=== PATIENT | female | born 1940 | race Caucasian/White ===

== ENCOUNTER 2020-01-26 18:21 | Emergency (ER) | payer MEDICARE ==
[2020-01-26] MEDS ORDERED: SODIUM CHLORIDE 0.9% 1,000 ML IV STA (18:25)
[2020-01-26] MEDS ORDERED: SODIUM CHLORIDE 0.9% 500 ML 500 ML IV STA (18:25)
[2020-01-26 18:31] LABS: Glucose,Whole Blood 111 mg/dL (75-99)
--- NOTE | 2020-01-26 18:38 | CT ---
EXAMINATION TYPE: CT brain wo con for TPA DATE OF EXAM: 01/26/2020 COMPARISON: None INDICATION: cva DLP: 1099.6 mGycm, Automated exposure control for dose reduction was used. CONTRAST: None CT of the brain is performed utilizing 3 mm thick sections through the posterior fossa and 3 mm thick sections through the remaining calvarium. Study is performed within 24 hours of arrival to the hosp ital. No abnormal hyperdensity is present to suggest an acute intracranial hemorrhage. No mass lesion is evident. No acute infarcts are evident. Ventricles and sulci are mildly prominent for the patient age. Paranasal sinuses and mastoid air cells within the [id number] are clear. IMPRESSIONS: 1. No acute intracranial process.
[2020-01-26 18:43] VITALS: RESP 16
--- NOTE | 2020-01-26 18:43 | ED ---
Neuro HPI - General Stated Complaint: STROKE Time Seen by Provider: 01/26/20 18:25 Source: RN notes reviewed, old records reviewed - History of Present Illness Is the patient presenting with stroke symptoms?: Yes -: hour(s) (1) Initial Comments: This is an 79-year-old female DF for evaluation she presents today for evaluation of strokelike symptoms presenting with EMS and her daughter. Daughter was with patient prior to arrival when symptoms began. Patient has history of atrial fibrillation on Coumadin. Patient was sobering buying a house did sit down to have a drink surgery jaw and became unresponsive a phasic and daughter did call EMS at that time. EMS arrived patient EMS also had some right-sided surgery weakness and patient not responding patient brought to EMS and then to emergency department in same condition. On arrival to ER patient is unable to contribute to history Location: speech, dysarthria, right arm, right leg History of same: No Place: home Severity: severe Improves With: none Worsens With: none On Anticoagulants: Yes (Coumadin) Context: sudden onset Associated Symptoms: denies other symptoms - Related Data Allergies/Adverse Reactions: Allergies Allergy/AdvReac Type Severity Reaction Status Date / Time Penicillins Allergy Unknown Verified 01/26/20 18:39 Review of Systems ROS Statement: Those systems with pertinent positive or pertinent negative responses have been documented in the HPI. ROS Other: All systems not noted in ROS Statement are negative. General Exam General appearance: alert, in no apparent distress, lethargic, in distress, other (aphasia, receptive and expressive) Head exam: Present: atraumatic, normocephalic, normal inspection Eye exam: Present: normal appearance, PERRL, EOMI. Absent: scleral icterus, conjunctival injection, periorbital swelling ENT exam: Present: normal exam, mucous membranes moist Neck exam: Present: normal inspection. Absent: tenderness, meningismus, lymphadenopathy Respiratory exam: Present: normal lung sounds bilaterally. Absent: respiratory distress, wheezes, rales, rhonchi, stridor Cardiovascular Exam: Present: regular rate, normal rhythm, normal heart sounds. Absent: systolic murmur, diastolic murmur, rubs, gallop, clicks GI/Abdominal exam: Present: soft, normal bowel sounds. Absent: distended, tenderness, guarding, rebound, rigid Extremities exam: Present: normal inspection, full ROM, normal capillary refill. Absent: tenderness, pedal edema, joint swelling, calf tenderness Back exam: Present: normal inspection Neurological exam: Present: alert, oriented X3, CN II-XII intact Psychiatric exam: Present: normal affect, normal mood Skin exam: Present: warm, dry, intact, normal color. Absent: rash Stroke MDM - Lab Data Result diagrams: 01/26/20 18:26 Lab Results 01/26/20 01/26/20 01/26/20 Range/Units 18:23 18:26 18:26 PT (9.0-12.0) sec INR (<1.2) APTT (22.0-30.0) sec Sodium 139 (137-145) mmol/L Potassium 4.8 (3.5-5.1) mmol/L Chloride 105 (98-107) mmol/L Carbon Dioxide 21 L (22-30) mmol/L Anion Gap 13 mmol/L BUN 28 H (7-17) mg/dL Creatinine 1.13 H (0.52-1.04) mg/dL Est GFR (CKD-EPI)AfAm 53 (>60 ml/min/1.73 sqM) Est GFR (CKD-EPI)NonAf 46 (>60 ml/min/1.73 sqM) Glucose 120 H (74-99) mg/dL POC Glucose (mg/dL) 111 H (75-99) mg/dL POC Glu [employer] Operator ID Kaley Holloway Calcium 8.9 (8.4-10.2) mg/dL Total Bilirubin 1.6 H (0.2-1.3) mg/dL AST 44 H (14-36) U/L ALT 21 (4-34) U/L Alkaline Phosphatase 67 (38-126) U/L Total Creatine Kinase 75 (30-135) U/L CK-MB (CK-2) 0.6 (0.0-2.4) ng/mL CK-MB (CK-2) Rel Index 0.8 Troponin I <0.012 (0.000-0.034) ng/mL Total Protein 7.7 (6.3-8.2) g/dL Albumin 4.4 (3.5-5.0) g/dL 01/26/20 Range/Units 18:26 PT 16.2 H (9.0-12.0) sec INR 1.6 H (<1.2) APTT 24.8 (22.0-30.0) sec Sodium (137-145) mmol/L Potassium (3.5-5.1) mmol/L Chloride (98-107) mmol/L Carbon Dioxide (22-30) mmol/L Anion Gap mmol/L BUN (7-17) mg/dL Creatinine (0.52-1.04) mg/dL Est GFR (CKD-EPI)AfAm (>60 ml/min/1.73 sqM) Est GFR (CKD-EPI)NonAf (>60 ml/min/1.73 sqM) Glucose (74-99) mg/dL POC Glucose (mg/dL) (75-99) mg/dL POC Glu [employer] Operator ID Calcium (8.4-10.2) mg/dL Total Bilirubin (0.2-1.3) mg/dL AST (14-36) U/L ALT (4-34) U/L Alkaline Phosphatase (38-126) U/L Total Creatine Kinase (30-135) U/L CK-MB (CK-2) (0.0-2.4) ng/mL CK-MB (CK-2) Rel Index Troponin I (0.000-0.034) ng/mL Total Protein (6.3-8.2) g/dL Albumin (3.5-5.0) g/dL - NIH Stroke Scale 1a. Level of Consciousness: (0) alert 1b. LOC Questions: (2) answers no questions correctly 1c. LOC Commands: (2) performs no tasks correctly 2. Best Gaze: (0) normal 3. Visual: (0) no visual loss 4. Facial Palsy: (2) partial paralysis 5a. Motor Arm Left: (0) no drift 5b. Motor Arm Right: (2) some gravity effort 6a. Motor Leg Left: (0) no drift 6b. Motor Leg Right: (2) some gravity effort 7. Limb Ataxia: (2) present 2 limbs 8. Sensory: (0) normal 9. Best Language: (un) mute/global aphasia 10. Dysarthria: (1) mild/moderate dysarthria 11. Extinction/Inattention: (0) no abnormality - Thrombolytic Inclusion/Exclusion Thrombolytic Inclusion Criteria: Symptom Onset < 4.5 h, NIH Stroke Scale Deficit, Negative CT Scan for ICH, Age 18 or Older, Glucose of 50-400mg/dl - Medical Decision Making 79 female DF for evaluation patient presents today for evaluation of neurological deficit unresponsiveness patient found to have left MCA CVA on computed tomography scan and will transferred [facility] for embolectomy, awaiting INR regarding possible administration of TPA - Radiology Data Radiology results: report reviewed, image reviewed - EKG Data -: EKG Interpreted by Me (EKG is a flutter rate of 64, QRS 152 QTC 491) Course Vital Signs 01/26/20 01/26/20 18:39 18:45 Temperature 98 F 98.1 F Pulse Rate 70 60 Respiratory 16 16 Rate Blood Pressure 146/84 163/80 O2 Sat by Pulse 97 100 Oximetry - Reevaluation(s) Reevaluation #1: 01/26/20 18:53 Medical records reviewed Reevaluation #2: 01/26/20 18:54 Spoke with patient's daughter, updated on findings and results, questions answered Reevaluation #3: 01/26/20 18:54 Reevaluation patient with no symptomatically improvement currently Reevaluation #4: 01/26/20 19:04 Patient to be given TPA with INR of 1.6 - Consultations Consultation #1: spoke w Dr Mike aware of code stroke , he did evaluate the CTA of the head neck does transfer for embolectomy Consultation #2: Spoke with [facility] were agreeable for transfer Critical Care Time Critical Care Time: Yes Total Critical Care Time: 31 Disposition Clinical Impression: Cerebrovascular accident (CVA), Acute ischemic left MCA stroke Disposition: OTHER INSTITUTION NOT DEFINED Condition: Critical Is patient prescribed a controlled substance at d/c from ED?: No Referrals: Hair Olivas MD [Primary Care Provider] - 1-2 days - Out of Hospital Transfer - Req. Specs Out of Hospital Transfer - Requested Specifics: Other Emergency Center ([facility] [place])
[2020-01-26 18:48] LABS: Creatine Kinase 75 U/L (30-135)
[2020-01-26 18:49] LABS: INR 1.6 (<1.2); Partial Thromboplastin Time 24.8 sec (22.0-30.0); Prothrombin Time 16.2 sec (9.0-12.0)
[2020-01-26 18:51] LABS: Albumin 4.4 g/dL (3.5-5.0); Calcium 8.9 mg/dL (8.4-10.2); Potassium 4.8 mmol/L (3.5-5.1); Total Bilirubin 1.6 mg/dL (0.2-1.3); Total Protein 7.7 g/dL (6.3-8.2)
--- NOTE | 2020-01-26 18:52 | XR ---
EXAMINATION TYPE: XR chest 1V portable DATE OF EXAM: 01/26/2020 COMPARISON: None INDICATION: Altered mental status TECHNIQUE: Single frontal view of the chest is obtained. FINDINGS: The heart size is enlarged. The pulmonary vasculature is normal. The lungs are clear. IMPRESSION: 1. Cardiomegaly
[2020-01-26 18:53] VITALS: TEMP 98.1
[2020-01-26 19:00] LABS: Creatine Kinase MB 0.6 ng/mL (0.0-2.4); Troponin I <0.012 ng/mL (0.000-0.034)
[2020-01-26] MEDS ORDERED: Alteplase PER PHARMACY Stroke 1 EACH MISC MISCELLANE PRN (19:00)
[2020-01-26] MEDS ORDERED: ALTEPLASE BOLUS 7 MG in EMPTY SYRINGE 1 SYR IV STA (19:00)
[2020-01-26] MEDS ORDERED: ALTEPLASE 61 MG in EMPTY BAG 1 BAG IV STA (19:00)
--- NOTE | 2020-01-26 19:01 | CT ---
EXAMINATION TYPE: CT angio head neck DATE OF EXAM: 01/26/2020 HISTORY: cva COMPARISON: None CT DLP: 399.6 mGycm. Automated Exposure Control for Dose Reduction was Utilized. TECHNIQUE: CTA scan of the neck is performed with IV Contrast, patient injected with 65cc mL of Isov ue 370, axial images are obtained, coronal and sagittal reformatted images are reviewed. Three-D frank nstructed images are created on an independent workstation and reviewed. Source images are reviewed. FINDINGS: Carotid/Vascular Structures: There is a three-vessel arch. The right vertebral artery is not identifi ed. Left vertebral artery is dominant and patent to the skull base. Some retrograde flow of the contr ast within the right vertebral artery may be at the level of the skull base. Right vertebral artery i s not otherwise identified There is atheromatous plaquing at the bilateral carotid bifurcations. Significant flow-limiting steno sis is not identified. Cervical of [place]: Contrast is within both left and right vertebral arteries within the posterior fo ssa. This may be retrograde flow on the right. Contrast is not extend beyond the skull base within th e right vertebral artery. Basilar artery is normal. Posterior cerebral vasculature is unremarkable. Internal carotid arteries bifurcate normally into A1 and M1 segments. A2 segments are normal. The ant erior communicating artery is patent. Posterior communicating arteries are not identified. IMPRESSION: 1. Atheromatous plaquing at the bilateral carotid bifurcations without significant flow-limiting sten osis. This may be slightly greater on the right than the left. 2. Nonvisualization of the left vertebral artery to the skull base. Retrograde flow within the intrac ranial portion of the right vertebral artery may be present to the skull base. This may be occluded a t its origin. 3. [place] of [place] otherwise appears within normal limits.
[2020-01-26 19:05] LABS: Basophils % (A) 0 %; Eosinophils # (A) 0.1 k/uL (0-0.7); Eosinophils % (A) 1 %; HCT 40.9 % (34.0-46.0); HGB 13.9 gm/dL (11.4-16.0); Lymphocytes # (A) 0.7 k/uL (1.0-4.8); Lymphocytes % (A) 9 %; MCH 36.4 pg (25.0-35.0); MCHC 33.8 g/dL (31.0-37.0); MCV 107.6 fL (80.0-100.0); Macrocytosis Moderate; Monocytes # (A) 0.2 k/uL (0-1.0); Monocytes % (A) 2 %; Neutrophils # (A) 6.1 k/uL (1.3-7.7); Neutrophils % (A) 86 %; Platelet Count 227 k/uL (150-450); RBC 3.81 m/uL (3.80-5.40); RDW 13.1 % (11.5-15.5); WBC 7.1 k/uL (3.8-10.6)
[2020-01-26 19:26] VITALS: BP 166/89; PULSE 66
== END 2020-01-26 19:19 | disposition other institution (70) ==
LOC: EC 18:21
DX: I63.512 Cerebral infarction due to unspecified occlusion or stenosis of left middle cerebral artery (principal); R29.713 NIHSS score 13; I48.91 Unspecified atrial fibrillation; Z79.01 Long term (current) use of anticoagulants; Z88.0 Allergy status to penicillin
CPT/HCPCS: 36415; 93005; 80053; 82550; 82553; 84484; 85025; 85610; 85730; 71045; 70496; 70450; 70498; 99291; 96365; 96368; J2997; Q9967

== ENCOUNTER 2020-04-08 18:07 | Emergency (ER) | payer MEDICARE ==
[2020-04-08 18:23] VITALS: RESP 18; TEMP 98
[2020-04-08] MEDS ORDERED: TRANEXAMIC ACID 1,000 MG/10 ML VIAL MISCELLANE STA (18:44)
[2020-04-08] MEDS ORDERED: LIDOCAINE 1%-EPI 1:100,000 20 ML VIAL SQ STA (18:46)
[2020-04-08] MEDS ORDERED: ONDANSETRON ODT 4 MG TAB PO STA (19:33)
[2020-04-08] MEDS ORDERED: oxyCODONE-APAP 5-325MG 1 EACH TAB PO STA (19:33)
--- NOTE | 2020-04-08 19:56 | ED ---
General Adult HPI - General Source: patient, RN notes reviewed Mode of arrival: ambulatory Limitations: no limitations <Sanya Ortega - Last Filed: 04/08/20 19:46> <Live Hills - Last Filed: 04/08/20 20:45> - General Chief complaint: Dental/Oral Stated complaint: post dental extraction bleeding Time Seen by Provider: 04/08/20 18:37 - History of Present Illness Initial comments: 79-year-old female with a past medical history atrial fibrillation, hyperlipidemia, hypertension, CVA currently on Lovenox presents to the emergency room for dental bleeding. Patient had an extraction of the left lower molar one week ago. Patient was on request and was bridged to Lovenox given stroke history. Today patient was seen by the dentist and given clindamycin. After she got home it started bleeding again after she drank out of a straw. Patient initially tried a teabag which did stop the bleeding however when she took the teabag out it reoccurred.Patient has no other complaints at this time including shortness of breath, chest pain, abdominal pain, nausea or vomiting, headache, or visual changes. (Sanya Ortega) - Related Data Allergies Allergy/AdvReac Type Severity Reaction Status Date / Time Penicillins Allergy Unknown Verified 04/08/20 18:23 Review of Systems ROS Other: All systems not noted in ROS Statement are negative. <Sanya Ortega - Last Filed: 04/08/20 19:46> ROS Other: All systems not noted in ROS Statement are negative. <Live Hills - Last Filed: 04/08/20 20:45> ROS Statement: Those systems with pertinent positive or pertinent negative responses have been documented in the HPI. Past Medical History Past Medical History: Atrial Fibrillation, CVA/TIA, Hyperlipidemia, Hypertension Additional Past Medical History / Comment(s): cardiomyopathy History of Any Multi-Drug Resistant Organisms: None Reported Past Surgical History: Cholecystectomy, Heart Catheterization, Hysterectomy, Tonsillectomy Past Alcohol Use History: Occasional Past Drug Use History: None Reported <Sanya Ortega - Last Filed: 04/08/20 19:46> General Exam Limitations: no limitations General appearance: alert, in no apparent distress Head exam: Present: atraumatic, normocephalic, normal inspection Eye exam: Present: normal appearance, PERRL, EOMI. Absent: scleral icterus, conjunctival injection, periorbital swelling ENT exam: Present: normal exam, mucous membranes moist, TM's normal bilaterally, normal external ear exam. Absent: normal oropharynx (tooth extraction noted of the left lower molar with mild bleeding at this time.) Neck exam: Present: normal inspection, full ROM. Absent: tenderness, meningismus, lymphadenopathy Respiratory exam: Present: normal lung sounds bilaterally. Absent: respiratory distress, wheezes, rales, rhonchi, stridor Cardiovascular Exam: Present: regular rate, normal rhythm, normal heart sounds. Absent: systolic murmur, diastolic murmur, rubs, gallop, clicks GI/Abdominal exam: Present: soft, normal bowel sounds. Absent: distended, tenderness, guarding, rebound, rigid <Sanya Ortega - Last Filed: 04/08/20 19:46> Course <Live [place] - Last Filed: 04/08/20 20:45> Vital Signs 04/08/20 04/08/20 18:18 20:08 Temperature 98.0 F 98.0 F Pulse Rate 77 68 Respiratory 18 18 Rate Blood Pressure 152/86 152/77 O2 Sat by Pulse 97 97 Oximetry - Reevaluation(s) Reevaluation #1: 04/08/20 20:44 PA supervision: I personally a [id number] evaluation the patient. She did have a tooth extraction left lower gum approximately 1 week ago. She had bleeding today. She is on anticoagulants due to the risk of stroke. Patient to response to topical TX a. Patient will be discharged further bleeding on inspection. (Live [place]) Medical Decision Making <Sanya Ortega - Last Filed: 04/08/20 19:46> - Medical Decision Making TXA was applied to the area. This did achieve hemostasis. Patient was already seen by dentist today and started on clindamycin for possible infection however no evidence of abscess. At this time patient will be discharged home. She'll return here for any worsening symptoms. (Sanya Ortega) Disposition Is patient prescribed a controlled substance at d/c from ED?: No Time of Disposition: 19:55 <Sanya Ortega - Last Filed: 04/08/20 19:46> <Live [place] - Last Filed: 04/08/20 20:45> Clinical Impression: Post-op bleeding Disposition: HOME SELF-CARE Condition: Good Instructions (If sedation given, give patient instructions): Toothache (ED), Dry Socket (ED) Additional Instructions: please follow up with primary care in 1-2 days. if bleeding starts again tried direct pressure to the area for 20 minutes or a teabag. However if you cannot get bleeding to stop return to the emergency room. Referrals: Hair Olivas MD [Primary Care Provider] - 1-2 days
[2020-04-08 20:12] VITALS: BP 152/77; PULSE 68
== END 2020-04-08 20:11 | disposition home or self-care (01) ==
LOC: EC 18:07
DX: L76.22 Postprocedural hemorrhage of skin and subcutaneous tissue following other procedure (principal); Z88.0 Allergy status to penicillin; Z86.73 Personal history of transient ischemic attack (TIA), and cerebral infarction without residual deficits; Z95.5 Presence of coronary angioplasty implant and graft; Z98.818 Other dental procedure status
CPT/HCPCS: 99283

== ENCOUNTER 2022-12-24 09:15 | Emergency (ER) | payer MEDICARE ==
[2022-12-24] MEDS ORDERED: SODIUM CHLORIDE 0.9% 500 ML 500 ML IV STA (09:17)
--- NOTE | 2022-12-24 09:23 | ED ---
General Adult HPI - General Stated complaint: Possible Stroke Time Seen by Provider: 12/24/22 09:15 - History of Present Illness Initial comments: This is an 82-year-old female who has a past medical history significant for atrial fibrillation and stroke. Patient had a CAT scan about 3 weeks ago and it showed a subacute stroke in her eliquis. This past night. Patient woke up this morning was feeling fine was able to get up and walk around and that was a 20. Shortly thereafter someone spoke with her on the phone and she sounded fine and then when the daughter showed up to take her for a repeat CAT scan and she was having complete left-sided paralysis. Patient is alert and oriented and is aware that she is having paralysis. Patient denies any pain. Patient does realize the left side is weak. Patient states that she is at the hospital and needs a CAT scan. Daughter gives quite a bit of the history and she is also a nurse. - Related Data Allergies Allergy/AdvReac Type Severity Reaction Status Date / Time Penicillins Allergy Unknown Verified 04/08/20 18:23 Review of Systems ROS Statement: Those systems with pertinent positive or pertinent negative responses have been documented in the HPI. ROS Other: All systems not noted in ROS Statement are negative. Past Medical History Past Medical History: Atrial Fibrillation, CVA/TIA, Hyperlipidemia, Hypertension Additional Past Medical History / Comment(s): cardiomyopathy History of Any Multi-Drug Resistant Organisms: None Reported Past Surgical History: Cholecystectomy, Heart Catheterization, Hysterectomy, Tonsillectomy Past Alcohol Use History: Occasional Past Drug Use History: None Reported General Exam - General Exam Comments Initial Comments: GENERAL: Patient is well-developed and well-nourished. Patient is nontoxic and well- hydrated and is in mild distress. ENT: Neck is soft and supple. No significant lymphadenopathy is noted. Oropharynx is clear. Moist mucous membranes. Neck has full range of motion without eliciting any pain. EYES: The sclera were anicteric and conjunctiva were pink and moist. Extraocular movements were intact and pupils were equal round and reactive to light. Eyelids were unremarkable. PULMONARY: Unlabored respirations. Good breath sounds bilaterally. No audible rales rhonc hi or wheezing was noted. CARDIOVASCULAR: There is a regular rate and rhythm without any murmurs gallops or rubs. ABDOMEN: Soft and nontender with normal bowel sounds. No palpable organomegaly was noted. There is no palpable pulsatile mass. SKIN: Skin is clear with no lesions or rashes and otherwise unremarkable. NEUROLOGIC: Patient is alert and oriented x3. Patient has left-sided facial droop patient has complete paralysis of left arm and left leg. Patient has slurred speech as well. Patient's extraocular motion is normal to the right but she is unable to past midline when trying to look to the left. MUSCULOSKELETAL: Normal extremities with adequate strength and full range of motion. No lower extremity swelling or edema. No calf tenderness. LYMPHATICS: No significant lymphadenopathy is noted PSYCHIATRIC: Normal psychiatric evaluation. Course Vital Signs 12/24/22 12/24/22 09:16 09:17 Temperature 97.3 F L 97.4 F L Pulse Rate 70 68 Respiratory 19 19 Rate Blood Pressure 193/114 182/106 O2 Sat by Pulse 99 99 Oximetry Medical Decision Making - Medical Decision Making A code stroke was called immediately after I saw the patient. EKG was interpreted by myself shows atrial fibrillation with a rate of 56 bpm QRS is 156 QT interval is 4 6090 QTC is 460. Patient's EKG shows no ST segment elevation or depression. Was pt. sent in by a medical professional or institution (, PA, FITTING ROOM ASSOCIATE, urgent care, hospital, or long term...) When possible be specific @ -No Did you speak to anyone other than the patient for history (EMS, parent, family, police, friend...)? What history was obtained from this source @ -EMS and daughter do quite a bit of history Did you review nursing and triage notes (agree or disagree)? Why? @ -I reviewed and agree with nursing and triage notes Were old charts reviewed (outside hosp., previous admission, EMS record, old EKG, old radiological studies, urgent care reports/EKG's, long term records)? Report findings @ -I reviewed prior labs charts and radiological studies on this patient Differential Diagnosis (chest pain, altered mental status, abdominal pain women, abdominal pain men, vaginal bleeding, weakness, fever, dyspnea, syncope, h eadache, dizziness, GI bleed, back pain, seizure, CVA, palpatations, mental health, musculoskeletal)? @ -Differential CVA Ischemic stroke, hemorrhagic stroke, brain tumor, atypical migraine, Wernicke's encephalopathy, seizure, multiple sclerosis, meningitis, encephalitis, hypogl ycemia, Guillain-Mccoy, electrolytes disturbance, myasthenia gravis.... This is not meant to be an all-inclusive list EKG interpreted by me (3pts min.). @ -As above X-rays interpreted by me (1pt min.). @ -None done CT interpreted by me (1pt min.). @ -CT of the brain was interpreted by myself shows a hyperdense area on the right side consistent with a middle cerebral artery occlusion CTA was interpreted by radiology of the head and neck and it showed a occluded right middle cerebral artery. U/S interpreted by me (1pt. min.). @ -None done What testing was considered but not performed or refused? (CT, X-rays, U/S, labs)? Why? @ -None What meds were considered but not given or refused? Why? @ -None Did you discuss the management of the patient with other professionals (professionals i.e. , PA, FITTING ROOM ASSOCIATE, lab, RT, psych nurse, addiction social worker, closing manager, teacher, emergency response officer, case folder)? Give summary @ -Spoke with Dr. Mike on 2 different occasions he did want the patient transferred to [place] so he could take her to the [facility]. Patient's also given aspirin per rectum at the hospital. Was smoking cessation discussed for >3mins.? @ -No Was critical care preformed (if so, how long)? @ -35 minutes Were there social determinants of health that impacted care today? How? (Homelessness, low income, unemployed, alcoholism, drug addiction, transportation, low edu. Level, literacy, decrease access to med. care, usp, rehab)? @ -No Was there de-escalation of care discussed even if they declined (Discuss DNR or withdrawal of care, Hospice)? DNR status @ -No What co-morbidities impacted this encounter? (DM, HTN, Smoking, COPD, CAD, Cancer, CVA, ARF, Chemo, Hep., AIDS, mental health diagnosis, sleep apnea, morbid obesity)? @ -None Was patient admitted / discharged? Hospital course, mention meds given and route, prescriptions, significant lab abnormalities, going to OR and other pertinent info. @ -Patient was not a TPA candidate secondary to the fact that she recently had a brain bleed. Patient did have an occluded right posterior artery and patient will be sent the fluid for catheterization and will see Dr. Mike there Undiagnosed new problem with uncertain prognosis? @ -No Drug Therapy requiring intensive monitoring for toxicity (Heparin, Nitro, Insulin, Cardizem)? @ -No Were any procedures done? @ -No Diagnosis/symptom? @ -CVA Acute, or Chronic, or Acute on Chronic? @ -Acute Uncomplicated (without systemic symptoms) or Complicated (systemic symptoms)? @ -Complicated Side effects of treatment? @ -No Exacerbation, Progression, or Severe Exacerbation? @ -No Poses a threat to life or bodily function? How? (Chest pain, [place], [place], pneumonia, PE, COPD, DKA, ARF, appy, cholecystitis, CVA, Diverticulitis, Homicidal, Suicidal, threat to staff... and all critical care pts) @ -Yes this could lead to significant morbidity or mortality - Lab Data Result diagrams: 12/24/22 09:25 12/24/22 09:25 Lab Results 12/24/22 12/24/22 12/24/22 Range/Units 09:25 09:25 09:25 WBC 6.1 (3.8-10.6) k/uL RBC 3.45 L (3.80-5.40) m/uL Hgb 11.2 L (11.4-16.0) gm/dL Hct 35.3 (34.0-46.0) % MCV 102.2 H (80.0-100.0) fL MCH 32.4 (25.0-35.0) pg MCHC 31.7 (31.0-37.0) g/dL RDW 16.6 H (11.5-15.5) % Plt Count 292 (150-450) k/uL MPV 7.6 Neutrophils % 73 % Lymphocytes % 13 % Monocytes % 9 % Eosinophils % 1 % Basophils % 0 % Neutrophils # 4.5 (1.3-7.7) k/uL Lymphocytes # 0.8 L (1.0-4.8) k/uL Monocytes # 0.5 (0-1.0) k/uL Eosinophils # 0.1 (0-0.7) k/uL Basophils # 0.0 (0-0.2) k/uL Anisocytosis Slight Macrocytosis Moderate PT 11.0 (9.0-12.0) sec INR 1.0 (<1.2) APTT 24.8 (22.0-30.0) sec Sodium 134 L (137-145) mmol/L Potassium 4.0 (3.5-5.1) mmol/L Chloride 100 (98-107) mmol/L Carbon Dioxide 21 L (22-30) mmol/L Anion Gap 13 mmol/L BUN 18 H (7-17) mg/dL Creatinine 1.31 H (0.52-1.04) mg/dL Est GFR (CKD-EPI)AfAm 43 (>60 ml/min/1.73 sqM) Est GFR (CKD-EPI)NonAf 37 (>60 ml/min/1.73 sqM) Glucose 106 H (74-99) mg/dL Calcium 8.9 (8.4-10.2) mg/dL Total Bilirubin 1.6 H (0.2-1.3) mg/dL AST 29 (14-36) U/L ALT 17 (4-34) U/L Alkaline Phosphatase 109 (38-126) U/L Creatine Kinase 40 (30-135) U/L Troponin I (0.000-0.034) ng/mL Total Protein 7.7 (6.3-8.2) g/dL Albumin 3.7 (3.5-5.0) g/dL 12/24/22 Range/Units 09:25 WBC (3.8-10.6) k/uL RBC (3.80-5.40) m/uL Hgb (11.4-16.0) gm/dL Hct (34.0-46.0) % MCV (80.0-100.0) fL MCH (25.0-35.0) pg MCHC (31.0-37.0) g/dL RDW (11.5-15.5) % Plt Count (150-450) k/uL MPV Neutrophils % % Lymphocytes % % Monocytes % % Eosinophils % % Basophils % % Neutrophils # (1.3-7.7) k/uL Lymphocytes # (1.0-4.8) k/uL Monocytes # (0-1.0) k/uL Eosinophils # (0-0.7) k/uL Basophils # (0-0.2) k/uL Anisocytosis Macrocytosis PT (9.0-12.0) sec INR (<1.2) APTT (22.0-30.0) sec Sodium (137-145) mmol/L Potassium (3.5-5.1) mmol/L Chloride (98-107) mmol/L Carbon Dioxide (22-30) mmol/L Anion Gap mmol/L BUN (7-17) mg/dL Creatinine (0.52-1.04) mg/dL Est GFR (CKD-EPI)AfAm (>60 ml/min/1.73 sqM) Est GFR (CKD-EPI)NonAf (>60 ml/min/1.73 sqM) Glucose (74-99) mg/dL Calcium (8.4-10.2) mg/dL Total Bilirubin (0.2-1.3) mg/dL AST (14-36) U/L ALT (4-34) U/L Alkaline Phosphatase (38-126) U/L Creatine Kinase (30-135) U/L Troponin I <0.012 (0.000-0.034) ng/mL Total Protein (6.3-8.2) g/dL Albumin (3.5-5.0) g/dL Critical Care Time Critical Care Time: Yes Total Critical Care Time: 35 Disposition Clinical Impression: Cerebrovascular accident (CVA) Disposition: TRANSFER TO PSYCH HOSP/UNIT Referrals: Hair Olivas MD [Primary Care Provider] - 1-2 days Time of Disposition: 10:08 - Out of Hospital Transfer - Req. Specs Out of Hospital Transfer - Requested Specifics: Other Emergency Center ([facility])
[2022-12-24 09:36] LABS: Anisocytosis Slight; Basophils % (A) 0 %; Eosinophils # (A) 0.1 k/uL (0-0.7); Eosinophils % (A) 1 %; HCT 35.3 % (34.0-46.0); HGB 11.2 gm/dL (11.4-16.0); Lymphocytes # (A) 0.8 k/uL (1.0-4.8); Lymphocytes % (A) 13 %; MCH 32.4 pg (25.0-35.0); MCHC 31.7 g/dL (31.0-37.0); MCV 102.2 fL (80.0-100.0); Macrocytosis Moderate; Mean Platelet Volume 7.6; Monocytes # (A) 0.5 k/uL (0-1.0); Monocytes % (A) 9 %; Neutrophils # (A) 4.5 k/uL (1.3-7.7); Neutrophils % (A) 73 %; Platelet Count 292 k/uL (150-450); RBC 3.45 m/uL (3.80-5.40); RDW 16.6 % (11.5-15.5); WBC 6.1 k/uL (3.8-10.6)
[2022-12-24 09:41] LABS: Partial Thromboplastin Time 24.8 sec (22.0-30.0)
--- NOTE | 2022-12-24 09:41 | CT ---
EXAMINATION TYPE: CT brain wo con DATE OF EXAM: 12/24/2022 COMPARISON: 01/26/2020 HISTORY: Neuro deficits CT DLP: 1205.6 mGycm Automated exposure control for dose reduction was used. FINDINGS: There is a hyperdense right MCA sign with adjacent calcifications seen involving the M2 segment of th e right MCA suggestive of acute thrombosis. There is a moderate generalized degenerative change. There is chronic appearing subdural hematoma mamie suring a maximal thickness of 1.4 cm. No definite acute hemorrhage seen. Ventricular system appears t o be midline. Calvarium intact. Craniocervical junction maintained. Orbits symmetric. There is a 2.5 x 2 cm anterio r temporal fossa CSF collection likely related to small arachnoid cyst. Moderate degenerative change with low attenuation in the white matter is nonspecific but most suggestive of remote ischemic white matter change. Intracranial atherosclerotic change is noted. IMPRESSION: 1. Findings are suggestive of acute thrombosis right MCA with a hyperdense right MCA sign. No acute i ntracranial hemorrhage. 2. There is a sizable chronic subdural hematoma along the left cerebral convexity measuring a maximal dimension of 1.4 cm. Minimal midline shift not excluded.
[2022-12-24 09:46] LABS: Albumin 3.7 g/dL (3.5-5.0); Calcium 8.9 mg/dL (8.4-10.2); Total Bilirubin 1.6 mg/dL (0.2-1.3); Total Protein 7.7 g/dL (6.3-8.2)
[2022-12-24] MEDS ORDERED: ASPIRIN 300 MG SUPP RECTAL STA (09:49)
--- NOTE | 2022-12-24 09:56 | XR ---
EXAMINATION TYPE: XR chest 2V DATE OF EXAM: 12/24/2022 9:49 AM COMPARISON: Chest radiographs from 01/26/2020 TECHNIQUE: XR chest 2V Frontal and lateral views of the chest. CLINICAL INDICATION:Female, 82 years old with history of altered mental status; FINDINGS: Lungs/Pleura: No evidence of focal consolidation or pneumothorax. Blunting of the costophrenic angles is present. Pulmonary vascularity: Pulmonary vascular congestion. Heart/mediastinum: Cardiomediastinal silhouette is enlarged and stable. Musculoskeletal: No acute osseous pathology. IMPRESSION: Cardiomegaly, pulmonary vascular congestion and bilateral pleural effusions. Correlate with BNP for c ongestive heart failure.
[2022-12-24] MEDS ORDERED: ONDANSETRON 4 MG/2 ML VIAL IVP STA (10:06)
--- NOTE | 2022-12-24 10:12 | CT ---
EXAMINATION TYPE: CT angio head neck CT DLP: 473.7 mGycm, Automated exposure control for dose reduction was used. DATE OF EXAM: 12/24/2022 9:49 AM COMPARISON: 01/26/2020. CLINICAL INDICATION:Female, 82 years old with history of Neuro deficit, acute, stroke suspected, Neur o deficits, hx stroke TECHNIQUE: Axially acquired helical CT angiogram of the head and neck was obtained with contrast. Axi al images are supplemented with 3D reconstructions [facility] NASCET criteria used. Contrast used:65 mL of Isovue 370 with IV Contrast, Oral contrast used: None. FINDINGS: CTA HEAD: No evidence of acute intracranial hemorrhage, mass effect, or midline shift. The ventricles, sulci, a nd cisterns are unremarkable. There is abrupt cut off of the M1 segment of the right MCA series 406 image 40. There is a orig in of the left posterior cerebral artery. The visualized portions of the internal carotid arteries, left middle cerebral artery, anterior cereb ral arteries, and posterior cerebral arteries are patent. The basilar and vertebral arteries are patent. CTA NECK: Right Carotid System: The common carotid and external carotid arteries are patent. There is approximately 25 stenosis at th e carotid bifurcation secondary to calcified/noncalcified plaquing. The rest of the internal carotid artery is patent. Left Carotid System: The common carotid and external carotid arteries are patent. There is approximately 25 stenosis at th e carotid bifurcation secondary to calcified/noncalcified plaquing. The rest of the internal carotid artery is patent. The left renal artery and its origin are patent. There is mild narrowing at the ostium. The right rachael al artery is not visualized and is occluded extending from near its origin to the C2 vertebral body w here there is reconstitution likely secondary to backflow from the vertebral basilar artery. There is a three-vessel aortic arch. The origins of the great vessels are patent. No evidence of hemo dynamically significant stenosis. Upper thorax: Trace right pleural effusion. IMPRESSION: 1. Abrupt cut off of the right MCA M1 segment which is new from 2019. 2. 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 This finding is similar to 2019. 3. No evidence of dissection of the cervical internal carotid arteries or left vertebral artery or a ny evidence of significant stenosis at the carotid bifurcations. 4. Mild stenosis at the left vertebral artery origin which is difficult to visualize given blooming artifact from calcification. Findings communicated to Dr. Conrad Rollins MD on 12/24/2022 10:[address] Live Winter.
[2022-12-24 10:37] VITALS: BP 153/88; PULSE 66; RESP 13; TEMP 97.3
== END 2022-12-24 10:25 ==
LOC: EC 09:15
DX: I63.9 Cerebral infarction, unspecified (principal); I48.91 Unspecified atrial fibrillation; I10 Essential (primary) hypertension; Z86.73 Personal history of transient ischemic attack (TIA), and cerebral infarction without residual deficits; Z88.0 Allergy status to penicillin
CPT/HCPCS: 99291 ×2; 96374 ×2; 36415; 93005; 80053; 82550; 84484; 85025; 85610; 85730; 71046; 70496; 70450; 70498; J2405; Q9967

== ENCOUNTER → 2023-02-02 | Outpatient (CLI) | payer MEDICARE ==
--- NOTE | 2023-02-02 11:08 | CT ---
EXAMINATION TYPE: CT brain wo con DATE OF EXAM: 02/02/2023 COMPARISON: 12/24/2022 HISTORY: 82-year-old female S06.5XAA, Subdural hematoma. TECHNIQUE: Examination was done in axial plane without intravenous contrast. Coronal and sagittal r econstructions performed. CT DLP: 961.0 mGycm Automated exposure control for dose reduction was used. FINDINGS: Redemonstrated hypodense left-sided subdural hematoma extending along the left lateral convexity. Rel atively similar in size at 1.3 cm. However, there is new layering hyper dense blood products. Similar mild mass effect onto the underlying cerebral cortex. Minimal 2 mm of rightward midline shift is unc hanged. No hydrocephalus. Mild bifrontal atrophy. Metastatic calcifications carotid siphons. No effacement of the basal subarachnoid cisterns. There is encephalomalacia anterior aspect of the left temporal lobe, likely sequela of prior traumatic or vas cular insult. Paranasal sinuses and mastoid air cells are well-pneumatized. Leftward nasal septal deviation. Slight prominence to the superior abdomen veins may reflect a component of these intracranial pressures. IMPRESSION: 1. Redemonstrated chronic subdural hematoma along the left lateral convexity. Relatively similar size measuring 1.3 cm thick. However, there has been a small amount of interval acute bleeding with some layering acute blood products posteriorly within the subdural collection. 2. The minimal 2 mm of rightward midline shift is unchanged. 3. Old encephalomalacia anterior left temporal lobe. Findings sent to Dr. Rodarte by Timmy at 1105 AM.
== END | disposition home or self-care (01) ==
LOC: RADCTMAIN 09:28
PROVIDERS: ATTEND Psychiatry & Neurology Vascular Neurology
DX: S06.5XAA Traumatic subdural hemorrhage with loss of consciousness status unknown, initial encounter (principal); G93.89 Other specified disorders of brain; X58.XXXA Exposure to other specified factors, initial encounter
CPT/HCPCS: 70450

== ENCOUNTER → 2023-02-24 | Outpatient (CLI) | payer MEDICARE ==
[2023-02-24 15:44] LABS: HCT 32.5 % (37.2-46.3); HGB 10.5 d/dL (12.0-15.0); MCH 33.8 pg (27.0-32.0); MCHC 32.3 d/dL (32.0-37.0); MCV 104.5 FL (80.0-97.0); Mean Platelet Volume 10.3 FL (9.5-12.2); NRBC Per 100 WBC 0 X 10*3/uL (0.00-0.01); Platelet Count 213 X 10*3/uL (140-440); RBC 3.11 X 10*6/uL (4.10-5.20); RDW 14.7 % (11.5-14.5); WBC 5.83 X 10*3/uL (4.50-10.00)
[2023-02-24 19:26] LABS: BUN/Creat Ratio 21.47 Ratio (12.00-20.00); Blood Urea Nitrogen 32.2 mg/dL (9.0-27.0); Calcium 9.4 mg/dL (8.7-10.3); Carbon Dioxide 25.1 mmol/L (21.6-31.8); Chloride 101 mmol/L (96-109); Glucose 83 mg/dL (70-110); Sodium 141 mmol/L (135-145)
== END | disposition home or self-care (01) ==
LOC: LABWHC1 10:36
PROVIDERS: ATTEND Psychiatry & Neurology Vascular Neurology
DX: I63.9 Cerebral infarction, unspecified (principal)
CPT/HCPCS: 36415; 80048; 85027

== ENCOUNTER → 2023-02-25 | Outpatient (CLI) | payer MEDICARE ==
--- NOTE | 2023-02-25 11:25 | CT ---
EXAMINATION TYPE: CT brain wo con CT DLP: 1092.6 mGycm, Automated exposure control for dose reduction was used. DATE OF EXAM: 02/25/2023 11:08 AM COMPARISON: CT brain 02/02/2023, 12/24/2022, CTA head and neck 12/24/2022 CLINICAL INDICATION:Female, 82 years old with history of I63.9, Follow up of subdural hematoma TECHNIQUE: Brain: Multiple axial CT images of the brain were obtained without IV contrast. Coronal and sagittal reformats reviewed. FINDINGS: Brain: Extra-axial spaces: Demonstration of hypodense left-sided subdural hematoma extending along the left lateral convexity. Relatively similar size at 1.3 cm. There is again layering hyperdense blood produc ts identified. Similar mild mass effect upon the underlying cerebral cortex. Ventricular system: Within normal limits Cerebral parenchyma: Cerebral atrophy involving the bilateral frontal lobes. Redemonstration of encep halomalacia involving the anterior aspect of the left temporal lobe, likely sequelae of prior traumat ic or vascular insults. No acute intraparenchymal hemorrhage. The morocho-white junction is well differe ntiated. Scattered hypoattenuating areas are seen within the white matter. Cerebellum: Unremarkable. Mass effect: Minimal 2 mm of rightward midline shift redemonstrated. Intracranial vasculature: Atherosclerotic calcifications of the intracranial vessels. Soft tissues: Normal. Calvarium/osseous structures: No depressed skull fracture. Paranasal sinuses and mastoid air cells: Clear Visualized orbits: Bilateral aphakia IMPRESSION: 1. Redemonstrated chronic subdural hematoma along the left lateral convexity. Relatively similar size measuring 1.3 cm in thickness. However, there has been a small amount of interval acute bleeding aga in demonstrated with some layering acute blood products posteriorly within the subdural collection. 2. Minimal 2 mm of rightward midline shift is unchanged. 3. Old encephalomalacia anterior left temporal lobe.
== END | disposition home or self-care (01) ==
LOC: RADCTMAIN 10:46
PROVIDERS: ATTEND Psychiatry & Neurology Vascular Neurology
DX: S06.5XAA Traumatic subdural hemorrhage with loss of consciousness status unknown, initial encounter (principal); G93.89 Other specified disorders of brain; G31.9 Degenerative disease of nervous system, unspecified; X58.XXXA Exposure to other specified factors, initial encounter
CPT/HCPCS: 70450

== ENCOUNTER 2023-03-23 10:28 | Inpatient (IN) | payer MEDICARE ==
[2023-03-23 10:48] LABS: Glucose,Whole Blood 113 mg/dL (70-110)
[2023-03-23 10:57] LABS: Basophils % (A) 0 %; Eosinophils # (A) 0.2 k/uL (0-0.7); Eosinophils % (A) 3 %; HCT 34.3 % (34.0-46.0); HGB 11.6 gm/dL (11.4-16.0); Lymphocytes # (A) 0.7 k/uL (1.0-4.8); Lymphocytes % (A) 8 %; MCHC 33.8 g/dL (31.0-37.0); MCV 103.6 fL (80.0-100.0); Macrocytosis Slight; Mean Platelet Volume 7.9; Monocytes # (A) 0.6 k/uL (0-1.0); Monocytes % (A) 7 %; Neutrophils # (A) 6.9 k/uL (1.3-7.7); Neutrophils % (A) 81 %; Platelet Count 256 k/uL (150-450); RBC 3.31 m/uL (3.80-5.40); RDW 14.9 % (11.5-15.5); WBC 8.6 k/uL (3.8-10.6)
--- NOTE | 2023-03-23 11:01 | ED ---
General Adult HPI - General Chief complaint: Neuro Symptoms/Deficit Stated complaint: neuro sympt Time Seen by Provider: 03/23/23 10:41 Source: patient, RN notes reviewed, old records reviewed Mode of arrival: ambulatory Limitations: no limitations - History of Present Illness Initial comments: 82-year-old female history of previous CVA and recent neurological procedure presents for evaluation of coordination issues, difficulty tying her shoes, difficulty dressing herself and messy handwriting. She states that the symptoms have been present for the past 2 days. She had contacted her neurologist Dr. Mike who was office recommended that the patient presented to the emergency department for evaluation. Patient is on Eliquis. - Related Data Home Medications Medication Instructions Recorded Confirmed Apixaban [Eliquis] 2.5 mg PO BID 03/23/23 03/23/23 Atorvastatin [Lipitor] 20 mg PO HS 03/23/23 03/23/23 Fluticasone/Umeclidin/Vilanter 1 puff INHALATION RT-DAILY 03/23/23 03/23/23 [Trelegy Ellipta 100-62.5-25] Furosemide [Lasix] 20 mg PO DAILY 03/23/23 03/23/23 Levothyroxine Sodium [Synthroid] 88 mcg PO DAILY 03/23/23 03/23/23 Magnesium Chloride [Mag64] 64 mg PO DAILY 03/23/23 03/23/23 Omeprazole [PriLOSEC] 40 mg PO DAILY 03/23/23 03/23/23 Potassium Chloride ER [K-Dur 20] 20 meq PO HS 03/23/23 03/23/23 Propranolol HCl [Inderal] 80 mg PO DAILY 03/23/23 03/23/23 allopurinoL [Zyloprim] 300 mg PO DAILY 03/23/23 03/23/23 oxyBUTYnin chloride [Ditropan] 5 mg PO DAILY 03/23/23 03/23/23 ramipriL [Altace] 10 mg PO DAILY 03/23/23 03/23/23 Allergies Allergy/AdvReac Type Severity Reaction Status Date / Time Penicillins Allergy Unknown Verified 03/23/23 11:42 Sulfa (Sulfonamide Allergy Rash/Hives Verified 03/23/23 11:42 Antibiotics) Review of Systems ROS Statement: Those systems with pertinent positive or pertinent negative responses have been documented in the HPI. ROS Other: All systems not noted in ROS Statement are negative. Past Medical History Past Medical History: Atrial Fibrillation, CVA/TIA, Hyperlipidemia, Hypertension Additional Past Medical History / Comment(s): cardiomyopathy History of Any Multi-Drug Resistant Organisms: None Reported Past Surgical History: Cholecystectomy, Heart Catheterization, Hysterectomy, Tonsillectomy Past Psychological History: No Psychological Hx Reported Smoking Status: Never smoker Past Alcohol Use History: Occasional Past Drug Use History: None Reported General Exam Limitations: no limitations General appearance: alert, in no apparent distress Head exam: Present: atraumatic, normocephalic Eye exam: Present: normal appearance, PERRL ENT exam: Present: normal exam Neck exam: Present: normal inspection. Absent: tenderness Respiratory exam: Present: normal lung sounds bilaterally. Absent: respiratory distress, wheezes Cardiovascular Exam: Present: regular rate, normal rhythm GI/Abdominal exam: Present: soft. Absent: distended, tenderness, guarding Neurological exam: Present: alert, other (Normal strength throughout, no limb ataxia). Absent: motor sensory deficit Skin exam: Present: warm, dry, intact Course Vital Signs 03/23/23 03/23/23 10:32 11:14 Temperature 98.6 F Pulse Rate 63 66 Respiratory 20 18 Rate Blood Pressure 113/69 155/66 O2 Sat by Pulse 94 L 94 L Oximetry - Reevaluation(s) Reevaluation #1: 03/23/23 [address] Rodarte, who is very familiar with this patient. He performed an M a procedure approximately one week ago. He requested CT which was on a complete which showed a stable subdural without active bleed. He requested the patient be admitted for MRI. Patient care was discussed with Dr. liang who will admit. MRI has been ordered. Medical Decision Making - Medical Decision Making Was pt. sent in by a medical professional or institution (, PA, HSE ADVISOR, urgent care, hospital, or prison...) When possible be specific @ -No Did you speak to anyone other than the patient for history (EMS, parent, family, police, friend...)? What history was obtained from this source @ -No Did you review nursing and triage notes (agree or disagree)? Why? @ -I reviewed and agree with nursing and triage notes Were old charts reviewed (outside hosp., previous admission, EMS record, old EKG, old radiological studies, urgent care reports/EKG's, prison records)? Report findings @ -No old charts were reviewed Differential Diagnosis (chest pain, altered mental status, abdominal pain women, abdominal pain men, vaginal bleeding, weakness, fever, dyspnea, syncope, headache, dizziness, GI bleed, back pain, seizure, CVA, palpatations, mental health, musculoskeletal)? @ -Differential CVA Ischemic stroke, hemorrhagic stroke, brain tumor, atypical migraine, Wernicke's encephalopathy, seizure, multiple sclerosis, meningitis, encephalitis, hypoglycemia, Guillain-Mccoy, electrolytes disturbance, myasthenia gravis.... This is not meant to be an all-inclusive list EKG interpreted by me (3pts min.). @ -EKG: Atrial fibrillation with a rate of 72, left bundle branch block, QRS duration 151, QTC 451 X-rays interpreted by me (1pt min.). @ -None done CT interpreted by me (1pt min.). @ -[Chronic subdural without active hemorrhage, CT brain U/S interpreted by me (1pt. min.). @ -None done What testing was considered but not performed or refused? (CT, X-rays, U/S, labs)? Why? @ -None What meds were considered but not given or refused? Why? @ -None Did you discuss the management of the patient with other professionals (professionals i.e. , PA, HSE ADVISOR, lab, RT, psych nurse, geriatric social worker, lead data architect, teacher, motorcycle police officer, vocational case manager)? Give summary @ -[Dr. Liang who will admit, Dr. Mike covering for stroke neurology Was smoking cessation discussed for >3mins.? @ -No Was critical care preformed (if so, how long)? @ -No Were there social determinants of health that impacted care today? How? (Homelessness, low income, unemployed, alcoholism, drug addiction, transportation, low edu. Level, literacy, decrease access to med. care, halfway, re hab)? @ -No Was there de-escalation of care discussed even if they declined (Discuss DNR or withdrawal of care, Hospice)? DNR status @ -No What co-morbidities impacted this encounter? (DM, HTN, Smoking, COPD, CAD, Cancer, CVA, ARF, Chemo, Hep., AIDS, mental health diagnosis, sleep apnea, morbid obesity)? @ -[History of CVA, atrial fibrillation Was patient admitted / discharged? Hospital course, mention meds given and route, prescriptions, significant lab abnormalities, going to OR and other pertinent info. @ -[Laboratory testing and head CT was performed in this patient. Ultimately the patient was felt to require MRI based on the recommendations of Dr. Mike. She will be admitted to internal medicine with neurology on consult awaiting MRI results. Undiagnosed new problem with uncertain prognosis? @ -No Drug Therapy requiring intensive monitoring for toxicity (Heparin, Nitro, Insulin, Cardizem)? @ -No Were any procedures done? @ -No Diagnosis/symptom? @CVA Acute, or Chronic, or Acute on Chronic? @Acute on chronic Uncomplicated (without systemic symptoms) or Complicated (systemic symptoms)? @ -default Side effects of treatment? @ -No Exacerbation, Progression, or Severe Exacerbation? @ -No Poses a threat to life or bodily function? How? (Chest pain, [place], [place], pneumonia, PE, COPD, DKA, ARF, appy, cholecystitis, CVA, Diverticulitis, Homicidal, Suicidal, threat to staff... and all critical care pts) @ -Yes, CVA - Lab Data Result diagrams: 03/23/23 10:49 03/23/23 11:52 Lab Results 03/23/23 03/23/23 03/23/23 Range/Units 10:47 10:49 10:49 WBC 8.6 (3.8-10.6) k/uL RBC 3.31 L (3.80-5.40) m/uL Hgb 11.6 (11.4-16.0) gm/dL Hct 34.3 (34.0-46.0) % MCV 103.6 H (80.0-100.0) fL MCH 35.0 (25.0-35.0) pg MCHC 33.8 (31.0-37.0) g/dL RDW 14.9 (11.5-15.5) % Plt Count 256 (150-450) k/uL MPV 7.9 Neutrophils % 81 % Lymphocytes % 8 % Monocytes % 7 % Eosinophils % 3 % Basophils % 0 % Neutrophils # 6.9 (1.3-7.7) k/uL Lymphocytes # 0.7 L (1.0-4.8) k/uL Monocytes # 0.6 (0-1.0) k/uL Eosinophils # 0.2 (0-0.7) k/uL Basophils # 0.0 (0-0.2) k/uL Macrocytosis Slight PT 10.8 (9.0-12.0) sec INR 1.0 (<1.2) APTT 25.1 (22.0-30.0) sec Sodium (137-145) mmol/L Potassium (3.5-5.1) mmol/L Chloride (98-107) mmol/L Carbon Dioxide (22-30) mmol/L Anion Gap mmol/L BUN (7-17) mg/dL Creatinine (0.52-1.04) mg/dL Est GFR (CKD-EPI)AfAm (>60 ml/min/1.73 sqM) Est GFR (CKD-EPI)NonAf (>60 ml/min/1.73 sqM) Glucose (74-99) mg/dL POC Glucose (mg/dL) 113 H (70-110) mg/dL POC Glu Water Jet Operator ID Christian, Earnestine Calcium (8.4-10.2) mg/dL Total Bilirubin (0.2-1.3) mg/dL AST (14-36) U/L ALT (4-34) U/L Alkaline Phosphatase (38-126) U/L Creatine Kinase (30-135) U/L Total Protein (6.3-8.2) g/dL Albumin (3.5-5.0) g/dL 03/23/23 Range/Units 11:52 WBC (3.8-10.6) k/uL RBC (3.80-5.40) m/uL Hgb (11.4-16.0) gm/dL Hct (34.0-46.0) % MCV (80.0-100.0) fL MCH (25.0-35.0) pg MCHC (31.0-37.0) g/dL RDW (11.5-15.5) % Plt Count (150-450) k/uL MPV Neutrophils % % Lymphocytes % % Monocytes % % Eosinophils % % Basophils % % Neutrophils # (1.3-7.7) k/uL Lymphocytes # (1.0-4.8) k/uL Monocytes # (0-1.0) k/uL Eosinophils # (0-0.7) k/uL Basophils # (0-0.2) k/uL Macrocytosis PT (9.0-12.0) sec INR (<1.2) APTT (22.0-30.0) sec Sodium 133 L (137-145) mmol/L Potassium 4.2 (3.5-5.1) mmol/L Chloride 98 (98-107) mmol/L Carbon Dioxide 28 (22-30) mmol/L Anion Gap 7 mmol/L BUN 33 H (7-17) mg/dL Creatinine 1.39 H (0.52-1.04) mg/dL Est GFR (CKD-EPI)AfAm 40 (>60 ml/min/1.73 sqM) Est GFR (CKD-EPI)NonAf 35 (>60 ml/min/1.73 sqM) Glucose 95 (74-99) mg/dL POC Glucose (mg/dL) (70-110) mg/dL POC Glu Water Jet Operator ID Calcium 8.9 (8.4-10.2) mg/dL Total Bilirubin 1.7 H (0.2-1.3) mg/dL AST 22 (14-36) U/L ALT 13 (4-34) U/L Alkaline Phosphatase 77 (38-126) U/L Creatine Kinase 28 L (30-135) U/L Total Protein 7.1 (6.3-8.2) g/dL Albumin 3.7 (3.5-5.0) g/dL Disposition Clinical Impression: Cerebrovascular accident (CVA) Disposition: ADMITTED IP TO THIS HOSP Condition: Stable Is patient prescribed a controlled substance at d/c from ED?: No Referrals: Hair Olivas MD [Primary Care Provider] - 1-2 days Time of Disposition: 12:39
[2023-03-23 11:11] LABS: Partial Thromboplastin Time 25.1 sec (22.0-30.0); Prothrombin Time 10.8 sec (9.0-12.0)
--- NOTE | 2023-03-23 11:14 | CT ---
EXAMINATION TYPE: CT brain wo con CT DLP: 1098.4 mGycm, Automated exposure control for dose reduction was used. DATE OF EXAM: 03/23/2023 11:04 AM COMPARISON: Multiple CT brain is most recent 02/25/2023 CLINICAL INDICATION:Female, 82 years old with history of Neuro deficit, acute, stroke suspected, ams TECHNIQUE: Brain: Multiple axial CT images of the brain were obtained without IV contrast. Coronal and sagittal reformats reviewed. FINDINGS: Brain: Extra-axial spaces: Redemonstration of hypodense left-sided subdural hematoma extending along the lef t lateral convexity. Relatively similar size at 1.4 cm. Solution of previously demonstrated layering hyperattenuating blood products. Similar mild mass effect upon the underlying cerebral cortex. Ventricular system: Within normal limits Cerebral parenchyma: Cerebral atrophy involving the bilateral frontal lobes. Redemonstration of encep halomalacia involving the anterior aspect of the left temporal lobe, likely sequelae of prior traumat ic or vascular insults. No acute intraparenchymal hemorrhage. The morocho-white junction is well differe ntiated. Scattered hypoattenuating areas are seen within the white matter. Cerebellum: Unremarkable. Mass effect: Minimal 2 mm of rightward midline shift redemonstrated. Intracranial vasculature: Atherosclerotic calcifications of the intracranial vessels. Soft tissues: Normal. Calvarium/osseous structures: No depressed skull fracture. Paranasal sinuses and mastoid air cells: Clear Visualized orbits: Bilateral aphakia IMPRESSION: 1. Redemonstrated chronic subdural hematoma along the left lateral convexity. Relatively similar size measuring 1.3 cm in thickness. No new hyperdensity to suggest acute bleed. No CT evidence for an acu te process. 2. Minimal 2 mm of rightward midline shift is unchanged. 3. Old encephalomalacia anterior left temporal lobe.
[2023-03-23 12:20] LABS: ALT 13 U/L (4-34); AST 22 U/L (14-36); African American GFR (CKD) 40 (>60 ml/min/1.73 sqM); Albumin 3.7 g/dL (3.5-5.0); Alkaline Phosphatase 77 U/L (38-126); Anion Gap 7 mmol/L; Blood Urea Nitrogen 33 mg/dL (7-17); Calcium 8.9 mg/dL (8.4-10.2); Carbon Dioxide 28 mmol/L (22-30); Chloride 98 mmol/L (98-107); Creatine Kinase 28 U/L (30-135); Glucose 95 mg/dL (74-99); Non-African American GFR(CKD) 35 (>60 ml/min/1.73 sqM); Potassium 4.2 mmol/L (3.5-5.1); Sodium 133 mmol/L (137-145); Total Bilirubin 1.7 mg/dL (0.2-1.3); Total Protein 7.1 g/dL (6.3-8.2)
[2023-03-23] MEDS ORDERED: NALOXONE 0.4 MG/ML 1 ML VIAL IV PRN (12:35)
[2023-03-23] MEDS: SODIUM CHLORIDE 0.9% 1,000 ML IV SCH (12:38)
--- NOTE | 2023-03-23 15:07 | P.HPIM ---
History of Present Illness This is a pleasant 82 E. old female with past medical history of atrial fibrillation hypertension, hyperlipidemia. PCP Dr. Vaca Patient presents because of increased confusion 2 days sent by his PCP As per Dr. Moreno who discussed the case with neurologist on-call Dr. Mike for stroke neurology service who recommended to admit the patient to this facility, 90 to be transferred, and he recommended to resume hereliquis as she has history of A. fib and stroke. Patient lying in bed fully awake and oriented to time place person, she knows she is at [facility] it is 03/23/2023 and the name of the president and she has insight. Patient states that she had stroke last December when she had a bleed. Last week she followed up with the neurologist Dr. murray where he did interventional procedure from her right arm up to the brain to help prevent bleeding as patient explains. This was last Wednesday. Patient stopped taking her Eliquis for A. fib on a Wednesday and Wednesday morning and instrument on Wednesday night. After the procedure she felt well. However after 3 days last Wednesday she started having weakness this time in her right hand, patient status describes difficulty in using her right hand like hooking her bra, doing a shoelace (patient had left hemiparesis since Dec, 2022) but this time she feels her right hand is weak. Also patient was complaining of from mild left-sided temporal headache about 1- 2/10 in severity mild, with no associated tenderness felt like numbness and painful with no precipitating or relieving factors. No vision abnormal EKG. Patient denies weakness in her right leg. Patient states also she has some loose stool the last 2 days. She took Imodium fourth yesterday it was used up till now but she denies abdominal pain or vomiting and she tolerates diet. She denies chest pain or dyspnea or coughing. No urinary complaints. She denies smoking or alcohol. Patient Vitas looks stable Labs including CBC, INR, BMP and liver enzymes were unremarkable except for mildly elevated creatinine at 1.3 which is at baseline CT of the brain: Redemonstrated chronic subdural hematoma along the left lateral complexity. Relatively similar size measuring 1.3 cm in thickness. No new hyperdensity suggestive acute bleed. No CT evidence for acute process. 2. Minimal 2 mm of rightward midline shift is unchanged. 3. Old encephalomalacia anterior left temporal lobe EKG: Atrial fibrillation with a rate of 72. Neurology was consulted and MRI of the brain was ordered Review of Systems Review of systems CONSTITUTIONAL: No fever, no malaise, no fatigue. HEENT: No recent visual problems or hearing problems. Denied any sore throat. CARDIOVASCULAR: No orthopnea, PND, no palpitations, no syncope. PULMONARY: No shortness of breath, no cough, no hemoptysis. GASTROINTESTINAL: No diarrhea, no nausea, no vomiting, no abdominal pain. Normoactive bowel sounds. NEUROLOGICAL: No dizziness, no numbness. HEMATOLOGICAL: Denies any bleeding or petechiae. GENITOURINARY: Denies any burning micturition, frequency, or urgency. MUSCULOSKELETAL/RHEUMATOLOGICAL: Denies any joint pain, swelling, or any muscle pain. ENDOCRINE: Denies any polyuria or polydipsia. Past Medical History Past Medical History: Atrial Fibrillation, CVA/TIA, Hyperlipidemia, Hypertension Additional Past Medical History / Comment(s): cardiomyopathy History of Any Multi-Drug Resistant Organisms: None Reported Past Surgical History: Cholecystectomy, Heart Catheterization, Hysterectomy, Tonsillectomy Past Psychological History: No Psychological Hx Reported Smoking Status: Never smoker Past Alcohol Use History: Occasional Past Drug Use History: None Reported Medications and Allergies Home Medications Medication Instructions Recorded Confirmed Type Apixaban [Eliquis] 2.5 mg PO BID 03/23/23 03/23/23 History Atorvastatin [Lipitor] 20 mg PO HS 03/23/23 03/23/23 History Fluticasone/Umeclidin/Vilanter 1 puff INHALATION RT-DAILY 03/23/23 03/23/23 History [Trelegy Ellipta 100-62.5-25] Furosemide [Lasix] 20 mg PO DAILY 03/23/23 03/23/23 History Levothyroxine Sodium [Synthroid] 88 mcg PO DAILY 03/23/23 03/23/23 History Magnesium Chloride [Mag64] 64 mg PO DAILY 03/23/23 03/23/23 History Omeprazole [PriLOSEC] 40 mg PO DAILY 03/23/23 03/23/23 History Potassium Chloride ER [K-Dur 20] 20 meq PO HS 03/23/23 03/23/23 History Propranolol HCl [Inderal] 80 mg PO DAILY 03/23/23 03/23/23 History allopurinoL [Zyloprim] 300 mg PO DAILY 03/23/23 03/23/23 History oxyBUTYnin chloride [Ditropan] 5 mg PO DAILY 03/23/23 03/23/23 History ramipriL [Altace] 10 mg PO DAILY 03/23/23 03/23/23 History Allergies Allergy/AdvReac Type Severity Reaction Status Date / Time Penicillins Allergy Unknown Verified 03/23/23 11:42 Sulfa (Sulfonamide Allergy Rash/Hives Verified 03/23/23 11:42 Antibiotics) Physical Exam Vitals: Vital Signs Temp Pulse Resp BP Pulse Ox 03/23/23 12:41 62 18 134/58 03/23/23 11:14 66 18 155/66 94 L 03/23/23 10:32 98.6 F 63 20 113/69 94 L Intake and Output 03/22/23 03/23/23 03/23/23 22:59 06:59 14:59 Other: Weight 70.307 kg GENERAL: The patient is alert and oriented x3, not in any acute distress. Well developed, well nourished. HEENT: Pupils are round and equally reacting to light. EOMI. No scleral icterus. No conjunctival pallor. Normocephalic, atraumatic. No pharyngeal erythema. No thyromegaly. CARDIOVASCULAR: S1 and S2 present. No murmurs, rubs, or gallops. PULMONARY: Chest is clear to auscultation, no wheezing , no crackles. ABDOMEN: Soft, nontender, nondistended, normoactive bowel sounds. No palpable organomegaly. MUSCULOSKELETAL: No joint swelling or deformity. EXTREMITIES: No cyanosis, clubbing, or pedal edema. -NEUROLOGICAL: Gross neurological cranial nerves are grossly intact. Chronic left side hemiparesis. New weakness of the right hand. Meningeal signs are absent no hip tenderness SKIN: No rashes. no petechiae. Results CBC & Chem 7: 03/23/23 10:49 03/23/23 11:52 Labs: Abnormal Lab Results - Last 24 Hours (Table) 03/23/23 03/23/23 03/23/23 Range/Units 10:47 10:49 11:52 RBC 3.31 L (3.80-5.40) m/uL MCV 103.6 H (80.0-100.0) fL Lymphocytes # 0.7 L (1.0-4.8) k/uL Sodium 133 L (137-145) mmol/L BUN 33 H (7-17) mg/dL Creatinine 1.39 H (0.52-1.04) mg/dL POC Glucose (mg/dL) 113 H (70-110) mg/dL Total Bilirubin 1.7 H (0.2-1.3) mg/dL Creatine Kinase 28 L (30-135) U/L Assessment and Plan Assessment: New mild Right side/hand weakness with mild left-sided headache. Rule out stroke Chronic subdural hematoma with minimal 2 mm midline shift, no change. No acute process on CAT scan of the brain Chronic atrial fibrillation Hypertension Hyperlipidemia Chronic kidney disease stage III Hypothyroidism History of stroke Plan: Continue with neuro check Follow-up MRI of the brain Check urine analysis in the bladder scan Follow-up with the neurologist Follow-up with the home office representative Labs and medication were reviewed.. Continue same treatment. Continue with symptomatic treatment. Resume home medication. Monitor labs and vitals. DVT and GI prophylaxis. Further recommendations as per clinical course of the patient DVT prophylaxis: on eliquis GI Prophylaxis: Pepcid PT/OT: Pending Prognosis is guarded
[2023-03-23 16:12] LABS: Appearance,Urine Clear (Clear); Bilirubin,Urine Negative (Negative); Blood,Urine Negative (Negative); Color,Urine Light Yellow; Glucose,Urine (UA) Negative (Negative); Ketones,Urine Negative (Negative); Leukocyte Esterase,Urine Moderate (Negative); Nitrite,Urine Negative (Negative); Protein,Urine Negative (Negative); Specific Gravity,Urine 1.009 (1.001-1.035); Urobilinogen,Urine <2.0 mg/dL (<2.0)
[2023-03-23 16:25] LABS: Bacteria,Urine Many /hpf; Squamous Epithelial Cell,Urine 1 /hpf (0-4); WBC,Urine 3 /hpf (0-5)
[2023-03-23] MEDS ORDERED: ACETAMINOPHEN TAB 325 MG TAB PO PRN (16:35)
--- NOTE | 2023-03-23 17:57 | P.CNNES ---
History of Present Illness Consult date: 03/23/23 Requesting physician: Live Sanchez Reason for Consult: rule out cva History of Present Illness: This is an 82-year-old woman with history of multiple strokes s/p thrombectomy, chronic left subdural, atrial fibrillation on eliquis, hypertension who presented to our facility because of fine hand movement. Patient is accompanied with her daughter was at bedside. Patient stated that she woke up on this Wednesday noticing that the she is having difficulty writing her check, combing her hair with either hand and unsteady gait. She also felt that she slipped from her bed but did not of her head. Did not lose any consciousness. She also felt off this past Wednesday. Patient has a mild headache over the left frontal region it states is about a 5. Denies any nausea any vomiting. Denies any visual disturbance. Patient is known to Dr. Mustapha Rodarte recommended the patient to come to the hospital for further evaluation and he recommended MRI of the brain. Patient states that she has a chronic history of subdural and that is being monitored for that. She also has history of atrial fibrillation and is seems when she is off Eliquis patient has a strokes. She is on Eliquis 0.5 mg twice a day. She had a subdural since November 2022 again being monitored. Per daughter it was felt the benefit of anticoagulation outweigh risk since felt she had multiple ischemic stroke in past. According to the daughter and december patient had the brain clots and she required thrombectomy as well as 2019 she required TPA and thrombectomy both by peformed by Dr. Rodarte. She was evaluated by him a week ago and had Onxy embolization and per daughter for AVM. Some of the work-up during this hospital visit consisted of: CT of the head is reported as we demonstrated chronic subdural hematoma along the left lateral convexity. Relatively similar size measuring 1.3 cm in thickness. No new hypodensities to suggest acute bleed. No CT evidence for acute processes. Minimal 2 mm right midline shift is unchanged. Old encephalomalacia anterior left temporal lobe. Review of Systems Review of system: The 12 point system was reviewed and apparent positive and negative per HPI. Past Medical History Past Medical History: Atrial Fibrillation, CVA/TIA, Hyperlipidemia, Hypertension Additional Past Medical History / Comment(s): cardiomyopathy History of Any Multi-Drug Resistant Organisms: None Reported Past Surgical History: Cholecystectomy, Heart Catheterization, Hysterectomy, Tonsillectomy Past Psychological History: No Psychological Hx Reported Smoking Status: Never smoker Past Alcohol Use History: Occasional Past Drug Use History: None Reported Medications and Allergies Home Medications Medication Instructions Recorded Confirmed Type Apixaban [Eliquis] 2.5 mg PO BID 03/23/23 03/23/23 History Atorvastatin [Lipitor] 20 mg PO HS 03/23/23 03/23/23 History Fluticasone/Umeclidin/Vilanter 1 puff INHALATION RT-DAILY 03/23/23 03/23/23 History [Trelegy Ellipta 100-62.5-25] Furosemide [Lasix] 20 mg PO DAILY 03/23/23 03/23/23 History Levothyroxine Sodium [Synthroid] 88 mcg PO DAILY 03/23/23 03/23/23 History Magnesium Chloride [Mag64] 64 mg PO DAILY 03/23/23 03/23/23 History Omeprazole [PriLOSEC] 40 mg PO DAILY 03/23/23 03/23/23 History Potassium Chloride ER [K-Dur 20] 20 meq PO HS 03/23/23 03/23/23 History Propranolol HCl [Inderal] 80 mg PO DAILY 03/23/23 03/23/23 History allopurinoL [Zyloprim] 300 mg PO DAILY 03/23/23 03/23/23 History oxyBUTYnin chloride [Ditropan] 5 mg PO DAILY 03/23/23 03/23/23 History ramipriL [Altace] 10 mg PO DAILY 03/23/23 03/23/23 History Allergies Allergy/AdvReac Type Severity Reaction Status Date / Time Penicillins Allergy Unknown Verified 03/23/23 11:42 Sulfa (Sulfonamide Allergy Rash/Hives Verified 03/23/23 11:42 Antibiotics) Physical Examination - Vital Signs Vital Signs: Vital Signs Temp Pulse Pulse Resp BP BP Pulse Ox 03/23/23 16:00 98 F 71 16 150/69 98 03/23/23 14:34 58 L 18 129/66 96 03/23/23 14:00 61 19 119/62 95 03/23/23 13:00 60 24 136/46 96 03/23/23 12:41 62 18 134/58 03/23/23 11:14 66 18 155/66 94 L 03/23/23 10:32 98.6 F 63 20 113/69 94 L Intake and Output 03/23/23 03/23/23 03/23/23 06:59 14:59 22:59 Other: # Voids 1 Weight 70.307 kg GENERAL: The patient is lying in bed and is not in acute distress. NEUROLOGICAL: Higher mental function: The patient is awake, alert, oriented to self, place and time. Patient is following commands. No aphasia and no neglect. Cranial nerves: The pupils are round, equal and reactive to light and accommodation. Visual donohue are full to confrontation throughout. Extraocular movement is intact no nystagmus is noted. Facial sensation is normal to touch throughout. The facial strength is normal throughout. Hearing is mildly to moderately decreased bilaterally to hand rub. Tongue is midline and moved [id number] without any difficulty. No dysarthria is noted. Shoulder shrug is normal bilaterally. Motor: The strength is right forearm extension is 5- while the left lower extremity is 4+. Otherwise 5 over 5 throughout. Normal tone and bulk. Cerebellum: Normal finger to nose heel to guadarrama bilaterally. Sensation: Sensation is normal to touch throughout. Reflexes (right/left): 2+ in uppers while lowers was deferred since she was resistant. Plantars are mute bilaterally. Results - Laboratory Findings CBC and BMP: 03/23/23 10:49 03/23/23 11:52 Abnormal Lab Findings: Abnormal Labs 03/23/23 03/23/23 03/23/23 10:47 10:49 10:49 RBC 3.31 L MCV 103.6 H Lymphocytes # 0.7 L Sodium BUN Creatinine POC Glucose (mg/dL) 113 H Total Bilirubin Creatine Kinase Ur Leukocyte Esterase Moderate H Urine Bacteria Many H 03/23/23 11:52 RBC MCV Lymphocytes # Sodium 133 L BUN 33 H Creatinine 1.39 H POC Glucose (mg/dL) Total Bilirubin 1.7 H Creatine Kinase 28 L Ur Leukocyte Esterase Urine Bacteria Assessment and Plan Assessment: This is an 82-year-old woman with history of recurrent stroke and had the tPA and 2 thrombectomies in the past, AVM posts on Onxy about a week ago, chronic left subdural, atrial fibrillation on eliquis presented because of fine hand movement difficulty (writing check, combing hair) and unsteady gait since this past Wednesday. Patient is known to Dr. Rodarte (interventional neurologist) Right upper extremity weakness and left lower extremity weakness: Rule out acute or subacute stroke. Chronic left subdural and being monitored History of multiple ischemic stroke status post IV TPA and 2 thrombectomies (2019 and 12/24/2022) History of AVM status post [place] about a week ago. Atrial fibrillation on eliquis Plan: MRI the brain without is ordered as routine and I changed to STAT. Patient is on home eliquis 2.5mg bid and I spoke with Dr. Rodarte and he wants to resume the medications. If has large stroke then hold eliquis because of risk for bleed. Patient is on Lipitor 20 mg daily at bedtime Continue Neuro checks On cardiac monitoring PT OT and BOAT FUELER are consulted I contact Dr. Rodarte and he stated no need for vessel imaging. We'll defer the rest of medical management to primary team Upon discharge recommend the patient to follow-up with her neurologist (Dr. Rodarte). For DVT prophylaxis: Eliquis. The plan is discussed with patient and her daughter who is at bedside. Thank you for the consultation. Time with Patient: Greater than 30
[2023-03-23] MEDS ORDERED: ASPIRIN 81 MG PO SCH (18:00)
[2023-03-23] MEDS ORDERED: ATORVASTATIN 20 MG TAB PO SCH (21:00)
[2023-03-23] MEDS ORDERED: HEPARIN SODIUM,PORCINE/PF 5,000 UNIT/0.5 ML SYRINGE SQ SCH (21:00)
--- NOTE | 2023-03-23 21:04 | MR ---
EXAMINATION TYPE: MR brain wo con DATE OF EXAM: 03/23/2023 7:24 PM COMPARISON: CT brain 03/23/2023. CLINICAL INDICATION:Female, 82 years old with history of right arm weakness, leg weakness, unsteady g ait; Right arm weakness, leg weakness. Brain aneurysm recently repaired. TECHNIQUE: Multi planar, multi sequence imaging was performed through the brain including: T1, T2, In version recovery, Diffusion weighted imaging, and gradient echo imaging. No gadolinium was given. FINDINGS: Redemonstration chronic extra-axial fluid collection along the left cerebrum. There is mild mass effect upon the adjacent cerebrum. Scattered foci of high T2 signal intensity are seen within t he periventricular white matter. Midline structures show no abnormality. Diffusion-weighted imaging s hows no evidence of restricted diffusion. The susceptibility weighted images do not reveal any eviden ce for micro-hemorrhage. Hemosiderin deposition along the left extra-axial fluid collection. The bone marrow signal is within normal limits. Craniotomy changes along the left skull. Paranasal sinuses and mastoid air cells: No significant paranasal sinus disease. Visualized orbits: Bilateral aphakia IMPRESSION: 1. Left extra-axial fluid collection similar to prior CTs. No evidence intracranial mass or acute/sub acute infarct. 2. Nonspecific white matter changes, likely secondary to small vessel ischemic disease.
[2023-03-23] MEDS: APIXABAN 2.5 MG TABLET PO SCH (21:30)
[2023-03-23] MEDS: FAMOTIDINE 20 MG/2 ML VIAL IV SCH (21:30)
[2023-03-24] MEDS: SODIUM CHLORIDE 0.9% 1,000 ML IV SCH (00:55)
[2023-03-24] MEDS ORDERED: LEVOTHYROXINE 88 MCG TAB PO SCH (06:30)
[2023-03-24 07:48] LABS: Basophils % (A) 0 %; Eosinophils # (A) 0.2 k/uL (0-0.7); Eosinophils % (A) 3 %; HCT 31.7 % (34.0-46.0); HGB 10.4 gm/dL (11.4-16.0); Lymphocytes # (A) 0.6 k/uL (1.0-4.8); Lymphocytes % (A) 10 %; MCH 34.1 pg (25.0-35.0); MCHC 32.8 g/dL (31.0-37.0); MCV 103.9 fL (80.0-100.0); Macrocytosis Moderate; Mean Platelet Volume 7.7; Monocytes # (A) 0.5 k/uL (0-1.0); Monocytes % (A) 8 %; Neutrophils # (A) 4.6 k/uL (1.3-7.7); Neutrophils % (A) 77 %; Platelet Count 224 k/uL (150-450); RBC 3.05 m/uL (3.80-5.40); RDW 14.9 % (11.5-15.5)
[2023-03-24 08:11] LABS: African American GFR (CKD) 52 (>60 ml/min/1.73 sqM); Anion Gap 6 mmol/L; Blood Urea Nitrogen 26 mg/dL (7-17); Calcium 8.5 mg/dL (8.4-10.2); Carbon Dioxide 27 mmol/L (22-30); Chloride 100 mmol/L (98-107); Glucose 87 mg/dL (74-99); Non-African American GFR(CKD) 45 (>60 ml/min/1.73 sqM); Potassium 3.7 mmol/L (3.5-5.1); Sodium 133 mmol/L (137-145)
--- NOTE | 2023-03-24 08:48 | P.CRDCN ---
History of Present Illness Consult date: 03/24/23 Consult reason: atrial fibrillation (Chronic subdural hematoma) History of present illness: History of present illness: This is otherwise going 82-year-old patient with past medical history of multiple strokes status post thrombectomy and TPA in 2019 with recent AVM a week ago status post [place], history of subdural hematoma, chronic atrial fibrillation on eliquis, hypertension, chronic kidney disease stage III. Patient apparently has strokes when she is off eliquis. She was having mild neurologic changes along with headache and her neurologist advised her to come in the hospital for further evaluation and undergo MRI. We have been asked to evaluate the patient for A. fib and chronic subdural hematoma. Patient states that she follows with a [employer] [facility] officer in [place]. She has had atrial fibrillation for many years and has been compliant with eliquis. EKG atrial fibrillation with ventricular rate of 72 CAT scan of the brain: Redemonstrated chronic subdural hematoma along the left lateral convexity no acute bleed. Minimal 2 mm rightward midline shift unchanged. Old encephalomalacia anterior left temporal lobe. MRI of the brain revealed left extra-axial fluid collection similar to prior CTs. No evidence intracranial mass or acute/subacute infarct. Nonspecific white matter changes likely secondary to small vessel ischemic disease. CBC is unremarkable. INR 1. Sodium 133, potassium 4.2, BUN 33 creatinine 1.39 Home cardiac medications: Eliquis 2.5 mg twice daily, Lipitor 20 mild grams daily, Lasix 20 mg daily, levothyroxine 88 g daily, magnesium chloride 64 mg daily, potassium chloride 20 mEq at bedtime, propranolol 80 mg daily, ramipril 10 mg daily Review Of Systems: At the time of my evaluation: Constitutional: No fever, no chills. No weakness, fatigue or lethargy. EENT: No headache. No dizziness. Lungs: No shortness of breath, cough, no sputum production. No wheezing. Cardiovascular: No chest pain, no lower extremity edema. No palpitations. No paroxysmal nocturnal dyspnea. No orthopnea. No lightheadedness or dizziness. No syncopal episodes. Abdominal: No abdominal pain. No nausea, vomiting. No diarrhea. Musculoskeletal: No myalgias. No muscle weakness, no frequent falls. Integumentary: No wounds. No rash. No unusual bruising. Neurologic: No aphasia. No facial droop. No change in mentation. Physical examination: Gen: This is an 82-year-old female. She is resting in bed appears to be comfortable and in no acute distress VS: reviewed HEENT: Head is atraumatic, normocephalic. Pupils equal, round. Sclerae is anicteric. NECK: Supple. No JVD. . LUNGS: Clear to auscultation. No wheezes or rhonchi. No intercostal retractions. HEART: Irregular rate and rhythm. No murmur. ABDOMEN: Soft No tenderness. EXTREMITIES: No pedal edema. NEUROLOGICAL: Patient is awake, alert and oriented x3. Assessment: Unsteady gait, difficulty with fine hand movement, headache Right upper and left lower extremity weakness Chronic atrial fibrillation Chronic left subdural hematoma Multiple ischemic strokes status post TPA and 2 thrombectomies one in 2019 and one History of AVM status post [place] one week ago Plan: Continue current cardiac medications Patient has been seen by neurology with recommendations to continue eliquis. No medication changes will be made by cardiology Further recommendations to follow based upon clinical course Thank you kindly for this consultation. Nurse practitioner note has been reviewed, I agree with documented findings and plan of care. Patient was seen and examined. Past Medical History Past Medical History: Atrial Fibrillation, CVA/TIA, Hyperlipidemia, Hypertension Additional Past Medical History / Comment(s): cardiomyopathy History of Any Multi-Drug Resistant Organisms: None Reported Past Surgical History: Cholecystectomy, Heart Catheterization, Hysterectomy, Tonsillectomy Past Anesthesia/Blood Transfusion Reactions: No Reported Reaction Past Psychological History: No Psychological Hx Reported Smoking Status: Former smoker Past Alcohol Use History: Occasional Past Drug Use History: None Reported Medications and Allergies Home Medications Medication Instructions Recorded Confirmed Type Apixaban [Eliquis] 2.5 mg PO BID 03/23/23 03/23/23 History Atorvastatin [Lipitor] 20 mg PO HS 03/23/23 03/23/23 History Fluticasone/Umeclidin/Vilanter 1 puff INHALATION RT-DAILY 03/23/23 03/23/23 History [Trelegy Ellipta 100-62.5-25] Furosemide [Lasix] 20 mg PO DAILY 03/23/23 03/23/23 History Levothyroxine Sodium [Synthroid] 88 mcg PO DAILY 03/23/23 03/23/23 History Magnesium Chloride [Mag64] 64 mg PO DAILY 03/23/23 03/23/23 History Omeprazole [PriLOSEC] 40 mg PO DAILY 03/23/23 03/23/23 History Potassium Chloride ER [K-Dur 20] 20 meq PO HS 03/23/23 03/23/23 History Propranolol HCl [Inderal] 80 mg PO DAILY 03/23/23 03/23/23 History allopurinoL [Zyloprim] 300 mg PO DAILY 03/23/23 03/23/23 History oxyBUTYnin chloride [Ditropan] 5 mg PO DAILY 03/23/23 03/23/23 History ramipriL [Altace] 10 mg PO DAILY 03/23/23 03/23/23 History Allergies Allergy/AdvReac Type Severity Reaction Status Date / Time Penicillins Allergy Unknown Verified 03/23/23 11:42 Sulfa (Sulfonamide Allergy Rash/Hives Verified 03/23/23 11:42 Antibiotics) Physical Exam Vitals: Vital Signs Temp Pulse Pulse Resp BP BP Pulse Ox 03/24/23 04:00 98.1 F 68 16 126/71 95 03/24/23 02:00 64 14 03/24/23 00:00 98.0 F 64 14 113/66 95 03/23/23 21:38 97.8 F 66 16 131/74 94 L 03/23/23 20:00 97.8 F 66 18 131/74 94 L 03/23/23 16:00 98 F 71 16 150/69 98 03/23/23 14:34 58 L 18 129/66 96 03/23/23 14:00 61 19 119/62 95 03/23/23 13:00 60 24 136/46 96 03/23/23 12:41 62 18 134/58 03/23/23 11:14 66 18 155/66 94 L 03/23/23 10:32 98.6 F 63 20 113/69 94 L Intake and Output 03/23/23 03/24/23 03/24/23 22:59 06:59 14:59 Other: Voiding Method Toilet Toilet Weight 70.307 kg 59 kg Results 03/24/23 06:41 03/24/23 06:41 Cardiac Enzymes 03/23/23 Range/Units 11:52 AST 22 (14-36) U/L Coagulation 03/23/23 Range/Units 10:49 PT 10.8 (9.0-12.0) sec APTT 25.1 (22.0-30.0) sec CBC 03/23/23 Range/Units 10:49 WBC 8.6 (3.8-10.6) k/uL RBC 3.31 L (3.80-5.40) m/uL Hgb 11.6 (11.4-16.0) gm/dL Hct 34.3 (34.0-46.0) % Plt Count 256 (150-450) k/uL Comprehensive Metabolic Panel 03/23/23 Range/Units 11:52 Sodium 133 L (137-145) mmol/L Potassium 4.2 (3.5-5.1) mmol/L Chloride 98 (98-107) mmol/L Carbon Dioxide 28 (22-30) mmol/L BUN 33 H (7-17) mg/dL Creatinine 1.39 H (0.52-1.04) mg/dL Glucose 95 (74-99) mg/dL Calcium 8.9 (8.4-10.2) mg/dL AST 22 (14-36) U/L ALT 13 (4-34) U/L Alkaline Phosphatase 77 (38-126) U/L Total Protein 7.1 (6.3-8.2) g/dL Albumin 3.7 (3.5-5.0) g/dL Current Medications Generic Name Dose Route Start Last Admin Trade Name Freq PRN Reason Stop Dose Admin Acetaminophen 650 mg 03/23/23 16:35 03/23/23 17:00 Acetaminophen Tab 325 Mg Tab PO 650 mg Q6HR PRN Administration Fever and/ or Pain Allopurinol 300 mg 03/24/23 09:00 Allopurinol 300 Mg Tab PO DAILY MARGE Apixaban 2.5 mg 03/23/23 21:00 03/23/23 21:30 Apixaban 2.5 Mg Tablet PO 2.5 mg BID MARGE Administration Protocol Atorvastatin Calcium 20 mg 03/23/23 21:00 03/23/23 21:30 Atorvastatin 20 Mg Tab PO 20 mg HS MARGE Administration Famotidine 10 mg 03/23/23 21:00 03/23/23 21:30 Famotidine 20 Mg/2 Ml Vial IV 10 mg Q12HR MARGE Administration Furosemide 20 mg 03/24/23 09:00 Furosemide 20 Mg Tab PO DAILY MARGE Sodium Chloride 1,000 mls @ 75 mls/hr 03/23/23 12:45 03/24/23 00:55 Saline 0.9% IV 75 mls/hr .[id number] MARGE Administration Levothyroxine Sodium 88 mcg 03/24/23 06:30 03/24/23 06:46 Levothyroxine 88 Mcg Tab PO 88 mcg 0630 MARGE Administration Naloxone HCl 0.2 mg 03/23/23 12:35 Naloxone 0.4 Mg/Ml 1 Ml Vial IV Q2M PRN Opioid Reversal Oxybutynin Chloride 5 mg 03/24/23 09:00 Oxybutynin Chloride 5 Mg Tab PO DAILY MARGE Propranolol HCl 80 mg 03/24/23 09:00 Propranolol La 80 Mg Cap.Sa.24h PO DAILY MARGE Intake and Output 03/23/23 03/24/23 03/24/23 22:59 06:59 14:59 Other: Voiding Method Toilet Toilet Weight 70.307 kg 59 kg 03/23/23 10:49 03/23/23 11:52
[2023-03-24] MEDS: APIXABAN 2.5 MG TABLET PO SCH (08:53)
[2023-03-24] MEDS: FAMOTIDINE 20 MG/2 ML VIAL IV SCH (08:53)
[2023-03-24] MEDS ORDERED: FUROSEMIDE 20 MG TAB PO SCH (09:00)
[2023-03-24] MEDS ORDERED: PROPRANOLOL LA 80 MG CAP.SA.24H PO SCH (09:00)
[2023-03-24] MEDS ORDERED: allopurinoL 300 MG TAB PO SCH (09:00)
[2023-03-24] MEDS ORDERED: oxyBUTYnin chloride 5 MG TAB PO SCH (09:00)
[2023-03-24] MEDS ORDERED: ASPIRIN 325 MG TAB PO SCH (09:00)
[2023-03-24 10:47] VITALS: RESP 20
[2023-03-24 11:41] VITALS: BP 156/62; PULSE 60; TEMP 98.1
--- NOTE | 2023-03-24 12:35 | CA ---
Transthoracic Echo Report Name: Annette Ha Age: 82 Gender: F : 1940 Exam Date: 03/24/2023 09:21 Exam Location: [facility] Ht (in): 68 Wt (lb): 130 Ordering Physician: Roopa Boswell Attending/Referring Phys: [id number], Andreia Private Watchman Leticia Osman RDCS Procedure CPT: Indications: LVF Cardiac Hx: Technical Quality: Good Contrast 1: Total Dose (mL): Contrast 2: Total Dose (mL): MEASUREMENTS (Male / Female) Normal Values 2D ECHO LV Diastolic Diameter PLAX 4.3 cm 4.2 - 5.9 / 3.9 - 5.3 cm LV Systolic Diameter PLAX 2.9 cm IVS Diastolic Thickness 1.3 cm 0.6 - 1.0 / 0.6 - 0.9 cm LVPW Diastolic Thickness 1.2 cm 0.6 - 1.0 / 0.6 - 0.9 cm LV Relative Wall Thickness 0.6 RV Internal Dim ED PLAX 3.7 cm LVOT Diameter 2.2 cm LA Systolic Diameter LX 4.2 cm 3.0 - 4.0 / 2.7 - 3.8 cm LV Diastolic Volume MOD 4C 40.4 cm??? LV Systolic Volume MOD 4C 24.5 cm??? LV Ejection Fraction MOD 4C 39.3 % LV Cardiac Index MOD 4C 671.8 cm???/min???m??? LV Diastolic Length 4C 7.2 cm LV Systolic Length 4C 6.5 cm LV Diastolic Volume MOD 2C 70.6 cm??? LV Systolic Volume MOD 2C 27.3 cm??? LV Ejection Fraction MOD 2C 61.3 % LV Cardiac Index MOD 2C 1835.7 cm???/min???m??? LV Diastolic Length 2C 7.0 cm LV Systolic Length 2C 6.1 cm LA Volume 97.8 cm??? 18 - 58 / 22 - 52 cm??? M-MODE Aortic Root Diameter MM 3.6 cm MV E Point Septal Separation 0.2 cm AV Cusp Separation MM 1.2 cm DOPPLER AV Peak Velocity 200.2 cm/s AV Peak Gradient 17.0 mmHg AV Mean Velocity 135.7 cm/s AV Mean Gradient 8.7 mmHg AV Velocity Time Integral 43.8 cm AI Peak Velocity 454.1 cm/s AI Peak Gradient 82.5 mmHg AI Pressure Half Time 602.7 ms LVOT Peak Velocity 87.4 cm/s LVOT Peak Gradient 3.1 mmHg AV Area Cont Eq pk 1.6 cm??? MV Area PHT 4.3 cm??? MV Deceleration Time 228.1 ms TR Peak Velocity 299.2 cm/s TR Peak Gradient 35.8 mmHg Right Ventricular Systolic Press 40.2 mmHg FINDINGS Left Ventricle Left ventricular ejection fraction is estimated at 55-60 %. Left ventricular cavity size normal. Mildly increased septal wall thickness. Mildly increased posterior wall thickness.normal left ventricular wall motion. Right Ventricle Mild right ventricular dilatation. Mild pulmonary hypertension. Right Atrium Right atrium not well visualized. Left Atrium Mildly increased left atrial diameter. Severely increased left atrial volume. Mildly increased left atrial area. Mitral Valve Mitral valve thickened. Mild mitral annular calcification. Mild to moderate mitral regurgitation. Aortic Valve Trileaflet aortic valve. Aortic valve sclerosis. Mild aortic stenosis with a peak gradient of 17 mmHg and a mean gradient of 9 mmHg. mild aortic regurgitation Tricuspid Valve Structurally normal tricuspid valve. Mild to moderate tricuspid regurgitation. Pulmonic Valve Structurally normal pulmonic valve. Mild pulmonic regurgitation. Pericardium Normal pericardium. No pericardial effusion. Aorta Normal size aortic root and proximal ascending aorta. CONCLUSIONS 1. Normal left ventricle size and systolic function 2. Mild to moderate mitral and tricuspid regurgitation is mild pulmonary hypertension 3. mild aortic stenosis and mild aortic regurgitation Previewed by: Dr. Torie Heller MD (Electronically Signed) Final Date: 24 March 2023 12:34
--- NOTE | 2023-03-24 17:28 | P.PN ---
Subjective Progress Note Date: 03/24/23 The patient seen at bedside and she feels she is doing better compared to initial presentation. Denies of any new neurological issues. Objective - Vital Signs Vital signs: Vital Signs Temp 98.1 F 03/24/23 11:40 Pulse 60 03/24/23 11:40 Resp 20 03/24/23 11:40 BP 156/62 03/24/23 11:40 Pulse Ox 97 03/24/23 11:40 FiO2 Intake & Output 03/23/23 03/24/23 03/24/23 18:59 06:59 18:59 Intake Total 180 Balance 180 Weight 70.307 kg 59 kg Intake: Oral 180 Other: Voiding Method Toilet # Voids 1 - Exam GENERAL: The patient is lying in bed and is not in acute distress. NEUROLOGICAL: Higher mental function: The patient is awake, alert, oriented to self, place and time. Patient is following commands. No aphasia and no neglect. Cranial nerves: The pupils are round, equal and reactive to light and accommodation. Visual donohue are full to confrontation throughout. Extraocular movement is intact no nystagmus is noted. Facial sensation is normal to touch throughout. The facial strength is normal throughout. Hearing is mildly to moderately decreased bilaterally to hand rub. Tongue is midline and moved [id number] without any difficulty. No dysarthria is noted. Shoulder shrug is normal bilaterally. Motor: The strength is r 5 over 5 throughout. Normal tone and bulk. Cerebellum: Normal finger to nose heel to guadarrama bilaterally. Sensation: Sensation is normal to touch throughout. Reflexes (right/left): 2+ in uppers while lowers was deferred since she was resistant. Plantars are mute bilaterally. Some of the work-up during this hospital visit consisted of: CT of the head is reported as we demonstrated chronic subdural hematoma along the left lateral convexity. Relatively similar size measuring 1.3 cm in thickness. No new hypodensities to suggest acute bleed. No CT evidence for acute processes. Minimal 2 mm right midline shift is unchanged. Old encephalomalacia anterior left temporal lobe. MRI Brain: Was reported as left extra-axial fluid collection similar to prior CTs. No evidence of intracranial mass or acute/subacute infarct. Nonspecific white matter changes, likely secondary due to chronic small vessel ischemic disease. - Labs CBC & Chem 7: 03/24/23 06:41 03/24/23 06:41 Labs: Abnormal Lab Results - Last 24 Hours (Table) 03/23/23 03/23/23 03/24/23 Range/Units 10:49 11:52 06:41 RBC 3.05 L (3.80-5.40) m/uL Hgb 10.4 L (11.4-16.0) gm/dL Hct 31.7 L (34.0-46.0) % MCV 103.9 H (80.0-100.0) fL Lymphocytes # 0.6 L (1.0-4.8) k/uL Sodium 133 L (137-145) mmol/L BUN 33 H (7-17) mg/dL Creatinine 1.39 H (0.52-1.04) mg/dL Total Bilirubin 1.7 H (0.2-1.3) mg/dL Creatine Kinase 28 L (30-135) U/L Ur Leukocyte Esterase Moderate H (Negative) Urine Bacteria Many H (None) /hpf 03/24/23 Range/Units 06:41 RBC (3.80-5.40) m/uL Hgb (11.4-16.0) gm/dL Hct (34.0-46.0) % MCV (80.0-100.0) fL Lymphocytes # (1.0-4.8) k/uL Sodium 133 L (137-145) mmol/L BUN 26 H (7-17) mg/dL Creatinine 1.13 H (0.52-1.04) mg/dL Total Bilirubin (0.2-1.3) mg/dL Creatine Kinase (30-135) U/L Ur Leukocyte Esterase (Negative) Urine Bacteria (None) /hpf Assessment and Plan Assessment: This is an 82-year-old woman with history of recurrent stroke and had the tPA and 2 thrombectomies in the past, AVM posts on Onxy about a week ago, chronic left subdural, atrial fibrillation on quis presented because of fine hand movement difficulty (writing check, combing hair) and unsteady gait since this past Wednesday. Patient is known to Dr. Rodarte (interventional neurologist) Transient episode of unsteady gait and with hand dexterity weakness that resolved: Possible TIA. MRI Brain is negative for acute or subacute ischemia Chronic left subdural and being monitored History of multiple ischemic stroke status post IV TPA and 2 thrombectomies (2019 and 12/24/2022) History of AVM status post Tim about a week ago. Atrial fibrillation on eliquis Plan: Patient is on home eliquis 2.5mg bid and I spoke with Dr. Rodarte and he wants to resume the medications. Patient is on Lipitor 20 mg daily at bedtime Continue Neuro checks On cardiac monitoring PT OT and MONTESSORI TEACHER are consulted Per Dr. Rodarte no need for vessel imaging. We'll defer the rest of medical management to primary team Recommend the patient to follow-up with a neurosurgeon regarding her subdural as outpatient. Upon discharge recommend the patient to follow-up with her neurologist (Dr. Rodarte) within 1-2 weeks. For DVT prophylaxis: Eliquis. The plan is discussed with patient and her nurse. Otherwise there is no additional neurological workup. Please notify neurology team if any further concerns. Time with Patient: Less than 30
== END 2023-03-24 12:58 | disposition home or self-care (01) | DRG 69 ==
LOC: EC 10:28 → 3SCARD 12:36 → OBSVTOIN 03-24 07:14
PROVIDERS: ADMIT Internal Medicine; ATTEND Internal Medicine
DX: G45.9 Transient cerebral ischemic attack, unspecified (principal); I48.20 Chronic atrial fibrillation, unspecified; I69.351 Hemiplegia and hemiparesis following cerebral infarction affecting right dominant side; I42.9 Cardiomyopathy, unspecified; R53.1 Weakness; I12.9 Hypertensive chronic kidney disease with stage 1 through stage 4 chronic kidney disease, or unspecified chronic kidney disease; N18.30 Chronic kidney disease, stage 3 unspecified; R51.9 Headache, unspecified; E78.5 Hyperlipidemia, unspecified; Z79.890 Hormone replacement therapy; R26.81 Unsteadiness on feet; I08.3 Combined rheumatic disorders of mitral, aortic and tricuspid valves; E03.9 Hypothyroidism, unspecified; E11.22 Type 2 diabetes mellitus with diabetic chronic kidney disease; Z79.01 Long term (current) use of anticoagulants; Z86.79 Personal history of other diseases of the circulatory system; I44.7 Left bundle-branch block, unspecified; Z79.899 Other long term (current) drug therapy; Z90.710 Acquired absence of both cervix and uterus; Z90.49 Acquired absence of other specified parts of digestive tract; Z88.0 Allergy status to penicillin; Z88.2 Allergy status to sulfonamides
CPT/HCPCS: 36415; 70450; 70551; 80048; 80053; 81001; 82550; 85025; 85610; 85730; 93005; 93306; 96360; 96361; 99285

== ENCOUNTER 2023-04-07 14:23 | Emergency (ER) | payer MEDICARE ==
[2023-04-07 14:28] VITALS: RESP 18; TEMP 98
--- NOTE | 2023-04-07 15:00 | ED ---
Syncope HPI - General Chief Complaint: Syncope Stated Complaint: syncope Time Seen by Provider: 04/07/23 14:49 Source: EMS, RN notes reviewed, old records reviewed Mode of arrival: EMS Limitations: no limitations - History of Present Illness Initial Comments: This is a 82-year-old female to the emergency department for evaluation. Patient presents today for evaluation regards syncopal event at lunch today. She does have complex medical history presents with daughter who has witnessed for syncopal event. Patient presents with daughter who did witness the event again. Patient's daughter states she became lightheaded dizzy palate diaphoretic and unresponsive. Distal time symptoms were fleeting the patient didn't feel significantly improved when she came back to. Daughter got her to respond and brings her to the emergency department by EMS MD Complaint: loss of consciousness, almost passed out -: hour(s) Prodromal Symptoms: lightheaded -: second(s) Witnessed: yes - by bystander Injuries Sustained Associated with Event: None Current Symptoms: lightheaded History: previous syncopal episode Context: at rest Treatments Prior to Arrival: none - Related Data Home Medications Medication Instructions Recorded Confirmed Apixaban [Eliquis] 2.5 mg PO BID 03/23/23 03/23/23 Atorvastatin [Lipitor] 20 mg PO HS 03/23/23 03/23/23 Fluticasone/Umeclidin/Vilanter 1 puff INHALATION RT-DAILY 03/23/23 03/23/23 [Trelecelso Ellipta 100-62.5-25] Furosemide [Lasix] 20 mg PO DAILY 03/23/23 03/23/23 Levothyroxine Sodium [Synthroid] 88 mcg PO DAILY 03/23/23 03/23/23 Magnesium Chloride [Mag64] 64 mg PO DAILY 03/23/23 03/23/23 Omeprazole [PriLOSEC] 40 mg PO DAILY 03/23/23 03/23/23 Potassium Chloride ER [K-Dur 20] 20 meq PO HS 03/23/23 03/23/23 Propranolol HCl [Inderal] 80 mg PO DAILY 03/23/23 03/23/23 allopurinoL [Zyloprim] 300 mg PO DAILY 03/23/23 03/23/23 oxyBUTYnin chloride [Ditropan] 5 mg PO DAILY 03/23/23 03/23/23 ramipriL [Altace] 10 mg PO DAILY 03/23/23 03/23/23 Allergies Allergy/AdvReac Type Severity Reaction Status Date / Time Penicillins Allergy Unknown Verified 04/07/23 14:28 Sulfa (Sulfonamide Allergy Rash/Hives Verified 04/07/23 14:28 Antibiotics) Review of Systems ROS Statement: Those systems with pertinent positive or pertinent negative responses have been documented in the HPI. ROS Other: All systems not noted in ROS Statement are negative. Past Medical History Past Medical History: Atrial Fibrillation, CVA/TIA, Hyperlipidemia, Hypertension Additional Past Medical History / Comment(s): cardiomyopathy History of Any Multi-Drug Resistant Organisms: None Reported Past Surgical History: Cholecystectomy, Heart Catheterization, Hysterectomy, Tonsillectomy Past Anesthesia/Blood Transfusion Reactions: No Reported Reaction Past Psychological History: No Psychological Hx Reported Smoking Status: Former smoker Past Alcohol Use History: Occasional Past Drug Use History: None Reported General Exam Limitations: no limitations General appearance: alert, in no apparent distress Head exam: Present: atraumatic, normocephalic, normal inspection Eye exam: Present: normal appearance, PERRL, EOMI. Absent: scleral icterus, conjunctival injection, periorbital swelling ENT exam: Present: normal exam, mucous membranes moist Neck exam: Present: normal inspection. Absent: tenderness, meningismus, lymphadenopathy Respiratory exam: Present: normal lung sounds bilaterally. Absent: respiratory distress, wheezes, rales, rhonchi, stridor Cardiovascular Exam: Present: regular rate, normal rhythm, normal heart sounds. Absent: systolic murmur, diastolic murmur, rubs, gallop, clicks GI/Abdominal exam: Present: soft, normal bowel sounds. Absent: distended, tenderness, guarding, rebound, rigid Extremities exam: Present: normal inspection, full ROM, normal capillary refill. Absent: tenderness, pedal edema, joint swelling, calf tenderness Back exam: Present: normal inspection Neurological exam: Present: alert, oriented X3, CN II-XII intact Psychiatric exam: Present: normal affect, normal mood Skin exam: Present: warm, dry, intact, normal color. Absent: rash Course Vital Signs 04/07/23 04/07/23 04/07/23 14:24 16:03 16:09 Temperature 98 F Pulse Rate 74 58 L Respiratory 18 18 Rate Blood Pressure 116/61 124/68 124/66 O2 Sat by Pulse 98 97 Oximetry 04/07/23 17:32 Temperature Pulse Rate 60 Respiratory 18 Rate Blood Pressure 122/72 O2 Sat by Pulse 96 Oximetry - Reevaluation(s) Reevaluation #1: 04/07/23 15:47 Medical records reviewed Reevaluation #2: Patient has no recurrent syncopal event here in the ER feels well throughout entire ER stay Reevaluation #3: Patient informed of results here in the ER questions are answered shows good for discharge home Reevaluation #4: 04/07/23 15:47 Was pt. sent in by a medical professional or institution ([facility], [employer]PER[employer], urgent care, hospital, or [facility]...) When possible be specific @ -no Did you speak to anyone other than the patient for history (EMS, parent, family, police, friend...)? What history was obtained from this source @ -no Did you review nursing and triage notes (agree or disagree)? Why? @ -agree Are old charts reviewed (outside hosp., previous admission, EMS record, old EKG, old radiological studies, urgent care reports/EKG's, [facility] records)? Report findings @ -yes Differential Diagnosis (chest pain, altered mental status, abdominal pain women, abdominal pain men, vaginal bleeding, weakness, fever, dyspnea, syncope, headache, dizziness, GI bleed, back pain, seizure, CVA, palpatations, mental health, musculoskeletal)? @ -prior EKG interpreted by me (3pts min.). @ -yes X-rays interpreted by me (1pt min.). @ -no CT interpreted by me (1pt min.). @ -no U/S interpreted by me (1pt. min.). @ -no What testing was considered but not performed or refused? (CT, X-rays, U/S, labs)? Why? @ -none What meds were considered but not given or refused? Why? @ -none Did you discuss the management of the patient with other professionals (professionals i.e. [facility] Owen, [employer]OT SUPERVISOR, lab, RT, psych nurse, protective services social worker, table lever operator, teacher, driver's license reviewing officer, skilled nursing case manager)? Give summary @ -no Was smoking cessation discussed for >3mins.? @ -no Was critical care preformed (if so, how long)? @ -no Were there social determinants of health that impacted care today? How? (Homelessness, low income, unemployed, alcoholism, drug addiction, transportation, low edu. Level, literacy, decrease access to med. care, custodial, rehab)? @ -none Was there de-escalation of care discussed even if they declined (Discuss DNR or withdrawal of care, Hospice)? DNR status @ -no What co-morbidities impacted this encounter? (DM, HTN, Smoking, COPD, CAD, Cancer, CVA, ARF, Chemo, Hep., AIDS, mental health diagnosis, sleep apnea, morb id obesity)? @ -none Was patient admitted / discharged? Hospital course, mention meds given and rou te, prescriptions, significant lab abnormalities, going to OR and other pertinent info. @ - 82 female with syncopal event prior to arrival also concern for blood pressure. Patient has no acute symptoms. No headache chest pain shortness breath or abdominal pain and no other complaints. Family does feel couple taking patient home patient's daughter is a nurse at bedside who states patient feels well and is acting appropriately Discharge Undiagnosed new problem with uncertain prognosis? @ -no Drug Therapy requiring intensive monitoring for toxicity (Heparin, Nitro, Insulin, Cardizem)? @ -no Were any procedures done? @ -no Diagnosis/symptom? @ -Syncope Acute, or Chronic, or Acute on Chronic? @ -Acute Uncomplicated (without systemic symptoms) or Complicated (systemic symptoms)? @ -Complicated Side effects of treatment? @ -no Exacerbation, Progression, or Severe Exacerbation? @ -exacerbation Poses a threat to life or bodily function? How? (Chest pain, USA, DC, pneumonia, PE, COPD, DKA, ARF, appy, cholecystitis, CVA, Diverticulitis, Homicidal, Suicidal, threat to staff... and all critical care pts) @ -yes cause of syncope can result mortality Reevaluation #5: 04/07/23 15:47 Differential Syncope: Valvular disease, hypertrophic cardiomyopathy, pulmonary embolism, tamponade, tachycardia, bradycardia, DC, hypovolemia, hemorrhage, dissection, anemia, intracranial hemorrhage, seizure, hypoglycemia, carbon monoxide poisoning, this is not meant to be an all-inclusive list. EKG Findings - EKG Comments: EKG Findings:: EKG is A. fib with bradycardia 59 QRS 153 QTC 485 - EKG Results: EKG: interpreted by LUIS CARLOS Medical Decision Making - Medical Decision Making 82 female with syncopal event prior to arrival also concern for blood pressure. Patient has no acute symptoms. No headache chest pain shortness breath or abdominal pain and no other complaints. Family does feel couple taking patient home patient's daughter is a nurse at bedside who states patient feels well and is acting appropriately - Lab Data Result diagrams: 04/07/23 15:49 04/07/23 15:49 Lab Results 04/07/23 04/07/23 04/07/23 Range/Units 15:49 15:49 15:49 WBC 5.6 (3.8-10.6) k/uL RBC 3.11 L (3.80-5.40) m/uL Hgb 10.6 L (11.4-16.0) gm/dL Hct 31.9 L (34.0-46.0) % MCV 102.5 H (80.0-100.0) fL MCH 34.0 (25.0-35.0) pg MCHC 33.2 (31.0-37.0) g/dL RDW 14.9 (11.5-15.5) % Plt Count 312 (150-450) k/uL MPV 7.8 Neutrophils % 77 % Lymphocytes % 13 % Monocytes % 6 % Eosinophils % 2 % Basophils % 1 % Neutrophils # 4.3 (1.3-7.7) k/uL Lymphocytes # 0.7 L (1.0-4.8) k/uL Monocytes # 0.4 (0-1.0) k/uL Eosinophils # 0.1 (0-0.7) k/uL Basophils # 0.0 (0-0.2) k/uL Macrocytosis Slight PT 10.9 (9.0-12.0) sec INR 1.0 (<1.2) APTT 24.5 (22.0-30.0) sec Sodium 135 L (137-145) mmol/L Potassium 3.8 (3.5-5.1) mmol/L Chloride 98 (98-107) mmol/L Carbon Dioxide 26 (22-30) mmol/L Anion Gap 11 mmol/L BUN 39 H (7-17) mg/dL Creatinine 1.49 H (0.52-1.04) mg/dL Est GFR (CKD-EPI)AfAm 37 (>60 ml/min/1.73 sqM) Est GFR (CKD-EPI)NonAf 32 (>60 ml/min/1.73 sqM) Glucose 111 H (74-99) mg/dL Plasma Lactic Acid Lupillo (0.7-2.0) mmol/L Calcium 8.8 (8.4-10.2) mg/dL Phosphorus 4.0 (2.5-4.5) mg/dL Magnesium 1.7 (1.6-2.3) mg/dL Total Bilirubin 0.9 (0.2-1.3) mg/dL AST 22 (14-36) U/L ALT 11 (4-34) U/L Alkaline Phosphatase 86 (38-126) U/L Troponin I (0.000-0.034) ng/mL NT-Pro-B Natriuret Pep 3200 pg/mL Total Protein 7.0 (6.3-8.2) g/dL Albumin 3.8 (3.5-5.0) g/dL TSH 2.050 (0.465-4.680) mIU/L 04/07/23 04/07/23 Range/Units 15:49 15:49 WBC (3.8-10.6) k/uL RBC (3.80-5.40) m/uL Hgb (11.4-16.0) gm/dL Hct (34.0-46.0) % MCV (80.0-100.0) fL MCH (25.0-35.0) pg MCHC (31.0-37.0) g/dL RDW (11.5-15.5) % Plt Count (150-450) k/uL MPV Neutrophils % % Lymphocytes % % Monocytes % % Eosinophils % % Basophils % % Neutrophils # (1.3-7.7) k/uL Lymphocytes # (1.0-4.8) k/uL Monocytes # (0-1.0) k/uL Eosinophils # (0-0.7) k/uL Basophils # (0-0.2) k/uL Macrocytosis PT (9.0-12.0) sec INR (<1.2) APTT (22.0-30.0) sec Sodium (137-145) mmol/L Potassium (3.5-5.1) mmol/L Chloride (98-107) mmol/L Carbon Dioxide (22-30) mmol/L Anion Gap mmol/L BUN (7-17) mg/dL Creatinine (0.52-1.04) mg/dL Est GFR (CKD-EPI)AfAm (>60 ml/min/1.73 sqM) Est GFR (CKD-EPI)NonAf (>60 ml/min/1.73 sqM) Glucose (74-99) mg/dL Plasma Lactic Acid Lupillo 1.2 (0.7-2.0) mmol/L Calcium (8.4-10.2) mg/dL Phosphorus (2.5-4.5) mg/dL Magnesium (1.6-2.3) mg/dL Total Bilirubin (0.2-1.3) mg/dL AST (14-36) U/L ALT (4-34) U/L Alkaline Phosphatase (38-126) U/L Troponin I <0.012 (0.000-0.034) ng/mL NT-Pro-B Natriuret Pep pg/mL Total Protein (6.3-8.2) g/dL Albumin (3.5-5.0) g/dL TSH (0.465-4.680) mIU/L - EKG Data -: EKG Interpreted by Me Disposition Clinical Impression: Vasovagal syncope Disposition: HOME SELF-CARE Condition: Good Instructions (If sedation given, give patient instructions): Syncope (ED) Is patient prescribed a controlled substance at d/c from ED?: No Referrals: Hair Olivas MD [Primary Care Provider] - 1-2 days Time of Disposition: 17:10
[2023-04-07] MEDS ORDERED: SODIUM CHLORIDE 0.9% 1,000 ML IV STA (15:45)
[2023-04-07 16:08] LABS: Basophils % (A) 1 %; Eosinophils # (A) 0.1 k/uL (0-0.7); Eosinophils % (A) 2 %; HCT 31.9 % (34.0-46.0); HGB 10.6 gm/dL (11.4-16.0); Lymphocytes # (A) 0.7 k/uL (1.0-4.8); Lymphocytes % (A) 13 %; MCHC 33.2 g/dL (31.0-37.0); MCV 102.5 fL (80.0-100.0); Macrocytosis Slight; Mean Platelet Volume 7.8; Monocytes # (A) 0.4 k/uL (0-1.0); Monocytes % (A) 6 %; Neutrophils # (A) 4.3 k/uL (1.3-7.7); Neutrophils % (A) 77 %; Platelet Count 312 k/uL (150-450); RBC 3.11 m/uL (3.80-5.40); RDW 14.9 % (11.5-15.5); WBC 5.6 k/uL (3.8-10.6)
[2023-04-07 16:39] LABS: ALT 11 U/L (4-34); AST 22 U/L (14-36); African American GFR (CKD) 37 (>60 ml/min/1.73 sqM); Albumin 3.8 g/dL (3.5-5.0); Alkaline Phosphatase 86 U/L (38-126); Anion Gap 11 mmol/L; Blood Urea Nitrogen 39 mg/dL (7-17); Calcium 8.8 mg/dL (8.4-10.2); Carbon Dioxide 26 mmol/L (22-30); Chloride 98 mmol/L (98-107); Glucose 111 mg/dL (74-99); Magnesium 1.7 mg/dL (1.6-2.3); Non-African American GFR(CKD) 32 (>60 ml/min/1.73 sqM); Potassium 3.8 mmol/L (3.5-5.1); Sodium 135 mmol/L (137-145); Total Bilirubin 0.9 mg/dL (0.2-1.3)
[2023-04-07 16:48] LABS: NT-Pro-B-Type Natriuretic Pept 3200 pg/mL
[2023-04-07 16:52] LABS: Partial Thromboplastin Time 24.5 sec (22.0-30.0); Prothrombin Time 10.9 sec (9.0-12.0)
[2023-04-07 17:33] VITALS: BP 122/72; PULSE 60
== END 2023-04-07 17:34 | disposition home or self-care (01) ==
LOC: EC 14:23
DX: R55 Syncope and collapse (principal); I10 Essential (primary) hypertension; I48.91 Unspecified atrial fibrillation; E78.5 Hyperlipidemia, unspecified; Z79.01 Long term (current) use of anticoagulants; Z79.899 Other long term (current) drug therapy; Z88.0 Allergy status to penicillin; Z88.2 Allergy status to sulfonamides; Z86.73 Personal history of transient ischemic attack (TIA), and cerebral infarction without residual deficits; Z90.49 Acquired absence of other specified parts of digestive tract; Z87.891 Personal history of nicotine dependence
CPT/HCPCS: 36415; 80053; 83605; 83735; 83880; 84100; 84443; 84484; 85025; 85610; 85730; 93005; 96360; 99285

== ENCOUNTER → 2024-04-03 | Outpatient (CLI) | payer MEDICARE ==
--- NOTE | 2024-05-17 15:37 | US ---
Site ID [facility] Patient Annette Ha ID [id number] Age/Gender: 83Y, N/A Order # N/A Procedure Retroperitoneal Us Date 04/03/2024 1:40:00 PM EXAMINATION TYPE: US renals and bladder DATE OF EXAM: 04/16/2024 COMPARISON: None, please note PACS Production downtime occurred during the radiologist interpretation of these images with limited priors/reports. CLINICAL INDICATION: 83 year old with history of chronic kidney disease. EXAM MEASUREMENTS: Right Kidney: 7.6 x 4.8 x 4.3 cm Left Kidney: Not visualized due to overlying bowel gas. Right Kidney: wnl Left Kidney: Obscured by overlying bowel gas Bladder: wnl Bilateral Jets seen: No Left kidney is not visualized due to overlying bowel gas. No right hydronephrosis. No right nephrolit hiasis. No right renal masses identified. Mild cortical thinning with preservation of corticomedullar y differentiation. The urinary bladder is anechoic. Bilateral ureteral jets are not seen. IMPRESSION: 1. No hydronephrosis. 2. Nonvisualization left kidney due to overlying bowel gas. 3. Findings suggestive of chronic medical renal disease involving the right kidney.
== END | disposition home or self-care (01) ==
LOC: RADUSWWP 12:00
PROVIDERS: ATTEND Internal Medicine Geriatric Medicine
DX: N18.32 Chronic kidney disease, stage 3b
CPT/HCPCS: 76770

== ENCOUNTER → 2024-07-24 | Outpatient (CLI) | payer MEDICARE ==
[2024-07-24 10:06] LABS: Appearance,Urine Cloudy (Clear); Bacteria,Urine Occasional /hpf; Bilirubin,Urine Negative (Negative); Blood,Urine Negative (Negative); Color,Urine Colorless; Glucose,Urine (UA) 2+ (Negative); Ketones,Urine Negative (Negative); Leukocyte Esterase,Urine Large (Negative); Mucus,Urine Rare /hpf; Nitrite,Urine Negative (Negative); PH, Urine 6.5 (5.0-8.0); Protein,Urine Trace (Negative); Specific Gravity,Urine 1.008 (1.001-1.035); Squamous Epithelial Cell,Urine 2 /hpf (0-4); Urobilinogen,Urine <2.0 mg/dL (<2.0); WBC,Urine 172 /hpf (0-5)
[2024-07-24 15:54] LABS: HCT 38.1 % (37.2-46.3); HGB 12.4 g/dL (12.0-15.0); MCH 34.6 pg (27.0-32.0); MCHC 32.5 g/dL (32.0-37.0); MCV 106.4 FL (80.0-97.0); NRBC Per 100 WBC 0 X 10*3/uL (0.00-0.01); Platelet Count 237 X 10*3/uL (140-440); RBC 3.58 X 10*6/uL (4.10-5.20); RDW 13.7 % (11.5-14.5); WBC 6.14 X 10*3/uL (4.50-10.00)
[2024-07-24 16:15] LABS: Blood Urea Nitrogen 39.6 mg/dL (9.0-27.0); Carbon Dioxide 28.3 mmol/L (21.6-31.8); Chloride 97 mmol/L (96-109); Glucose 109 mg/dL (70-110); Magnesium 1.9 mg/dL (1.5-2.4); Phosphorus 3.1 mg/dL (2.4-5.1); Potassium 4.1 mmol/L (3.5-5.5); Sodium 139 mmol/L (135-145)
[2024-07-24 16:16] LABS: ALT 12 U/L (8-44); AST 22 U/L (13-35); Albumin 4.4 g/dL (3.8-4.9); Albumin/Globulin Ratio 1.76 Ratio (1.60-3.17); Alkaline Phosphatase 101 U/L (41-126); Calcium 9.5 mg/dL (8.7-10.3); Globulin 2.5 g/dL (1.6-3.3); Total Bilirubin 0.8 mg/dL (0.3-1.2); Total Protein 6.9 g/dL (6.2-8.2)
[2024-07-24 16:26] LABS: Basophils # (A) 0.07 X 10*3/uL (0.00-0.10); Basophils % (A) 1.1 %; Eosinophils # (A) 0.21 X 10*3/uL (0.04-0.35); Eosinophils % (A) 3.4 %; Lymphocytes # (A) 0.97 X 10*3/uL (0.90-5.00); Lymphocytes % (A) 15.8 %; Monocytes # (A) 0.79 X 10*3/uL (0.20-1.00); Monocytes % (A) 12.9 %; Neutrophils # (A) 4.08 X 10*3/uL (1.80-7.70); Neutrophils % (A) 66.5 %; RBC Morphology Normal (Normal)
[2024-07-24 19:30] LABS: Urine Creatinine 32.4 mg/dL (28.0-217.0)
== END | disposition home or self-care (01) ==
LOC: LABWHC1 09:03
PROVIDERS: ATTEND Internal Medicine
DX: N18.32 Chronic kidney disease, stage 3b (principal)
CPT/HCPCS: 36415; 80053; 81001; 82043; 82570; 83735; 84100; 85025

== ENCOUNTER → 2024-10-24 | Outpatient (CLI) | payer MEDICARE ==
[2024-10-24 15:35] LABS: Appearance,Urine Turbid (Clear); Bilirubin,Urine Negative (Negative); Blood,Urine Trace (Negative); Color,Urine Yellow (Yellow); Ketones,Urine Negative (Negative); Nitrite,Urine Negative (Negative)
[2024-10-24 16:34] LABS: Bacteria,Urine 4+ (None Seen)
[2024-10-24 16:49] LABS: HCT 39.5 % (37.2-46.3); HGB 13.2 g/dL (12.0-15.0); MCH 35.6 pg (27.0-32.0); MCHC 33.4 g/dL (32.0-37.0); MCV 106.5 FL (80.0-97.0); Mean Platelet Volume 10.8 FL (9.5-12.2); NRBC Per 100 WBC 0 X 10*3/uL (0.00-0.01); Platelet Count 248 X 10*3/uL (140-440); RBC 3.71 X 10*6/uL (4.10-5.20); RDW 14.3 % (11.5-14.5); WBC 5.26 X 10*3/uL (4.50-10.00)
[2024-10-24 17:01] LABS: % Iron Saturation 22.92 (12.00-45.00); Iron 110 UG/DL (50-170); Magnesium 2.1 mg/dL (1.5-2.4); Phosphorus 3.5 mg/dL (2.4-5.1); Total Iron Binding Capacity 480 UG/DL (228-460); Uric Acid 4.3 mg/dL (2.9-7.7)
[2024-10-24 17:02] LABS: ALT 14 U/L (8-44); AST 25 U/L (13-35); Albumin 4.3 g/dL (3.8-4.9); Albumin/Globulin Ratio 1.48 Ratio (1.60-3.17); Alkaline Phosphatase 108 U/L (41-126); BUN/Creat Ratio 27.82 Ratio (12.00-20.00); Blood Urea Nitrogen 61.2 mg/dL (9.0-27.0); Calcium 9.7 mg/dL (8.7-10.3); Carbon Dioxide 28.5 mmol/L (21.6-31.8); Chloride 95 mmol/L (96-109); Ferritin 45.6 ng/mL (10.0-291.0); Globulin 2.9 g/dL (1.6-3.3); Glucose 112 mg/dL (70-110); Potassium 3.6 mmol/L (3.5-5.5); Sodium 138 mmol/L (135-145); Total Protein 7.2 g/dL (6.2-8.2)
[2024-10-24 17:07] LABS: Urine Creatinine 43.7 mg/dL (28.0-217.0)
== END | disposition home or self-care (01) ==
LOC: LABWHC1 09:35
PROVIDERS: ATTEND Internal Medicine
DX: N39.0 Urinary tract infection, site not specified (principal); D63.1 Anemia in chronic kidney disease; R80.9 Proteinuria, unspecified; E55.9 Vitamin D deficiency, unspecified; N25.81 Secondary hyperparathyroidism of renal origin; N18.4 Chronic kidney disease, stage 4 (severe); M10.9 Gout, unspecified
CPT/HCPCS: 36415; 80053; 81001; 82043; 82306; 82570; 82728; 83540; 83550; 83735; 83883; 83970; 84100; 84166; 84550; 85027; 86334

== ENCOUNTER 2025-01-19 13:38 | Inpatient (IN) | payer MEDICARE ==
--- NOTE | 2025-01-19 13:50 | ED ---
General Adult HPI - General Stated complaint: Fall Time Seen by Provider: 01/19/25 13:44 Source: patient, EMS, RN notes reviewed Mode of arrival: EMS Limitations: no limitations - History of Present Illness Initial comments: Patient is an 84-year-old female on Eliquis presenting to the emergency department with fall. Patient does not recall what happened. Patient is unclear if she could have passed out. Patient is on Eliquis with history of atrial fibrillation. Patient did sustain laceration to the left forehead. Patient also sustained laceration to the right palm. Patient does have moderate discomfort left side of her face. No chest pain or dyspnea. No neck or back pain. - Related Data Home Medications Medication Instructions Recorded Confirmed Apixaban [Eliquis] 2.5 mg PO BID 03/23/23 03/23/23 Atorvastatin [Lipitor] 20 mg PO HS 03/23/23 03/23/23 Fluticasone/Umeclidin/Vilanter 1 puff INHALATION RT-DAILY 03/23/23 03/23/23 [Trelegy Ellipta 100-62.5-25] Furosemide [Lasix] 20 mg PO DAILY 03/23/23 03/23/23 Levothyroxine Sodium [Synthroid] 88 mcg PO DAILY 03/23/23 03/23/23 Magnesium Chloride [Mag64] 64 mg PO DAILY 03/23/23 03/23/23 Omeprazole [PriLOSEC] 40 mg PO DAILY 03/23/23 03/23/23 Potassium Chloride ER [K-Dur 20] 20 meq PO HS 03/23/23 03/23/23 Propranolol HCl [Inderal] 80 mg PO DAILY 03/23/23 03/23/23 allopurinoL [Zyloprim] 300 mg PO DAILY 03/23/23 03/23/23 oxyBUTYnin chloride [Ditropan] 5 mg PO DAILY 03/23/23 03/23/23 ramipriL [Altace] 10 mg PO DAILY 03/23/23 03/23/23 Allergies Allergy/AdvReac Type Severity Reaction Status Date / Time Penicillins Allergy Unknown Verified 01/19/25 13:57 Sulfa (Sulfonamide Allergy Rash/Hives Verified 01/19/25 13:57 Antibiotics) Review of Systems ROS Statement: Those systems with pertinent positive or pertinent negative responses have been documented in the HPI. ROS Other: All systems not noted in ROS Statement are negative. Constitutional: Denies: fever Eyes: Denies: eye pain ENT: Denies: ear pain Respiratory: Denies: cough, dyspnea Cardiovascular: Denies: chest pain Endocrine: Denies: fatigue Gastrointestinal: Denies: abdominal pain Musculoskeletal: Denies: back pain Skin: Reports: as per HPI Neurological: Reports: as per HPI. Denies: weakness Past Medical History Past Medical History: Atrial Fibrillation, CVA/TIA, Hyperlipidemia, Hypertension Additional Past Medical History / Comment(s): cardiomyopathy History of Any Multi-Drug Resistant Organisms: None Reported Past Surgical History: Cholecystectomy, Heart Catheterization, Hysterectomy, Tonsillectomy Past Anesthesia/Blood Transfusion Reactions: No Reported Reaction Past Psychological History: No Psychological Hx Reported Smoking Status: Former smoker Past Alcohol Use History: Occasional Past Drug Use History: None Reported General Exam Limitations: no limitations General appearance: alert, other (Forehead laceration) Head exam: Present: other (Forehead laceration. There is mild tenderness left maxillary region as well as left forehead) Eye exam: Present: normal appearance, PERRL, EOMI Neck exam: Present: tenderness (C-collar is present. Mild diffuse tenderness.) Respiratory exam: Present: normal lung sounds bilaterally Cardiovascular Exam: Present: irregular rhythm Expanded Peripheral pulses: 2+: Radial (R), Radial (L), Posterior Tibialis (R), Posterior Tibialis (L) GI/Abdominal exam: Present: soft. Absent: tenderness Extremities exam: Present: tenderness (Left lateral hip), other (Distal extremities are neurovascular intact) Back exam: Present: normal inspection. Absent: tenderness Neurological exam: Present: alert, oriented X3, CN II-XII intact. Absent: motor sensory deficit Psychiatric exam: Present: normal affect, normal mood Skin exam: Present: other (Laceration left forehead and right palm) Course Vital Signs 01/19/25 01/19/25 13:51 15:05 Temperature 97.9 F Pulse Rate 77 67 Respiratory 16 16 Rate Blood Pressure 126/94 90/45 O2 Sat by Pulse 95 93 L Oximetry EKG Findings - EKG Results: EKG: interpreted by ERMD (Left axis. Left bundle branch block. Q waves.), normal ST/T EKG shows: atrial fibrillation Medical Decision Making - Medical Decision Making Was pt. sent in by a medical professional or institution (Dr., PA, SHIPPING AND RECEIVING ASSOCIATE, urgent care, hospital, or detention...) When possible be specific @ -No Did you speak to anyone other than the patient for history (EMS, parent, family, police, friend...)? What history was obtained from this source @ -No Did you review nursing and triage notes (agree or disagree)? Why? @ -I reviewed and agree with nursing and triage notes Were old charts reviewed (outside hosp., previous admission, EMS record, old EKG, old radiological studies, urgent care reports/EKG's, detention records)? Report findings @ -No old charts were reviewed Differential Diagnosis (chest pain, altered mental status, abdominal pain women, abdominal pain men, vaginal bleeding, weakness, fever, dyspnea, syncope, headache, dizziness, GI bleed, back pain, seizure, CVA, palpatations, mental health, musculoskeletal)? @ -Differential Syncope: Valvular disease, hypertrophic cardiomyopathy, pulmonary embolism, tamponade, tachycardia, bradycardia, ME, hypovolemia, hemorrhage, dissection, anemia, intracranial hemorrhage, seizure, hypoglycemia, carbon monoxide poisoning, this is not meant to be an all-inclusive list. EKG interpreted by me (3pts min.). @ -As above X-rays interpreted by me (1pt min.). @ -Chest x-ray and left hip x-ray without evidence of acute fracture CT interpreted by me (1pt min.). @ -CT scan brain, cervical spine, facial bones shows nasal fracture U/S interpreted by me (1pt. min.). @ -None done What testing was considered but not performed or refused? (CT, X-rays, U/S, labs)? Why? @ -None What meds were considered but not given or refused? Why? @ -None Did you discuss the management of the patient with other professionals (professionals i.e. ALFONZO Owen, SHIPPING AND RECEIVING ASSOCIATE, lab, RT, psych nurse, outreach and education social worker, scudding inspector, teacher, commercial account officer, correctional casework specialist)? Give summary @ -Case was discussed with Dr. Cole who will admit covering Dr. Duggan Was smoking cessation discussed for >3mins.? @ -No Was critical care preformed (if so, how long)? @ -No Were there social determinants of health that impacted care today? How? (Homelessness, low income, unemployed, alcoholism, drug addiction, transportation, low edu. Level, literacy, decrease access to med. care, halfway, rehab)? @ -No Was there de-escalation of care discussed even if they declined (Discuss DNR or withdrawal of care, Hospice)? DNR status @ -No What co-morbidities impacted this encounter? (DM, HTN, Smoking, COPD, CAD, Cancer, CVA, ARF, Chemo, Hep., AIDS, mental health diagnosis, sleep apnea, morbid obesity)? @ -None Was patient admitted / discharged? Hospital course, mention meds given and route, prescriptions, significant lab abnormalities, going to OR and other pertinent info. @ -Patient presents with syncopal episode. Forehead laceration repaired. Patient does have elevated BUN. Patient will be admitted, patient was reevaluated several times. Patient and family were updated. Admission orders written. Undiagnosed new problem with uncertain prognosis? @ -No Drug Therapy requiring intensive monitoring for toxicity (Heparin, Nitro, Insulin, Cardizem)? @ -No Were any procedures done? @ -Laceration repair by practitioner Emilie, see above Diagnosis/symptom? @ -Syncope Acute, or Chronic, or Acute on Chronic? @ -Acute Uncomplicated (without systemic symptoms) or Complicated (systemic symptoms)? @ -Default Side effects of treatment? @ -No Exacerbation, Progression, or Severe Exacerbation? @ -No Poses a threat to life or bodily function? How? (Chest pain, USA, ME, pneumonia, PE, COPD, DKA, ARF, appy, cholecystitis, CVA, Diverticulitis, Homicidal, Suicidal, threat to staff... and all critical care pts) @ -No - Lab Data Result diagrams: 01/19/25 14:11 01/19/25 14:11 Lab Results 01/19/25 01/19/25 01/19/25 Range/Units 14:11 14:11 14:11 WBC 5.85 (4.50-10.00) 10*3/uL RBC 2.83 L (4.10-5.20) 10*6/uL Hgb 10.5 L (12.0-15.0) g/dL Hct 29.4 L (37.2-46.3) % MCV 103.9 H (80.0-97.0) fL MCH 37.1 H (27.0-32.0) pg MCHC 35.7 (32.0-37.0) g/dL Plt Count 219 (140-440) 10*3/uL MPV 10.3 (9.5-12.2) fL Immature Gran % (Auto) 0.5 % Neutrophils % 71.3 % Lymphocytes % 13.2 % Monocytes % 12.1 % Eosinophils % 2.4 % Basophils % 0.5 % Immature Gran # 0.03 (0.00-0.04) 10*3/uL Neutrophils # 4.17 (1.80-7.70) 10*3/uL Lymphocytes # 0.77 L (0.90-5.00) 10*3/uL Monocytes # 0.71 (0.20-1.00) 10*3/uL Eosinophils # 0.14 (0.04-0.35) 10*3/uL Basophils # 0.03 (0.00-0.10) 10*3/uL PT 11.6 (10.0-12.5) sec INR 1.1 (<1.2) APTT 21.9 L (22.0-30.0) sec Sodium 129 L (137-145) mmol/L Potassium 5.0 (3.5-5.1) mmol/L Chloride 91 L (98-107) mmol/L Carbon Dioxide 30 (22-30) mmol/L Anion Gap 8 mmol/L BUN 82 H (7-17) mg/dL Creatinine 2.21 H (0.52-1.04) mg/dL Est GFR (CKD-EPI)AfAm 23 (>60 ml/min/1.73 sqM) Est GFR (CKD-EPI)NonAf 20 (>60 ml/min/1.73 sqM) Glucose 108 H (74-99) mg/dL Calcium 9.1 (8.4-10.2) mg/dL Magnesium 1.9 (1.6-2.3) mg/dL Total Bilirubin 1.4 H (0.2-1.3) mg/dL AST 38 H (14-36) U/L ALT 17 (4-34) U/L Alkaline Phosphatase 54 (38-126) U/L Troponin I (0.000-0.034) ng/mL Total Protein 6.5 (6.3-8.2) g/dL Albumin 3.7 (3.5-5.0) g/dL 01/19/ Range/Units 14:11 WBC (4.50-10.00) 10*3/uL RBC (4.10-5.20) 10*6/uL Hgb (12.0-15.0) g/dL Hct (37.2-46.3) % MCV (80.0-97.0) fL MCH (27.0-32.0) pg MCHC (32.0-37.0) g/dL Plt Count (140-440) 10*3/uL MPV (9.5-12.2) fL Immature Gran % (Auto) % Neutrophils % % Lymphocytes % % Monocytes % % Eosinophils % % Basophils % % Immature Gran # (0.00-0.04) 10*3/uL Neutrophils # (1.80-7.70) 10*3/uL Lymphocytes # (0.90-5.00) 10*3/uL Monocytes # (0.20-1.00) 10*3/uL Eosinophils # (0.04-0.35) 10*3/uL Basophils # (0.00-0.10) 10*3/uL PT (10.0-12.5) sec INR (<1.2) APTT (22.0-30.0) sec Sodium (137-145) mmol/L Potassium (3.5-5.1) mmol/L Chloride (98-107) mmol/L Carbon Dioxide (22-30) mmol/L Anion Gap mmol/L BUN (7-17) mg/dL Creatinine (0.52-1.04) mg/dL Est GFR (CKD-EPI)AfAm (>60 ml/min/1.73 sqM) Est GFR (CKD-EPI)NonAf (>60 ml/min/1.73 sqM) Glucose (74-99) mg/dL Calcium (8.4-10.2) mg/dL Magnesium (1.6-2.3) mg/dL Total Bilirubin (0.2-1.3) mg/dL AST (14-36) U/L ALT (4-34) U/L Alkaline Phosphatase (38-126) U/L Troponin I <0.012 (0.000-0.034) ng/mL Total Protein (6.3-8.2) g/dL Albumin (3.5-5.0) g/dL Disposition Clinical Impression: Syncope Disposition: ADMITTED IP TO THIS HOSP Is patient prescribed a controlled substance at d/c from ED?: No Referrals: Hiar Olivas MD [Primary Care Provider] - 1-2 days Time of Disposition: 17:32
[2025-01-19 14:22] LABS: Basophils # (A) 0.03 10*3/uL (0.00-0.10); Basophils % (A) 0.5 %; Eosinophils # (A) 0.14 10*3/uL (0.04-0.35); Eosinophils % (A) 2.4 %; HCT 29.4 % (37.2-46.3); HGB 10.5 g/dL (12.0-15.0); Lymphocytes # (A) 0.77 10*3/uL (0.90-5.00); Lymphocytes % (A) 13.2 %; MCH 37.1 pg (27.0-32.0); MCHC 35.7 g/dL (32.0-37.0); MCV 103.9 fL (80.0-97.0); Mean Platelet Volume 10.3 fL (9.5-12.2); Monocytes # (A) 0.71 10*3/uL (0.20-1.00); Monocytes % (A) 12.1 %; Neutrophils # (A) 4.17 10*3/uL (1.80-7.70); Neutrophils % (A) 71.3 %; Platelet Count 219 10*3/uL (140-440); RBC 2.83 10*6/uL (4.10-5.20); RDW 13.9 % (11.5-14.5); WBC 5.85 10*3/uL (4.50-10.00)
--- NOTE | 2025-01-19 14:35 | CT ---
EXAMINATION TYPE: CT brain cspine wo con, CT facial bones wo con CT DLP: Combined DLP of 1083.9 mGycm, Automated exposure control for dose reduction was used. DATE OF EXAM: 01/19/2025 2:00 PM COMPARISON: MRI brain 03/23/2023, CT brain 03/23/2023 CLINICAL INDICATION:Female, 84 years old with history of fall; Code Coag, fall on thinners. TECHNIQUE: Brain: Multiple axial CT images of the brain were obtained without IV contrast. Cspine: Axial CT images from the skull base to the inferior aspect of T2 we obtained without intraven ous contrast. Coronal and sagittal reformatted images were also reviewed. Facial bones; axial CT images of the facial bones were obtained without contrast and soft tissue and bone windows. Coronal and sagittal reformatted images were also reviewed. FINDINGS: Brain: Extra-axial spaces: No abnormal extra-axial fluid collections. Resolution of previously demonstrated left chronic subdural hematoma. Ventricular system: Dilatation in proportion to cerebral atrophy. Cerebral parenchyma: Cerebral atrophy. No acute intraparenchymal hemorrhage or mass effect. The morocho -white junction is well differentiated. Scattered hypoattenuating areas are seen within the periventr icular white matter. Encephalomalacia within the left middle cranial fossa temporal lobe from prior injury. Cerebellum: Unremarkable. Mass effect: No evidence of midline shift. Intracranial vasculature: unremarkable Soft tissues: Acute soft tissue contusion of the left chin. Acute left periorbital soft tissue hemato ma with a maximum thickness of 6 mm. Acute left nasal soft tissue swelling. Calvarium: No depressed skull fracture. Acute comminuted left nasal bone fracture is approximately 2 mm of depression. Paranasal sinuses and mastoid air cells: The mastoid air cells are clear. Debris within the nasophary nx. Near complete opacification of the left sphenoid sinus. Mild mucosal thickening of the left ethmo id sinus. Air-fluid level within the left maxillary sinus. The remaining paranasal sinuses are clear. Visualized orbits: Bilateral aphakia Cervical spine: Fracture: None. Osseous structures: Multilevel disc space narrowing with endplate sclerosis and anterior osteophytosi s. Multilevel facet arthropathy. Vertebral alignment: Within normal limits. Spinal canal/Neural Foramina: No evidence of significant spinal canal narrowing. Facet joint uncovert ebral joint arthropathy scattered throughout the cervical spine with varying degrees of neural forami nal stenosis. Neck soft tissues: Prevertebral soft tissues are within normal limits. Other: The airway is patent. The lung apices are clear. Bilateral carotid bulb calcifications. Atroph y of the thyroid gland. Facial Bones: Acute comminuted left nasal bone fracture is approximately 2 mm of depression. Acute soft tissue cont usion of the left chin. Acute left periorbital soft tissue hematoma with a maximum thickness of 6 mm. Acute left nasal soft tissue swelling. The mastoid air cells are clear. Debris within the nasopharyn x. Near complete opacification of the left sphenoid sinus. Mild mucosal thickening of the left ethmoi d sinus. Air-fluid level within the left maxillary sinus. The remaining paranasal sinuses are clear. Bilateral aphakia. The intraconal fat is preserved bilaterally. The temporal-mandibular joints appear symmetric. IMPRESSION: 1. No acute intracranial process. Resolution of previously demonstrated chronic left subdural hemato ma. 2. Nonspecific white matter changes, likely secondary to chronic small vessel ischemic disease. Shanna lar encephalomalacia within the left middle cranial fossa from prior injury. 3. Acute minimally depressed comminuted left nasal bone fracture with associated soft tissue swellin g. 4. Acute left periorbital soft tissue hematoma with acute soft tissue contusion to left chin. 5. Paranasal sinus disease with air-fluid level within the left maxillary sinus which may relate to acute sinusitis versus related to trauma. 6. No evidence of cervical spine fracture. 7. Mild multilevel degenerative disc disease. [facility], , 01/19/2025 2:33 PM
[2025-01-19 14:37] LABS: ALT 17 U/L (4-34); African American GFR (CKD) 23 (>60 ml/min/1.73 sqM); Anion Gap 8 mmol/L; Blood Urea Nitrogen 82 mg/dL (7-17); Calcium 9.1 mg/dL (8.4-10.2); Carbon Dioxide 30 mmol/L (22-30); Chloride 91 mmol/L (98-107); Glucose 108 mg/dL (74-99); Non-African American GFR(CKD) 20 (>60 ml/min/1.73 sqM); Sodium 129 mmol/L (137-145)
[2025-01-19 15:02] LABS: INR 1.1 (<1.2); Partial Thromboplastin Time 21.9 sec (22.0-30.0); Prothrombin Time 11.6 sec (10.0-12.5)
[2025-01-19] MEDS: LORazepam 1 MG/0.5 ML VIAL IV STA (15:02)
[2025-01-19] MEDS: ONDANSETRON 4 MG/2 ML VIAL IVP STA (15:03)
[2025-01-19 15:20] LABS: Alkaline Phosphatase 54 U/L (38-126); Magnesium 1.9 mg/dL (1.6-2.3)
[2025-01-19 15:21] LABS: AST 38 U/L (14-36); Albumin 3.7 g/dL (3.5-5.0); Total Bilirubin 1.4 mg/dL (0.2-1.3); Total Protein 6.5 g/dL (6.3-8.2)
--- NOTE | 2025-01-19 16:10 | XR ---
EXAMINATION TYPE: XR chest 1V portable DATE OF EXAM: 01/19/2025 3:55 PM COMPARISON: 12/24/2022 CLINICAL INDICATION: Female, 84 years old with history of syncope, , FINDINGS: The heart is mild to moderately enlarged. Interstitial densities. Mild patchy retrocardiac left basil ar opacity. IMPRESSION: 1. Mild to moderate cardiomegaly and interstitial density. Correlate to exclude mild CHF. 2. Some patchy probable atelectasis in the retrocardiac region. [facility], , 01/19/2025 4:08 PM
--- NOTE | 2025-01-19 16:13 | XR ---
EXAMINATION TYPE: XR Hip 2 views LT and AP Pelvis DATE OF EXAM: 01/19/2025 4:05 PM COMPARISON: None CLINICAL INDICATION: Female, 84 years old with history of fall; PHH, pain FINDINGS: Limited by osteopenia. Further limitation due to external rotation of the hips on the AP pelvis view. There is antegrade intramedullary nail with screw fixation partially visualized right hip. Alignment for the degree of osteopenia, no displaced left rib fracture is seen. There seems to be some lateral soft tissue swelling on the left. IMPRESSION: 1. Limited by osteopenia. No displaced fracture is seen. 2. Possible contusion/soft tissue hematoma lateral left hip. Clinically correlate. 3. The distal end of the right sided intramedullary nail is outside the field of view. [facility], , 01/19/2025 4:10 PM
[2025-01-19] MEDS: SODIUM CHLORIDE 0.9% 500 ML 500 ML IV STA (16:15)
[2025-01-19] MEDS: DIPH,PERTUS(ACELL)TETVAC-LF 0.5 ML VIAL IM ONE (16:15)
[2025-01-19] MEDS: LIDOCAINE 1% INJ 10MG/ML (20 ML MDV) SQ ONE ×2 (16:27)
[2025-01-19] MEDS: LIDOCAINE 1%-EPI 1:100,000 20 ML VIAL SQ STA (16:42)
[2025-01-19] MEDS ORDERED: NALOXONE 0.4 MG/ML 1 ML VIAL IV PRN (17:32)
[2025-01-19] MEDS: SODIUM CHLORIDE 0.9% 1,000 ML IV STA (17:42)
[2025-01-19] MEDS: ACETAMINOPHEN IV (For NPO) 1,000 MG in EMPTY BAG 1 BAG IVPB STA (17:47)
[2025-01-19] MEDS: SODIUM CHLORIDE 0.9% 1,000 ML IV SCH (17:47)
--- NOTE | 2025-01-19 19:36 | P.HPIM ---
History of Present Illness This is a pleasant 84 years old female who was seen and examined in the emergency room at [address], she was lying in bed with Jean bandage around her head with superficial wound requiring stitches. With some evidence around her left eye hematoma Patient states with information obtained with the help of the daughter at bedside that patient was getting her shopping back to home as she is independent her neighbor noticed her noted next to her car and he found her on the floor and EMS were called. Patient herself remember standing by her car and the next thing she remembers to be in the hospital. While she was in hospital she developed seizure as per daughter at bedside which was tonic-clonic arms were up in the air and her also rolled back lasted for about short time, few minutes. No biting tongue, no urinary or bowel incont inence. Patient denies any weakness or numbness or blurred vision or slurred speech However she complains from some fuzziness around her left eye and there is some hematoma around left eye but there is no impaired vision. Also patient was taking Eliquis at home. Patient hemodynamically stable, she is afebrile . Blood pressure 92/55. Hemoglobin 10.5. WBC 5.8. INR within the reference range. Sodium 129 Creatinine elevated 2.2 Liver enzymes not significantly elevated. Troponin x [address]: No acute intracranial process Chest x-ray: Mild to moderate cardiomegaly and additional density correlate for CHF EKG: Atrial fibrillation with a rate of 68 Review of Systems Review of systems CONSTITUTIONAL: No fever, as above HEENT: No recent hearing problems. Denied any sore throat. CARDIOVASCULAR: No orthopnea, PND, PULMONARY: no cough, no hemoptysis. GASTROINTESTINAL: No diarrhea, no nausea, NEUROLOGICAL: As above HEMATOLOGICAL: As above GENITOURINARY: Denies any burning micturition, frequency, or urgency. MUSCULOSKELETAL/RHEUMATOLOGICAL: As above ENDOCRINE: Denies any polyuria or polydipsia. Past Medical History Past Medical History: Atrial Fibrillation, CVA/TIA, Hyperlipidemia, Hypertension Additional Past Medical History / Comment(s): cardiomyopathy History of Any Multi-Drug Resistant Organisms: None Reported Past Surgical History: Cholecystectomy, Heart Catheterization, Hysterectomy, Tonsillectomy Past Anesthesia/Blood Transfusion Reactions: No Reported Reaction Past Psychological History: No Psychological Hx Reported Smoking Status: Former smoker Past Alcohol Use History: Occasional Past Drug Use History: None Reported Medications and Allergies Home Medications Medication Instructions Recorded Confirmed Type Apixaban [Eliquis] 5 mg PO BID 03/23/23 01/19/25 History Atorvastatin [Lipitor] 20 mg PO DAILY 03/23/23 01/19/25 History Fluticasone/Umeclidin/Vilanter 1 puff INHALATION RT-DAILY 03/23/23 01/19/25 History [Trelegy Ellipta 100-62.5-25] Furosemide [Lasix] 40 mg PO DAILY 03/23/23 01/19/25 History Levothyroxine Sodium [Synthroid] 88 mcg PO DAILY 03/23/23 01/19/25 History Magnesium Chloride [Mag64] 64 mg PO DAILY 03/23/23 01/19/25 History Omeprazole [PriLOSEC] 40 mg PO DAILY 03/23/23 01/19/25 History Potassium Chloride ER [K-Dur 20] 20 meq PO DAILY 03/23/23 01/19/25 History Propranolol HCl [Inderal] 80 mg PO DAILY 03/23/23 01/19/25 History allopurinoL [Zyloprim] 300 mg PO DAILY 03/23/23 01/19/25 History oxyBUTYnin chloride [Ditropan] 5 mg PO DAILY 03/23/23 01/19/25 History ramipriL [Altace] 10 mg PO DAILY 03/23/23 01/19/25 History Empagliflozin [Jardiance] 10 mg PO DAILY 01/19/25 01/19/25 History metOLazone [Zaroxolyn] 2.5 mg PO MOTH 01/19/25 01/19/25 History Allergies Allergy/AdvReac Type Severity Reaction Status Date / Time Penicillins Allergy Unknown Verified 01/19/25 18:38 Sulfa (Sulfonamide Allergy Rash/Hives Verified 01/19/25 18:38 Antibiotics) Physical Exam Vitals: Vital Signs Temp Pulse Resp BP Pulse Ox 01/19/25 18:52 72 16 92/55 95 01/19/25 15:05 67 16 90/45 93 L 01/19/25 13:51 97.9 F 77 16 126/94 95 Intake and Output 01/19/25 01/19/25 01/19/25 06:59 14:59 22:59 Other: Weight 72.575 kg -GENERAL: The patient is alert and oriented x3, not in any acute distress. Well developed, well nourished. Generally weak HEENT: Pupils are round and equally reacting to light. EOMI. No scleral icterus. No conjunctival pallor. Normocephalic, atraumatic. No pharyngeal erythema. No thyromegaly. -Left forehead 1 to 2 inches wound requiring stitches. Periorbital left eye hematoma CARDIOVASCULAR: S1 and S2 present. No murmurs, rubs, or gallops. PULMONARY: Chest is clear to auscultation, no wheezing , no crackles. ABDOMEN: Soft, nontender, nondistended, normoactive bowel sounds. No palpable organomegaly. MUSCULOSKELETAL: No joint swelling or deformity. EXTREMITIES: No cyanosis, clubbing, or pedal edema. NEUROLOGICAL: Gross neurological examination did not reveal any focal deficits. SKIN: No rashes. no petechiae. Results CBC & Chem 7: 01/19/25 14:11 01/19/25 14:11 Labs: Abnormal Lab Results - Last 24 Hours (Table) 01/19/25 01/19/25 01/19/25 Range/Units 14:11 14:11 14:11 RBC 2.83 L (4.10-5.20) 10*6/uL Hgb 10.5 L (12.0-15.0) g/dL Hct 29.4 L (37.2-46.3) % MCV 103.9 H (80.0-97.0) fL MCH 37.1 H (27.0-32.0) pg Lymphocytes # 0.77 L (0.90-5.00) 10*3/uL APTT 21.9 L (22.0-30.0) sec Sodium 129 L (137-145) mmol/L Chloride 91 L (98-107) mmol/L BUN 82 H (7-17) mg/dL Creatinine 2.21 H (0.52-1.04) mg/dL Glucose 108 H (74-99) mg/dL Total Bilirubin 1.4 H (0.2-1.3) mg/dL AST 38 H (14-36) U/L Assessment and Plan Assessment: Syncope with a fall from standing position with left forehead superficial wound status post stitches Seizure-like activity while in the emergency room, described by the daughter was at bedside Hyponatremia Acute kidney injury Acute left periorbital hematoma with some fuzziness Atrial fibrillation with rate controlled on Eliquis at home Plan: Patient started on IV fluid Continue telemetry monitoring check TSH Neurocheck Cardiology and neurology team Monitor creatinine Nephrology team consult Labs and medication were reviewed.. Continue same treatment. Continue with symptomatic treatment. Resume home medication. Monitor labs and vitals. DVT and GI prophylaxis. Further recommendations as per clinical course of the letha renteria DVT prophylaxis: Subcutaneous heparin GI Prophylaxis: Pepcid PT/OT: Pending Prognosis is guarded
[2025-01-20] MEDS: oxyCODONE-APAP 5-325MG 1 EACH TAB PO PRN (00:24)
[2025-01-20] MEDS: LEVOTHYROXINE 88 MCG TAB PO SCH (06:36)
[2025-01-20] MEDS ORDERED: LOPERAMIDE 2 MG CAP PO PRN (07:11)
[2025-01-20 07:15] LABS: Basophils # (A) 0.03 10*3/uL (0.00-0.10); Basophils % (A) 0.3 %; Eosinophils # (A) 0.01 10*3/uL (0.04-0.35); Eosinophils % (A) 0.1 %; HCT 23.6 % (37.2-46.3); Lymphocytes # (A) 0.85 10*3/uL (0.90-5.00); Lymphocytes % (A) 8.2 %; MCHC 34.3 g/dL (32.0-37.0); Mean Platelet Volume 10.3 fL (9.5-12.2); Monocytes # (A) 1.07 10*3/uL (0.20-1.00); Monocytes % (A) 10.3 %; Neutrophils # (A) 8.38 10*3/uL (1.80-7.70); Neutrophils % (A) 80.4 %; Platelet Count 190 10*3/uL (140-440); RBC 2.19 10*6/uL (4.10-5.20); RDW 14.1 % (11.5-14.5); WBC 10.41 10*3/uL (4.50-10.00)
[2025-01-20 07:34] LABS: HGB 8.1 g/dL (12.0-15.0); MCV 107.8 fL (80.0-97.0)
[2025-01-20 07:39] LABS: ALT 17 U/L (4-34); AST 31 U/L (14-36); African American GFR (CKD) 14 (>60 ml/min/1.73 sqM); Albumin 3.1 g/dL (3.5-5.0); Albumin/Globulin Ratio 1.3; Alkaline Phosphatase 62 U/L (38-126); Anion Gap 10 mmol/L; Blood Urea Nitrogen 83 mg/dL (7-17); Calcium 8.5 mg/dL (8.4-10.2); Carbon Dioxide 26 mmol/L (22-30); Chloride 96 mmol/L (98-107); Globulin 2.4 g/dL; Glucose 120 mg/dL (74-99); Non-African American GFR(CKD) 12 (>60 ml/min/1.73 sqM); Potassium 4.3 mmol/L (3.5-5.1); Sodium 132 mmol/L (137-145); Total Bilirubin 1.4 mg/dL (0.2-1.3); Total Protein 5.5 g/dL (6.3-8.2)
[2025-01-20 07:48] LABS: NT-Pro-B-Type Natriuretic Pept 7770 pg/mL
[2025-01-20] MEDS: PANTOPRAZOLE 40 MG TABLET PO SCH (08:30)
[2025-01-20] MEDS: MAGNESIUM OXIDE 400 MG TAB PO SCH (08:30)
[2025-01-20] MEDS: SODIUM CHLORIDE 0.9% 1,000 ML IV ONE (08:30)
[2025-01-20] MEDS: ATORVASTATIN 20 MG TAB PO SCH (08:30)
[2025-01-20] MEDS: allopurinoL 300 MG TAB PO SCH (08:30)
[2025-01-20] MEDS ORDERED: lisinopriL 20 MG TAB PO SCH (09:00)
--- NOTE | 2025-01-20 10:08 | P.PN ---
Subjective This is a pleasant 84 years old female who was seen and examined in the emergency room at [facility], she was lying in bed with Jean bandage around her head with superficial wound requiring stitches. With some evidence around her left eye hematoma Patient states with information obtained with the help of the daughter at bedside that patient was getting her shopping back to home as she is independent her neighbor noticed her noted next to her car and he found her on the floor and EMS were called. Patient herself remember standing by her car and the next thing she remembers to be in the hospital. While she was in hospital she developed seizure as per daughter at bedside which was tonic-clonic arms were up in the air and her also rolled back lasted for about short time, few minutes. No biting tongue, no urinary or bowel incontinence. Patient denies any weakness or numbness or blurred vision or slurred speech However she complains from some fuzziness around her left eye and there is some hematoma around left eye but there is no impaired vision. Also patient was taking Eliquis at home. Patient hemodynamically stable, she is afebrile . Blood pressure 92/55. Hemoglobin 10.5. WBC 5.8. INR within the reference range. Sodium 129 Creatinine elevated 2.2 Liver enzymes not significantly elevated. Troponin x [address]: No acute intracranial process Chest x-ray: Mild to moderate cardiomegaly and additional density correlate for CHF EKG: Atrial fibrillation with a rate of 68 5/31 Patient blood pressure slightly on the low side 96/48 She is awake alert looks comfortable lying in bed still has a bruise around her left eye, her left eye swollen and she cannot open it, her main complaint is pain in her left her area where there is a significantly swollen with some fluctuation most likely secondary to hematoma. which limits movement because of pain. No chest pain or dyspnea. No abdominal pain. No headache or dizziness. No abnormal movements Hemodynamically other than that stable and afebrile. WBC is 10.4, hemoglobin went down to 10.5 down to 8.1 Sodium improved 129 up to 132, creatinine went up 2.2 up to 3.2 proBNP is elevated more than 7000 Eliquis remains on hold as well as metolazone Lasix and Jardiance Bladder scan nephrology already on the case We will order urine analysis and We will keep holding Eliquis because of the hematoma pain worsening anemia and low blood pressure Active Medications Generic Name Dose Route Start Last Admin Trade Name Freq PRN Reason Stop Dose Admin Acetaminophen 650 mg 01/19/25 19:52 Acetaminophen Tab 325 Mg Tab PO Q6HR PRN Mild Pain or Fever > 100.5 Allopurinol 300 mg 01/20/25 09:00 01/20/25 08:30 Allopurinol 300 Mg Tab PO 300 mg DAILY [facility] Administration Atorvastatin Calcium 20 mg 01/20/25 09:00 01/20/25 08:30 Atorvastatin 20 Mg Tab PO 20 mg DAILY [facility] Administration Sodium Chloride 1,000 mls @ 75 mls/hr 01/19/25 17:45 01/20/25 06:37 Saline 0.9% IV 75 mls/hr .[id number] [facility] Administration Levothyroxine Sodium 88 mcg 01/20/25 06:30 01/20/25 06:36 Levothyroxine 88 Mcg Tab PO 88 mcg DAILY@0630 [facility] Administration Loperamide HCl 2 mg 01/20/25 07:11 Loperamide 2 Mg Cap PO Q4H PRN Diarrhea Magnesium Oxide 400 mg 01/20/25 09:00 01/20/25 08:30 Magnesium Oxide 400 Mg Tab PO 400 mg DAILY [facility] Administration Naloxone HCl 0.2 mg 01/19/25 17:32 Naloxone 0.4 Mg/Ml 1 Ml Vial IV Q2M PRN Opioid Reversal Ondansetron HCl 4 mg 01/19/25 17:32 Ondansetron 4 Mg/2 Ml Vial IVP Q8HR PRN Nausea And Vomiting Oxybutynin Chloride 5 mg 01/20/25 09:00 Oxybutynin Chloride 5 Mg Tab PO DAILY [facility] Oxycodone/Acetaminophen 1 each 01/19/25 19:52 01/20/25 00:24 Oxycodone-Apap 5-325mg 1 Each Tab PO 1 each BID PRN Administration Moderate to Severe Pain (4-10) Pantoprazole Sodium 40 mg 01/20/25 09:00 01/20/25 08:30 Pantoprazole 40 Mg Tablet PO 40 mg DAILY [facility] Administration Propranolol HCl 80 mg 01/20/25 09:00 Propranolol 40 Mg Tab PO DAILY [facility] Objective - Vital Signs Vital signs: Vital Signs Temp 97.7 F 01/20/25 07:59 Pulse 85 01/20/25 07:59 Resp 18 01/20/25 07:59 BP 96/48 01/20/25 09:30 Pulse Ox 96 01/20/25 07:59 FiO2 Intake & Output 01/19/25 01/20/25 01/20/25 18:59 06:59 18:59 Weight 72.575 kg - Exam GENERAL: The patient is alert and oriented x3, not in any acute distress. Well developed, well nourished. HEENT: Pupils are round and equally reacting to light. EOMI. No scleral icterus. No conjunctival pallor. Normocephalic, atraumatic. No pharyngeal erythema. No thyromegaly. -Hematoma and swelling around the left eye is slightly better but still covering the already closed. Left for third wound is closed with stitches in place CARDIOVASCULAR: S1 and S2 present. No murmurs, rubs, or gallops. PULMONARY: Chest is clear to auscultation, no wheezing , no crackles. ABDOMEN: Soft, nontender, nondistended, normoactive bowel sounds. No palpable organomegaly. MUSCULOSKELETAL: No joint swelling or deformity. -Left hip started swelling and tenderness, most likely hematoma EXTREMITIES: No cyanosis, clubbing, or pedal edema. NEUROLOGICAL: Gross neurological examination did not reveal any focal deficits. SKIN: No rashes. no petechiae. - Labs CBC & Chem 7: 01/20/25 06:47 01/20/25 06:47 Labs: Abnormal Lab Results - Last 24 Hours (Table) 01/19/25 01/19/25 01/19/25 Range/Units 14:11 14:11 14:11 WBC (4.50-10.00) 10*3/uL RBC 2.83 L (4.10-5.20) 10*6/uL Hgb 10.5 L (12.0-15.0) g/dL Hct 29.4 L (37.2-46.3) % MCV 103.9 H (80.0-97.0) fL MCH 37.1 H (27.0-32.0) pg Immature Gran # (0.00-0.04) 10*3/uL Neutrophils # (1.80-7.70) 10*3/uL Lymphocytes # 0.77 L (0.90-5.00) 10*3/uL Monocytes # (0.20-1.00) 10*3/uL Eosinophils # (0.04-0.35) 10*3/uL APTT 21.9 L (22.0-30.0) sec Sodium 129 L (137-145) mmol/L Chloride 91 L (98-107) mmol/L BUN 82 H (7-17) mg/dL Creatinine 2.21 H (0.52-1.04) mg/dL Glucose 108 H (74-99) mg/dL Total Bilirubin 1.4 H (0.2-1.3) mg/dL AST 38 H (14-36) U/L Total Protein (6.3-8.2) g/dL Albumin (3.5-5.0) g/dL 01/20/25 01/20/25 Range/Units 06:47 06:47 WBC 10.41 H (4.50-10.00) 10*3/uL RBC 2.19 L (4.10-5.20) 10*6/uL Hgb 8.1 L D (12.0-15.0) g/dL Hct 23.6 L (37.2-46.3) % MCV 107.8 H (80.0-97.0) fL MCH 37.0 H (27.0-32.0) pg Immature Gran # 0.07 H (0.00-0.04) 10*3/uL Neutrophils # 8.38 H (1.80-7.70) 10*3/uL Lymphocytes # 0.85 L (0.90-5.00) 10*3/uL Monocytes # 1.07 H (0.20-1.00) 10*3/uL Eosinophils # 0.01 L (0.04-0.35) 10*3/uL APTT (22.0-30.0) sec Sodium 132 L (137-145) mmol/L Chloride 96 L (98-107) mmol/L BUN 83 H (7-17) mg/dL Creatinine 3.24 H (0.52-1.04) mg/dL Glucose 120 H (74-99) mg/dL Total Bilirubin 1.4 H (0.2-1.3) mg/dL AST (14-36) U/L Total Protein 5.5 L (6.3-8.2) g/dL Albumin 3.1 L (3.5-5.0) g/dL Assessment and Plan Assessment: Syncope with a fall from standing position with left forehead superficial wound status post stitches Seizure-like activity while in the emergency room, described by the daughter was at bedside Hyponatremia Acute kidney injury Acute left periorbital hematoma with some fuzziness Atrial fibrillation with rate controlled on Eliquis at home Plan: Patient started on IV fluid Continue telemetry monitoring Monitor blood pressure and vitals Neurocheck Cardiology and neurology team Monitor creatinine Nephrology team consult, nephrology team consult cardiology and ophthalmology Labs and medication were reviewed.. Continue same treatment. Continue with symptomatic treatment. Resume home medication. Monitor labs and vitals. DVT and GI prophylaxis. Further recommendations as per clinical course of the patient DVT prophylaxis: Eliquis on hold GI Prophylaxis: Protonix PT/OT: Pending Prognosis is guarded
[2025-01-20] MEDS: PROPRANOLOL 40 MG TAB PO SCH (10:18)
[2025-01-20] MEDS: oxyBUTYnin chloride 5 MG TAB PO SCH (10:23)
--- NOTE | 2025-01-20 11:05 | US ---
EXAMINATION TYPE: US carotid duplex BILAT DATE OF EXAM: 01/20/2025 COMPARISON: CTA head neck 12/24/2022, 01/26/2020 CLINICAL INDICATION: Female, 84 years old with history of syncope; Syncope, fall Additional History: .... TECHNIQUE: Grayscale, color Doppler and spectral Doppler evaluation of the bilateral carotid systems and vertebral arteries. Indirect Doppler criteria was utilized. FINDINGS: EXAM MEASUREMENTS: RIGHT: Peak Systolic Velocity (PSV) cm/sec ----- Right CCA: 75.4 ----- Right ICA: 131 ----- Right ECA: 112 ICA/CCA ratio: 1.7 RIGHT: End Diastole cm/sec ----- Right CCA: 18.2 ----- Right ICA: 34.5 ----- Right ECA: 0.0 LEFT: Peak Systolic Velocity (PSV) cm/sec ----- Left CCA: 67.6 ----- Left ICA: 110 ----- Left ECA: 132 ICA/CCA ratio: 1.6 LEFT: End Diastole cm/sec ----- Left CCA: 13.0 ----- Left ICA: 14.8 ----- Left ECA: 7.5 VERTEBRALS (direction of flow): Right Vertebral: Unable to visualize, prior CT showed vertebral occluded Left Vertebral: Antegrade Rhythm: Arrhythmia TEXTILE DESIGNER NOTES: No significant velocity elevations Color Doppler imaging shows patency with blood flow throughout the carotid artery. Spectral waveforms are within normal limits. IMPRESSION: 1. Mild atherosclerotic plaque at the bilateral carotid bifurcations. No hemodynamically significant stenosis of the bilateral carotid arterial systems. 2. Nonvisualization of the right vertebral artery related to previously seen occlusion on CT. Criteria for Assigning % of Stenosis / Diameter reduction (Estimation based on the indirect measurements of the internal carotid artery velocities (ICA PSV). 1. Normal (no stenosis)=ICA PSV < 180 cm/s: ratio < 2.0: ICA EDV<40 cm/s. 2. Less than 50% stenosis=ICA PSV < 180 cm/s: ratio < 2.0: ICA EDV<40 cm/s. 3. 50 to 69% stenosis=ICA PSV of 180 to 230 cm/s: ration 2.0 ? 4.0: ICA EDV 40-100 cm/s. PSV 125-180 cm/sec and ICA/CCA PSV Ratio ? 2.0 is also consistent with 50-69% stenosis 4. Greater than 70% stenosis to near occlusion= ICA PSV > 230 cm/s: ratio > 4.0: ICA EDV > 100 cm/s. 5. Near occlusion= ICA PSV velocities may be low or undetectable: variable ratio and ICA EDV. 6. Total occlusion=unable to detect flow. [facility], , 01/20/2025 11:03 AM
--- NOTE | 2025-01-20 11:27 | P.NPCON ---
History of Present Illness - Reason for Consult acute renal failure, chronic renal failure - History of Present Illness Reason for consultation: Acute kidney injury on chronic kidney disease History of present illness: Patient is a 84-year-old female seen in renal consultation for acute kidney injury on chronic kidney disease. Patient has chronic kidney disease stage IV with baseline creatinine 1.8-2.2. Creatinine this admission was 2.2 and is up to 3.24 today. Patient's blood pressure has been on the lower end in the systolic 80s to 90s. She came to the hospital after she sustained a fall. She returned from a grocery store and then fell in her garage. She is not sure if she lost consciousness or not. It is noted in the chart that she developed seizure episode. She is noted to have significant facial bruising. She denies history of diabetes or coronary disease. Denies use of nonsteroidals. She was on Lasix, metolazone as well as Jardiance outpatient which are currently held. Additionally she was also on ramipril. Denies gross hematuria or dysuria. Vital signs are stable. Blood pressure on the lower end. General: No acute distress. HEENT: Facial bruising noted. LUNGS: No audible rhonchi or wheezes. HEART: Rate and Rhythm are regular. ABDOMEN: Nontender. EXTREMITITES: No edema. Chronic changes noted. Past Medical History Past Medical History: Atrial Fibrillation, CVA/TIA, Hyperlipidemia, Hypertension Additional Past Medical History / Comment(s): cardiomyopathy History of Any Multi-Drug Resistant Organisms: None Reported Past Surgical History: Cholecystectomy, Heart Catheterization, Hysterectomy, Tonsillectomy Past Anesthesia/Blood Transfusion Reactions: No Reported Reaction Past Psychological History: No Psychological Hx Reported Smoking Status: Former smoker Past Alcohol Use History: Occasional Past Drug Use History: None Reported Medications and Allergies Home Medications Medication Instructions Recorded Confirmed Type Apixaban [Eliquis] 5 mg PO BID 03/23/23 01/19/25 History Atorvastatin [Lipitor] 20 mg PO DAILY 03/23/23 01/19/25 History Fluticasone/Umeclidin/Vilanter 1 puff INHALATION RT-DAILY 03/23/23 01/19/25 History [Trelegy Ellipta 100-62.5-25] Furosemide [Lasix] 40 mg PO DAILY 03/23/23 01/19/25 History Levothyroxine Sodium [Synthroid] 88 mcg PO DAILY 03/23/23 01/19/25 History Magnesium Chloride [Mag64] 64 mg PO DAILY 03/23/23 01/19/25 History Omeprazole [PriLOSEC] 40 mg PO DAILY 03/23/23 01/19/25 History Potassium Chloride ER [K-Dur 20] 20 meq PO DAILY 03/23/23 01/19/25 History Propranolol HCl [Inderal] 80 mg PO DAILY 03/23/23 01/19/25 History allopurinoL [Zyloprim] 300 mg PO DAILY 03/23/23 01/19/25 History oxyBUTYnin chloride [Ditropan] 5 mg PO DAILY 03/23/23 01/19/25 History ramipriL [Altace] 10 mg PO DAILY 03/23/23 01/19/25 History Empagliflozin [Jardiance] 10 mg PO DAILY 01/19/25 01/19/25 History metOLazone [Zaroxolyn] 2.5 mg PO MOTH 01/19/25 01/19/25 History Allergies Allergy/AdvReac Type Severity Reaction Status Date / Time Penicillins Allergy Unknown Verified 01/19/25 18:38 Sulfa (Sulfonamide Allergy Rash/Hives Verified 01/19/25 18:38 Antibiotics) Physical Exam Vitals: Vital Signs Temp Pulse Pulse Resp BP BP Pulse Ox 01/20/25 10:53 94 L 01/20/25 09:30 96/48 01/20/25 07:59 97.7 F 85 18 89/46 96 01/20/25 04:09 86 20 108/61 95 01/20/25 04:00 108 H 01/20/25 03:54 80 18 84/51 95 01/20/25 03:00 75 16 88/49 96 01/19/25 18:52 72 16 92/55 95 01/19/25 15:30 68 16 105/64 98 01/19/25 15:05 67 16 90/45 93 L 01/19/25 13:51 97.9 F 77 16 126/94 95 Results - Lab Results Most recent lab results Calcium 8.5 mg/dL (8.4-10.2) 01/20/25 06:47 Magnesium 1.9 mg/dL (1.6-2.3) 01/19/25 14:11 01/20/25 06:47 01/20/25 06:47 Assessment and Plan Plan: Assessment: 1. Acute kidney injury secondary to ATN secondary to hypotension. Creatinine 2.2 on admission and is 3.24 today 2. Hypovolemic hyponatremia improved with IV fluids. 3. Status post fall. 4. Chronic kidney disease stage IV baseline creatinine 1.8-2.2. 5. Anemia of chronic kidney disease. Rule out iron deficiency. 6. Hypertension with chronic kidney disease. Currently blood pressure on the lower end. Plan: Maintain normal saline at 75 cc an hour. Check iron studies. Check bladder scan to rule out urinary retention. Check UA. Check renal ultrasound. Avoid nephrotoxins. Continue to monitor renal function and urine output. Check a.m. cortisol level. Check CK level. Thank you for the consultation. I will continue to follow the patient with you during her hospital stay.
[2025-01-20] MEDS: ACETAMINOPHEN TAB 325 MG TAB PO PRN (12:01)
[2025-01-20] MEDS: PHENYLEPHRINE 2.5% OPHTH DRP 2ML BOTH EYES SCH (12:06)
[2025-01-20] MEDS: TROPICAMIDE 1% OPHTH DROPS 2 ML BTL BOTH EYES ONE (12:06)
[2025-01-20] MEDS: PROPARACAINE 0.5% OPHTH DROPS 15 ML BTL BOTH EYES STA (12:06)
[2025-01-20] MEDS ORDERED: HEPARIN SODIUM 1,000 UN/ML (10ML VL) IV PRN (12:27)
--- NOTE | 2025-01-20 12:42 | CA ---
Transthoracic Echo Report Name: Annette Ha Age: 84 Gender: F : 1940 Exam Date: 01/20/2025 11:09 Exam Location: [facility] Ht (in): 68 Wt (lb): 160 Ordering Physician: Roopa Boswell Attending/Referring Phys: [id number], Andreia Pipe Bowl Paint Trimmer Opal Tesfaye RDCS Procedure CPT: Indications: LVF, syncope Cardiac Hx: Technical Quality: Fair, pt. unable to lay on left side Contrast 1: Total Dose (mL): Contrast 2: Total Dose (mL): MEASUREMENTS (Male / Female) Normal Values 2D ECHO LV Diastolic Diameter PLAX 2.8 cm 4.2 - 5.9 / 3.9 - 5.3 cm LV Systolic Diameter PLAX 1.7 cm IVS Diastolic Thickness 1.5 cm 0.6 - 1.0 / 0.6 - 0.9 cm LVPW Diastolic Thickness 1.6 cm 0.6 - 1.0 / 0.6 - 0.9 cm LV Relative Wall Thickness 1.1 RV Internal Dim ED PLAX 2.5 cm LVOT Diameter 1.8 cm LA Systolic Diameter LX 4.6 cm 3.0 - 4.0 / 2.7 - 3.8 cm LV Diastolic Volume MOD BP 20.7 cm??? 67 - 155 / 56 - 104 cm??? LV Systolic Volume MOD BP 7.3 cm??? 22 - 58 / 19 - 49 cm??? LV Ejection Fraction MOD BP 64.8 % >= 55 % LV Cardiac Index MOD BP 557.9 cm???/min???m??? LV Diastolic Volume MOD 4C 17.1 cm??? LV Systolic Volume MOD 4C 7.3 cm??? LV Ejection Fraction MOD 4C 57.5 % LV Cardiac Index MOD 4C 409.9 cm???/min???m??? LV Diastolic Length 4C 4.4 cm LV Systolic Length 4C 4.0 cm LV Diastolic Volume MOD 2C 20.4 cm??? LV Systolic Volume MOD 2C 6.4 cm??? LV Ejection Fraction MOD 2C 68.4 % LV Cardiac Index MOD 2C 581.5 cm???/min???m??? LV Diastolic Length 2C 5.5 cm LV Systolic Length 2C 4.7 cm LA Volume 86.1 cm??? 18 - 58 / 22 - 52 cm??? LA Volume Index 46.0 cm???/m??? 16 - 28 cm???/m??? M-MODE Aortic Root Diameter MM 3.2 cm LA Systolic Diameter MM 3.5 cm LA Ao Ratio MM 1.1 AV Cusp Separation MM 0.9 cm DOPPLER AV Peak Velocity 243.8 cm/s AV Peak Gradient 23.8 mmHg AV Mean Velocity 166.6 cm/s AV Mean Gradient 13.2 mmHg AV Velocity Time Integral 46.6 cm AI Peak Velocity 275.2 cm/s AI Peak Gradient 30.3 mmHg AI Pressure Half Time 679.7 ms LVOT Peak Velocity 104.1 cm/s LVOT Peak Gradient 4.3 mmHg LVOT Velocity Time Integral 21.9 cm LVOT Stroke Volume 52.8 cm??? LVOT Stroke Volume Index 28.4 ml/m??? LVOT Cardiac Index 2199.1 cm???/min???m??? AV Area Cont Eq vti 1.1 cm??? AV Area Cont Eq pk 1.0 cm??? MV Area PHT 2.4 cm??? Mitral E Point Velocity 60.1 cm/s Mitral A Point Velocity 4.1 cm/s Mitral E to A Ratio 14.6 MV Deceleration Time 318.8 ms TR Peak Velocity 351.5 cm/s TR Peak Gradient 49.4 mmHg Right Ventricular Systolic Press 58.2 mmHg FINDINGS Left Ventricle Left ventricular ejection fraction is estimated at 65-70 %. Moderately increased septal wall thickness. Moderately increased posterior wall thickness. Hyperdynamic left ventricular systolic function. Small left ventricular cavity. Mid-cavity gradient 19 mmHg. Right Ventricle Mild right ventricular dilatation. Moderate to severe pulmonary hypertension. Right Atrium Severe right atrial dilatation. Left Atrium Severely increased left atrial volume. Mitral Valve Mitral valve thickened. Mitral annular calcification. Mild mitral regurgitation. Aortic Valve Trileaflet aortic valve. Mild aortic stenosis with a peak gradient of 24 mmHg and a mean gradient of 13mmHg. Mild aortic regurgitation. Tricuspid Valve Annular dilatation of the tricuspid valve. Severe tricuspid regurgitation. No tricuspid stenosis. Pulmonic Valve Structurally normal pulmonic valve. No pulmonic stenosis. Mild pulmonic regurgitation. Pericardium No pericardial or pleural effusion. Aorta Normal size aortic root and proximal ascending aorta. CONCLUSIONS Left ventricular ejection fraction 65 to 70% Moderately increased left ventricular wall thickness Mild mitral regurgitation Mild aortic stenosis Mild aortic regurgitation Severe tricuspid regurgitation RVSP [id number] Previewed by: Dr. Enrrique Keenan DO (Electronically Signed) Final Date: 20 Jan 2025 12:41
[2025-01-20] MEDS: ARTIFICIAL TEARS-HYPROMELLOSE DROPS 15 ML BTL BOTH EYES PRN (12:45)
--- NOTE | 2025-01-20 12:58 | P.CON ---
Consult Note - . Consult date: 01/20/25 Assessment/Plan:: This is an 84 y/o female who had an apparent syncopal event leading to injury of the face. On CT is noted to have left nasal bone fracture, There was no apparent vision problem on admission, however today is having issues with some bruising and swelling limiting her ability to open the eye. There is discomfort on gaze change. Pain was initially 8/10, now eye pain is resolved. Dilation drops administered prior to my arrival - duration about 9 hours. Va: 20/20-3 OD; 20/25 OS w/o correction Ext: left brow laceration with sutures, marked left facial bruising, mild eyelid swelling, poor movement of the upper eyelid Pupils: partially dilated ~ 5 mm, nonreactive EOM: FULL, good D&V IOP: 11 mm Hg OD; 14 mm Hg OS @ 1230 hrs Conj: generally white, small subconjunctival heme inferior OS Cornea: clear OU AC: D&Q OU Iris: without pathology Lens: pseudophakia Vitreous: normal age-related PVD, no cells Optic nerve: S/F/P C:D 0.35 OU Macula: quiet without pathhology Vasc: 0.66 OU, mild AV crossing Peripheral: intact without pathology A: Syncope: under medical surveillance Nasal orbital bone fracture: minimal impact on orbital integrity, may elicit some discomfort on gaze Eyes: except for eyelid, due to the brow injury and laceration are entirely consistent with normal post cataract surgery. P: Recommend medical follow up as required. For eyes, recommend returning to Dr. Guadarrama for routine care, needs glasses replaced. thank you for this consult.
--- NOTE | 2025-01-20 13:23 | US ---
EXAMINATION TYPE: US kidneys/renal and bladder DATE OF EXAM: 01/20/2025 COMPARISON: US kidneys 05/17/2024 CLINICAL INDICATION: Female, 84 years old with history of aletha; Abnormal labs TECHNIQUE: Grayscale imaging of the bilateral kidneys and urinary bladder: FINDINGS: EXAM MEASUREMENTS: Right Kidney: 8.2 x 4.6 x 3.9 cm Left Kidney: 5.6 x 3.5 x 2.8 cm Right Kidney: Small hypoechoic lesion upper pole= 0.8 cm, small in size, no evidence of hydro Left Kidney: Appeared atrophic Bladder: Debris at dependent portion Bilateral Jets seen: No There is no evidence for hydronephrosis at this point in time. No nephrolithiasis is seen. Subcentim eter right renal upper pole simple cyst. No follow-up recommended. No solid renal masses are identifi ed. Atrophy of the left kidney. Layering debris within the urinary bladder without internal vascular flow. IMPRESSION: 1. No hydronephrosis or nephrolithiasis. 2. Layering debris within the urinary bladder. Correlate with urinalysis. 3. Atrophy of the left kidney. [facility], , 01/20/2025 1:21 PM
--- NOTE | 2025-01-20 13:25 | P.CRDCN ---
History of Present Illness Consult date: 01/20/25 Reason for Consult (text): Syncope History of present illness: This is an 84-year-old female with past medical history of multiple strokes stat us post thrombectomy and tPA in 2020 with treatment of AVM, subdural hematoma, chronic atrial fibrillation on Eliquis, hypertension, chronic kidney disease stage III. We have been asked to evaluate the patient for syncope. Patient presented to the emergency center after a fall. She sustained significant injury to the left side of her face and required stitches. Patient states that she sometimes feels lightheaded. She has not had other syncopal episodes. She denies any black or bloody stools. She has minimal lower extremity edema. According to the notes, patient also had seizure activity. Patient presented with systolic blood pressure 80s and 90s, heart rate in the 70s. She is status post 2 L IV fluid. -EKG: Atrial fibrillation, left bundle branch block. -Chest x-ray: Mild to moderate cardiomegaly and interstitial density. Correlate for mild CHF. Some patchy probable atelectasis in the retrocardiac region. -Carotid ultrasound reveals mild atherosclerotic plaque at the bilateral carotid bifurcations. No hemodynamically significant stenosis of the bilateral carotid artery systems. -Echocardiogram performed on this admission reveals EF 65 to 70%, moderately increased left ventricular wall thickness. Mild mitral regurgitation. Mild aortic stenosis. Mild aortic regurgitation. Severe tricuspid regurgitation. RVSP 58. -Laboratory studies: WBC 10.4, hemoglobin 8.1 previously 10.5. Sodium 132, potassium 4.3, BUN 83 creatinine 3.24. Troponin negative x 3. proBNP 7770. TSH 1.29. -Home cardiac medications: Eliquis 5 mg twice daily, atorvastatin 20 mg daily, Jardiance 10 mg daily, Lasix 40 mg daily, Zaroxolyn 2.5 mg on Mondays and , potassium chloride 20 mill equivalents daily, propranolol 80 mg daily, ramipril 10 mg daily. Review Of Systems: At the time of my exam: CONSTITUTIONAL: Denies fever or chills. HEENT: Denies blurred vision, vision changes, or eye pain. Denies hemoptysis CARDIOVASCULAR: Denies chest pain. Denies orthopnea. Denies PND. Denies palpitations RESPIRATORY: Denies shortness of breath. GASTROINTESTINAL: Denies abdominal pain. Denies nausea or vomiting. HEMATOLOGIC: Denies bleeding disorders. GENITOURINARY: Denies any blood in urine. SKIN: Denies puritis. Denies rash. Physical examination: Gen: This is an 84-year-old female in no acute distress. VS: reviewed HEENT: Head reveals significant left forehead, periorbital, left cheek and left chin/jaw ecchymosis, laceration with repair to the left forehead. Otherwise no rmocephalic. Pupils equal, round. Sclerae is anicteric. NECK: Supple. No JVD. LUNGS: Clear to auscultation. No wheezes or rhonchi. No intercostal retractions. HEART: Regular rate and rhythm. No murmur. ABDOMEN: Soft No tenderness. EXTREMITIES: No pedal edema. No calf tenderness. NEUROLOGICAL: Patient is awake, alert and oriented x3. Assessment: Syncopal episode Close head injury Laceration requiring sutures Seizure activity in the ER and witnessed by her daughter Hypotensive Anemia Acute kidney injury Moderate pulmonary hypertension Severe tricuspid regurgitation Left bundle branch block Chronic atrial fibrillation on Eliquis Chronic left subdural hematoma Multiple ischemic strokes status post TPA and 2 thrombectomies one in 2019 and one History of AVM status post [place] Plan: Hold Lasix, Zaroxolyn, potassium, propranolol and ramipril Hold Eliquis and start patient on heparin drip Continue telemetry monitoring Plan for 30-day event monitor or loop recorder prior to discharge Due due to to patient's fall risk and history of CVAs would recommend patient be evaluated for Watchman procedure as an outpatient Further recommendations to follow based upon clinical course Thank you kindly for this consultation. Nurse practitioner note has been reviewed, I agree with documented findings and plan of care. Patient was seen and examined. Past Medical History Past Medical History: Atrial Fibrillation, CVA/TIA, Hyperlipidemia, Hypertension Additional Past Medical History / Comment(s): cardiomyopathy History of Any Multi-Drug Resistant Organisms: None Reported Past Surgical History: Cholecystectomy, Heart Catheterization, Hysterectomy, Tonsillectomy Past Anesthesia/Blood Transfusion Reactions: No Reported Reaction Past Psychological History: No Psychological Hx Reported Smoking Status: Former smoker Past Alcohol Use History: Occasional Past Drug Use History: None Reported Medications and Allergies Home Medications Medication Instructions Recorded Confirmed Type Apixaban [Eliquis] 5 mg PO BID 03/23/23 01/19/25 History Atorvastatin [Lipitor] 20 mg PO DAILY 03/23/23 01/19/25 History Fluticasone/Umeclidin/Vilanter 1 puff INHALATION RT-DAILY 03/23/23 01/19/25 History [Trelegy Ellipta 100-62.5-25] Furosemide [Lasix] 40 mg PO DAILY 03/23/23 01/19/25 History Levothyroxine Sodium [Synthroid] 88 mcg PO DAILY 03/23/23 01/19/25 History Magnesium Chloride [Mag64] 64 mg PO DAILY 03/23/23 01/19/25 History Omeprazole [PriLOSEC] 40 mg PO DAILY 03/23/23 01/19/25 History Potassium Chloride ER [K-Dur 20] 20 meq PO DAILY 03/23/23 01/19/25 History Propranolol HCl [Inderal] 80 mg PO DAILY 03/23/23 01/19/25 History allopurinoL [Zyloprim] 300 mg PO DAILY 03/23/23 01/19/25 History oxyBUTYnin chloride [Ditropan] 5 mg PO DAILY 03/23/23 01/19/25 History ramipriL [Altace] 10 mg PO DAILY 03/23/23 01/19/25 History Empagliflozin [Jardiance] 10 mg PO DAILY 01/19/25 01/19/25 History metOLazone [Zaroxolyn] 2.5 mg PO MOTH 01/19/25 01/19/25 History Allergies Allergy/AdvReac Type Severity Reaction Status Date / Time Penicillins Allergy Unknown Verified 01/19/25 18:38 Sulfa (Sulfonamide Allergy Rash/Hives Verified 01/19/25 18:38 Antibiotics) Physical Exam Vitals: Vital Signs Temp Pulse Pulse Resp BP BP Pulse Ox 01/20/25 09:30 96/48 01/20/25 07:59 97.7 F 85 18 89/46 96 01/20/25 04:09 86 20 108/61 95 01/20/25 04:00 108 H 01/20/25 03:54 80 18 84/51 95 01/20/25 03:00 75 16 88/49 96 01/19/25 18:52 72 16 92/55 95 01/19/25 15:30 68 16 105/64 98 01/19/25 15:05 67 16 90/45 93 L 01/19/25 13:51 97.9 F 77 16 126/94 95 Results 01/20/25 06:47 01/20/25 06:47 Cardiac Enzymes 01/19/25 01/19/25 01/19/25 Range/Units 14:11 14:11 17:50 AST 38 H (14-36) U/L Troponin I <0.012 <0.012 (0.000-0.034) ng/mL 01/19/25 01/20/25 Range/Units 20:50 06:47 AST 31 (14-36) U/L Troponin I <0.012 (0.000-0.034) ng/mL Coagulation 01/19/25 Range/Units 14:11 PT 11.6 (10.0-12.5) sec APTT 21.9 L (22.0-30.0) sec CBC 01/19/25 01/20/25 Range/Units 14:11 06:47 WBC 5.85 10.41 H (4.50-10.00) 10*3/uL RBC 2.83 L 2.19 L (4.10-5.20) 10*6/uL Hgb 10.5 L 8.1 L D (12.0-15.0) g/dL Hct 29.4 L 23.6 L (37.2-46.3) % Plt Count 219 190 (140-440) 10*3/uL Comprehensive Metabolic Panel 01/19/25 01/20/25 Range/Units 14:11 06:47 Sodium 129 L 132 L (137-145) mmol/L Potassium 5.0 4.3 (3.5-5.1) mmol/L Chloride 91 L 96 L (98-107) mmol/L Carbon Dioxide 30 26 (22-30) mmol/L BUN 82 H 83 H (7-17) mg/dL Creatinine 2.21 H 3.24 H (0.52-1.04) mg/dL Glucose 108 H 120 H (74-99) mg/dL Calcium 9.1 8.5 (8.4-10.2) mg/dL AST 38 H 31 (14-36) U/L ALT 17 17 (4-34) U/L Alkaline Phosphatase 54 62 (38-126) U/L Total Protein 6.5 5.5 L (6.3-8.2) g/dL Albumin 3.7 3.1 L (3.5-5.0) g/dL Current Medications Generic Name Dose Route Start Last Admin Trade Name Freq PRN Reason Stop Dose Admin Acetaminophen 650 mg 01/19/25 19:52 Acetaminophen Tab 325 Mg Tab PO Q6HR PRN Mild Pain or Fever > 100.5 Allopurinol 300 mg 01/20/25 09:00 01/20/25 08:30 Allopurinol 300 Mg Tab PO 300 mg DAILY [facility]GE Administration Atorvastatin Calcium 20 mg 01/20/25 09:00 01/20/25 08:30 Atorvastatin 20 Mg Tab PO 20 mg DAILY [facility]GE Administration Sodium Chloride 1,000 mls @ 75 mls/hr 01/19/25 17:45 01/20/25 06:37 Saline 0.9% IV 75 mls/hr .[id number] [facility]GE Administration Levothyroxine Sodium 88 mcg 01/20/25 06:30 01/20/25 06:36 Levothyroxine 88 Mcg Tab PO 88 mcg DAILY@0630 [facility] Administration Loperamide HCl 2 mg 01/20/25 07:11 Loperamide 2 Mg Cap PO Q4H PRN Diarrhea Magnesium Oxide 400 mg 01/20/25 09:00 01/20/25 08:30 Magnesium Oxide 400 Mg Tab PO 400 mg DAILY [facility] Administration Naloxone HCl 0.2 mg 01/19/25 17:32 Naloxone 0.4 Mg/Ml 1 Ml Vial IV Q2M PRN Opioid Reversal Ondansetron HCl 4 mg 01/19/25 17:32 Ondansetron 4 Mg/2 Ml Vial IVP Q8HR PRN Nausea And Vomiting Oxybutynin Chloride 5 mg 01/20/25 09:00 Oxybutynin Chloride 5 Mg Tab PO DAILY [facility] Oxycodone/Acetaminophen 1 each 01/19/25 19:52 01/20/25 00:24 Oxycodone-Apap 5-325mg 1 Each Tab PO 1 each BID PRN Administration Moderate to Severe Pain (4-10) Pantoprazole Sodium 40 mg 01/20/25 09:00 01/20/25 08:30 Pantoprazole 40 Mg Tablet PO 40 mg DAILY [facility] Administration Propranolol HCl 80 mg 01/20/25 09:00 Propranolol 40 Mg Tab PO DAILY [facility] 01/20/25 06:47 01/20/25 06:47
[2025-01-20 14:49] LABS: Basophils # (A) 0.04 10*3/uL (0.00-0.10); Basophils % (A) 0.4 %; Eosinophils # (A) 0.02 10*3/uL (0.04-0.35); Eosinophils % (A) 0.2 %; HGB 7.7 g/dL (12.0-15.0); Lymphocytes # (A) 1.24 10*3/uL (0.90-5.00); Lymphocytes % (A) 11.3 %; MCH 36.3 pg (27.0-32.0); MCHC 32.1 g/dL (32.0-37.0); Mean Platelet Volume 10.3 fL (9.5-12.2); Monocytes # (A) 1.15 10*3/uL (0.20-1.00); Monocytes % (A) 10.5 %; Neutrophils # (A) 8.47 10*3/uL (1.80-7.70); Platelet Count 177 10*3/uL (140-440); RBC 2.12 10*6/uL (4.10-5.20); RDW 14.6 % (11.5-14.5); WBC 10.99 10*3/uL (4.50-10.00)
[2025-01-20 14:56] LABS: INR 1.1 (<1.2); Partial Thromboplastin Time 23.4 sec (22.0-30.0); Prothrombin Time 11.8 sec (10.0-12.5)
[2025-01-20 14:57] LABS: MCV 113.2 fL (80.0-97.0)
[2025-01-20] MEDS: HEPARIN SODIUM 1,000 UN/ML (10ML VL) IV ONE (15:13)
[2025-01-20] MEDS: HEPARIN SOD,PORK IN 0.45% NACL 25,000 UNIT in 0.45% NACL 1 250ML.BAG IV SCH (15:14)
[2025-01-20 15:34] LABS: Large Platelets Present
[2025-01-20 15:38] LABS: % Iron Saturation 38.78 (12.00-45.00); Ferritin 87.9 ng/mL (10.0-291.0)
[2025-01-20 21:16] LABS: Basophils # (A) 0.05 10*3/uL (0.00-0.10); Basophils % (A) 0.5 %; Eosinophils # (A) 0.07 10*3/uL (0.04-0.35); Eosinophils % (A) 0.7 %; HCT 21.2 % (37.2-46.3); HGB 7.2 g/dL (12.0-15.0); Lymphocytes # (A) 1.31 10*3/uL (0.90-5.00); Lymphocytes % (A) 12.6 %; MCH 36.7 pg (27.0-32.0); Mean Platelet Volume 10.4 fL (9.5-12.2); Monocytes # (A) 1.22 10*3/uL (0.20-1.00); Monocytes % (A) 11.7 %; Neutrophils # (A) 7.69 10*3/uL (1.80-7.70); Neutrophils % (A) 73.8 %; Platelet Count 186 10*3/uL (140-440); RBC 1.96 10*6/uL (4.10-5.20); RDW 14.5 % (11.5-14.5); WBC 10.41 10*3/uL (4.50-10.00)
[2025-01-20 21:23] LABS: MCV 108.2 fL (80.0-97.0)
[2025-01-21 04:38] LABS: Appearance,Urine Turbid (Clear); Bacteria,Urine Many /hpf; Bilirubin,Urine Negative (Negative); Blood,Urine Large (Negative); Color,Urine Yellow; Glucose,Urine (UA) Negative (Negative); Ketones,Urine Negative (Negative); Leukocyte Esterase,Urine Large (Negative); Nitrite,Urine Negative (Negative); PH, Urine 7.5 (5.0-8.0); Protein,Urine 1+ (Negative); RBC,Urine 7 /hpf (0-5); Specific Gravity,Urine 1.014 (1.001-1.035); Squamous Epithelial Cell,Urine 12 /hpf (0-4); WBC,Urine >182 /hpf (0-5)
[2025-01-21 06:17] LABS: Basophils # (A) 0.02 10*3/uL (0.00-0.10); Basophils % (A) 0.2 %; Eosinophils # (A) 0.12 10*3/uL (0.04-0.35); Eosinophils % (A) 1.4 %; Lymphocytes # (A) 1.11 10*3/uL (0.90-5.00); Lymphocytes % (A) 13.2 %; MCH 35.9 pg (27.0-32.0); MCV 108.8 fL (80.0-97.0); Mean Platelet Volume 9.7 fL (9.5-12.2); Monocytes # (A) 0.88 10*3/uL (0.20-1.00); Monocytes % (A) 10.5 %; Neutrophils # (A) 6.23 10*3/uL (1.80-7.70); Platelet Count 164 10*3/uL (140-440); RDW 14.4 % (11.5-14.5); WBC 8.42 10*3/uL (4.50-10.00)
[2025-01-21 06:29] LABS: HCT 18.5 % (37.2-46.3); HGB 6.1 g/dL (12.0-15.0)
[2025-01-21 06:45] LABS: Prothrombin Time 12.3 sec (10.0-12.5)
[2025-01-21 06:46] LABS: INR 1.1 (<1.2)
[2025-01-21 07:14] LABS: African American GFR (CKD) 14 (>60 ml/min/1.73 sqM); Anion Gap 7 mmol/L; Blood Urea Nitrogen 82 mg/dL (7-17); Calcium 8.1 mg/dL (8.4-10.2); Carbon Dioxide 26 mmol/L (22-30); Chloride 96 mmol/L (98-107); Glucose 94 mg/dL (74-99); Magnesium 1.9 mg/dL (1.6-2.3); Non-African American GFR(CKD) 12 (>60 ml/min/1.73 sqM); Potassium 3.9 mmol/L (3.5-5.1); Sodium 129 mmol/L (137-145)
--- NOTE | 2025-01-21 10:59 | P.PN ---
Subjective Patient is seen in follow-up for acute kidney injury on chronic kidney disease. Renal function fairly stable. Hemoglobin 6.1 this morning. No active bleeding noted. Scheduled to receive a unit of blood today. Receiving IV fluids. External catheter placed this morning. Has been voiding. Family present at bedside. Vital signs are stable. General: No acute distress. HEENT: Facial bruising noted. LUNGS: No audible rhonchi or wheezes. HEART: Rate and Rhythm are regular. ABDOMEN: Nontender. EXTREMITITES: No edema. Objective - Vital Signs Vital signs: Vital Signs Temp 97.8 F 01/21/25 10:22 Pulse 93 01/21/25 10:22 Resp 16 01/21/25 10:22 BP 124/70 01/21/25 10:22 Pulse Ox 98 01/21/25 10:22 FiO2 Intake & Output 01/20/25 01/21/25 01/21/25 18:59 06:59 18:59 Intake Total 1525 108.574 0 Balance 1525 108.574 0 Intake: Intake, IV Titration 1525 108.574 Amount Heparin Sod,Pork in 0.45% 108.574 NaCl 25,000 unit In 0.45 % NaCl 1 250ml.bag @ 12 UNITS/KG/HR 8.709 mls/hr IV .Q24H [facility] Rx#: [id number] Sodium Chloride 0.9% 1, 525 000 ml @ 75 mls/hr IV . [id number] [facility] Rx#:[id number] Sodium Chloride 0.9% 1, 1000 000 ml @ 999 mls/hr IV . Q1H1M [facility] Rx#:[id number] Blood Product 0 Unit 0 Other: # Voids 0 # Bowel Movements 0 - Labs CBC & Chem 7: 01/21/25 05:49 01/21/25 05:48 Labs: Abnormal Lab Results - Last 24 Hours (Table) 01/20/25 01/20/25 01/20/25 Range/Units 06:47 14:32 14:32 WBC 10.99 H (4.50-10.00) 10*3/uL RBC 2.12 L (4.10-5.20) 10*6/uL Hgb 7.7 L (12.0-15.0) g/dL Hct 24.0 L (37.2-46.3) % MCV 113.2 H D (80.0-97.0) fL MCH 36.3 H (27.0-32.0) pg RDW 14.6 H (11.5-14.5) % Immature Gran # 0.07 H (0.00-0.04) 10*3/uL Neutrophils # 8.47 H (1.80-7.70) 10*3/uL Monocytes # 1.15 H (0.20-1.00) 10*3/uL Eosinophils # 0.02 L (0.04-0.35) 10*3/uL APTT (22.0-30.0) sec Sodium (137-145) mmol/L Chloride (98-107) mmol/L BUN (7-17) mg/dL Creatinine (0.52-1.04) mg/dL Calcium (8.4-10.2) mg/dL Creatine Kinase 231 H (30-135) U/L Cortisol 26.8 H (3.1-22.4) UG/DL Urine Appearance (Clear) Urine Protein (Negative) Urine Blood (Negative) Ur Leukocyte Esterase (Negative) Urine RBC (0-5) /hpf Urine WBC (0-5) /hpf Urine WBC Clumps (None) /hpf Ur Squamous Epith Cells (0-4) /hpf Urine Bacteria (None) /hpf Crossmatch 01/20/25 01/20/25 01/21/25 Range/Units 20:48 20:48 03:55 WBC 10.41 H (4.50-10.00) 10*3/uL RBC 1.96 L (4.10-5.20) 10*6/uL Hgb 7.2 L (12.0-15.0) g/dL Hct 21.2 L (37.2-46.3) % MCV 108.2 H D (80.0-97.0) fL MCH 36.7 H (27.0-32.0) pg RDW (11.5-14.5) % Immature Gran # 0.07 H (0.00-0.04) 10*3/uL Neutrophils # (1.80-7.70) 10*3/uL Monocytes # 1.22 H (0.20-1.00) 10*3/uL Eosinophils # (0.04-0.35) 10*3/uL APTT 157.3 H* (22.0-30.0) sec Sodium (137-145) mmol/L Chloride (98-107) mmol/L BUN (7-17) mg/dL Creatinine (0.52-1.04) mg/dL Calcium (8.4-10.2) mg/dL Creatine Kinase (30-135) U/L Cortisol (3.1-22.4) UG/DL Urine Appearance Turbid H (Clear) Urine Protein 1+ H (Negative) Urine Blood Large H (Negative) Ur Leukocyte Esterase Large H (Negative) Urine RBC 7 H (0-5) /hpf Urine WBC >182 H (0-5) /hpf Urine WBC Clumps Many H (None) /hpf Ur Squamous Epith Cells 12 H (0-4) /hpf Urine Bacteria Many H (None) /hpf Crossmatch 01/21/25 01/21/25 01/21/25 Range/Units 05:48 05:49 05:49 WBC (4.50-10.00) 10*3/uL RBC 1.70 L (4.10-5.20) 10*6/uL Hgb 6.1 L* (12.0-15.0) g/dL Hct 18.5 L* (37.2-46.3) % MCV 108.8 H (80.0-97.0) fL MCH 35.9 H (27.0-32.0) pg RDW (11.5-14.5) % Immature Gran # 0.06 H (0.00-0.04) 10*3/uL Neutrophils # (1.80-7.70) 10*3/uL Monocytes # (0.20-1.00) 10*3/uL Eosinophils # (0.04-0.35) 10*3/uL APTT 72.0 H (22.0-30.0) sec Sodium 129 L (137-145) mmol/L Chloride 96 L (98-107) mmol/L BUN 82 H (7-17) mg/dL Creatinine 3.36 H (0.52-1.04) mg/dL Calcium 8.1 L (8.4-10.2) mg/dL Creatine Kinase (30-135) U/L Cortisol (3.1-22.4) UG/DL Urine Appearance (Clear) Urine Protein (Negative) Urine Blood (Negative) Ur Leukocyte Esterase (Negative) Urine RBC (0-5) /hpf Urine WBC (0-5) /hpf Urine WBC Clumps (None) /hpf Ur Squamous Epith Cells (0-4) /hpf Urine Bacteria (None) /hpf Crossmatch 01/21/25 Range/Units 07:55 WBC (4.50-10.00) 10*3/uL RBC (4.10-5.20) 10*6/uL Hgb (12.0-15.0) g/dL Hct (37.2-46.3) % MCV (80.0-97.0) fL MCH (27.0-32.0) pg RDW (11.5-14.5) % Immature Gran # (0.00-0.04) 10*3/uL Neutrophils # (1.80-7.70) 10*3/uL Monocytes # (0.20-1.00) 10*3/uL Eosinophils # (0.04-0.35) 10*3/uL APTT (22.0-30.0) sec Sodium (137-145) mmol/L Chloride (98-107) mmol/L BUN (7-17) mg/dL Creatinine (0.52-1.04) mg/dL Calcium (8.4-10.2) mg/dL Creatine Kinase (30-135) U/L Cortisol (3.1-22.4) UG/DL Urine Appearance (Clear) Urine Protein (Negative) Urine Blood (Negative) Ur Leukocyte Esterase (Negative) Urine RBC (0-5) /hpf Urine WBC (0-5) /hpf Urine WBC Clumps (None) /hpf Ur Squamous Epith Cells (0-4) /hpf Urine Bacteria (None) /hpf Crossmatch See Detail Assessment and Plan Plan: Assessment: 1. Acute kidney injury secondary to ATN secondary to hypotension and acute blood loss anemia. Creatinine 2.2 on admission and is stable at 3.36 today. Ultrasound showed atrophic kidneys. 2. Hypovolemic hyponatremia improved with IV fluids. Sodium level lower at 129 today. 3. Status post fall. 4. Chronic kidney disease stage IV baseline creatinine 1.8-2.2. 5. Acute blood loss anemia. Iron replete. 6. Hypertension with chronic kidney disease. Controlled. Plan: Hep-Lock IV fluids. Scheduled to receive a unit of blood today. IV DDAVP x 1 dose today. Add Aranesp. Bladder scan negative for urinary retention. Avoid nephrotoxins. Continue to monitor renal function and urine output. Cortisol level not low. Consider GI/surgery eval.
[2025-01-21] MEDS: DESMOPRESSIN ACETATE 22 MCG in SODIUM CHLORIDE 0.9% 50 ML IVPB ONE (11:38)
[2025-01-21] MEDS: DARBEPOETIN ALFA 40 MCG/0.4 ML SYRINGE SQ SCH (11:58)
[2025-01-21] MEDS ORDERED: IOPAMIDOL CONTRAST (ORAL USE) VIAL PO PRN (12:07)
--- NOTE | 2025-01-21 12:21 | P.PN ---
Subjective This is a pleasant 84 years old female who was seen and examined in the emergency room at [facility], she was lying in bed with Jean bandage around her head with superficial wound requiring stitches. With some evidence around her left eye hematoma Patient states with information obtained with the help of the daughter at bedside that patient was getting her shopping back to home as she is independent her neighbor noticed her noted next to her car and he found her on the floor and EMS were called. Patient herself remember standing by her car and the next thing she remembers to be in the hospital. While she was in hospital she developed seizure as per daughter at bedside which was tonic-clonic arms were up in the air and her also rolled back lasted for about short time, few minutes. No biting tongue, no urinary or bowel incontinence. Patient denies any weakness or numbness or blurred vision or slurred speech However she complains from some fuzziness around her left eye and there is some hematoma around left eye but there is no impaired vision. Also patient was taking Eliquis at home. Patient hemodynamically stable, she is afebrile . Blood pressure 92/55. Hemoglobin 10.5. WBC 5.8. INR within the reference range. Sodium 129 Creatinine elevated 2.2 Liver enzymes not significantly elevated. Troponin x [address]: No acute intracranial process Chest x-ray: Mild to moderate cardiomegaly and additional density correlate for CHF EKG: Atrial fibrillation with a rate of 68 5/31 Patient blood pressure slightly on the low side 96/48 She is awake alert looks comfortable lying in bed still has a bruise around her left eye, her left eye swollen and she cannot open it, her main complaint is pain in her left her area where there is a significantly swollen with some fluctuation most likely secondary to hematoma. which limits movement because of pain. No chest pain or dyspnea. No abdominal pain. No headache or dizziness. No abnormal movements Hemodynamically other than that stable and afebrile. 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 Heart rate 89. She is afebrile. Sodium also slightly dropped 132-129, creatinine is almost the same 3.2 and 3.3 today However urinalysis was abnormal suspicious for infection Patient currently getting 1 unit of blood transfusion, she is awake alert looks tired she still have swelling around her left eye and a bruise in her chin from the fall. She still has swelling on her left thigh area from hematoma on fall on presentation as well Today was noticed to have more suprapubic pain and tenderness She denies headache dizziness no dyspnea had her usual chest pain last night but currently no chest pain only little phlegm with deep breath. I talked to the daughter she says she is allergic to penicillin and developed fever when she has child, she was taking Keflex and ceftriaxone before with no problem and she agrees to start her ceftriaxone for possible UTI. Discussed with the staff to give it slowly and to check vitals and half an hour for double check although it looks per history she is not allergic to ceftriaxone Follow-up urine culture Check bladder scan Because of the hemoglobin and UTI we will going to order CT of the abdomen pelvis with oral contrast I double checked with the daughter, she states that what she thought seizure on admission ER actually it was an episode for 5 seconds where she had her eyes rolled up and arms were in the air and it was not like convulsing but little mild shakiness and after that she woke up right away during this 5 to 10 seconds her blood pressure dropped. Therefore the suspicion of seizure is very low we will keep monitoring but I do not think needs further workup for now. Active Medications Generic Name Dose Route Start Last Admin Trade Name Freq PRN Reason Stop Dose Admin Acetaminophen 650 mg 01/19/25 19:52 01/20/25 20:47 Acetaminophen Tab 325 Mg Tab PO 650 mg Q6HR PRN Administration Mild Pain or Fever > 100.5 Allopurinol 300 mg 01/20/25 09:00 01/21/25 08:53 Allopurinol 300 Mg Tab PO 300 mg DAILY MARGE Administration Artificial Tears 1 drops 01/20/25 11:21 01/20/25 12:45 Artificial Tears-Hypromellose Drops 15 Ml Btl BOTH EYES 1 drops QID PRN Administration Dry Eye(s) Atorvastatin Calcium 20 mg 01/20/25 09:00 01/21/25 08:54 Atorvastatin 20 Mg Tab PO 20 mg DAILY MARGE Administration Darbepoetin Negrito 40 mcg 01/21/25 12:00 01/21/25 11:58 Darbepoetin Negrito 40 Mcg/0.4 Ml Syringe SQ 40 mcg Q7D MARGE Administration Heparin Sodium (Porcine) 0 unit 01/20/25 12:27 Heparin Sodium 1,000 Un/Ml (10ml Vl) IV PER PROTOCOL PRN Low PTT Protocol Heparin Sodium/Sodium Chloride 250 mls @ 8.709 mls/hr 01/20/25 12:30 01/21/25 11:33 25,000 unit/ Sodium Chloride IV Not Given .Q24H MARGE Protocol 12 UNITS/KG/HR Ceftriaxone Sodium 1 gm/ 50 mls @ 100 mls/hr 01/21/25 12:15 Sodium Chloride IVPB Q24HR MARGE Protocol Iopamidol 30 ml 01/21/25 12:07 Iopamidol Contrast (Oral Use) Vial PO 01/22/25 12:[address] Scan Levothyroxine Sodium 88 mcg 01/20/25 06:30 01/21/25 05:46 Levothyroxine 88 Mcg Tab PO 88 mcg DAILY@0630 MARGE Administration Loperamide HCl 2 mg 01/20/25 07:11 Loperamide 2 Mg Cap PO Q4H PRN Diarrhea Magnesium Oxide 400 mg 01/20/25 09:00 01/21/25 08:53 Magnesium Oxide 400 Mg Tab PO 400 mg DAILY MARGE Administration Naloxone HCl 0.2 mg 01/19/25 17:32 Naloxone 0.4 Mg/Ml 1 Ml Vial IV Q2M PRN Opioid Reversal Ondansetron HCl 4 mg 01/19/25 17:32 Ondansetron 4 Mg/2 Ml Vial IVP Q8HR PRN Nausea And Vomiting Oxybutynin Chloride 5 mg 01/20/25 09:00 01/21/25 08:53 Oxybutynin Chloride 5 Mg Tab PO 5 mg DAILY MARGE Administration Oxycodone/Acetaminophen 1 each 01/19/25 19:52 01/20/25 21:18 Oxycodone-Apap 5-325mg 1 Each Tab PO 1 each BID PRN Administration Moderate to Severe Pain (4-10) Pantoprazole Sodium 40 mg 01/20/25 09:00 01/21/25 08:53 Pantoprazole 40 Mg Tablet PO 40 mg DAILY MARGE Administration Objective - Vital Signs Vital signs: Vital Signs Temp 97.9 F 01/21/25 12:02 Pulse 89 01/21/25 12:02 Resp 18 01/21/25 12:02 BP 111/64 01/21/25 12:02 Pulse Ox 99 01/21/25 12:02 FiO2 Intake & Output 01/20/25 01/21/25 01/21/25 18:59 06:59 18:59 Intake Total 1525 108.574 279 Balance 1525 108.574 279 Intake: Intake, IV Titration 1525 108.574 Amount Heparin Sod,Pork in 0.45% 108.574 NaCl 25,000 unit In 0.45 % NaCl 1 250ml.bag @ 12 UNITS/KG/HR 8.709 mls/hr IV .Q24H [facility] Rx#: [id number] Sodium Chloride 0.9% 1, 525 000 ml @ 75 mls/hr IV . [id number] [facility] Rx#:[id number] Sodium Chloride 0.9% 1, 1000 000 ml @ 999 mls/hr IV . Q1H1M [facility] Rx#:[id number] Blood Product 279 Unit 279 Other: # Voids 0 # Bowel Movements 0 - Exam GENERAL: The patient is alert and oriented x3, not in any acute distress. Well developed, well nourished. HEENT: Pupils are round and equally reacting to light. EOMI. No scleral icterus. No conjunctival pallor. Normocephalic, atraumatic. No pharyngeal erythema. No thyromegaly. -Hematoma and swelling around the left eye is slightly better but still covering the already closed. Left for third wound is closed with stitches in place CARDIOVASCULAR: S1 and S2 present. No murmurs, rubs, or gallops. PULMONARY: Chest is clear to auscultation, no wheezing , no crackles. -ABDOMEN: Suprapubic tenderness, soft abdomen , nondistended, normoactive bowel sounds. No palpable organomegaly. MUSCULOSKELETAL: No joint swelling or deformity. -Left hip started swelling and tenderness, most likely hematoma EXTREMITIES: No cyanosis, clubbing, or pedal edema. NEUROLOGICAL: Gross neurological examination did not reveal any focal deficits. SKIN: No rashes. no petechiae. - Labs CBC & Chem 7: 01/21/25 05:49 01/21/25 05:48 Labs: Abnormal Lab Results - Last 24 Hours (Table) 01/20/25 01/20/25 01/20/25 Range/Units 06:47 14:32 14:32 WBC 10.99 H (4.50-10.00) 10*3/uL RBC 2.12 L (4.10-5.20) 10*6/uL Hgb 7.7 L (12.0-15.0) g/dL Hct 24.0 L (37.2-46.3) % MCV 113.2 H D (80.0-97.0) fL MCH 36.3 H (27.0-32.0) pg RDW 14.6 H (11.5-14.5) % Immature Gran # 0.07 H (0.00-0.04) 10*3/uL Neutrophils # 8.47 H (1.80-7.70) 10*3/uL Monocytes # 1.15 H (0.20-1.00) 10*3/uL Eosinophils # 0.02 L (0.04-0.35) 10*3/uL APTT (22.0-30.0) sec Sodium (137-145) mmol/L Chloride (98-107) mmol/L BUN (7-17) mg/dL Creatinine (0.52-1.04) mg/dL Calcium (8.4-10.2) mg/dL Creatine Kinase 231 H (30-135) U/L Cortisol 26.8 H (3.1-22.4) UG/DL Urine Appearance (Clear) Urine Protein (Negative) Urine Blood (Negative) Ur Leukocyte Esterase (Negative) Urine RBC (0-5) /hpf Urine WBC (0-5) /hpf Urine WBC Clumps (None) /hpf Ur Squamous Epith Cells (0-4) /hpf Urine Bacteria (None) /hpf Crossmatch 01/20/25 01/20/25 01/21/25 Range/Units 20:48 20:48 03:55 WBC 10.41 H (4.50-10.00) 10*3/uL RBC 1.96 L (4.10-5.20) 10*6/uL Hgb 7.2 L (12.0-15.0) g/dL Hct 21.2 L (37.2-46.3) % MCV 108.2 H D (80.0-97.0) fL MCH 36.7 H (27.0-32.0) pg RDW (11.5-14.5) % Immature Gran # 0.07 H (0.00-0.04) 10*3/uL Neutrophils # (1.80-7.70) 10*3/uL Monocytes # 1.22 H (0.20-1.00) 10*3/uL Eosinophils # (0.04-0.35) 10*3/uL APTT 157.3 H* (22.0-30.0) sec Sodium (137-145) mmol/L Chloride (98-107) mmol/L BUN (7-17) mg/dL Creatinine (0.52-1.04) mg/dL Calcium (8.4-10.2) mg/dL Creatine Kinase (30-135) U/L Cortisol (3.1-22.4) UG/DL Urine Appearance Turbid H (Clear) Urine Protein 1+ H (Negative) Urine Blood Large H (Negative) Ur Leukocyte Esterase Large H (Negative) Urine RBC 7 H (0-5) /hpf Urine WBC >182 H (0-5) /hpf Urine WBC Clumps Many H (None) /hpf Ur Squamous Epith Cells 12 H (0-4) /hpf Urine Bacteria Many H (None) /hpf Crossmatch 01/21/25 01/21/25 01/21/25 Range/Units 05:48 05:49 05:49 WBC (4.50-10.00) 10*3/uL RBC 1.70 L (4.10-5.20) 10*6/uL Hgb 6.1 L* (12.0-15.0) g/dL Hct 18.5 L* (37.2-46.3) % MCV 108.8 H (80.0-97.0) fL MCH 35.9 H (27.0-32.0) pg RDW (11.5-14.5) % Immature Gran # 0.06 H (0.00-0.04) 10*3/uL Neutrophils # (1.80-7.70) 10*3/uL Monocytes # (0.20-1.00) 10*3/uL Eosinophils # (0.04-0.35) 10*3/uL APTT 72.0 H (22.0-30.0) sec Sodium 129 L (137-145) mmol/L Chloride 96 L (98-107) mmol/L BUN 82 H (7-17) mg/dL Creatinine 3.36 H (0.52-1.04) mg/dL Calcium 8.1 L (8.4-10.2) mg/dL Creatine Kinase (30-135) U/L Cortisol (3.1-22.4) UG/DL Urine Appearance (Clear) Urine Protein (Negative) Urine Blood (Negative) Ur Leukocyte Esterase (Negative) Urine RBC (0-5) /hpf Urine WBC (0-5) /hpf Urine WBC Clumps (None) /hpf Ur Squamous Epith Cells (0-4) /hpf Urine Bacteria (None) /hpf Crossmatch 01/21/25 Range/Units 07:55 WBC (4.50-10.00) 10*3/uL RBC (4.10-5.20) 10*6/uL Hgb (12.0-15.0) g/dL Hct (37.2-46.3) % MCV (80.0-97.0) fL MCH (27.0-32.0) pg RDW (11.5-14.5) % Immature Gran # (0.00-0.04) 10*3/uL Neutrophils # (1.80-7.70) 10*3/uL Monocytes # (0.20-1.00) 10*3/uL Eosinophils # (0.04-0.35) 10*3/uL APTT (22.0-30.0) sec Sodium (137-145) mmol/L Chloride (98-107) mmol/L BUN (7-17) mg/dL Creatinine (0.52-1.04) mg/dL Calcium (8.4-10.2) mg/dL Creatine Kinase (30-135) U/L Cortisol (3.1-22.4) UG/DL Urine Appearance (Clear) Urine Protein (Negative) Urine Blood (Negative) Ur Leukocyte Esterase (Negative) Urine RBC (0-5) /hpf Urine WBC (0-5) /hpf Urine WBC Clumps (None) /hpf Ur Squamous Epith Cells (0-4) /hpf Urine Bacteria (None) /hpf Crossmatch See Detail Assessment and Plan Assessment: Syncope with a fall from standing position with left forehead superficial wound status post stitches Acute anemia with acute drop of hemoglobin Acute urinary tract infection Hyponatremia Acute kidney injury Acute left periorbital hematoma with some fuzziness Atrial fibrillation with rate controlled on Eliquis at home, Eliquis on hold for now Plan: Patient currently off IV fluids but getting 1 unit of blood transfusion Hold Eliquis and heparin drip Monitor hemoglobin and give unit of blood transfusion. After that hold IV fluids Start ceftriaxone, follow-up urine culture. Continue telemetry monitoring Monitor blood pressure and vitals Neurocheck Cardiology and neurology team Nephrology team consult, nephrology team consult cardiology and ophthalmology Labs and medication were reviewed.. Continue same treatment. Continue with symptomatic treatment. Resume home medication. Monitor labs and vitals. DVT and GI prophylaxis. Further recommendations as per clinical course of the patient DVT prophylaxis: Eliquis on hold GI Prophylaxis: Protonix PT/OT: Pending Prognosis is guarded Plan of care discussed with daughter and she is agreeable
[2025-01-21 13:12] LABS: Basophils # (A) 0.05 10*3/uL (0.00-0.10); Basophils % (A) 0.5 %; Eosinophils # (A) 0.13 10*3/uL (0.04-0.35); Eosinophils % (A) 1.3 %; HCT 23.8 % (37.2-46.3); Lymphocytes # (A) 1.12 10*3/uL (0.90-5.00); Lymphocytes % (A) 10.8 %; MCH 34.6 pg (27.0-32.0); MCHC 33.2 g/dL (32.0-37.0); MCV 104.4 fL (80.0-97.0); Mean Platelet Volume 10.3 fL (9.5-12.2); Monocytes # (A) 1.18 10*3/uL (0.20-1.00); Monocytes % (A) 11.4 %; Neutrophils # (A) 7.79 10*3/uL (1.80-7.70); Neutrophils % (A) 74.9 %; Platelet Count 187 10*3/uL (140-440); RBC 2.28 10*6/uL (4.10-5.20); RDW 16.6 % (11.5-14.5); WBC 10.38 10*3/uL (4.50-10.00)
[2025-01-21 13:22] LABS: HGB 7.9 g/dL (12.0-15.0)
--- NOTE | 2025-01-21 14:03 | P.PN ---
Subjective This is an 84-year-old female with past medical history of multiple strokes status post thrombectomy and tPA in 2020 with treatment of AVM, subdural hematoma, chronic atrial fibrillation on Eliquis, hypertension, chronic kidney disease stage III. We have been asked to evaluate the patient for syncope. Patient presented to the emergency center after a fall. She sustained significant injury to the left side of her face and required stitches. Patient states that she sometimes feels lightheaded. She has not had other syncopal episodes. She denies any black or bloody stools. She has minimal lower extremity edema. According to the notes, patient also had seizure activity. Patient presented with systolic blood pressure 80s and 90s, heart rate in the 70s. She is status post 2 L IV fluid. -EKG: Atrial fibrillation, left bundle branch block. -Chest x-ray: Mild to moderate cardiomegaly and interstitial density. Correlate for mild CHF. Some patchy probable atelectasis in the retrocardiac region. -Carotid ultrasound reveals mild atherosclerotic plaque at the bilateral carotid bifurcations. No hemodynamically significant stenosis of the bilateral carotid artery systems. -Echocardiogram performed on this admission reveals EF 65 to 70%, moderately increased left ventricular wall thickness. Mild mitral regurgitation. Mild aortic stenosis. Mild aortic regurgitation. Severe tricuspid regurgitation. RVSP 58. -Laboratory studies: WBC 10.4, hemoglobin 8.1 previously 10.5. Sodium 132, potassium 4.3, BUN 83 creatinine 3.24. Troponin negative x 3. proBNP 7770. TSH 1.29. -Home cardiac medications: Eliquis 5 mg twice daily, atorvastatin 20 mg daily, Jardiance 10 mg daily, Lasix 40 mg daily, Zaroxolyn 2.5 mg on Mondays and , potassium chloride 20 mill equivalents daily, propranolol 80 mg daily, ramipril 10 mg daily. 01/21 Patient seen and examined. Patient denies any chest pain or pressure. Remains in A-fib with controlled ventricular rates. She was transition from Eliquis to heparin secondary to anemia with drop in hemoglobin yesterday however had further hypotension with hemoglobin in the 6 range and therefore received 1 unit of packed red blood cells with improvement in hemoglobin into the 7 range. Blood pressures have also improved. No significant hematochezia or melena. She underwent CT abdomen pelvis to rule out bleed with results still pending. Denies any significant abdominal pain. There has been concern from daughter with patient previously having strokes whenever she has come off of anticoagulation. Physical examination: Gen: This is an 84-year-old female in no acute distress. VS: reviewed HEENT: Head reveals significant left forehead, periorbital, left cheek and left chin/jaw ecchymosis, laceration with repair to the left forehead. Otherwise normocephalic. Pupils equal, round. Sclerae is anicteric. NECK: Supple. No JVD. LUNGS: Clear to auscultation. No wheezes or rhonchi. No intercostal retractions. HEART: Regular rate and rhythm. No murmur. ABDOMEN: Soft No tenderness. EXTREMITIES: No pedal edema. No calf tenderness. NEUROLOGICAL: Patient is awake, alert and oriented x3. Assessment: Syncopal episode Close head injury Laceration requiring sutures Seizure activity in the ER and witnessed by her daughter Hypotensive Anemia Acute kidney injury Moderate pulmonary hypertension Severe tricuspid regurgitation Left bundle branch block Chronic atrial fibrillation on Eliquis Chronic left subdural hematoma Multiple ischemic strokes status post TPA and 2 thrombectomies one in 2019 and one History of AVM status post Tim Plan: Hold Lasix, Zaroxolyn, potassium, propranolol and ramipril Patient has had strokes before when she has come off of anticoagulation in the past. Stop anticoagulation currently with significant anemia however likely restart if hemoglobin stable. For now continue with aspirin. Await CT abdomen pelvis to rule out any significant bleed. Continue telemetry monitoring Plan for 30-day event monitor or loop recorder prior to discharge Due due to to patient's fall risk and history of CVAs would recommend patient be evaluated for Watchman procedure as an outpatient Further recommendations to follow based upon clinical course Thank you kindly for this consultation. Objective - Vital Signs Vital signs: Vital Signs Temp 97.9 F 01/21/25 12:02 Pulse 109 H 01/21/25 13:50 Resp 20 01/21/25 13:50 BP 105/63 01/21/25 13:50 Pulse Ox 100 01/21/25 13:50 FiO2 Intake & Output 01/20/25 01/21/25 01/21/25 18:59 06:59 18:59 Intake Total 1525 108.574 279 Balance 1525 108.574 279 Intake: Intake, IV Titration 1525 108.574 Amount Heparin Sod,Pork in 0.45% 108.574 NaCl 25,000 unit In 0.45 % NaCl 1 250ml.bag @ 12 UNITS/KG/HR 8.709 mls/hr IV .Q24H [facility] Rx#: [id number] Sodium Chloride 0.9% 1, 525 000 ml @ 75 mls/hr IV . [id number] [facility] Rx#:[id number] Sodium Chloride 0.9% 1, 1000 000 ml @ 999 mls/hr IV . Q1H1M [facility] Rx#:[id number] Blood Product 279 Rc Pheresis 2 As3 Unit 279 [id number] Other: # Voids 0 # Bowel Movements 0 - Labs CBC & Chem 7: 01/21/25 12:55 01/21/25 05:48 Labs: Abnormal Lab Results - Last 24 Hours (Table) 01/20/25 01/20/25 01/20/25 Range/Units 06:47 14:32 14:32 WBC 10.99 H (4.50-10.00) 10*3/uL RBC 2.12 L (4.10-5.20) 10*6/uL Hgb 7.7 L (12.0-15.0) g/dL Hct 24.0 L (37.2-46.3) % MCV 113.2 H D (80.0-97.0) fL MCH 36.3 H (27.0-32.0) pg RDW 14.6 H (11.5-14.5) % Immature Gran # 0.07 H (0.00-0.04) 10*3/uL Neutrophils # 8.47 H (1.80-7.70) 10*3/uL Monocytes # 1.15 H (0.20-1.00) 10*3/uL Eosinophils # 0.02 L (0.04-0.35) 10*3/uL APTT (22.0-30.0) sec Sodium (137-145) mmol/L Chloride (98-107) mmol/L BUN (7-17) mg/dL Creatinine (0.52-1.04) mg/dL Calcium (8.4-10.2) mg/dL Creatine Kinase 231 H (30-135) U/L Cortisol 26.8 H (3.1-22.4) UG/DL Urine Appearance (Clear) Urine Protein (Negative) Urine Blood (Negative) Ur Leukocyte Esterase (Negative) Urine RBC (0-5) /hpf Urine WBC (0-5) /hpf Urine WBC Clumps (None) /hpf Ur Squamous Epith Cells (0-4) /hpf Urine Bacteria (None) /hpf Crossmatch 01/20/25 01/20/25 01/21/25 Range/Units 20:48 20:48 03:55 WBC 10.41 H (4.50-10.00) 10*3/uL RBC 1.96 L (4.10-5.20) 10*6/uL Hgb 7.2 L (12.0-15.0) g/dL Hct 21.2 L (37.2-46.3) % MCV 108.2 H D (80.0-97.0) fL MCH 36.7 H (27.0-32.0) pg RDW (11.5-14.5) % Immature Gran # 0.07 H (0.00-0.04) 10*3/uL Neutrophils # (1.80-7.70) 10*3/uL Monocytes # 1.22 H (0.20-1.00) 10*3/uL Eosinophils # (0.04-0.35) 10*3/uL APTT 157.3 H* (22.0-30.0) sec Sodium (137-145) mmol/L Chloride (98-107) mmol/L BUN (7-17) mg/dL Creatinine (0.52-1.04) mg/dL Calcium (8.4-10.2) mg/dL Creatine Kinase (30-135) U/L Cortisol (3.1-22.4) UG/DL Urine Appearance Turbid H (Clear) Urine Protein 1+ H (Negative) Urine Blood Large H (Negative) Ur Leukocyte Esterase Large H (Negative) Urine RBC 7 H (0-5) /hpf Urine WBC >182 H (0-5) /hpf Urine WBC Clumps Many H (None) /hpf Ur Squamous Epith Cells 12 H (0-4) /hpf Urine Bacteria Many H (None) /hpf Crossmatch 01/21/25 01/21/25 01/21/25 Range/Units 05:48 05:49 05:49 WBC (4.50-10.00) 10*3/uL RBC 1.70 L (4.10-5.20) 10*6/uL Hgb 6.1 L* (12.0-15.0) g/dL Hct 18.5 L* (37.2-46.3) % MCV 108.8 H (80.0-97.0) fL MCH 35.9 H (27.0-32.0) pg RDW (11.5-14.5) % Immature Gran # 0.06 H (0.00-0.04) 10*3/uL Neutrophils # (1.80-7.70) 10*3/uL Monocytes # (0.20-1.00) 10*3/uL Eosinophils # (0.04-0.35) 10*3/uL APTT 72.0 H (22.0-30.0) sec Sodium 129 L (137-145) mmol/L Chloride 96 L (98-107) mmol/L BUN 82 H (7-17) mg/dL Creatinine 3.36 H (0.52-1.04) mg/dL Calcium 8.1 L (8.4-10.2) mg/dL Creatine Kinase (30-135) U/L Cortisol (3.1-22.4) UG/DL Urine Appearance (Clear) Urine Protein (Negative) Urine Blood (Negative) Ur Leukocyte Esterase (Negative) Urine RBC (0-5) /hpf Urine WBC (0-5) /hpf Urine WBC Clumps (None) /hpf Ur Squamous Epith Cells (0-4) /hpf Urine Bacteria (None) /hpf Crossmatch 01/21/25 01/21/25 Range/Units 07:55 12:55 WBC 10.38 H (4.50-10.00) 10*3/uL RBC 2.28 L (4.10-5.20) 10*6/uL Hgb 7.9 L D (12.0-15.0) g/dL Hct 23.8 L (37.2-46.3) % MCV 104.4 H (80.0-97.0) fL MCH 34.6 H (27.0-32.0) pg RDW (11.5-14.5) % Immature Gran # 0.11 H (0.00-0.04) 10*3/uL Neutrophils # 7.79 H (1.80-7.70) 10*3/uL Monocytes # 1.18 H (0.20-1.00) 10*3/uL Eosinophils # (0.04-0.35) 10*3/uL APTT (22.0-30.0) sec Sodium (137-145) mmol/L Chloride (98-107) mmol/L BUN (7-17) mg/dL Creatinine (0.52-1.04) mg/dL Calcium (8.4-10.2) mg/dL Creatine Kinase (30-135) U/L Cortisol (3.1-22.4) UG/DL Urine Appearance (Clear) Urine Protein (Negative) Urine Blood (Negative) Ur Leukocyte Esterase (Negative) Urine RBC (0-5) /hpf Urine WBC (0-5) /hpf Urine WBC Clumps (None) /hpf Ur Squamous Epith Cells (0-4) /hpf Urine Bacteria (None) /hpf Crossmatch See Detail
--- NOTE | 2025-01-21 14:04 | CT ---
EXAMINATION TYPE: CT abdomen pelvis wo con CT DLP: 860.5 mGycm, Automated exposure control for dose reduction was used. DATE OF EXAM: 01/21/2025 1:43 PM COMPARISON: Renal ultrasound 01/20/2025, left hip/pelvic radiograph 01/19/2025 CLINICAL INDICATION:Female, 84 years old with history of dropped hb, suprapubic tenderness with uti; decreased hemoglobin TECHNIQUE: Standard CT of the abdomen and pelvis without IV or oral contrast. Lack of IV or oral co ntrast limits evaluation of solid and hollow organ viscera. Coronal and sagittal reformats were perfo rmed. FINDINGS: LOWER CHEST: Cardiomegaly. Aortic valvular calcifications. Small coronary artery calcifications. Trac e bilateral pleural effusions with associated atelectasis. ABDOMEN LIVER: Unremarkable noncontrast appearance. GALLBLADDER AND BILE DUCTS: The gallbladder is surgically absent. No biliary ductal dilatation. PANCREAS: Unremarkable noncontrast appearance. SPLEEN: Unremarkable noncontrast appearance. ADRENAL GLANDS: Unremarkable noncontrast appearance.. KIDNEYS AND URETERS: No evidence of hydronephrosis or renal calculus. Anterior right inferior pole re nal cysts measuring up to 1.8 cm. Demonstrates simple attenuation. No follow up recommended. PELVIS BLADDER: Moderately distended. No wall thickening or surrounding inflammatory changes. There is layer ing hyperdense fluid within the urinary bladder. REPRODUCTIVE: The uterus is surgically absent. ABDOMEN & PELVIS STOMACH AND BOWEL: Stomach and duodenum are unremarkable. Distal colonic diverticulosis without evide nce for acute diverticulitis. No evidence of bowel obstruction. PERITONEUM/RETROPERITONEUM: No evidence of pneumoperitoneum or free fluid. No evidence for retroperit falk hematoma. VASCULATURE: Severe atherosclerotic calcifications are present throughout the abdominal aorta and its branches. No evidence of aortic aneurysm. MUSCULOSKELETAL: No acute osseous abnormalities. Fixation intramedullary stephan and screw involving the visualized proximal right femur. Diffuse bone demineralization which limits evaluation. Multilevel de generative disc disease. LYMPH NODES: No gross evidence for lymphadenopathy. SOFT TISSUE/ABDOMINAL WALL: There is a hyperdense fluid collection consistent with hematoma within th e left lateral hip subcutaneous fat tissue layer. This measures 6.0 x 3.4 x 11.5 cm in AP, TV, CC dim ensions. There is surrounding subcutaneous edema/contusion. IMPRESSION: 1. Moderate size hematoma along the left lateral hip subcutaneous fat layer. This corresponds to kellee or radiograph 01/19/2025. 2. Layering hyperdensity within the urinary bladder corresponding to recent ultrasound. No urinary bl adder wall thickening or surrounding inflammatory changes identified. Findings suggest possible blood products versus other types of debris. Correlate with urinalysis. 3. Colonic diverticulosis without evidence for acute diverticulitis. 4. Trace bilateral pleural effusions. [facility], , 01/21/2025 2:01 PM
[2025-01-21] MEDS: ASPIRIN 81 MG PO SCH (16:19)
[2025-01-22 08:07] LABS: African American GFR (CKD) 18 (>60 ml/min/1.73 sqM); Anion Gap 7 mmol/L; Blood Urea Nitrogen 68 mg/dL (7-17); Calcium 8.4 mg/dL (8.4-10.2); Carbon Dioxide 25 mmol/L (22-30); Chloride 99 mmol/L (98-107); Glucose 97 mg/dL (74-99); Magnesium 1.9 mg/dL (1.6-2.3); Non-African American GFR(CKD) 16 (>60 ml/min/1.73 sqM); Potassium 3.7 mmol/L (3.5-5.1); Sodium 131 mmol/L (137-145)
[2025-01-22] MEDS: LIDOCAINE 4% PATCH TOPICAL SCH (09:33)
--- NOTE | 2025-01-22 10:08 | P.CONS ---
History of Present Illness - Reason for Consult Consult date: 01/21/25 UTI Requesting physician: Bong E Sheet - Chief Complaint Passed out and fall x 1 day on admission - History of Present Illness Patient is 84-year-old female with a past medical history significant for hypertension hyperlipidemia CVA TIA atrial fibrillation was brought into the hospital 2 days ago after apparently the patient did have a fall patient did not recall it and apparently has passed out patient has been on Eliquis and did have multiple laceration especially to the forehead which has been stitched in the ER, patient on presentation to the hospital was afebrile and no fever have been called subsequently patient was mildly tachycardic and hypoxic currently on a 2 L nasal cannula oxygen, patient did have a mild elevated white count of 10.38 with a left shift BUN and creatinine are elevated as well sodium is low liver enzymes mildly elevated on admission she did have a UA obtained which was positive with large leukocyte esterase more than 180 WBC did have a CT no acute intracranial process nonspecific white matter changes acute minimally depressed nasal bony fracture on the left side left periorbital soft tissue hematoma with acute soft tissue contusion to the left chin paranasal sinus disease patient also have a CT of abdominal pelvis which did shows moderate size hematoma collecting along the left lateral hip subcutaneous fat layer layering hyperdensity within the urinary bladder corresponding to recent ultrasound findings suggested possible blood blood products colonic diverticulosis trace bilateral effusion patient sleepy but arousable has been complaining of pain to her multiple location where the patient had significant bruises denies having any chest pain or cough some lower abdominal discomfort and urinary frequency no diarrhea Review of Systems Positive point and negatives has been mentioned in the HPI, complete review of systems was performed and all other systems are negative Past Medical History Past Medical History: Atrial Fibrillation, CVA/TIA, Hyperlipidemia, Hypertension Additional Past Medical History / Comment(s): cardiomyopathy History of Any Multi-Drug Resistant Organisms: None Reported Past Surgical History: Cholecystectomy, Heart Catheterization, Hysterectomy, Tonsillectomy Past Anesthesia/Blood Transfusion Reactions: No Reported Reaction Past Psychological History: No Psychological Hx Reported Smoking Status: Former smoker Past Alcohol Use History: Occasional Past Drug Use History: None Reported Medications and Allergies Home Medications Medication Instructions Recorded Confirmed Type Apixaban [Eliquis] 5 mg PO BID 03/23/23 01/19/25 History Atorvastatin [Lipitor] 20 mg PO DAILY 03/23/23 01/19/25 History Fluticasone/Umeclidin/Vilanter 1 puff INHALATION RT-DAILY 03/23/23 01/19/25 History [Trelegy Ellipta 100-62.5-25] Furosemide [Lasix] 40 mg PO DAILY 03/23/23 01/19/25 History Levothyroxine Sodium [Synthroid] 88 mcg PO DAILY 03/23/23 01/19/25 History Magnesium Chloride [Mag64] 64 mg PO DAILY 03/23/23 01/19/25 History Omeprazole [PriLOSEC] 40 mg PO DAILY 03/23/23 01/19/25 History Potassium Chloride ER [K-Dur 20] 20 meq PO DAILY 03/23/23 01/19/25 History Propranolol HCl [Inderal] 80 mg PO DAILY 03/23/23 01/19/25 History allopurinoL [Zyloprim] 300 mg PO DAILY 03/23/23 01/19/25 History oxyBUTYnin chloride [Ditropan] 5 mg PO DAILY 03/23/23 01/19/25 History ramipriL [Altace] 10 mg PO DAILY 03/23/23 01/19/25 History Empagliflozin [Jardiance] 10 mg PO DAILY 01/19/25 01/19/25 History metOLazone [Zaroxolyn] 2.5 mg PO MOTH 01/19/25 01/19/25 History Allergies Allergy/AdvReac Type Severity Reaction Status Date / Time Penicillins Allergy Unknown Verified 01/19/25 18:38 Sulfa (Sulfonamide Allergy Rash/Hives Verified 01/19/25 18:38 Antibiotics) Physical Exam Vitals: Vital Signs Temp Pulse Pulse Resp BP BP Pulse Ox 01/21/25 14:38 93 20 113/55 98 01/21/25 14:20 98 20 99/49 99 01/21/25 13:50 109 H 20 105/63 100 01/21/25 12:02 97.9 F 89 18 111/64 99 01/21/25 11:44 97.8 F 85 18 110/58 99 01/21/25 10:37 97.9 F 84 18 113/83 98 01/21/25 10:22 97.8 F 93 16 124/70 98 01/21/25 10:14 97.6 F 96 18 125/62 99 01/21/25 10:02 97.6 F 92 16 106/72 96 01/21/25 10:00 97.7 F 91 16 125/67 98 01/21/25 09:52 97.6 F 85 16 98/53 97 01/21/25 07:54 93 H 138/70 94 L 01/21/25 06:00 85 16 113/62 99 01/21/25 05:31 84 14 107/61 99 01/21/25 04:41 86 17 105/63 99 01/21/25 03:10 86 16 98/51 96 01/21/25 02:00 83 18 110/79 95 01/21/25 01:50 57/43 01/21/25 01:15 79 18 80/40 97 01/21/25 01:04 64 18 74/43 97 01/20/25 23:46 72 19 95/53 98 01/20/25 20:50 86 18 101/63 97 01/20/25 19:37 98.0 F 77 17 88/56 91 L 01/20/25 15:30 97.6 F 83 16 87/50 96 Intake and Output 01/21/25 01/21/25 01/21/25 06:59 14:59 22:59 Intake Total 49.643 279 Balance 49.643 279 Intake: Intake, IV Titration 49.643 Amount Heparin Sod,Pork in 0.45% 49.643 NaCl 25,000 unit In 0.45 % NaCl 1 250ml.bag @ 12 UNITS/KG/HR 8.709 mls/hr IV .Q24H [facility] Rx#: [id number] Blood Product 279 Rc Pheresis 2 As3 Unit 279 [id number] GENERAL DESCRIPTION: Elderly female lying in bed, no distress. No tachypnea or accessory muscle of respiration use. HEENT: Shows Pallor , no scleral icterus. Oral mucous membrane is dry. Significant bruising to the left periorbital area in the area of laceration that has been stitched NECK: Trachea central, no thyromegaly. LUNGS: Unlabored breathing. Clear to auscultation anteriorly. HEART: S1, S2, regular rate and rhythm. No loud murmur ABDOMEN: Soft, no tenderness , EXTREMITIES: No edema of feet. SKIN: Multiple bruises NEUROLOGICAL: The patient is sleepy but arousable mood and affect normal. Results CBC & Chem 7: 01/21/25 12:55 01/22/25 06:25 Labs: Abnormal Lab Results - Last 24 Hours (Table) 01/20/25 01/20/25 01/20/25 Range/Units 06:47 14:32 20:48 WBC 10.41 H (4.50-10.00) 10*3/uL RBC 1.96 L (4.10-5.20) 10*6/uL Hgb 7.2 L (12.0-15.0) g/dL Hct 21.2 L (37.2-46.3) % MCV 108.2 H D (80.0-97.0) fL MCH 36.7 H (27.0-32.0) pg Immature Gran # 0.07 H (0.00-0.04) 10*3/uL Neutrophils # 8.47 H (1.80-7.70) 10*3/uL Monocytes # 1.15 H 1.22 H (0.20-1.00) 10*3/uL Eosinophils # 0.02 L (0.04-0.35) 10*3/uL APTT (22.0-30.0) sec Sodium (137-145) mmol/L Chloride (98-107) mmol/L BUN (7-17) mg/dL Creatinine (0.52-1.04) mg/dL Calcium (8.4-10.2) mg/dL Cortisol 26.8 H (3.1-22.4) UG/DL Urine Appearance (Clear) Urine Protein (Negative) Urine Blood (Negative) Ur Leukocyte Esterase (Negative) Urine RBC (0-5) /hpf Urine WBC (0-5) /hpf Urine WBC Clumps (None) /hpf Ur Squamous Epith Cells (0-4) /hpf Urine Bacteria (None) /hpf Crossmatch 01/20/25 01/21/25 01/21/25 Range/Units 20:48 03:55 05:48 WBC (4.50-10.00) 10*3/uL RBC (4.10-5.20) 10*6/uL Hgb (12.0-15.0) g/dL Hct (37.2-46.3) % MCV (80.0-97.0) fL MCH (27.0-32.0) pg Immature Gran # (0.00-0.04) 10*3/uL Neutrophils # (1.80-7.70) 10*3/uL Monocytes # (0.20-1.00) 10*3/uL Eosinophils # (0.04-0.35) 10*3/uL APTT 157.3 H* (22.0-30.0) sec Sodium 129 L (137-145) mmol/L Chloride 96 L (98-107) mmol/L BUN 82 H (7-17) mg/dL Creatinine 3.36 H (0.52-1.04) mg/dL Calcium 8.1 L (8.4-10.2) mg/dL Cortisol (3.1-22.4) UG/DL Urine Appearance Turbid H (Clear) Urine Protein 1+ H (Negative) Urine Blood Large H (Negative) Ur Leukocyte Esterase Large H (Negative) Urine RBC 7 H (0-5) /hpf Urine WBC >182 H (0-5) /hpf Urine WBC Clumps Many H (None) /hpf Ur Squamous Epith Cells 12 H (0-4) /hpf Urine Bacteria Many H (None) /hpf Crossmatch 01/21/25 01/21/25 01/21/25 Range/Units 05:49 05:49 07:55 WBC (4.50-10.00) 10*3/uL RBC 1.70 L (4.10-5.20) 10*6/uL Hgb 6.1 L* (12.0-15.0) g/dL Hct 18.5 L* (37.2-46.3) % MCV 108.8 H (80.0-97.0) fL MCH 35.9 H (27.0-32.0) pg Immature Gran # 0.06 H (0.00-0.04) 10*3/uL Neutrophils # (1.80-7.70) 10*3/uL Monocytes # (0.20-1.00) 10*3/uL Eosinophils # (0.04-0.35) 10*3/uL APTT 72.0 H (22.0-30.0) sec Sodium (137-145) mmol/L Chloride (98-107) mmol/L BUN (7-17) mg/dL Creatinine (0.52-1.04) mg/dL Calcium (8.4-10.2) mg/dL Cortisol (3.1-22.4) UG/DL Urine Appearance (Clear) Urine Protein (Negative) Urine Blood (Negative) Ur Leukocyte Esterase (Negative) Urine RBC (0-5) /hpf Urine WBC (0-5) /hpf Urine WBC Clumps (None) /hpf Ur Squamous Epith Cells (0-4) /hpf Urine Bacteria (None) /hpf Crossmatch See Detail 01/21/25 Range/Units 12:55 WBC 10.38 H (4.50-10.00) 10*3/uL RBC 2.28 L (4.10-5.20) 10*6/uL Hgb 7.9 L D (12.0-15.0) g/dL Hct 23.8 L (37.2-46.3) % MCV 104.4 H (80.0-97.0) fL MCH 34.6 H (27.0-32.0) pg Immature Gran # 0.11 H (0.00-0.04) 10*3/uL Neutrophils # 7.79 H (1.80-7.70) 10*3/uL Monocytes # 1.18 H (0.20-1.00) 10*3/uL Eosinophils # (0.04-0.35) 10*3/uL APTT (22.0-30.0) sec Sodium (137-145) mmol/L Chloride (98-107) mmol/L BUN (7-17) mg/dL Creatinine (0.52-1.04) mg/dL Calcium (8.4-10.2) mg/dL Cortisol (3.1-22.4) UG/DL Urine Appearance (Clear) Urine Protein (Negative) Urine Blood (Negative) Ur Leukocyte Esterase (Negative) Urine RBC (0-5) /hpf Urine WBC (0-5) /hpf Urine WBC Clumps (None) /hpf Ur Squamous Epith Cells (0-4) /hpf Urine Bacteria (None) /hpf Crossmatch Assessment and Plan (1) UTI (urinary tract infection) Current Visit: Yes Status: Acute Code(s): N39.0 - URINARY TRACT INFECTION, SITE NOT SPECIFIED SNOMED Code(s): 56908311 (2) Allergy to multiple antibiotics Current Visit: Yes Status: Acute Code(s): Z88.1 - ALLERGY STATUS TO OTHER ANTIBIOTIC AGENTS SNOMED Code(s): 936861812 Plan: 1patient presenting to the hospital with a syncopal episode and fall and has significant bruising and fracture to the forehead area patient also have abnormal CT abdominal pelvis with significant layering inside the bladder in this patient who did have significantly positive UA mostly with the white cells rather than red cells did have urinary frequency mild elevated white count concerning for symptomatic UTI from a enteric gram-negative pathogen 2-patient with multiple antibiotic ALLERGIES that would limit the number of antibiotic safe to use 3-patient will be treated with Rocephin 1 g daily while waiting for the culture to finalize We will follow on clinical condition and cultures to further adjust medication if needed Thank you for this consultation we will follow the patient along with you Dictation was produced using [employer] dictation software. please excuse any grammatical, word or spelling errors. Time with Patient: Greater than 30
[2025-01-22 11:10] LABS: Basophils # (A) 0.03 10*3/uL (0.00-0.10); Basophils % (A) 0.5 %; Eosinophils # (A) 0.12 10*3/uL (0.04-0.35); Eosinophils % (A) 2.2 %; Lymphocytes # (A) 0.92 10*3/uL (0.90-5.00); Lymphocytes % (A) 16.5 %; MCH 35.5 pg (27.0-32.0); MCV 104.4 fL (80.0-97.0); Mean Platelet Volume 10.3 fL (9.5-12.2); Monocytes # (A) 0.87 10*3/uL (0.20-1.00); Monocytes % (A) 15.6 %; Neutrophils # (A) 3.57 10*3/uL (1.80-7.70); Neutrophils % (A) 63.9 %; Platelet Count 166 10*3/uL (140-440); RBC 1.83 10*6/uL (4.10-5.20); RDW 16.9 % (11.5-14.5); WBC 5.58 10*3/uL (4.50-10.00)
[2025-01-22 11:26] LABS: HCT 19.1 % (37.2-46.3); HGB 6.5 g/dL (12.0-15.0)
--- NOTE | 2025-01-22 12:19 | P.PN ---
Subjective Patient is seen for follow-up for acute kidney injury and chronic kidney disease. Renal function is improving. Creatinine is down to 2.6 from 3.3 yesterday. No significant complaints today Status post packed RBCs transfusion yesterday for hemoglobin of 6.1. Hemoglobin is 6.5 g/dL today. Objective - Vital Signs Vital signs: Vital Signs Temp 97.0 F L 01/22/25 11:10 Pulse 92 01/22/25 11:10 Resp 17 01/22/25 11:10 BP 107/61 01/22/25 11:10 Pulse Ox 98 01/22/25 11:10 FiO2 Intake & Output 01/21/25 01/22/25 01/22/25 18:59 06:59 18:59 Intake Total 279 150 Output Total 450 Balance 279 -450 150 Weight 72.575 kg Intake: Oral 150 Blood Product 279 Rc Pheresis 2 As3 Unit 279 [id number] Output: Urine 450 Other: Voiding Method External Catheter # Voids 1 1 - Exam Patient is awake, comfortable, no acute distress Bruising noted on the face and laceration on the forehead Examination of the heart S1 and S2 Examination of the lungs bilateral breath sounds are heard Abdomen is soft nontender Examination lower extremity shows no significant edema [employer] exam shows patient is able to move all 4 extremities. - Labs CBC & Chem 7: 01/22/25 06:25 01/22/25 06:25 Labs: Abnormal Lab Results - Last 24 Hours (Table) 01/21/25 01/22/25 01/22/25 Range/Units 12:55 06:25 06:25 WBC 10.38 H (4.50-10.00) 10*3/uL RBC 2.28 L 1.83 L (4.10-5.20) 10*6/uL Hgb 7.9 L D 6.5 L* (12.0-15.0) g/dL Hct 23.8 L 19.1 L* (37.2-46.3) % MCV 104.4 H 104.4 H (80.0-97.0) fL MCH 34.6 H 35.5 H (27.0-32.0) pg Immature Gran # 0.11 H 0.07 H (0.00-0.04) 10*3/uL Neutrophils # 7.79 H (1.80-7.70) 10*3/uL Monocytes # 1.18 H (0.20-1.00) 10*3/uL Sodium 131 L (137-145) mmol/L BUN 68 H (7-17) mg/dL Creatinine 2.65 H (0.52-1.04) mg/dL Assessment and Plan Assessment: 1. Acute kidney injury secondary to ATN secondary to hypotension and acute blood loss anemia. Creatinine decreased to 2.6 today. Ultrasound showed atrophic kidneys. 2. Hypovolemic hyponatremia improved with IV fluids. 3. Status post fall. 4. Chronic kidney disease stage IV baseline creatinine 1.8-2.2. 5. Acute blood loss anemia. Iron replete. 6. Hypertension with chronic kidney disease. Controlled. Plan: Continue to encourage increased oral intake Continue off of IV fluids Repeat labs in a.m. Avoid nephrotoxic agents
--- NOTE | 2025-01-22 14:03 | P.PN ---
Subjective Progress Note Date: 01/22/25 This is an 84-year-old female with past medical history of multiple strokes status post thrombectomy and tPA in 2020 with treatment of AVM, subdural hematoma, chronic atrial fibrillation on Eliquis, hypertension, chronic kidney disease stage III. We have been asked to evaluate the patient for syncope. Vincent singh presented to the emergency center after a fall. She sustained significant injury to the left side of her face and required stitches. Patient states that she sometimes feels lightheaded. She has not had other syncopal episodes. She denies any black or bloody stools. She has minimal lower extremity edema. According to the notes, patient also had seizure activity. Patient presented with systolic blood pressure 80s and 90s, heart rate in the 70s. She is status post 2 L IV fluid. -EKG: Atrial fibrillation, left bundle branch block. -Chest x-ray: Mild to moderate cardiomegaly and interstitial density. Correlate for mild CHF. Some patchy probable atelectasis in the retrocardiac region. -Carotid ultrasound reveals mild atherosclerotic plaque at the bilateral carotid bifurcations. No hemodynamically significant stenosis of the bilateral carotid artery systems. -Echocardiogram performed on this admission reveals EF 65 to 70%, moderately increased left ventricular wall thickness. Mild mitral regurgitation. Mild aortic stenosis. Mild aortic regurgitation. Severe tricuspid regurgitation. RVSP 58. -Laboratory studies: WBC 10.4, hemoglobin 8.1 previously 10.5. Sodium 132, potassium 4.3, BUN 83 creatinine 3.24. Troponin negative x 3. proBNP 7770. TSH 1.29. -Home cardiac medications: Eliquis 5 mg twice daily, atorvastatin 20 mg daily, Jardiance 10 mg daily, Lasix 40 mg daily, Zaroxolyn 2.5 mg on Mondays and , potassium chloride 20 mill equivalents daily, propranolol 80 mg daily, ramipril 10 mg daily. 01/21 Patient seen and examined. Patient denies any chest pain or pressure. Remains in A-fib with controlled ventricular rates. She was transition from Eliquis to heparin secondary to anemia with drop in hemoglobin yesterday however had further hypotension with hemoglobin in the 6 range and therefore received 1 unit of packed red blood cells with improvement in hemoglobin into the 7 range. Blood pressures have also improved. No significant hematochezia or melena. She underwent CT abdomen pelvis to rule out bleed with results still pending. De nies any significant abdominal pain. There has been concern from daughter with patient previously having strokes whenever she has come off of anticoagulation. 01/22 Patient seen and examined. Blood pressure 107/61, heart rate 92, pulse ox 98% on 2 L nasal cannula. Repeat blood work reveals hemoglobin dropped to 6.5. Improvement of renal function with BUN 68 creatinine 2.65. Patient is not on an ticoagulation at this time. Patient complains of her legs hurting. She has not had a bowel movement. Physical examination: Gen: This is an 84-year-old female in no acute distress. VS: reviewed HEENT: Head reveals significant left forehead, periorbital, left cheek and left chin/jaw ecchymosis, laceration with repair to the left forehead. Otherwise normocephalic. Pupils equal, round. Sclerae is anicteric. NECK: Supple. No JVD. LUNGS: Clear to auscultation. No wheezes or rhonchi. No intercostal retractions. HEART: Regular rate and rhythm. No murmur. ABDOMEN: Soft No tenderness. EXTREMITIES: No pedal edema. No calf tenderness. NEUROLOGICAL: Patient is awake, alert and oriented x3. Assessment: Syncopal episode Close head injury Laceration requiring sutures Seizure activity in the ER and witnessed by her daughter Hypotensive Anemia, acute blood loss from head injury, hip injury Acute kidney injury Moderate pulmonary hypertension Severe tricuspid regurgitation Left bundle branch block Chronic atrial fibrillation on Eliquis Chronic left subdural hematoma Multiple ischemic strokes status post TPA and 2 thrombectomies one in 2019 and one History of AVM status post [place] Plan: Hold Lasix, Zaroxolyn, potassium, propranolol and ramipril Patient has had strokes before when she has come off of anticoagulation in the past. Stop anticoagulation currently with significant anemia however likely restart if hemoglobin stable. For now continue with aspirin. Continue telemetry monitoring Plan for 30-day event monitor or loop recorder prior to discharge Due to to patient's fall risk and history of CVAs would recommend patient be evaluated for Watchman procedure as an outpatient Further recommendations to follow based upon clinical course Nurse practitioner note has been reviewed, I agree with documented findings and plan of care. Patient was seen and examined. Objective - Vital Signs Vital signs: Vital Signs Temp 97.0 F L 01/22/25 11:10 Pulse 92 01/22/25 11:10 Resp 17 01/22/25 11:10 BP 107/61 01/22/25 11:10 Pulse Ox 98 01/22/25 11:10 FiO2 Intake & Output 01/21/25 01/22/25 01/22/25 18:59 06:59 18:59 Intake Total 279 150 Output Total 450 Balance 279 -450 150 Weight 72.575 kg Intake: Oral 150 Blood Product 279 Rc Pheresis 2 As3 Unit 279 [id number] Output: Urine 450 Other: Voiding Method External Catheter # Voids 1 1 - Labs CBC & Chem 7: 01/22/25 06:25 01/22/25 06:25 Labs: Abnormal Lab Results - Last 24 Hours (Table) 01/21/25 01/22/25 01/22/25 Range/Units 12:55 06:25 06:25 WBC 10.38 H (4.50-10.00) 10*3/uL RBC 2.28 L 1.83 L (4.10-5.20) 10*6/uL Hgb 7.9 L D 6.5 L* (12.0-15.0) g/dL Hct 23.8 L 19.1 L* (37.2-46.3) % MCV 104.4 H 104.4 H (80.0-97.0) fL MCH 34.6 H 35.5 H (27.0-32.0) pg Immature Gran # 0.11 H 0.07 H (0.00-0.04) 10*3/uL Neutrophils # 7.79 H (1.80-7.70) 10*3/uL Monocytes # 1.18 H (0.20-1.00) 10*3/uL Sodium 131 L (137-145) mmol/L BUN 68 H (7-17) mg/dL Creatinine 2.65 H (0.52-1.04) mg/dL
--- NOTE | 2025-01-22 19:57 | P.PN ---
Subjective Progress Note Date: 01/22/25 This is a pleasant 84 years old female who was seen and examined in the emergency room at [facility] [address], she was lying in bed with Jean bandage around her head with superficial wound requiring stitches. With some evidence around her left eye hematoma Patient states with information obtained with the help of the daughter at bedside that patient was getting her shopping back to home as she is independent her neighbor noticed her noted next to her car and he found her on the floor and EMS were called. Patient herself remember standing by her car and the next thing she remembers to be in the hospital. While she was in hospital she developed seizure as per daughter at bedside which was tonic-clonic arms were up in the air and her also rolled back lasted for about short time, few minutes. No biting tongue, no urinary or bowel incontinence. Patient denies any weakness or numbness or blurred vision or slurred speech However she complains from some fuzziness around her left eye and there is some hematoma around left eye but there is no impaired vision. Also patient was taking Eliquis at home. Patient hemodynamically stable, she is afebrile . Blood pressure 92/55. Hemoglobin 10.5. WBC 5.8. INR within the reference range. Sodium 129 Creatinine elevated 2.2 Liver enzymes not significantly elevated. Troponin x [address]: No acute intracranial process Chest x-ray: Mild to moderate cardiomegaly and additional density correlate for CHF EKG: Atrial fibrillation with a rate of 68 5/31 Patient blood pressure slightly on the low side 96/48 She is awake alert looks comfortable lying in bed still has a bruise around her left eye, her left eye swollen and she cannot open it, her main complaint is pain in her left her area where there is a significantly swollen with some fluctuation most likely secondary to hematoma. which limits movement because of pain. No chest pain or dyspnea. No abdominal pain. No headache or dizziness. No abnormal movements Hemodynamically other than that stable and afebrile. 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 Heart rate 89. She is afebrile. Sodium also slightly dropped 132-129, creatinine is almost the same 3.2 and 3.3 today However urinalysis was abnormal suspicious for infection Patient currently getting 1 unit of blood transfusion, she is awake alert looks tired she still have swelling around her left eye and a bruise in her chin from the fall. She still has swelling on her left thigh area from hematoma on fall on presentation as well Today was noticed to have more suprapubic pain and tenderness She denies headache dizziness no dyspnea had her usual chest pain last night but currently no chest pain only little phlegm with deep breath. I talked to the daughter she says she is allergic to penicillin and developed fever when she has child, she was taking Keflex and ceftriaxone before with no p robderekm and she agrees to start her ceftriaxone for possible UTI. Discussed with the staff to give it slowly and to check vitals and half an hour for double check although it looks per history she is not allergic to ceftriaxone Follow-up urine culture Check bladder scan Because of the hemoglobin and UTI we will going to order CT of the abdomen pelvis with oral contrast I double checked with the daughter, she states that what she thought seizure on admission ER actually it was an episode for 5 seconds where she had her eyes rolled up and arms were in the air and it was not like convulsing but little mild shakiness and after that she woke up right away during this 5 to 10 seconds her blood pressure dropped. Therefore the suspicion of seizure is very low we will keep monitoring but I do not think needs further workup for now. 01/22/2025 Patient is evaluated today on the medical floor. She is resting in bed; not feeling well today. Getting ready to work with physical therapy however her hemoglobin came back today at 6.5 and patient to receive 1 unit of PRBC. Currently IV heparin discontinued and also eliquis discontinued. Patient received a dose of DDAVP yesterday and also was started on aranesp today. Patient had abdominal pelvis CT showing yesterday afternoon revealing moderate size hematoma along the left later hip subcutaneous fat later. This corresponds to prior radiograph 01/19/2025. Layering hyperdensity within the urinary bladder corresponding to recent ultrasound. No urinary bladder wall thickening or surrounding inflammatory changes identified. Findings suggest possible blood products versus other types of debris. Correlate with urinalysis. Colonic diverticulosis without evidence for acute diverticulitis. Trace bilateral pleural effusions. Additional blood work reveals sodium 131, BUN 68, creatinine 2.65. Magnesium 1.9. Review of Systems Constitutional: Denied any fatigue denied any fever. Cardio vascular: denied any chest pain, palpitations Gastrointestinal: denied any nausea, vomiting, diarrhea Pulmonary: Denied any shortness of breath cough Neurologic denied any new focal deficits All inpatient medications were reviewed and appropriate changes in these medications as dictated in the interval history and assessment and plan. PHYSICAL EXAMINATION: GENERAL: The patient is alert and oriented x3, not in any acute distress. Well developed, well nourished. HEENT: Pupils are round and equally reacting to light. EOMI. No scleral icterus. No conjunctival pallor. Normocephalic, atraumatic. No pharyngeal erythema. No thyromegaly. CARDIOVASCULAR: S1 and S2 present. No murmurs, rubs, or gallops. PULMONARY: Chest is clear to auscultation, no wheezing or crackles. ABDOMEN: Soft, nontender, nondistended, normoactive bowel sounds. No palpable or ganomegaly. MUSCULOSKELETAL: No joint swelling or deformity. EXTREMITIES: No cyanosis, clubbing, or pedal edema. Hematoma of the left hip. NEUROLOGICAL: Gross neurological examination did not reveal any focal deficits. SKIN: No rashes. Assessment Left lateral hip hematoma with likely acute blood loss anemia Syncope with a fall from standing position with left forehead superficial wound status post stitches Possible seizure like episode on admission Acute anemia with acute drop of hemoglobin Acute urinary tract infection Hyponatremia, hypovolemic Acute kidney injury from ATN from hypotension and acute blood loss anemia Acute left periorbital hematoma with some fuzziness Atrial fibrillation with rate controlled on Eliquis at home, Eliquis on hold for now Plan Hemoglobin 6.7 and currently ordered for 1 unit PRBC Hold Eliquis and heparin drip Start ceftriaxone, follow-up urine culture. ID consulted Continue telemetry monitoring Monitor blood pressure and vitals Neurocheck and neurology consult for suspected possible seizure Cardiology and neurology team Nephrology team consult, nephrology team consult cardiology and ophthalmology Monitor hematoma and H&H, transfuse blood for hemoglobin less than 7. The impression and plan of care has been dictated by Laurence Silva, Nurse Practitioner as directed. Dr. Braden MD I have performed a history and physical examination and medical decision making of this patient, discussed the same with the dictator, and agree with the dictators assessment and plan as written, documented as a scribe. Based on total visit time, I have performed more than 50% of this visit. Objective - Vital Signs Vital signs: Vital Signs Temp 98.1 F 01/22/25 08:10 Pulse 95 01/22/25 08:10 Resp 19 01/22/25 08:10 BP 95/57 01/22/25 08:10 Pulse Ox 96 01/22/25 08:10 FiO2 Intake & Output 01/21/25 01/22/25 01/22/25 18:59 06:59 18:59 Intake Total 279 Output Total 450 Balance 279 -450 Weight 72.575 kg Intake: Blood Product 279 Rc Pheresis 2 As3 Unit 279 [id number] Output: Urine 450 Other: Voiding Method External Catheter # Voids 1 1 - Labs CBC & Chem 7: 01/22/25 06:25 01/22/25 06:25 Labs: Abnormal Lab Results - Last 24 Hours (Table) 01/21/25 01/21/25 01/22/25 Range/Units 07:55 12:55 06:25 WBC 10.38 H (4.50-10.00) 10*3/uL RBC 2.28 L (4.10-5.20) 10*6/uL Hgb 7.9 L D (12.0-15.0) g/dL Hct 23.8 L (37.2-46.3) % MCV 104.4 H (80.0-97.0) fL MCH 34.6 H (27.0-32.0) pg Immature Gran # 0.11 H (0.00-0.04) 10*3/uL Neutrophils # 7.79 H (1.80-7.70) 10*3/uL Monocytes # 1.18 H (0.20-1.00) 10*3/uL Sodium 131 L (137-145) mmol/L BUN 68 H (7-17) mg/dL Creatinine 2.65 H (0.52-1.04) mg/dL Crossmatch See Detail Assessment and Plan Time with Patient: Less than 30
[2025-01-23 00:36] LABS: HCT 22.4 % (37.2-46.3); HGB 7.8 g/dL (12.0-15.0); MCH 34.2 pg (27.0-32.0); MCHC 34.8 g/dL (32.0-37.0); Mean Platelet Volume 9.8 fL (9.5-12.2); Platelet Count 176 10*3/uL (140-440); RBC 2.28 10*6/uL (4.10-5.20); RDW 19.1 % (11.5-14.5)
[2025-01-23 01:30] LABS: MCV 98.2 fL (80.0-97.0)
[2025-01-23 07:21] LABS: Basophils # (A) 0.03 10*3/uL (0.00-0.10); Basophils % (A) 0.5 %; Eosinophils # (A) 0.16 10*3/uL (0.04-0.35); Eosinophils % (A) 2.8 %; HCT 23.4 % (37.2-46.3); HGB 7.9 g/dL (12.0-15.0); Lymphocytes # (A) 0.79 10*3/uL (0.90-5.00); Lymphocytes % (A) 13.6 %; MCH 33.8 pg (27.0-32.0); MCHC 33.8 g/dL (32.0-37.0); Mean Platelet Volume 9.8 fL (9.5-12.2); Monocytes # (A) 0.71 10*3/uL (0.20-1.00); Monocytes % (A) 12.3 %; Neutrophils # (A) 3.98 10*3/uL (1.80-7.70); Neutrophils % (A) 68.7 %; Platelet Count 187 10*3/uL (140-440); RBC 2.34 10*6/uL (4.10-5.20); RDW 19.6 % (11.5-14.5); WBC 5.79 10*3/uL (4.50-10.00)
[2025-01-23 07:45] LABS: African American GFR (CKD) 30 (>60 ml/min/1.73 sqM); Anion Gap 9 mmol/L; Blood Urea Nitrogen 52 mg/dL (7-17); Calcium 8.5 mg/dL (8.4-10.2); Carbon Dioxide 23 mmol/L (22-30); Chloride 99 mmol/L (98-107); Glucose 109 mg/dL (74-99); Non-African American GFR(CKD) 26 (>60 ml/min/1.73 sqM); Potassium 3.9 mmol/L (3.5-5.1); Sodium 131 mmol/L (137-145)
[2025-01-23] MEDS: ONDANSETRON 4 MG/2 ML VIAL IVP PRN (10:21)
--- NOTE | 2025-01-23 11:51 | P.PN ---
Subjective Progress Note Date: 01/23/25 This is a pleasant 84 years old female who was seen and examined in the emergency room at [facility], she was lying in bed with Jean bandage around her head with superficial wound requiring stitches. With some evidence around her left eye hematoma Patient states with information obtained with the help of the daughter at bedside that patient was getting her shopping back to home as she is independent her neighbor noticed her noted next to her car and he found her on the floor and EMS were called. Patient herself remember standing by her car and the next thing she remembers to be in the hospital. While she was in hospital she developed seizure as per daughter at bedside which was tonic-clonic arms were up in the air and her also rolled back lasted for about short time, few minutes. No biting tongue, no urinary or bowel incontinence. Patient denies any weakness or numbness or blurred vision or slurred speech However she complains from some fuzziness around her left eye and there is some hematoma around left eye but there is no impaired vision. Also patient was taking Eliquis at home. Patient hemodynamically stable, she is afebrile . Blood pressure 92/55. Hemoglobin 10.5. WBC 5.8. INR within the reference range. Sodium 129 Creatinine elevated 2.2 Liver enzymes not significantly elevated. Troponin x [address]: No acute intracranial process Chest x-ray: Mild to moderate cardiomegaly and additional density correlate for CHF EKG: Atrial fibrillation with a rate of 68 5/31 Patient blood pressure slightly on the low side 96/48 She is awake alert looks comfortable lying in bed still has a bruise around her left eye, her left eye swollen and she cannot open it, her main complaint is pain in her left her area where there is a significantly swollen with some fluctuation most likely secondary to hematoma. which limits movement because of pain. No chest pain or dyspnea. No abdominal pain. No headache or dizziness. No abnormal movements Hemodynamically other than that stable and afebrile. WBC is 10.4, hemoglobin went down to 10.5 down to 8.1 Sodium improved 129 up to 132, creatinine went up 2.2 up to 3.2 proBNP is elevated more than 7000 Eliquis remains on hold as well as metolazone Lasix and Jardiance Bladder scan nephrology already on the case We will order urine analysis and We will keep holding Eliquis because of the hematoma pain worsening anemia and low blood pressure 01/21 Patient hemoglobin dropped overnight 6.1 speech therapist early intervention 1 unit of blood transfus ion was given, blood pressure also was slightly on the low side 98/51, currently improved 111/64. Heart rate 89. She is afebrile. Sodium also slightly dropped 132-129, creatinine is almost the same 3.2 and 3.3 today However urinalysis was abnormal suspicious for infection Patient currently getting 1 unit of blood transfusion, she is awake alert looks tired she still have swelling around her left eye and a bruise in her chin from the fall. She still has swelling on her left thigh area from hematoma on fall on presentation as well Today was noticed to have more suprapubic pain and tenderness She denies headache dizziness no dyspnea had her usual chest pain last night but currently no chest pain only little phlegm with deep breath. I talked to the daughter she says she is allergic to penicillin and developed fever when she has child, she was taking Keflex and ceftriaxone before with no p robderekm and she agrees to start her ceftriaxone for possible UTI. Discussed with the staff to give it slowly and to check vitals and half an hour for double check although it looks per history she is not allergic to ceftriaxone Follow-up urine culture Check bladder scan Because of the hemoglobin and UTI we will going to order CT of the abdomen pelvis with oral contrast I double checked with the daughter, she states that what she thought seizure on admission ER actually it was an episode for 5 seconds where she had her eyes rolled up and arms were in the air and it was not like convulsing but little mild shakiness and after that she woke up right away during this 5 to 10 seconds her blood pressure dropped. Therefore the suspicion of seizure is very low we will keep monitoring but I do not think needs further workup for now. 01/22/2025 Patient is evaluated today on the medical floor. She is resting in bed; not feeling well today. Getting ready to work with physical therapy however her hemoglobin came back today at 6.5 and patient to receive 1 unit of PRBC. Currently IV heparin discontinued and also eliquis discontinued. Patient received a dose of DDAVP yesterday and also was started on aranesp today. Patient had abdominal pelvis CT showing yesterday afternoon revealing moderate size hematoma along the left later hip subcutaneous fat later. This corresponds to prior radiograph 01/19/2025. Layering hyperdensity within the urinary bladder corresponding to recent ultrasound. No urinary bladder wall thickening or surrounding inflammatory changes identified. Findings suggest possible blood products versus other types of debris. Correlate with urinalysis. Colonic diverticulosis without evidence for acute diverticulitis. Trace bilateral pleural effusions. Additional blood work reveals sodium 131, BUN 68, creatinine 2.65. Magnesium 1.9. 01/23/2025 Patient evaluated in follow-up on the cardiac floor. Patient received 1 unit of packed red blood cells yesterday globin today is up to 7.9. Her sodium level is 131 BUN of 52 creatinine of 1.77. Nursing staff reports that she has been retaining urine currently she has 500 mL in her urinary bladder. Patient would like to try urinating before undergoing a straight catheterization. Family at the bedside updated on all testing and plan of care and family has no further questions at this time. Pending evaluation by neurology and orthopedics. Review of Systems Constitutional: Denied any fatigue denied any fever. Cardio vascular: denied any chest pain, palpitations Gastrointestinal: denied any nausea, vomiting, diarrhea Pulmonary: Denied any shortness of breath cough Neurologic denied any new focal deficits All inpatient medications were reviewed and appropriate changes in these medications as dictated in the interval history and assessment and plan. PHYSICAL EXAMINATION: GENERAL: The patient is alert and oriented x3, not in any acute distress. Well developed, well nourished. HEENT: Pupils are round and equally reacting to light. EOMI. No scleral icterus. No conjunctival pallor. Normocephalic, atraumatic. No pharyngeal erythema. No thyromegaly. CARDIOVASCULAR: S1 and S2 present. No murmurs, rubs, or gallops. PULMONARY: Chest is clear to auscultation, no wheezing or crackles. ABDOMEN: Soft, nontender, nondistended, normoactive bowel sounds. No palpable organomegaly. MUSCULOSKELETAL: No joint swelling or deformity. EXTREMITIES: No cyanosis, clubbing, or pedal edema. Hematoma of the left hip. NEUROLOGICAL: Gross neurological examination did not reveal any focal deficits. SKIN: No rashes. Assessment Left lateral hip hematoma with likely acute blood loss anemia Syncope with a fall from standing position with left forehead superficial wound status post stitches Hypotension and hypovolemia on admission likely leading to the syncopal episode patient's blood pressure was noted to be 80s systolic on admission Possible seizure like episode on admission Acute anemia with acute drop of hemoglobin source of bleeding is likely the left lateral hip hematoma which will be evaluated by orthopedics Acute urinary tract infection Hyponatremia, hypovolemic Acute kidney injury from ATN from hypotension and acute blood loss anemia Acute left periorbital hematoma with some fuzziness Atrial fibrillation with rate controlled on Eliquis at home, Eliquis on hold for now Very retention and concern for blood in the urinary bladder. Plan Hemoglobin 6.7 and currently ordered for 1 unit PRBC currently now 7.9. Hold Eliquis and heparin drip Start ceftriaxone, follow-up urine culture. ID consulted Continue telemetry monitoring Monitor blood pressure and vitals Neurocheck and neurology consult for suspected possible seizure Cardiology and neurology team Nephrology team consult, nephrology team consult cardiology and ophthalmology Monitor hematoma and H&H, transfuse blood for hemoglobin less than 7. Consult orthopedic surgery for the left lateral hip hematoma Will need to straight catheterize patient as she is unable to void independently. Monitor for further episodes of urinary retention. If there is gross hematuria when patient is able to urinate will need to consult urology PT OT following The impression and plan of care has been dictated by Laurence Silva, Nurse Practitioner as directed. Dr. Braden MD I have performed a history and physical examination and medical decision making of this patient, discussed the same with the dictator, and agree with the dictators assessment and plan as written, documented as a scribe. Based on total visit time, I have performed more than 50% of this visit. Objective - Vital Signs Vital signs: Vital Signs Temp 98.8 F 01/22/25 23:30 Pulse 99 01/23/25 05:10 Resp 16 01/23/25 05:10 BP 145/72 01/23/25 05:10 Pulse Ox 98 01/23/25 05:10 FiO2 Intake & Output 01/22/25 01/23/25 01/23/25 18:59 06:59 18:59 Intake Total 475 310 Output Total 300 Balance 475 10 Intake: Oral 475 Blood Product 0 310 Rc As-1 Unit 0 310 [id number] Output: Urine 300 Other: Voiding Method External Catheter # Voids 1 - Labs CBC & Chem 7: 01/23/25 06:41 01/23/25 06:41 Labs: Abnormal Lab Results - Last 24 Hours (Table) 01/21/25 01/22/25 01/22/25 Range/Units 07:55 06:25 23:55 RBC 1.83 L 2.28 L (4.10-5.20) 10*6/uL Hgb 6.5 L* 7.8 L (12.0-15.0) g/dL Hct 19.1 L* 22.4 L (37.2-46.3) % MCV 104.4 H 98.2 H D (80.0-97.0) fL MCH 35.5 H 34.2 H (27.0-32.0) pg Immature Gran # 0.07 H (0.00-0.04) 10*3/uL Lymphocytes # (0.90-5.00) 10*3/uL Sodium (137-145) mmol/L BUN (7-17) mg/dL Creatinine (0.52-1.04) mg/dL Glucose (74-99) mg/dL Crossmatch See Detail 01/23/25 01/23/25 Range/Units 06:41 06:41 RBC 2.34 L (4.10-5.20) 10*6/uL Hgb 7.9 L (12.0-15.0) g/dL Hct 23.4 L (37.2-46.3) % MCV 100.0 H (80.0-97.0) fL MCH 33.8 H (27.0-32.0) pg Immature Gran # 0.12 H (0.00-0.04) 10*3/uL Lymphocytes # 0.79 L (0.90-5.00) 10*3/uL Sodium 131 L (137-145) mmol/L BUN 52 H (7-17) mg/dL Creatinine 1.77 H (0.52-1.04) mg/dL Glucose 109 H (74-99) mg/dL Crossmatch
--- NOTE | 2025-01-23 11:59 | P.CNNES ---
History of Present Illness Consult date: 01/23/25 Requesting physician: Laurence Silva Reason for Consult: suspected seizure on admission? History of Present Illness: This is an 84-year-old woman with history of strokes the emergency department because 01/19/2025 of passing out episode. Apparently patient she went shopping and went to different close doors nearby her house and then she got home and was doing well and then when she got home she was unpacking the stuff she bought and in the garage she passed out and does not recall what happened and all she knew was that you she was in the hospital. She states that the episode was witnessed by her neighbor. She states that she has been having multiple falling episode over the last 1 to 2 years and just loses her balance and does not know what transpires. Denies any history of seizures. She denies any bowel incontinence or tongue bite. She wears briefs. Per the primary team's nurse practitioner's note seems while she was in the hospital she developed seizure as her daughter was at bedside and it was tonic-clonic of arms in which her arms were up in the air and eyes rolled back and the episode lasted for few minutes. Patient stated that she had 2 ischemic strokes and she received IV thrombolytic in the past as well as she was taken to outside facility for intervention that was performed by Dr. Rodarte. That her initial stroke was in 2019. She was on Eliquis at that time. Then the next 1 was she had a hemorrhagic stroke and her Eliquis was discontinued. As a result she had a second ischemic stroke. Some of the work-up during this hospital visit consisted of: hemoglobin was as low in the 6-kyree and currently 7.9 Had acute kidney injury that is improving. It was as high as 3.36. Urine culture is positive for gram-negative bacilli. CT brain cervical spine and CT facial bones is reported as no acute intracranial process. 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 Nonspecific white matter changes. Acute depressed communicate left nasal bone fracture with associated soft tissue swelling. Acute left periorbital soft tissue hematoma with acute soft tissue contusion to left chin. Paranasal sinus disease with air-fluid level within the left maxillary sinus which may be related to acute sinusitis. No evidence of cervical spine fracture. Mild multi level degenerative disc disease. I personally reviewed the CT of the head and there is no acute or subacute ischemic stroke. Review of Systems As per HPI. Past Medical History Past Medical History: Atrial Fibrillation, CVA/TIA, Hyperlipidemia, Hypertension Additional Past Medical History / Comment(s): cardiomyopathy History of Any Multi-Drug Resistant Organisms: None Reported Past Surgical History: Cholecystectomy, Heart Catheterization, Hysterectomy, Tonsillectomy Past Anesthesia/Blood Transfusion Reactions: No Reported Reaction Past Psychological History: No Psychological Hx Reported Smoking Status: Former smoker Past Alcohol Use History: Occasional Past Drug Use History: None Reported Medications and Allergies Home Medications Medication Instructions Recorded Confirmed Type Apixaban [Eliquis] 5 mg PO BID 03/23/23 01/19/25 History Atorvastatin [Lipitor] 20 mg PO DAILY 03/23/23 01/19/25 History Fluticasone/Umeclidin/Vilanter 1 puff INHALATION RT-DAILY 03/23/23 01/19/25 History [Trelegy Ellipta 100-62.5-25] Furosemide [Lasix] 40 mg PO DAILY 03/23/23 01/19/25 History Levothyroxine Sodium [Synthroid] 88 mcg PO DAILY 03/23/23 01/19/25 History Magnesium Chloride [Mag64] 64 mg PO DAILY 03/23/23 01/19/25 History Omeprazole [PriLOSEC] 40 mg PO DAILY 03/23/23 01/19/25 History Potassium Chloride ER [K-Dur 20] 20 meq PO DAILY 03/23/23 01/19/25 History Propranolol HCl [Inderal] 80 mg PO DAILY 03/23/23 01/19/25 History allopurinoL [Zyloprim] 300 mg PO DAILY 03/23/23 01/19/25 History oxyBUTYnin chloride [Ditropan] 5 mg PO DAILY 03/23/23 01/19/25 History ramipriL [Altace] 10 mg PO DAILY 03/23/23 01/19/25 History Empagliflozin [Jardiance] 10 mg PO DAILY 01/19/25 01/19/25 History metOLazone [Zaroxolyn] 2.5 mg PO MOTH 01/19/25 01/19/25 History Allergies Allergy/AdvReac Type Severity Reaction Status Date / Time Penicillins Allergy Unknown Verified 01/19/25 18:38 Sulfa (Sulfonamide Allergy Rash/Hives Verified 01/19/25 18:38 Antibiotics) Physical Examination - Vital Signs Vital Signs: Vital Signs Temp Pulse Pulse Resp BP BP Pulse Ox 01/23/25 08:05 98.9 F 83 17 98/64 96 01/23/25 05:10 99 16 145/72 98 01/22/25 23:30 98.8 F 102 H 16 97/59 95 01/22/25 19:30 99.6 F 88 88 16 110/54 110/54 98 01/22/25 18:30 84 01/22/25 17:30 97.0 F L 92 17 104/57 98 01/22/25 16:45 97.8 F 89 17 109/65 100 01/22/25 16:25 97.5 F L 89 16 100/64 99 01/22/25 16:21 97.6 F 87 17 104/59 99 Intake and Output 01/22/25 01/23/25 01/23/25 22:59 06:59 14:59 Intake Total 485 Output Total 300 200 Balance 485 -300 -200 Intake: Oral 175 Blood Product 310 Rc As-1 Unit 310 [id number] Output: Urine 300 200 Other: Voiding Method External Catheter External Catheter External Catheter GENERAL: The patient is lying in bed and is not in acute distress. HENT: Bruises throughout the face. NEUROLOGICAL: Higher mental function: The patient is awake, alert, oriented to self, place and time. Patient is following commands. No aphasia and no neglect. Cranial nerves: The pupils are round, equal and reactive to light and accommodation. Visual donohue are full to confrontation throughout. Extraocular movement is intact no nystagmus is noted. Facial sensation is normal to touch throughout. The facial strength is normal throughout. Hearing is moderately decreased bilaterally to hand rub. Tongue is midline and moved [id number] without any difficulty. No dysarthria is noted. Shoulder shrug is normal bilaterally. Motor: The strength is 5 over 5 throughout uppers. While the lowers limited because of pain but had antigravity. Normal tone and bulk. Cerebellum: Normal finger to nose bilaterally. Sensation: Sensation is normal to touch throughout. Results - Laboratory Findings CBC and BMP: 01/23/25 06:41 01/23/25 06:41 Abnormal Lab Findings: Abnormal Labs 01/19/25 01/19/25 01/19/25 14:11 14:11 14:11 WBC RBC 2.83 L Hgb 10.5 L Hct 29.4 L MCV 103.9 H MCH 37.1 H RDW Immature Gran # Neutrophils # Lymphocytes # 0.77 L Monocytes # Eosinophils # APTT 21.9 L Sodium 129 L Chloride 91 L BUN 82 H Creatinine 2.21 H Glucose 108 H Calcium Total Bilirubin 1.4 H AST 38 H Creatine Kinase Total Protein Albumin Cortisol Urine Appearance Urine Protein Urine Blood Ur Leukocyte Esterase Urine RBC Urine WBC Urine WBC Clumps Ur Squamous Epith Cells Urine Bacteria Crossmatch 01/20/25 01/20/25 01/20/25 06:47 06:47 06:47 WBC 10.41 H RBC 2.19 L Hgb 8.1 L D Hct 23.6 L MCV 107.8 H MCH 37.0 H RDW Immature Gran # 0.07 H Neutrophils # 8.38 H Lymphocytes # 0.85 L Monocytes # 1.07 H Eosinophils # 0.01 L APTT Sodium 132 L Chloride 96 L BUN 83 H Creatinine 3.24 H Glucose 120 H Calcium Total Bilirubin 1.4 H AST Creatine Kinase Total Protein 5.5 L Albumin 3.1 L Cortisol 26.8 H Urine Appearance Urine Protein Urine Blood Ur Leukocyte Esterase Urine RBC Urine WBC Urine WBC Clumps Ur Squamous Epith Cells Urine Bacteria Crossmatch 01/20/25 01/20/25 01/20/25 14:32 14:32 20:48 WBC 10.99 H 10.41 H RBC 2.12 L 1.96 L Hgb 7.7 L 7.2 L Hct 24.0 L 21.2 L MCV 113.2 H D 108.2 H D MCH 36.3 H 36.7 H RDW 14.6 H Immature Gran # 0.07 H 0.07 H Neutrophils # 8.47 H Lymphocytes # Monocytes # 1.15 H 1.22 H Eosinophils # 0.02 L APTT Sodium Chloride BUN Creatinine Glucose Calcium Total Bilirubin AST Creatine Kinase 231 H Total Protein Albumin Cortisol Urine Appearance Urine Protein Urine Blood Ur Leukocyte Esterase Urine RBC Urine WBC Urine WBC Clumps Ur Squamous Epith Cells Urine Bacteria Crossmatch 01/20/25 01/21/25 01/21/25 20:48 03:55 05:48 WBC RBC Hgb Hct MCV MCH RDW Immature Gran # Neutrophils # Lymphocytes # Monocytes # Eosinophils # APTT 157.3 H* Sodium 129 L Chloride 96 L BUN 82 H Creatinine 3.36 H Glucose Calcium 8.1 L Total Bilirubin AST Creatine Kinase Total Protein Albumin Cortisol Urine Appearance Turbid H Urine Protein 1+ H Urine Blood Large H Ur Leukocyte Esterase Large H Urine RBC 7 H Urine WBC >182 H Urine WBC Clumps Many H Ur Squamous Epith Cells 12 H Urine Bacteria Many H Crossmatch 01/21/25 01/21/25 01/21/25 05:49 05:49 07:55 WBC RBC 1.70 L Hgb 6.1 L* Hct 18.5 L* MCV 108.8 H MCH 35.9 H RDW Immature Gran # 0.06 H Neutrophils # Lymphocytes # Monocytes # Eosinophils # APTT 72.0 H Sodium Chloride BUN Creatinine Glucose Calcium Total Bilirubin AST Creatine Kinase Total Protein Albumin Cortisol Urine Appearance Urine Protein Urine Blood Ur Leukocyte Esterase Urine RBC Urine WBC Urine WBC Clumps Ur Squamous Epith Cells Urine Bacteria Crossmatch See Detail 01/21/25 01/22/25 01/22/25 12:55 06:25 06:25 WBC 10.38 H RBC 2.28 L 1.83 L Hgb 7.9 L D 6.5 L* Hct 23.8 L 19.1 L* MCV 104.4 H 104.4 H MCH 34.6 H 35.5 H RDW Immature Gran # 0.11 H 0.07 H Neutrophils # 7.79 H Lymphocytes # Monocytes # 1.18 H Eosinophils # APTT Sodium 131 L Chloride BUN 68 H Creatinine 2.65 H Glucose Calcium Total Bilirubin AST Creatine Kinase Total Protein Albumin Cortisol Urine Appearance Urine Protein Urine Blood Ur Leukocyte Esterase Urine RBC Urine WBC Urine WBC Clumps Ur Squamous Epith Cells Urine Bacteria Crossmatch 01/22/25 01/23/25 01/23/25 23:55 06:41 06:41 WBC RBC 2.28 L 2.34 L Hgb 7.8 L 7.9 L Hct 22.4 L 23.4 L MCV 98.2 H D 100.0 H MCH 34.2 H 33.8 H RDW Immature Gran # 0.12 H Neutrophils # Lymphocytes # 0.79 L Monocytes # Eosinophils # APTT Sodium 131 L Chloride BUN 52 H Creatinine 1.77 H Glucose 109 H Calcium Total Bilirubin AST Creatine Kinase Total Protein Albumin Cortisol Urine Appearance Urine Protein Urine Blood Ur Leukocyte Esterase Urine RBC Urine WBC Urine WBC Clumps Ur Squamous Epith Cells Urine Bacteria Crossmatch Assessment and Plan Assessment: This is an 84-year-old woman with history of strokes, left subdural, atrial fibrillation was having recurrent falls and presents because of passing out episode and had facial trauma. She was in the hospital she developed seizure for her daughter which was tonic-clonic with eyes rolling back lasted few minutes. She has been having falling episodes for the last 1 to 2 years. New onset seizure activity. Possibly her passing out episode at home was possibly due to seizure-like activity as well as her recurrent falls was possibly due to underlying seizure especially with the underlying history of stroke Acute urinary tract infection Acute chronic kidney injury--improved With trauma due to the recent fall at home Acute ischemic stroke x 2 History of left subdural Underlying history of atrial fibrillation Plan: I ordered MRI of the brain I ordered routine EEG I started the patient on Vimpat 50 mg twice a day since the patient had a new onset seizure suspected by her daughter as well as been having recurrent fall possibly suspicious for seizures. Caution seizure pads Per the [place] DMV because of the seizure, avoid driving for 6 months until seizure-free, avoid heights, avoid swimming assisted or using heavy machinery Will defer the rest of medical management to primary and other specialist. The plan is discussed with patient and her nurse. Thank you for the consultation. Time with Patient: Greater than 30
[2025-01-23] MEDS: LACOSAMIDE 50 MG TABLET PO SCH (12:53)
--- NOTE | 2025-01-23 14:34 | P.CNOR ---
History of Present Illness - [facility] Consult date: 01/23/25 Consult reason: other (Left hip hematoma) History of present illness: Patient is an 84-year-old female who is admitted to [facility] with regards to a syncopal episode versus seizure activity that led to a significant fall back on 01/19/2025. Patient is currently being followed by multiple medical specialties. Patient has undergone multiple imaging and lab studies. Our orthopedic team was consulted due to a left hip hematoma. Patient was evaluated today at bedside, she is resting in her hospital bed. She is in quite a bit of pain from the fall, she has significant bruising to her face from the fall. She admits hitting the left shoulder and also landing on her left hip. AP pelvis and left hip x-rays demonstrated no acute fractures or dislocations valving the left hip joint, right hip hardware is stable. CT scan of the pelvis did reconfirm the hematoma to the left lateral thigh. Patient admits to that prior right hip fracture 5 or 6 years ago, she had it fixed at a different hospital. Since being in the hospital, patient has spent some time in the chair but no significant ambulation due to the overall discomfort. She denies any loss of bowel or bladder function at this time. She denies any significant numbness or tingling to the bilateral lower or upper extremities. Review of Systems Constitutional: Reports as per HPI Past Medical History Past Medical History: Atrial Fibrillation, CVA/TIA, Hyperlipidemia, Hypertension Additional Past Medical History / Comment(s): cardiomyopathy History of Any Multi-Drug Resistant Organisms: None Reported Past Surgical History: Cholecystectomy, Heart Catheterization, Hysterectomy, Tonsillectomy Past Anesthesia/Blood Transfusion Reactions: No Reported Reaction Past Psychological History: No Psychological Hx Reported Smoking Status: Former smoker Past Alcohol Use History: Occasional Past Drug Use History: None Reported Medications and Allergies Home Medications Medication Instructions Recorded Confirmed Type Apixaban [Eliquis] 5 mg PO BID 03/23/23 01/19/25 History Atorvastatin [Lipitor] 20 mg PO DAILY 03/23/23 01/19/25 History Fluticasone/Umeclidin/Vilanter 1 puff INHALATION RT-DAILY 03/23/23 01/19/25 History [Trelegy Ellipta 100-62.5-25] Furosemide [Lasix] 40 mg PO DAILY 03/23/23 01/19/25 History Levothyroxine Sodium [Synthroid] 88 mcg PO DAILY 03/23/23 01/19/25 History Magnesium Chloride [Mag64] 64 mg PO DAILY 03/23/23 01/19/25 History Omeprazole [PriLOSEC] 40 mg PO DAILY 03/23/23 01/19/25 History Potassium Chloride ER [K-Dur 20] 20 meq PO DAILY 03/23/23 01/19/25 History Propranolol HCl [Inderal] 80 mg PO DAILY 03/23/23 01/19/25 History allopurinoL [Zyloprim] 300 mg PO DAILY 03/23/23 01/19/25 History oxyBUTYnin chloride [Ditropan] 5 mg PO DAILY 03/23/23 01/19/25 History ramipriL [Altace] 10 mg PO DAILY 03/23/23 01/19/25 History Empagliflozin [Jardiance] 10 mg PO DAILY 01/19/25 01/19/25 History metOLazone [Zaroxolyn] 2.5 mg PO MOTH 01/19/25 01/19/25 History Allergies Allergy/AdvReac Type Severity Reaction Status Date / Time Penicillins Allergy Unknown Verified 01/19/25 18:38 Sulfa (Sulfonamide Allergy Rash/Hives Verified 01/19/25 18:38 Antibiotics) Physical Examination Left lower extremity: No obvious open lesions or sores are visualized throughout the extremity. There is significant ecchymosis and soft tissue swelling present on the left lateral hip and into the buttock region. The skin is soft and compressible, there is no significant tightness appreciated in that area. Logroll maneuver reproduces no groin pain at this time. Patient is able to flex the hip with minimal difficulty. Knee extension, knee flexion, plantarflexion, dorsiflexion, EHL, FHL are intact Remaining compartments of the upper and lower leg are soft and compressible. The calf is soft, no tenderness with palpation Sensory exam to light touch throughout the extremity is intact Dorsalis pedis pulses 2+ Results - Labs Labs: Abnormal Lab Results - Last 24 Hours (Table) 01/21/25 01/22/25 01/23/25 Range/Units 07:55 23:55 06:41 RBC 2.28 L 2.34 L (4.10-5.20) 10*6/uL Hgb 7.8 L 7.9 L (12.0-15.0) g/dL Hct 22.4 L 23.4 L (37.2-46.3) % MCV 98.2 H D 100.0 H (80.0-97.0) fL MCH 34.2 H 33.8 H (27.0-32.0) pg Immature Gran # 0.12 H (0.00-0.04) 10*3/uL Lymphocytes # 0.79 L (0.90-5.00) 10*3/uL Sodium (137-145) mmol/L BUN (7-17) mg/dL Creatinine (0.52-1.04) mg/dL Glucose (74-99) mg/dL Crossmatch See Detail 01/23/25 Range/Units 06:41 RBC (4.10-5.20) 10*6/uL Hgb (12.0-15.0) g/dL Hct (37.2-46.3) % MCV (80.0-97.0) fL MCH (27.0-32.0) pg Immature Gran # (0.00-0.04) 10*3/uL Lymphocytes # (0.90-5.00) 10*3/uL Sodium 131 L (137-145) mmol/L BUN 52 H (7-17) mg/dL Creatinine 1.77 H (0.52-1.04) mg/dL Glucose 109 H (74-99) mg/dL Crossmatch Microbiology - Last 24 Hours (Table) 01/21/25 03:55 Urine Culture - Preliminary Urine,Clean Catch Gram Neg Bacilli H & H 01/19/25 01/20/25 01/20/25 Range/Units 14:11 06:47 14:32 Hgb 10.5 L 8.1 L D 7.7 L (12.0-15.0) g/dL Hct 29.4 L 23.6 L 24.0 L (37.2-46.3) % 01/20/25 01/21/25 01/21/25 Range/Units 20:48 05:49 12:55 Hgb 7.2 L 6.1 L* 7.9 L D (12.0-15.0) g/dL Hct 21.2 L 18.5 L* 23.8 L (37.2-46.3) % 01/22/25 01/22/25 01/23/25 Range/Units 06:25 23:55 06:41 Hgb 6.5 L* 7.8 L 7.9 L (12.0-15.0) g/dL Hct 19.1 L* 22.4 L 23.4 L (37.2-46.3) % Coagulation 01/19/25 01/20/25 01/21/25 Range/Units 14:11 14:32 05:48 INR 1.1 1.1 1.1 (<1.2) Result Diagrams: 01/23/25 06:41 01/23/25 06:41 - Diagnostic results Hip x-ray: report reviewed, image reviewed Assessment and Plan Assessment: Left hip hematoma Left hip contusion Left hip osteoarthritis Syncopal episode versus seizure, resulting in fall Multiple medical comorbidities Plan: Imaging: Pelvis CT report and images along with the AP pelvis and left hip x-rays were reviewed with reports. No acute fractures or dislocations were appreciated. 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 Left hip osteoarthritic findings were noted with loss of joint space and subchondral sclerosis. The CT scan did redemonstrate the left lateral hematoma. Plan: I was able to discuss the case, this to include physical exam findings and imaging studies with my attending Dr. Paez. No emergent orthopedic surgical recommendations at this time Recommend conservative measures, this to include icing of the area along with use of Tylenol/NSAIDs if okay with other medications/low-dose pain medication Weight-bear as tolerated, recommend using a walker at all times Continue with PT/OT GI and DVT prophylaxis per primary medical service Other medical specialty recommendations appreciated Will follow patient during hospital stay Time with Patient: Less than 30
--- NOTE | 2025-01-23 15:49 | P.PN ---
Subjective Progress Note Date: 01/23/25 This is an 84-year-old female with past medical history of multiple strokes status post thrombectomy and tPA in 2020 with treatment of AVM, subdural hematoma, chronic atrial fibrillation on Eliquis, hypertension, chronic kidney disease stage III. We have been asked to evaluate the patient for syncope. Vincent singh presented to the emergency center after a fall. She sustained significant injury to the left side of her face and required stitches. Patient states that she sometimes feels lightheaded. She has not had other syncopal episodes. She denies any black or bloody stools. She has minimal lower extremity edema. According to the notes, patient also had seizure activity. Patient presented with systolic blood pressure 80s and 90s, heart rate in the 70s. She is status post 2 L IV fluid. -EKG: Atrial fibrillation, left bundle branch block. -Chest x-ray: Mild to moderate cardiomegaly and interstitial density. Correlate for mild CHF. Some patchy probable atelectasis in the retrocardiac region. -Carotid ultrasound reveals mild atherosclerotic plaque at the bilateral carotid bifurcations. No hemodynamically significant stenosis of the bilateral carotid artery systems. -Echocardiogram performed on this admission reveals EF 65 to 70%, moderately increased left ventricular wall thickness. Mild mitral regurgitation. Mild aortic stenosis. Mild aortic regurgitation. Severe tricuspid regurgitation. RVSP 58. -Laboratory studies: WBC 10.4, hemoglobin 8.1 previously 10.5. Sodium 132, potassium 4.3, BUN 83 creatinine 3.24. Troponin negative x 3. proBNP 7770. TSH 1.29. -Home cardiac medications: Eliquis 5 mg twice daily, atorvastatin 20 mg daily, Jardiance 10 mg daily, Lasix 40 mg daily, Zaroxolyn 2.5 mg on Mondays and , potassium chloride 20 mill equivalents daily, propranolol 80 mg daily, ramipril 10 mg daily. 01/21 Patient seen and examined. Patient denies any chest pain or pressure. Remains in A-fib with controlled ventricular rates. She was transition from Eliquis to heparin secondary to anemia with drop in hemoglobin yesterday however had further hypotension with hemoglobin in the 6 range and therefore received 1 unit of packed red blood cells with improvement in hemoglobin into the 7 range. Blood pressures have also improved. No significant hematochezia or melena. She underwent CT abdomen pelvis to rule out bleed with results still pending. De nies any significant abdominal pain. There has been concern from daughter with patient previously having strokes whenever she has come off of anticoagulation. 01/22 Patient seen and examined. Blood pressure 107/61, heart rate 92, pulse ox 98% on 2 L nasal cannula. Repeat blood work reveals hemoglobin dropped to 6.5. Improvement of renal function with BUN 68 creatinine 2.65. Patient is not on an ticoagulation at this time. Patient complains of her legs hurting. She has not had a bowel movement. 01/23 Patient seen and examined. Patient is complaining of nausea. Blood pressure 123/76, heart rate 95, pulse ox 97% on room air. Patient is followed by neurology for seizure disorder that was witnessed by her daughter in the ER. She is scheduled for MRI of the brain and EEG. She has also been seen by orthopedics regarding a left hip hematoma. Hemoglobin seems to be stable at 7.9. BUN 52 creatinine 1.77, sodium 131 and potassium 3.9. Blood pressure running between 98/64-145/72. Heart rate is in the 80s and 90s, pulse ox 97% on room air. Physical examination: Gen: This is an 84-year-old female in no acute distress. VS: reviewed HEENT: Head reveals significant left forehead, periorbital, left cheek and left chin/jaw ecchymosis, laceration with repair to the left forehead. Otherwise normocephalic. Pupils equal, round. Sclerae is anicteric. NECK: Supple. No JVD. LUNGS: Clear to auscultation. No wheezes or rhonchi. No intercostal retractions. HEART: Regular rate and rhythm. No murmur. ABDOMEN: Soft No tenderness. EXTREMITIES: No pedal edema. No calf tenderness. NEUROLOGICAL: Patient is awake, alert and oriented x3. Assessment: Syncopal episode Close head injury Laceration requiring sutures Seizure activity in the ER and witnessed by her daughter Hypotensive Anemia, acute blood loss from head injury, hip injury Acute kidney injury Moderate pulmonary hypertension Severe tricuspid regurgitation Left bundle branch block Chronic atrial fibrillation on Eliquis Chronic left subdural hematoma Multiple ischemic strokes status post TPA and 2 thrombectomies one in 2019 and one History of AVM status post Tim Plan: Hold Lasix, Zaroxolyn, potassium, propranolol and ramipril Patient has had strokes before when she has come off of anticoagulation in the p ast. Continue to hold anticoagulation today and consider starting heparin drip tomorrow For now continue with aspirin. Continue telemetry monitoring Plan for 30-day event monitor or loop recorder prior to discharge Due to to patient's fall risk and history of CVAs would recommend patient be evaluated for Watchman procedure as an outpatient Further recommendations to follow based upon clinical course Nurse practitioner note has been reviewed, I agree with documented findings and plan of care. Patient was seen and examined. Objective - Vital Signs Vital signs: Vital Signs Temp 97.7 F 01/23/25 12:00 Pulse 95 01/23/25 12:00 Resp 18 01/23/25 12:00 BP 123/76 01/23/25 12:00 Pulse Ox 97 01/23/25 12:00 FiO2 Intake & Output 01/22/25 01/23/25 01/23/25 18:59 06:59 18:59 Intake Total 475 310 Output Total 300 720 Balance 475 10 -720 Intake: Oral 475 Blood Product 0 310 Rc As-1 Unit 0 310 [id number] Output: Urine 300 720 Other: Voiding Method External Catheter External Catheter # Voids 1 - Labs CBC & Chem 7: 01/23/25 06:41 01/23/25 06:41 Labs: Abnormal Lab Results - Last 24 Hours (Table) 01/21/25 01/22/25 01/23/25 Range/Units 07:55 23:55 06:41 RBC 2.28 L 2.34 L (4.10-5.20) 10*6/uL Hgb 7.8 L 7.9 L (12.0-15.0) g/dL Hct 22.4 L 23.4 L (37.2-46.3) % MCV 98.2 H D 100.0 H (80.0-97.0) fL MCH 34.2 H 33.8 H (27.0-32.0) pg Immature Gran # 0.12 H (0.00-0.04) 10*3/uL Lymphocytes # 0.79 L (0.90-5.00) 10*3/uL Sodium (137-145) mmol/L BUN (7-17) mg/dL Creatinine (0.52-1.04) mg/dL Glucose (74-99) mg/dL Crossmatch See Detail 01/23/25 Range/Units 06:41 RBC (4.10-5.20) 10*6/uL Hgb (12.0-15.0) g/dL Hct (37.2-46.3) % MCV (80.0-97.0) fL MCH (27.0-32.0) pg Immature Gran # (0.00-0.04) 10*3/uL Lymphocytes # (0.90-5.00) 10*3/uL Sodium 131 L (137-145) mmol/L BUN 52 H (7-17) mg/dL Creatinine 1.77 H (0.52-1.04) mg/dL Glucose 109 H (74-99) mg/dL Crossmatch Microbiology - Last 24 Hours (Table) 01/21/25 03:55 Urine Culture - Preliminary Urine,Clean Catch Gram Neg Bacilli
--- NOTE | 2025-01-23 15:56 | P.PN ---
Subjective Progress Note Date: 01/22/25 Principal diagnosis: Reason for follow-up is UTI Patient is 84-year-old female with a past medical history significant for hypertension hyperlipidemia CVA TIA atrial fibrillation was brought into the hospital 2 days ago after apparently the patient did have a fall, did have significant head and neck bruising with laceration to the left forehead did have elevated white count positive UA and urinary symptoms concerning for UTI prompting this consultation. On today's evaluation that is 01/22/2025, patient has been afebrile, patient is breathing comfortably and is currently on room air, patient denies having any chest pain and cough, patient denies nausea vomiting or diarrhea and no abdominal pain still complaining of pain to multiple parts of the body some reli ef with the pain medication. Patient white count is down to 5.58 hemoglobin is down to 6.5, creatinine is 2.65 urine culture is currently pending Objective - Vital Signs Vital signs: Vital Signs Temp 97.0 F L 01/22/25 11:10 Pulse 92 01/22/25 11:10 Resp 17 01/22/25 11:10 BP 107/61 01/22/25 11:10 Pulse Ox 98 01/22/25 11:10 FiO2 Intake & Output 01/21/25 01/22/25 01/22/25 18:59 06:59 18:59 Intake Total 279 300 Output Total 450 Balance 279 -450 300 Weight 72.575 kg Intake: Oral 300 Blood Product 279 Rc Pheresis 2 As3 Unit 279 [id number] Output: Urine 450 Other: Voiding Method External Catheter # Voids 1 1 1 - Exam GENERAL DESCRIPTION: An elderly female lying in bed in no distress RESPIRATORY SYSTEM: Unlabored breathing , clear to auscultation anteriorly HEART: S1 S2 regular rate and rhythm , ABDOMEN: Soft , no tenderness EXTREMITIES: No edema feet - Labs CBC & Chem 7: 01/23/25 06:41 01/23/25 06:41 Labs: Abnormal Lab Results - Last 24 Hours (Table) 01/21/25 01/22/25 01/22/25 Range/Units 07:55 : 06:25 RBC 1.83 L (4.10-5.20) 10*6/uL Hgb 6.5 L* (12.0-15.0) g/dL Hct 19.1 L* (37.2-46.3) % MCV 104.4 H (80.0-97.0) fL MCH 35.5 H (27.0-32.0) pg Immature Gran # 0.07 H (0.00-0.04) 10*3/uL Sodium 131 L (137-145) mmol/L BUN 68 H (7-17) mg/dL Creatinine 2.65 H (0.52-1.04) mg/dL Crossmatch See Detail Assessment and Plan (1) UTI (urinary tract infection) Current Visit: Yes Status: Acute Code(s): N39.0 - URINARY TRACT INFECTION, SITE NOT SPECIFIED SNOMED Code(s): 04073749 (2) Allergy to multiple antibiotics Current Visit: Yes Status: Acute Code(s): Z88.1 - ALLERGY STATUS TO OTHER ANTIBIOTIC AGENTS SNOMED Code(s): 634249165 Plan: 1patient presenting to the hospital with a syncopal episode and fall and has significant bruising and fracture to the forehead area patient also have abnormal CT abdominal pelvis with significant layering inside the bladder in this patient who did have significantly positive UA mostly with the white cells rather than red cells did have urinary frequency mild elevated white count concerning for symptomatic UTI from a enteric gram-negative pathogen 2-patient with multiple antibiotic ALLERGIES that would limit the number of antibiotic safe to use 3-patient white count has normalized urine cultures currently pending, we will treat the patient with Rocephin while waiting for the culture to finalize Dictation was produced using [employer] dictation software. please excuse any grammatical, word or spelling errors. Time with Patient: Less than 30
--- NOTE | 2025-01-23 15:57 | P.PN ---
Subjective Progress Note Date: 01/23/25 Principal diagnosis: Reason for follow-up is UTI Patient is 84-year-old female with a past medical history significant for hypertension hyperlipidemia CVA TIA atrial fibrillation was brought into the hospital 2 days ago after apparently the patient did have a fall, did have significant head and neck bruising with laceration to the left forehead did have elevated white count positive UA and urinary symptoms concerning for UTI prompting this consultation. On today's evaluation that is 01/23/2025, Patient is afebrile this morning patient denies having any chest pain shortness of breath or cough, the patient is currently on room air, patient denies any abdominal pain no diarrhea no nausea no vomiting still complaining of discomfort to the facial area some relief with the pain medication. Patient white count is 5.79, creatinine is 1.77 urine with gram-negative Objective - Vital Signs Vital signs: Vital Signs Temp 97.7 F 01/23/25 12:00 Pulse 95 01/23/25 12:00 Resp 18 01/23/25 12:00 BP 123/76 01/23/25 12:00 Pulse Ox 97 01/23/25 12:00 FiO2 Intake & Output 01/22/25 01/23/25 01/23/25 18:59 06:59 18:59 Intake Total 475 310 Output Total 300 720 Balance 475 10 -720 Intake: Oral 475 Blood Product 0 310 Rc As-1 Unit 0 310 [id number] Output: Urine 300 720 Other: Voiding Method External Catheter External Catheter # Voids 1 - Exam GENERAL DESCRIPTION: An elderly female lying in bed in no distress RESPIRATORY SYSTEM: Unlabored breathing , clear to auscultation anteriorly HEART: S1 S2 regular rate and rhythm , ABDOMEN: Soft , no tenderness EXTREMITIES: No edema feet - Labs CBC & Chem 7: 01/23/25 06:41 01/23/25 06:41 Labs: Abnormal Lab Results - Last 24 Hours (Table) 01/21/25 01/22/25 01/23/25 Range/Units 07:55 23:55 06:41 RBC 2.28 L 2.34 L (4.10-5.20) 10*6/uL Hgb 7.8 L 7.9 L (12.0-15.0) g/dL Hct 22.4 L 23.4 L (37.2-46.3) % MCV 98.2 H D 100.0 H (80.0-97.0) fL MCH 34.2 H 33.8 H (27.0-32.0) pg Immature Gran # 0.12 H (0.00-0.04) 10*3/uL Lymphocytes # 0.79 L (0.90-5.00) 10*3/uL Sodium (137-145) mmol/L BUN (7-17) mg/dL Creatinine (0.52-1.04) mg/dL Glucose (74-99) mg/dL Crossmatch See Detail 01/23/25 Range/Units 06:41 RBC (4.10-5.20) 10*6/uL Hgb (12.0-15.0) g/dL Hct (37.2-46.3) % MCV (80.0-97.0) fL MCH (27.0-32.0) pg Immature Gran # (0.00-0.04) 10*3/uL Lymphocytes # (0.90-5.00) 10*3/uL Sodium 131 L (137-145) mmol/L BUN 52 H (7-17) mg/dL Creatinine 1.77 H (0.52-1.04) mg/dL Glucose 109 H (74-99) mg/dL Crossmatch Microbiology - Last 24 Hours (Table) 01/21/25 03:55 Urine Culture - Preliminary Urine,Clean Catch Gram Neg Bacilli Assessment and Plan (1) UTI (urinary tract infection) Current Visit: Yes Status: Acute Code(s): N39.0 - URINARY TRACT INFECTION, SITE NOT SPECIFIED SNOMED Code(s): 81325109 (2) Allergy to multiple antibiotics Current Visit: Yes Status: Acute Code(s): Z88.1 - ALLERGY STATUS TO OTHER ANTIBIOTIC AGENTS SNOMED Code(s): 566081337 Plan: 1patient presenting to the hospital with a syncopal episode and fall and has significant bruising and fracture to the forehead area patient also have abnormal CT abdominal pelvis with significant layering inside the bladder in this patient who did have significantly positive UA mostly with the white cells rather than red cells did have urinary frequency mild elevated white count concerning for symptomatic UTI from a enteric gram-negative pathogen 2-patient with multiple antibiotic ALLERGIES that would limit the number of antibiotic safe to use 3-patient white count has normalized urine cultures currently growing gram- negative with ID sensitivity pending 4 we will treat the patient with Rocephin while waiting for the culture to finalize and monitor clinical course closely Dictation was produced using [employer] dictation software. please excuse any grammatical, word or spelling errors. Time with Patient: Less than 30
--- NOTE | 2025-01-23 16:15 | P.PN ---
Subjective Patient is seen for follow-up for acute kidney injury and chronic kidney disease. Renal function is improving. Creatinine is down to 1.7. No significant complaints today Objective - Vital Signs Vital signs: Vital Signs Temp 97.6 F 01/23/25 15:55 Pulse 97 01/23/25 15:55 Resp 18 01/23/25 15:55 BP 147/66 01/23/25 15:55 Pulse Ox 95 01/23/25 15:55 FiO2 Intake & Output 01/22/25 01/23/25 01/23/25 18:59 06:59 18:59 Intake Total 475 310 Output Total 300 720 Balance 475 10 -720 Intake: Oral 475 Blood Product 0 310 Rc As-1 Unit 0 310 [id number] Output: Urine 300 720 Other: Voiding Method External Catheter External Catheter # Voids 1 - Exam Patient is awake, comfortable, no acute distress Bruising noted on the face and laceration on the forehead Examination of the heart S1 and S2 Examination of the lungs bilateral breath sounds are heard Abdomen is soft nontender Examination lower extremity shows no significant edema LIBRARY MONITOR exam shows patient is able to move all 4 extremities. - Labs CBC & Chem 7: 01/23/25 06:41 01/23/25 06:41 Labs: Abnormal Lab Results - Last 24 Hours (Table) 01/21/25 01/22/25 01/23/25 Range/Units 07:55 23:55 06:41 RBC 2.28 L 2.34 L (4.10-5.20) 10*6/uL Hgb 7.8 L 7.9 L (12.0-15.0) g/dL Hct 22.4 L 23.4 L (37.2-46.3) % MCV 98.2 H D 100.0 H (80.0-97.0) fL MCH 34.2 H 33.8 H (27.0-32.0) pg Immature Gran # 0.12 H (0.00-0.04) 10*3/uL Lymphocytes # 0.79 L (0.90-5.00) 10*3/uL Sodium (137-145) mmol/L BUN (7-17) mg/dL Creatinine (0.52-1.04) mg/dL Glucose (74-99) mg/dL Crossmatch See Detail 01/23/25 Range/Units 06:41 RBC (4.10-5.20) 10*6/uL Hgb (12.0-15.0) g/dL Hct (37.2-46.3) % MCV (80.0-97.0) fL MCH (27.0-32.0) pg Immature Gran # (0.00-0.04) 10*3/uL Lymphocytes # (0.90-5.00) 10*3/uL Sodium 131 L (137-145) mmol/L BUN 52 H (7-17) mg/dL Creatinine 1.77 H (0.52-1.04) mg/dL Glucose 109 H (74-99) mg/dL Crossmatch Microbiology - Last 24 Hours (Table) 01/21/25 03:55 Urine Culture - Preliminary Urine,Clean Catch Gram Neg Bacilli Assessment and Plan Assessment: 1. Acute kidney injury secondary to ATN secondary to hypotension and acute blood loss anemia. Creatinine decreased to 1.7 today. Ultrasound showed atrophic kidneys. 2. Hypovolemic hyponatremia improved with IV fluids. 3. Status post fall. 4. Chronic kidney disease stage IV baseline creatinine 1.8-2.2. 5. Acute blood loss anemia. Iron replete. 6. Hypertension with chronic kidney disease. Controlled. Plan: Continue to encourage increased oral intake Continue off of IV fluids Repeat labs in a.m. Avoid nephrotoxic agents
[2025-01-24 06:51] LABS: Basophils # (A) 0.04 10*3/uL (0.00-0.10); Basophils % (A) 0.6 %; Eosinophils # (A) 0.17 10*3/uL (0.04-0.35); Eosinophils % (A) 2.4 %; HCT 24.3 % (37.2-46.3); Lymphocytes # (A) 0.71 10*3/uL (0.90-5.00); MCH 33.2 pg (27.0-32.0); MCHC 32.9 g/dL (32.0-37.0); MCV 100.8 fL (80.0-97.0); Mean Platelet Volume 9.5 fL (9.5-12.2); Monocytes # (A) 0.99 10*3/uL (0.20-1.00); Neutrophils # (A) 5.05 10*3/uL (1.80-7.70); Neutrophils % (A) 71.4 %; Platelet Count 203 10*3/uL (140-440); RBC 2.41 10*6/uL (4.10-5.20); RDW 18.7 % (11.5-14.5); WBC 7.07 10*3/uL (4.50-10.00)
[2025-01-24 07:26] LABS: African American GFR (CKD) 40 (>60 ml/min/1.73 sqM); Anion Gap 6 mmol/L; Blood Urea Nitrogen 37 mg/dL (7-17); Calcium 8.7 mg/dL (8.4-10.2); Carbon Dioxide 25 mmol/L (22-30); Chloride 99 mmol/L (98-107); Glucose 98 mg/dL (74-99); Non-African American GFR(CKD) 35 (>60 ml/min/1.73 sqM); Sodium 130 mmol/L (137-145)
[2025-01-24] MEDS: ONDANSETRON 4 MG/2 ML VIAL IVP STA (10:49)
--- NOTE | 2025-01-24 11:38 | P.PN ---
Subjective Progress Note Date: 01/24/25 Principal diagnosis: Fall, left lateral hip hematoma Patient was evaluated at bedside today, she is resting in her hospital bed, is present at bedside. Patient has been dealing with a lot of nausea today. She feels that the left hip is about the same, symptoms have not worsened. She denies any numbness or tingling to that extremity. Objective - Vital Signs Vital signs: Vital Signs Temp 98.6 F 01/24/25 08:00 Pulse 107 H 01/24/25 08:00 Resp 16 01/24/25 08:00 BP 138/78 01/24/25 08:00 Pulse Ox 93 L 01/24/25 08:00 FiO2 Intake & Output 01/23/25 01/24/25 01/24/25 18:59 06:59 18:59 Intake Total 10 Output Total 720 850 Balance -720 -850 10 Intake: IV 10 Invasive Line 2 10 Output: Urine 720 850 Other: Voiding Method External Catheter External Catheter External Catheter - Exam Left lower extremity: No obvious open lesions or sores are visualized throughout the extremity. There is significant ecchymosis and soft tissue swelling present on the left lateral hip and into the buttock region. The skin is soft and compressible, there is no significant tightness appreciated in that area. Logroll maneuver reproduces no groin pain at this time. Patient is able to flex the hip with minimal difficulty. Knee extension, knee flexion, plantarflexion, dorsiflexion, EHL, FHL are intact Remaining compartments of the upper and lower leg are soft and compressible. The calf is soft, no tenderness with palpation Sensory exam to light touch throughout the extremity is intact Dorsalis pedis pulses 2+ - Labs CBC & Chem 7: 01/24/25 06:08 01/24/25 06:08 Labs: Abnormal Lab Results - Last 24 Hours (Table) 01/24/25 01/24/25 Range/Units 06:08 06:08 RBC 2.41 L (4.10-5.20) 10*6/uL Hgb 8.0 L (12.0-15.0) g/dL Hct 24.3 L (37.2-46.3) % MCV 100.8 H (80.0-97.0) fL MCH 33.2 H (27.0-32.0) pg Immature Gran # 0.11 H (0.00-0.04) 10*3/uL Lymphocytes # 0.71 L (0.90-5.00) 10*3/uL Sodium 130 L (137-145) mmol/L BUN 37 H (7-17) mg/dL Creatinine 1.37 H (0.52-1.04) mg/dL Microbiology - Last 24 Hours (Table) 01/21/25 03:55 Urine Culture - Preliminary Urine,Clean Catch Gram Neg Bacilli Assessment and Plan Assessment: Left hip hematoma Left hip contusion Left hip osteoarthritis Syncopal episode versus seizure, resulting in fall Multiple medical comorbidities Plan: Plan: Continue conservative measures, this to include icing of the area along with use of Tylenol/NSAIDs if okay with other medications/low-dose pain medication Weight-bear as tolerated, recommend using a walker at all times Continue with PT/OT GI and DVT prophylaxis per primary medical service Other medical specialty recommendations appreciated Orthopedically patient remains stable, please contact our service with any further questions Time with Patient: Less than 30
--- NOTE | 2025-01-24 12:35 | P.PN ---
Subjective Patient is seen for follow-up for acute kidney injury and chronic kidney disease. Renal function is improving. Creatinine is down to 1.37. Complaining of nausea today Objective - Vital Signs Vital signs: Vital Signs Temp 98.4 F 01/24/25 12:00 Pulse 85 01/24/25 12:00 Resp 16 01/24/25 12:00 BP 153/85 01/24/25 12:00 Pulse Ox 93 L 01/24/25 12:00 FiO2 Intake & Output 01/23/25 01/24/25 01/24/25 18:59 06:59 18:59 Intake Total 10 Output Total 720 850 300 Balance -142 -719 -290 Intake: IV 10 Invasive Line 2 10 Output: Urine 720 850 300 Other: Voiding Method External Catheter External Catheter External Catheter - Exam Patient is awake, comfortable, no acute distress Bruising noted on the face and laceration on the forehead Examination of the heart S1 and S2 Examination of the lungs bilateral breath sounds are heard Abdomen is soft nontender Examination lower extremity shows no significant edema VISUAL MERCHANDISING MANAGER exam shows patient is able to move all 4 extremities. - Labs CBC & Chem 7: 01/24/25 06:08 01/24/25 06:08 Labs: Abnormal Lab Results - Last 24 Hours (Table) 01/24/25 01/24/25 Range/Units 06:08 06:08 RBC 2.41 L (4.10-5.20) 10*6/uL Hgb 8.0 L (12.0-15.0) g/dL Hct 24.3 L (37.2-46.3) % MCV 100.8 H (80.0-97.0) fL MCH 33.2 H (27.0-32.0) pg Immature Gran # 0.11 H (0.00-0.04) 10*3/uL Lymphocytes # 0.71 L (0.90-5.00) 10*3/uL Sodium 130 L (137-145) mmol/L BUN 37 H (7-17) mg/dL Creatinine 1.37 H (0.52-1.04) mg/dL Microbiology - Last 24 Hours (Table) 01/21/25 03:55 Urine Culture - Preliminary Urine,Clean Catch Gram Neg Bacilli Assessment and Plan Assessment: 1. Acute kidney injury secondary to ATN secondary to hypotension and acute blood loss anemia. Creatinine decreased to 1.37 today. Ultrasound showed atrophic kidneys. 2. Hypovolemic hyponatremia improved with IV fluids. 3. Status post fall. 4. Chronic kidney disease stage IV baseline creatinine 1.8-2.2. 5. Acute blood loss anemia. Iron replete. 6. Hypertension with chronic kidney disease. Controlled. Plan: Continue to encourage increased oral intake Continue off of IV fluids Repeat labs in a.m. Avoid nephrotoxic agents
[2025-01-24] MEDS ORDERED: HEPARIN SODIUM 1,000 UN/ML (10ML VL) IV PRN (13:28)
[2025-01-24] MEDS: Lacosamide IV (ages 17+ yrs) 200 MG/20 ML ML IVP SCH (13:57)
[2025-01-24] MEDS: HEPARIN SOD,PORK IN 0.45% NACL 25,000 UNIT in 0.45% NACL 1 250ML.BAG IV SCH (13:57)
[2025-01-24] MEDS: HEPARIN SODIUM 1,000 UN/ML (10ML VL) IV ONE (13:57)
[2025-01-24 14:07] LABS: Basophils # (A) 0.03 10*3/uL (0.00-0.10); Basophils % (A) 0.4 %; Eosinophils % (A) 1.3 %; HCT 26.1 % (37.2-46.3); HGB 8.7 g/dL (12.0-15.0); Lymphocytes # (A) 0.55 10*3/uL (0.90-5.00); Lymphocytes % (A) 7.2 %; MCH 33.9 pg (27.0-32.0); MCHC 33.3 g/dL (32.0-37.0); MCV 101.6 fL (80.0-97.0); Mean Platelet Volume 9.3 fL (9.5-12.2); Monocytes % (A) 10.5 %; Neutrophils # (A) 5.99 10*3/uL (1.80-7.70); Neutrophils % (A) 78.9 %; Platelet Count 223 10*3/uL (140-440); RBC 2.57 10*6/uL (4.10-5.20); RDW 18.6 % (11.5-14.5)
[2025-01-24 14:16] LABS: Partial Thromboplastin Time 22.1 sec (22.0-30.0); Prothrombin Time 10.7 sec (10.0-12.5)
--- NOTE | 2025-01-24 14:36 | P.PN ---
Subjective Progress Note Date: 01/24/25 This is an 84-year-old female with past medical history of multiple strokes status post thrombectomy and tPA in 2020 with treatment of AVM, subdural hematoma, chronic atrial fibrillation on Eliquis, hypertension, chronic kidney disease stage III. We have been asked to evaluate the patient for syncope. Vincent singh presented to the emergency center after a fall. She sustained significant injury to the left side of her face and required stitches. Patient states that she sometimes feels lightheaded. She has not had other syncopal episodes. She denies any black or bloody stools. She has minimal lower extremity edema. According to the notes, patient also had seizure activity. Patient presented with systolic blood pressure 80s and 90s, heart rate in the 70s. She is status post 2 L IV fluid. -EKG: Atrial fibrillation, left bundle branch block. -Chest x-ray: Mild to moderate cardiomegaly and interstitial density. Correlate for mild CHF. Some patchy probable atelectasis in the retrocardiac region. -Carotid ultrasound reveals mild atherosclerotic plaque at the bilateral carotid bifurcations. No hemodynamically significant stenosis of the bilateral carotid artery systems. -Echocardiogram performed on this admission reveals EF 65 to 70%, moderately increased left ventricular wall thickness. Mild mitral regurgitation. Mild aortic stenosis. Mild aortic regurgitation. Severe tricuspid regurgitation. RVSP 58. -Laboratory studies: WBC 10.4, hemoglobin 8.1 previously 10.5. Sodium 132, potassium 4.3, BUN 83 creatinine 3.24. Troponin negative x 3. proBNP 7770. TSH 1.29. -Home cardiac medications: Eliquis 5 mg twice daily, atorvastatin 20 mg daily, Jardiance 10 mg daily, Lasix 40 mg daily, Zaroxolyn 2.5 mg on Mondays and , potassium chloride 20 mill equivalents daily, propranolol 80 mg daily, ramipril 10 mg daily. 01/21 Patient seen and examined. Patient denies any chest pain or pressure. Remains in A-fib with controlled ventricular rates. She was transition from Eliquis to heparin secondary to anemia with drop in hemoglobin yesterday however had further hypotension with hemoglobin in the 6 range and therefore received 1 unit of packed red blood cells with improvement in hemoglobin into the 7 range. Blood pressures have also improved. No significant hematochezia or melena. She underwent CT abdomen pelvis to rule out bleed with results still pending. De nies any significant abdominal pain. There has been concern from daughter with patient previously having strokes whenever she has come off of anticoagulation. 01/22 Patient seen and examined. Blood pressure 107/61, heart rate 92, pulse ox 98% on 2 L nasal cannula. Repeat blood work reveals hemoglobin dropped to 6.5. Improvement of renal function with BUN 68 creatinine 2.65. Patient is not on an ticoagulation at this time. Patient complains of her legs hurting. She has not had a bowel movement. 01/23 Patient seen and examined. Patient is complaining of nausea. Blood pressure 123/76, heart rate 95, pulse ox 97% on room air. Patient is followed by neurology for seizure disorder that was witnessed by her daughter in the ER. She is scheduled for MRI of the brain and EEG. She has also been seen by orthopedics regarding a left hip hematoma. Hemoglobin seems to be stable at 7.9. BUN 52 creatinine 1.77, sodium 131 and potassium 3.9. Blood pressure running between 98/64-145/72. Heart rate is in the 80s and 90s, pulse ox 97% on room air. 01/24 Patient seen and examined. Patient states that she has had nausea all day. There was an attempt for EEG which has been postponed until tomorrow according to the patient. She denies chest pain no abdominal pain. Blood pressure 153/85, heart rate 85, pulse ox 93% on room air. Hemoglobin has been stable at 8.7. Physical examination: Gen: This is an 84-year-old female in no acute distress. VS: reviewed HEENT: Head reveals significant left forehead, periorbital, left cheek and left chin/jaw ecchymosis, laceration with repair to the left forehead. Otherwise normocephalic. Pupils equal, round. Sclerae is anicteric. NECK: Supple. No JVD. LUNGS: Clear to auscultation. No wheezes or rhonchi. No intercostal retractions. HEART: Regular rate and rhythm. No murmur. ABDOMEN: Soft No tenderness. EXTREMITIES: No pedal edema. No calf tenderness. NEUROLOGICAL: Patient is awake, alert and oriented x3. Assessment: Syncopal episode Close head injury Laceration requiring sutures Seizure activity in the ER and witnessed by her daughter Hypotensive Anemia, acute blood loss from head injury, hip injury Acute kidney injury Moderate pulmonary hypertension Severe tricuspid regurgitation Left bundle branch block Chronic atrial fibrillation on Eliquis Chronic left subdural hematoma Multiple ischemic strokes status post TPA and 2 thrombectomies one in 2019 and one History of AVM status post [place] Plan: Hold Lasix, Zaroxolyn, potassium, propranolol and ramipril Patient has had strokes before when she has come off of anticoagulation in the past. Start patient on heparin drip For now continue with aspirin. Continue telemetry monitoring Plan for 30-day event monitor or loop recorder prior to discharge Due to to patient's fall risk and history of CVAs would recommend patient be evaluated for Watchman procedure as an outpatient Further recommendations to follow based upon clinical course Nurse practitioner note has been reviewed, I agree with documented findings and plan of care. Patient was seen and examined. Objective - Vital Signs Vital signs: Vital Signs Temp 98.4 F 01/24/25 12:00 Pulse 85 01/24/25 12:00 Resp 16 01/24/25 12:00 BP 153/85 01/24/25 12:00 Pulse Ox 93 L 01/24/25 12:00 FiO2 Intake & Output 01/23/25 01/24/25 01/24/25 18:59 06:59 18:59 Intake Total 20 Output Total 720 850 300 Balance -720 -850 -280 Intake: IV 20 Invasive Line 2 20 Oral 0 Output: Urine 720 850 300 Other: Voiding Method External Catheter External Catheter External Catheter - Labs CBC & Chem 7: 01/24/25 13:56 01/24/25 06:08 Labs: Abnormal Lab Results - Last 24 Hours (Table) 01/24/25 01/24/25 Range/Units 06:08 06:08 RBC 2.41 L (4.10-5.20) 10*6/uL Hgb 8.0 L (12.0-15.0) g/dL Hct 24.3 L (37.2-46.3) % MCV 100.8 H (80.0-97.0) fL MCH 33.2 H (27.0-32.0) pg Immature Gran # 0.11 H (0.00-0.04) 10*3/uL Lymphocytes # 0.71 L (0.90-5.00) 10*3/uL Sodium 130 L (137-145) mmol/L BUN 37 H (7-17) mg/dL Creatinine 1.37 H (0.52-1.04) mg/dL Microbiology - Last 24 Hours (Table) 01/21/25 03:55 Urine Culture - Final Urine,Clean Catch Klebsiella pneumoniae
--- NOTE | 2025-01-24 14:49 | P.PN ---
Subjective Progress Note Date: 01/24/25 This is a pleasant 84 years old female who was seen and examined in the emergency room at [address], she was lying in bed with Jean bandage around her head with superficial wound requiring stitches. With some evidence around her left eye hematoma Patient states with information obtained with the help of the daughter at bedside that patient was getting her shopping back to home as she is independent her neighbor noticed her noted next to her car and he found her on the floor and EMS were called. Patient herself remember standing by her car and the next thing she remembers to be in the hospital. While she was in hospital she developed seizure as per daughter at bedside which was tonic-clonic arms were up in the air and her also rolled back lasted for about short time, few minutes. No biting tongue, no urinary or bowel incontinence. Patient denies any weakness or numbness or blurred vision or slurred speech However she complains from some fuzziness around her left eye and there is some hematoma around left eye but there is no impaired vision. Also patient was taking Eliquis at home. Patient hemodynamically stable, she is afebrile . Blood pressure 92/55. Hemoglobin 10.5. WBC 5.8. INR within the reference range. Sodium 129 Creatinine elevated 2.2 Liver enzymes not significantly elevated. Troponin x [address]: No acute intracranial process Chest x-ray: Mild to moderate cardiomegaly and additional density correlate for CHF EKG: Atrial fibrillation with a rate of 68 5/31 Patient blood pressure slightly on the low side 96/48 She is awake alert looks comfortable lying in bed still has a bruise around her left eye, her left eye swollen and she cannot open it, her main complaint is pain in her left her area where there is a significantly swollen with some fluctuation most likely secondary to hematoma. which limits movement because of pain. No chest pain or dyspnea. No abdominal pain. No headache or dizziness. No abnormal movements Hemodynamically other than that stable and afebrile. WBC is 10.4, hemoglobin went down to 10.5 down to 8.1 Sodium improved 129 up to 132, creatinine went up 2.2 up to 3.2 proBNP is elevated more than 7000 Eliquis remains on hold as well as metolazone Lasix and Jardiance Bladder scan nephrology already on the case We will order urine analysis and We will keep holding Eliquis because of the hematoma pain worsening anemia and low blood pressure 01/21 Patient hemoglobin dropped overnight 6.1 video system repairer 1 unit of blood transfus ion was given, blood pressure also was slightly on the low side 98/51, currently improved 111/64. Heart rate 89. She is afebrile. Sodium also slightly dropped 132-129, creatinine is almost the same 3.2 and 3.3 today However urinalysis was abnormal suspicious for infection Patient currently getting 1 unit of blood transfusion, she is awake alert looks tired she still have swelling around her left eye and a bruise in her chin from the fall. She still has swelling on her left thigh area from hematoma on fall on presentation as well Today was noticed to have more suprapubic pain and tenderness She denies headache dizziness no dyspnea had her usual chest pain last night but currently no chest pain only little phlegm with deep breath. I talked to the daughter she says she is allergic to penicillin and developed fever when she has child, she was taking Keflex and ceftriaxone before with no p robderekm and she agrees to start her ceftriaxone for possible UTI. Discussed with the staff to give it slowly and to check vitals and half an hour for double check although it looks per history she is not allergic to ceftriaxone Follow-up urine culture Check bladder scan Because of the hemoglobin and UTI we will going to order CT of the abdomen pelvis with oral contrast I double checked with the daughter, she states that what she thought seizure on admission ER actually it was an episode for 5 seconds where she had her eyes rolled up and arms were in the air and it was not like convulsing but little mild shakiness and after that she woke up right away during this 5 to 10 seconds her blood pressure dropped. Therefore the suspicion of seizure is very low we will keep monitoring but I do not think needs further workup for now. 01/22/2025 Patient is evaluated today on the medical floor. She is resting in bed; not feeling well today. Getting ready to work with physical therapy however her hemoglobin came back today at 6.5 and patient to receive 1 unit of PRBC. Currently IV heparin discontinued and also eliquis discontinued. Patient received a dose of DDAVP yesterday and also was started on aranesp today. Patient had abdominal pelvis CT showing yesterday afternoon revealing moderate size hematoma along the left later hip subcutaneous fat later. This corresponds to prior radiograph 01/19/2025. Layering hyperdensity within the urinary bladder corresponding to recent ultrasound. No urinary bladder wall thickening or surrounding inflammatory changes identified. Findings suggest possible blood products versus other types of debris. Correlate with urinalysis. Colonic diverticulosis without evidence for acute diverticulitis. Trace bilateral pleural effusions. Additional blood work reveals sodium 131, BUN 68, creatinine 2.65. Magnesium 1.9. 01/23/2025 Patient evaluated in follow-up on the cardiac floor. Patient received 1 unit of packed red blood cells yesterday globin today is up to 7.9. Her sodium level is 131 BUN of 52 creatinine of 1.77. Nursing staff reports that she has been retaining urine currently she has 500 mL in her urinary bladder. Patient would like to try urinating before undergoing a straight catheterization. Family at the bedside updated on all testing and plan of care and family has no further questions at this time. Pending evaluation by neurology and orthopedics. 01/24/2025 Patient is evaluated today in follow-up in the cardiac floor. Patient complains of significant nausea and vomiting states that she has not had a bowel movement since admission although she has not had much oral intake. Hemoglobin remains stable at 8.7. No surgical intervention per orthopedics for the left thigh hematoma. Renal function continues to improve creatinine with a BUN of 37 and creatinine 1.37. Sodium level of 130. Patient continues off IV fluids and off IV Lasix at this time. Family is concerned because of her significant history of stroke requiring tPA and thrombectomy as well as her history of atrial fibrillation that she does not remain off anticoagulation for extended period of time. Patient has stroked while off thinners in the past. Cardiology has started the patient on IV heparin and will monitor hemoglobin closely. Neurology fol lowing with concern for seizure-like activity on admission this was likely brought on by the syncopal episode. And she is currently pending EEG and MRI. Urine culture reveals Klebsiella pneumonia and currently pending micro sensitivities. Review of Systems Constitutional: Denied any fatigue denied any fever. Cardio vascular: denied any chest pain, palpitations Gastrointestinal: denied any nausea, vomiting, diarrhea Pulmonary: Denied any shortness of breath cough Neurologic denied any new focal deficits All inpatient medications were reviewed and appropriate changes in these medications as dictated in the interval history and assessment and plan. PHYSICAL EXAMINATION: GENERAL: The patient is alert and oriented x3, not in any acute distress. Well developed, well nourished. HEENT: Pupils are round and equally reacting to light. EOMI. No scleral icterus. No conjunctival pallor. Normocephalic, atraumatic. No pharyngeal erythema. No thyromegaly. CARDIOVASCULAR: S1 and S2 present. No murmurs, rubs, or gallops. PULMONARY: Chest is clear to auscultation, no wheezing or crackles. ABDOMEN: Soft, nontender, nondistended, normoactive bowel sounds. No palpable organomegaly. MUSCULOSKELETAL: No joint swelling or deformity. EXTREMITIES: No cyanosis, clubbing, or pedal edema. Hematoma of the left hip down the lateral side NEUROLOGICAL: Gross neurological examination did not reveal any focal deficits. SKIN: No rashes. stitches over the left eye, bruising periorbital and on chin. Assessment Left lateral hip hematoma with likely acute blood loss anemia Syncope with a fall from standing position with left forehead superficial wound status post stitches Hypotension and hypovolemia on admission likely leading to the syncopal episode patient's blood pressure was noted to be 80s systolic on admission Possible seizure like episode on admission Acute anemia with acute drop of hemoglobin source of bleeding is likely the left lateral hip hematoma which will be evaluated by orthopedics Acute urinary tract infection Hyponatremia, hypovolemic Acute kidney injury from ATN from hypotension and acute blood loss anemia Acute left periorbital hematoma and laceration Atrial fibrillation with rate controlled on Eliquis at home, Eliquis on hold for now Urinary retention and concern for blood in the urinary bladder. History of stroke in the past requiring TPA and thrombectomy Hx of hypertension Hyperlipidemia DVT prophylaxis started on IV heparin GI prophylaxis DO NOT INTUBATE. Plan Hemoglobin 6.7 and currently ordered for 1 unit PRBC currently now 7.9. Continue to hold eliquis Has been resumed on IV heparin Continue cardiac telemetry Continue ceftriaxone and pending final microsensitivites on the urine culture Pending EEG and MRI Monitor hematoma and H&H, transfuse blood for hemoglobin less than 7. Consult orthopedic surgery for the left lateral hip hematoma no surgical intervention planned and recommend conservative management with monitoring Will need to straight catheterize patient as she is unable to void independently. Monitor for further episodes of urinary retention. If there is gross hematuria when patient is able to urinate will need to consult urology Patient is being followed by multiple consultations including ID, Cardiology, Nephrology, Neurology PT OT following The impression and plan of care has been dictated by Laurence Silva, Nurse Practitioner as directed. Dr. Braden MD I have performed a history and physical examination and medical decision making of this patient, discussed the same with the dictator, and agree with the d ictators assessment and plan as written, documented as a scribe. Based on total visit time, I have performed more than 50% of this visit. Objective - Vital Signs Vital signs: Vital Signs Temp 98.6 F 01/24/25 08:00 Pulse 107 H 01/24/25 08:00 Resp 16 01/24/25 08:00 BP 138/78 01/24/25 08:00 Pulse Ox 93 L 01/24/25 08:00 FiO2 Intake & Output 01/23/25 01/24/25 01/24/25 18:59 06:59 18:59 Intake Total 10 Output Total 720 850 Balance -720 -850 10 Intake: IV 10 Invasive Line 2 10 Output: Urine 720 850 Other: Voiding Method External Catheter External Catheter External Catheter - Labs CBC & Chem 7: 01/24/25 13:56 01/24/25 06:08 Labs: Abnormal Lab Results - Last 24 Hours (Table) 01/24/25 01/24/25 Range/Units 06:08 06:08 RBC 2.41 L (4.10-5.20) 10*6/uL Hgb 8.0 L (12.0-15.0) g/dL Hct 24.3 L (37.2-46.3) % MCV 100.8 H (80.0-97.0) fL MCH 33.2 H (27.0-32.0) pg Immature Gran # 0.11 H (0.00-0.04) 10*3/uL Lymphocytes # 0.71 L (0.90-5.00) 10*3/uL Sodium 130 L (137-145) mmol/L BUN 37 H (7-17) mg/dL Creatinine 1.37 H (0.52-1.04) mg/dL Microbiology - Last 24 Hours (Table) 01/21/25 03:55 Urine Culture - Preliminary Urine,Clean Catch Gram Neg Bacilli Assessment and Plan Time with Patient: Less than 30
[2025-01-24] MEDS: PROCHLORPERAZINE INJ 10 MG/2 ML VIAL IVP PRN (15:05)
--- NOTE | 2025-01-24 16:21 | XR ---
EXAMINATION TYPE: XR abdomen 1V DATE OF EXAM: 01/24/2025 4:17 PM COMPARISON: None. CLINICAL INDICATION: Female, 84 years old with history of nausea, constipation, TECHNIQUE: XR abdomen 1V view(s) obtained. FINDINGS: There is nonspecific bowel gas pattern. No mass effect is evident. Psoas margins are normal. No organomegaly is present. Subtle scoliosis of the lumbar spine. Right hip and is present IMPRESSION: 1. Nonspecific abdomen. [facility], , 01/24/2025 4:19 PM
--- NOTE | 2025-01-24 16:51 | P.PN ---
Subjective Progress Note Date: 01/24/25 I am following up with the patient no further seizure-like activity or syncopal episodes. There is she was having some nausea and some vomiting episode. Objective - Vital Signs Vital signs: Vital Signs Temp 97.6 F 01/24/25 15:09 Pulse 66 01/24/25 15:09 Resp 16 01/24/25 15:09 BP 134/73 01/24/25 15:09 Pulse Ox 94 L 01/24/25 15:09 FiO2 Intake & Output 01/23/25 01/24/25 01/24/25 18:59 06:59 18:59 Intake Total 20 Output Total 720 850 500 Balance -720 -850 -480 Intake: IV 20 Invasive Line 2 20 Oral 0 Output: Urine 720 850 500 Other: Voiding Method External Catheter External Catheter External Catheter - Exam GENERAL: The patient is lying in bed and is not in acute distress. HENT: Bruises throughout the face. NEUROLOGICAL: Higher mental function: The patient is awake, alert, oriented to self, place and time. Patient is following commands. No aphasia and no neglect. Cranial nerves: The pupils are round, equal and reactive to light and accommodation. Visual donohue are full to confrontation throughout. Extraocular movement is intact no nystagmus is noted. Facial sensation is normal to touch throughout. The facial strength is normal throughout. Hearing is moderately decreased bilaterally to hand rub. Tongue is midline and moved [id number] without any difficulty. No dysarthria is noted. Shoulder shrug is normal bilaterally. Motor: The strength is 5 over 5 throughout uppers. While the lowers limited because of pain but had antigravity. Normal tone and bulk. Cerebellum: Normal finger to nose bilaterally. Sensation: Sensation is normal to touch throughout. Some of the work-up during this hospital visit consisted of: hemoglobin was as low in the 6-kyree and currently 7.9 Had acute kidney injury that is improving. It was as high as 3.36. Urine culture is positive for gram-negative bacilli. CT brain cervical spine and CT facial bones is reported as no acute intracranial process. 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 Nonspecific white matter changes. Acute depressed communicate left nasal bone fracture with associated soft tissue swelling. Acute left periorbital soft tissue hematoma with acute soft tissue contusion to left chin. Paranasal sinus disease with air-fluid level within the left maxillary sinus which may be related to acute sinusitis. No evidence of cervical spine fracture. Mild multilevel degenerative disc disease. I personally reviewed the CT of the head and there is no acute or subacute ischemic stroke. - Labs CBC & Chem 7: 01/24/25 13:56 01/24/25 06:08 Labs: Abnormal Lab Results - Last 24 Hours (Table) 01/24/25 01/24/25 01/24/25 Range/Units 06:08 06:08 13:56 RBC 2.41 L 2.57 L (4.10-5.20) 10*6/uL Hgb 8.0 L 8.7 L (12.0-15.0) g/dL Hct 24.3 L 26.1 L (37.2-46.3) % MCV 100.8 H 101.6 H (80.0-97.0) fL MCH 33.2 H 33.9 H (27.0-32.0) pg MPV 9.3 L (9.5-12.2) fL Immature Gran # 0.11 H 0.13 H (0.00-0.04) 10*3/uL Lymphocytes # 0.71 L 0.55 L (0.90-5.00) 10*3/uL Sodium 130 L (137-145) mmol/L BUN 37 H (7-17) mg/dL Creatinine 1.37 H (0.52-1.04) mg/dL Microbiology - Last 24 Hours (Table) 01/21/25 03:55 Urine Culture - Final Urine,Clean Catch Klebsiella pneumoniae Assessment and Plan Assessment: This is an 84-year-old woman with history of strokes, left subdural, atrial fibrillation was having recurrent falls and presents because of passing out episode and had facial trauma. She was in the hospital she developed seizure for her daughter which was tonic-clonic with eyes rolling back lasted few minutes. She has been having falling episodes for the last 1 to 2 years. New onset seizure activity. Possibly her passing out episode at home was possibly due to seizure-like activity as well as her recurrent falls was possibly due to underlying seizure especially with the underlying history of stroke Acute urinary tract infection Acute chronic kidney injury--improved With trauma due to the recent fall at home Acute ischemic stroke x 2 History of left subdural Underlying history of atrial fibrillation Plan: Pending MRI of the brain and routine EEG. I changed the Vimpat 50mg bid that I started yesterday from PO to IV because of her nausea and vomiting episodes earlier today. Caution seizure pads Per the [place] DMV because of the seizure, avoid driving for 6 months until seizure-free, avoid heights, avoid swimming assisted or using heavy machinery Will defer the rest of medical management to primary and other specialist. The plan is discussed with patient and her nurse. Time with Patient: Less than 30
[2025-01-25 02:54] LABS: Basophils # (A) 0.06 10*3/uL (0.00-0.10); Basophils % (A) 0.7 %; Eosinophils # (A) 0.19 10*3/uL (0.04-0.35); Eosinophils % (A) 2.3 %; HCT 25.4 % (37.2-46.3); HGB 8.5 g/dL (12.0-15.0); Lymphocytes # (A) 0.97 10*3/uL (0.90-5.00); Lymphocytes % (A) 11.8 %; MCHC 33.5 g/dL (32.0-37.0); MCV 101.6 fL (80.0-97.0); Mean Platelet Volume 9.4 fL (9.5-12.2); Monocytes # (A) 0.99 10*3/uL (0.20-1.00); Neutrophils % (A) 71.7 %; Platelet Count 244 10*3/uL (140-440); RDW 18.9 % (11.5-14.5); WBC 8.23 10*3/uL (4.50-10.00)
[2025-01-25 03:04] LABS: Partial Thromboplastin Time 50.9 sec (22.0-30.0); Prothrombin Time 11.4 sec (10.0-12.5)
[2025-01-25 03:22] LABS: African American GFR (CKD) 42 (>60 ml/min/1.73 sqM); Anion Gap 7 mmol/L; Blood Urea Nitrogen 30 mg/dL (7-17); Calcium 8.9 mg/dL (8.4-10.2); Carbon Dioxide 25 mmol/L (22-30); Chloride 97 mmol/L (98-107); Glucose 88 mg/dL (74-99); Non-African American GFR(CKD) 36 (>60 ml/min/1.73 sqM); Potassium 3.9 mmol/L (3.5-5.1); Sodium 129 mmol/L (137-145)
--- NOTE | 2025-01-25 12:00 | MR ---
EXAMINATION TYPE: MR brain wo con DATE OF EXAM: 01/25/2025 COMPARISON: MRI brain March 23, 2023. CT brain January 19, 2025 HISTORY: Syncope, seizure. TECHNIQUE: Multiplanar, multisequence imaging of the brain and brainstem is performed without IV cont rast. FINDINGS: Diffusion weighted images demonstrate no evidence of a recent infarct or other diffusion abnormality. There is moderate to severe ventricular and sulcal prominence. A few scattered foci of T2 intensity i s seen throughout the white matter bilaterally most prominent periventricular levels. There is asymme tric left-sided extra-axial fluid collection that is isointense to CSF on T1 and slightly hyperdense signal on FLAIR weighted images measuring up to 10 mm left frontal lobe FLAIR image 24. Unusual signa l dropout on T2 versus FLAIR images. There is rim low signal on T2 Star weighted images suggesting ol milind in age. Smaller curvilinear areas of hyperintense fluid on T2 and FLAIR weighted images is seen b ilaterally on current study. Midline structures demonstrate normal morphology. The craniocervical junction appears within normal limits. Normal vascular flow voids are present. Bilateral aphakia is redemonstrated. Mild mucosal thi ckening left maxillary sinus and mild to moderate mucosal thickening involving the ethmoid sinuses bi laterally. IMPRESSION: 1. Moderate to advanced diffuse cerebral atrophy redemonstrated. Mild to moderate nonspecific white m atter changes and probably the proximal vessel ischemic change redemonstrated. 2. Persistent tiny bilateral extra-axial fluid collections and more focal small to moderate-sized lef t frontal extra-axial fluid collection both suspected more subacute to chronic in age. An early subac alma rosa component to the left frontal fluid collection may be present. There is some local mass effect. A dvise repeat CT to further evaluate. [facility], , 01/25/2025 11:58 AM
[2025-01-25] MEDS: SODIUM CHLORIDE 0.9% 500 ML 500 ML IV ONE (13:10)
--- NOTE | 2025-01-25 14:12 | P.PN ---
Subjective Progress Note Date: 01/25/25 This is a pleasant 84 years old female who was seen and examined in the emergency room at [facility], she was lying in bed with Jean bandage around her head with superficial wound requiring stitches. With some evidence around her left eye hematoma Patient states with information obtained with the help of the daughter at bedside that patient was getting her shopping back to home as she is independent her neighbor noticed her noted next to her car and he found her on the floor and EMS were called. Patient herself remember standing by her car and the next thing she remembers to be in the hospital. While she was in hospital she developed seizure as per daughter at bedside which was tonic-clonic arms were up in the air and her also rolled back lasted for about short time, few minutes. No biting tongue, no urinary or bowel incontinence. Patient denies any weakness or numbness or blurred vision or slurred speech However she complains from some fuzziness around her left eye and there is some hematoma around left eye but there is no impaired vision. Also patient was taking Eliquis at home. Patient hemodynamically stable, she is afebrile . Blood pressure 92/55. Hemoglobin 10.5. WBC 5.8. INR within the reference range. Sodium 129 Creatinine elevated 2.2 Liver enzymes not significantly elevated. Troponin x [address]: No acute intracranial process Chest x-ray: Mild to moderate cardiomegaly and additional density correlate for CHF EKG: Atrial fibrillation with a rate of 68 5/31 Patient blood pressure slightly on the low side 96/48 She is awake alert looks comfortable lying in bed still has a bruise around her left eye, her left eye swollen and she cannot open it, her main complaint is pain in her left her area where there is a significantly swollen with some fluctuation most likely secondary to hematoma. which limits movement because of pain. No chest pain or dyspnea. No abdominal pain. No headache or dizziness. No abnormal movements Hemodynamically other than that stable and afebrile. WBC is 10.4, hemoglobin went down to 10.5 down to 8.1 Sodium improved 129 up to 132, creatinine went up 2.2 up to 3.2 proBNP is elevated more than 7000 Eliquis remains on hold as well as metolazone Lasix and Jardiance Bladder scan nephrology already on the case We will order urine analysis and We will keep holding Eliquis because of the hematoma pain worsening anemia and low blood pressure 01/21 Patient hemoglobin dropped overnight 6.1 surgical elastic knitter hand frame 1 unit of blood transfus ion was given, blood pressure also was slightly on the low side 98/51, currently improved 111/64. Heart rate 89. She is afebrile. Sodium also slightly dropped 132-129, creatinine is almost the same 3.2 and 3.3 today However urinalysis was abnormal suspicious for infection Patient currently getting 1 unit of blood transfusion, she is awake alert looks tired she still have swelling around her left eye and a bruise in her chin from the fall. She still has swelling on her left thigh area from hematoma on fall on presentation as well Today was noticed to have more suprapubic pain and tenderness She denies headache dizziness no dyspnea had her usual chest pain last night but currently no chest pain only little phlegm with deep breath. I talked to the daughter she says she is allergic to penicillin and developed fever when she has child, she was taking Keflex and ceftriaxone before with no p robderekm and she agrees to start her ceftriaxone for possible UTI. Discussed with the staff to give it slowly and to check vitals and half an hour for double check although it looks per history she is not allergic to ceftriaxone Follow-up urine culture Check bladder scan Because of the hemoglobin and UTI we will going to order CT of the abdomen pelvis with oral contrast I double checked with the daughter, she states that what she thought seizure on admission ER actually it was an episode for 5 seconds where she had her eyes rolled up and arms were in the air and it was not like convulsing but little mild shakiness and after that she woke up right away during this 5 to 10 seconds her blood pressure dropped. Therefore the suspicion of seizure is very low we will keep monitoring but I do not think needs further workup for now. 01/22/2025 Patient is evaluated today on the medical floor. She is resting in bed; not feeling well today. Getting ready to work with physical therapy however her hemoglobin came back today at 6.5 and patient to receive 1 unit of PRBC. Currently IV heparin discontinued and also eliquis discontinued. Patient received a dose of DDAVP yesterday and also was started on aranesp today. Patient had abdominal pelvis CT showing yesterday afternoon revealing moderate size hematoma along the left later hip subcutaneous fat later. This corresponds to prior radiograph 01/19/2025. Layering hyperdensity within the urinary bladder corresponding to recent ultrasound. No urinary bladder wall thickening or surrounding inflammatory changes identified. Findings suggest possible blood products versus other types of debris. Correlate with urinalysis. Colonic diverticulosis without evidence for acute diverticulitis. Trace bilateral pleural effusions. Additional blood work reveals sodium 131, BUN 68, creatinine 2.65. Magnesium 1.9. 01/23/2025 Patient evaluated in follow-up on the cardiac floor. Patient received 1 unit of packed red blood cells yesterday globin today is up to 7.9. Her sodium level is 131 BUN of 52 creatinine of 1.77. Nursing staff reports that she has been retaining urine currently she has 500 mL in her urinary bladder. Patient would like to try urinating before undergoing a straight catheterization. Family at the bedside updated on all testing and plan of care and family has no further questions at this time. Pending evaluation by neurology and orthopedics. 01/24/2025 Patient is evaluated today in follow-up in the cardiac floor. Patient complains of significant nausea and vomiting states that she has not had a bowel movement since admission although she has not had much oral intake. Hemoglobin remains stable at 8.7. No surgical intervention per orthopedics for the left thigh hematoma. Renal function continues to improve creatinine with a BUN of 37 and creatinine 1.37. Sodium level of 130. Patient continues off IV fluids and off IV Lasix at this time. Family is concerned because of her significant history of stroke requiring tPA and thrombectomy as well as her history of atrial fibrillation that she does not remain off anticoagulation for extended period of time. Patient has stroked while off thinners in the past. Cardiology has started the patient on IV heparin and will monitor hemoglobin closely. Neurology fol lowing with concern for seizure-like activity on admission this was likely brought on by the syncopal episode. And she is currently pending EEG and MRI. Urine culture reveals Klebsiella pneumonia and currently pending micro sensitivities. 01/25/2025 Patient is evaluated in follow-up in the cardiac floor. Patient encouraged to increase her oral intake although she is having difficulty as her jaw is quite swollen from her fall. Patient went for a brain MRI with findings of moderate to advanced diffuse cerebral atrophy redemonstrated. Mild to moderate nonspecific white matter changes and probably the proximal vessel ischemic change redemonstrated. A persistent tiny bilateral extra-axial fluid collections and more focal small to moderate size left frontal axial fluid collection both suspected more subacute to chronic and age. An early subacute component to the left frontal fluid collection may be present. There is some local mass effect. Advise repeat CT to further evaluate. Neurology following and felt this could be more chronic in nature and patient is known to have a chronic left subdural hematoma on discharge. He felt that the benefit outweighed the risk that the patient should continue on IV heparin as started by cardiology. Hemoglobin remained stable currently 8.5 today. Her sodium level is 129 BUN of 30 creatinine of 1.33. Review of Systems Constitutional: Denied any fatigue denied any fever. Cardio vascular: denied any chest pain, palpitations Gastrointestinal: denied any nausea, vomiting, diarrhea Pulmonary: Denied any shortness of breath cough Neurologic denied any new focal deficits All inpatient medications were reviewed and appropriate changes in these medications as dictated in the interval history and assessment and plan. PHYSICAL EXAMINATION: GENERAL: The patient is alert and oriented x3, not in any acute distress. Well developed, well nourished. HEENT: Pupils are round and equally reacting to light. EOMI. No scleral icterus. No conjunctival pallor. Normocephalic, atraumatic. No pharyngeal erythema. No thyromegaly. CARDIOVASCULAR: S1 and S2 present. No murmurs, rubs, or gallops. PULMONARY: Chest is clear to auscultation, no wheezing or crackles. ABDOMEN: Soft, nontender, nondistended, normoactive bowel sounds. No palpable or ganomegaly. MUSCULOSKELETAL: No joint swelling or deformity. EXTREMITIES: No cyanosis, clubbing, or pedal edema. Hematoma of the left hip down the lateral side NEUROLOGICAL: Gross neurological examination did not reveal any focal deficits. SKIN: No rashes. stitches over the left eye, bruising periorbital and on chin. Assessment Left lateral hip hematoma with likely acute blood loss anemia Syncope with a fall from standing position with left forehead superficial wound status post stitches Hypotension and hypovolemia on admission likely leading to the syncopal episode patient's blood pressure was noted to be 80s systolic on admission Possible seizure like episode on admission neurology has felt she is likely been having seizures since her most recent stroke in 2022 Acute anemia with acute drop of hemoglobin source of bleeding is likely the left lateral hip hematoma which will be evaluated by orthopedics Acute urinary tract infection Hyponatremia, hypovolemic Acute kidney injury from ATN from hypotension and acute blood loss anemia Acute left periorbital hematoma and laceration Atrial fibrillation with rate controlled on Eliquis at home, Eliquis on hold for now Urinary retention and concern for blood in the urinary bladder. History of stroke in the past requiring TPA and thrombectomy Chronic left subdural hematoma History of AVM status post [place] Hx of hypertension Hyperlipidemia DVT prophylaxis started on IV heparin GI prophylaxis DO NOT INTUBATE. Plan Hemoglobin 6.7 and currently ordered for 1 unit PRBC currently now 8.5 Continue to hold eliquis Has been resumed on IV heparin Continue cardiac telemetry Continue ceftriaxone and pending final microsensitivites on the urine culture Patient is a started on Vimpat 50 mg twice daily by neurology with concern for s eizure-like activity Monitor hematoma and H&H, transfuse blood for hemoglobin less than 7. Consult orthopedic surgery for the left lateral hip hematoma no surgical intervention planned and recommend conservative management with monitoring Will need to straight catheterize patient as she is unable to void independently. Monitor for further episodes of urinary retention. If there is gross hematuria when patient is able to urinate will need to consult urology Patient is being followed by multiple consultations including ID, Cardiology, Nephrology, Neurology PT OT following The impression and plan of care has been dictated by Laurence Silva, Nurse Practitioner as directed. Dr. Braden MD I have performed a history and physical examination and medical decision making of this patient, discussed the same with the dictator, and agree with the dictators assessment and plan as written, documented as a scribe. Based on total visit time, I have performed more than 50% of this visit. Objective - Vital Signs Vital signs: Vital Signs Temp 97.2 F L 01/25/25 08:00 Pulse 91 01/25/25 08:00 Resp 18 01/25/25 08:00 BP 122/72 01/25/25 08:00 Pulse Ox 95 01/25/25 08:00 FiO2 Intake & Output 01/24/25 01/25/25 01/25/25 18:59 06:59 18:59 Intake Total 20 53.415 118 Output Total 500 700 Balance -480 -646.585 118 Weight 72.575 kg Intake: IV 20 Invasive Line 2 20 Intake, IV Titration 53.415 Amount Heparin Sod,Pork in 0.45% 53.415 NaCl 25,000 unit In 0.45 % NaCl 1 250ml.bag @ 12 UNITS/KG/HR 8.709 mls/hr IV .Q24H [facility] Rx#: [id number] Oral 0 118 Output: Urine 500 700 Other: Voiding Method External Catheter External Catheter External Catheter - Labs CBC & Chem 7: 01/25/25 02:34 01/25/25 02:34 Labs: Abnormal Lab Results - Last 24 Hours (Table) 01/24/25 01/24/25 01/25/25 Range/Units 13:56 19:32 02:34 RBC 2.57 L (4.10-5.20) 10*6/uL Hgb 8.7 L (12.0-15.0) g/dL Hct 26.1 L (37.2-46.3) % MCV 101.6 H (80.0-97.0) fL MCH 33.9 H (27.0-32.0) pg MPV 9.3 L (9.5-12.2) fL Immature Gran # 0.13 H (0.00-0.04) 10*3/uL Lymphocytes # 0.55 L (0.90-5.00) 10*3/uL APTT 76.0 H (22.0-30.0) sec Sodium 129 L (137-145) mmol/L Chloride 97 L (98-107) mmol/L BUN 30 H (7-17) mg/dL Creatinine 1.33 H (0.52-1.04) mg/dL 01/25/25 01/25/25 Range/Units 02:34 02:34 RBC 2.50 L (4.10-5.20) 10*6/uL Hgb 8.5 L (12.0-15.0) g/dL Hct 25.4 L (37.2-46.3) % MCV 101.6 H (80.0-97.0) fL MCH 34.0 H (27.0-32.0) pg MPV 9.4 L (9.5-12.2) fL Immature Gran # 0.12 H (0.00-0.04) 10*3/uL Lymphocytes # (0.90-5.00) 10*3/uL APTT 50.9 H (22.0-30.0) sec Sodium (137-145) mmol/L Chloride (98-107) mmol/L BUN (7-17) mg/dL Creatinine (0.52-1.04) mg/dL Microbiology - Last 24 Hours (Table) 01/21/25 03:55 Urine Culture - Final Urine,Clean Catch Klebsiella pneumoniae Assessment and Plan Time with Patient: Less than 30
--- NOTE | 2025-01-25 14:34 | P.PN ---
Subjective Progress Note Date: 01/25/25 I am following-up with the patient and states she no longer has headache, nausea or vomiting. Feels about the same otherwise. Objective - Vital Signs Vital signs: Vital Signs Temp 97.2 F L 01/25/25 08:00 Pulse 91 01/25/25 08:00 Resp 18 01/25/25 08:00 BP 122/72 01/25/25 08:00 Pulse Ox 95 01/25/25 08:00 FiO2 Intake & Output 01/24/25 01/25/25 01/25/25 18:59 06:59 18:59 Intake Total 20 53.415 118 Output Total 500 700 Balance -480 -646.585 118 Weight 72.575 kg Intake: IV 20 Invasive Line 2 20 Intake, IV Titration 53.415 Amount Heparin Sod,Pork in 0.45% 53.415 NaCl 25,000 unit In 0.45 % NaCl 1 250ml.bag @ 12 UNITS/KG/HR 8.709 mls/hr IV .Q24H [facility] Rx#: [id number] Oral 0 118 Output: Urine 500 700 Other: Voiding Method External Catheter External Catheter External Catheter - Exam GENERAL: The patient is lying in bed and is not in acute distress. HENT: Bruises throughout the face. NEUROLOGICAL: Higher mental function: The patient is awake, alert, oriented to self, place and time. Patient is following commands. No aphasia and no neglect. Cranial nerves: The pupils are round, equal and reactive to light and accommodation. Visual donohue are full to confrontation throughout. Extraocular movement is intact no nystagmus is noted. Facial sensation is normal to touch throughout. The facial strength is normal throughout. Hearing is moderately decreased bilaterally to hand rub. Tongue is midline and moved [id number] without any difficulty. No dysarthria is noted. Shoulder shrug is normal bilaterally. Motor: The strength is 5 over 5 throughout uppers. While the lowers limited because of pain but had antigravity. Normal tone and bulk. Cerebellum: Normal finger to nose bilaterally. Sensation: Sensation is normal to touch throughout. Some of the work-up during this hospital visit consisted of: hemoglobin was as low in the 6-kyree and currently 7.9 Had acute kidney injury that is improving. It was as high as 3.36. Urine culture is positive for gram-negative bacilli. CT brain cervical spine and CT facial bones is reported as no acute intracranial process. 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 Nonspecific white matter changes. Acute depressed communicate left nasal bone fracture with associated soft tissue swelling. Acute left periorbital soft tissue hematoma with acute soft tissue contusion to left chin. Paranasal sinus disease with air-fluid level within the left maxillary sinus which may be related to acute sinusitis. No evidence of cervical spine fracture. Mild multilevel degenerative disc disease. I personally reviewed the CT of the head and there is no acute or subacute ischemic stroke. MRI brain: Is reported as moderate to advanced diffuse cerebral atrophy redemon strated. Mild to moderate nonspecific white matter changes and probably the proximal vessel ischemic change redemonstrated. Persistent tiny bilateral extra-axial fluid collection and more focal small to moderate size left frontal extra-axial fluid collection both suspected more subacute to chronic age. An early subacute component on the left frontal fluid collection may be present. There is some local mass effect. Advise repeat CT to further evaluate. - Labs CBC & Chem 7: 01/25/25 02:34 01/25/25 02:34 Labs: Abnormal Lab Results - Last 24 Hours (Table) 01/24/25 01/25/25 01/25/25 Range/Units 19:32 02:34 02:34 RBC (4.10-5.20) 10*6/uL Hgb (12.0-15.0) g/dL Hct (37.2-46.3) % MCV (80.0-97.0) fL MCH (27.0-32.0) pg MPV (9.5-12.2) fL Immature Gran # (0.00-0.04) 10*3/uL APTT 76.0 H 50.9 H (22.0-30.0) sec Sodium 129 L (137-145) mmol/L Chloride 97 L (98-107) mmol/L BUN 30 H (7-17) mg/dL Creatinine 1.33 H (0.52-1.04) mg/dL 01/25/25 Range/Units 02:34 RBC 2.50 L (4.10-5.20) 10*6/uL Hgb 8.5 L (12.0-15.0) g/dL Hct 25.4 L (37.2-46.3) % MCV 101.6 H (80.0-97.0) fL MCH 34.0 H (27.0-32.0) pg MPV 9.4 L (9.5-12.2) fL Immature Gran # 0.12 H (0.00-0.04) 10*3/uL APTT (22.0-30.0) sec Sodium (137-145) mmol/L Chloride (98-107) mmol/L BUN (7-17) mg/dL Creatinine (0.52-1.04) mg/dL Microbiology - Last 24 Hours (Table) 01/21/25 03:55 Urine Culture - Final Urine,Clean Catch Klebsiella pneumoniae Assessment and Plan Assessment: This is an 84-year-old woman with history of strokes, left subdural, atrial fibrillation was having recurrent falls and presents because of passing out episode and had facial trauma. She was in the hospital she developed seizure for her daughter which was tonic-clonic with eyes rolling back lasted few minutes. She has been having falling episodes for the last 1 to 2 years. New onset seizure activity. Possibly her passing out episode at home was possibly due to seizure-like activity as well as her recurrent falls was possibly due to underlying seizure especially with the underlying history of stroke--No further seizure or syncopal spells History of left subdural with concern of new left subdrual over left frontal that is small. Acute urinary tract infection Acute chronic kidney injury--improved With trauma due to the recent fall at home Acute ischemic stroke x 2 History of left subdural Underlying history of atrial fibrillation Plan: Pending routine EEG. I feel the subdural reported that is new on left frontal is not acute. I ordered a repeat CT head. I will attempt to get a second opinion with reading radiologist. Continue Vimpat 50mg bid Seizure Precaution and seizure pads Per the [place] DMV because of the seizure, avoid driving for 6 months until seizure-free, avoid heights, avoid swimming assisted or using heavy machinery Will defer the rest of medical management to primary and other specialist. The plan is discussed with patient and her nurse. Time with Patient: Less than 30
--- NOTE | 2025-01-25 15:06 | P.PN ---
Subjective Progress Note Date: 01/24/25 Principal diagnosis: Reason for follow-up is UTI Patient is 84-year-old female with a past medical history significant for hypertension hyperlipidemia CVA TIA atrial fibrillation was brought into the hospital 2 days ago after apparently the patient did have a fall, did have significant head and neck bruising with laceration to the left forehead did have elevated white count positive UA and urinary symptoms concerning for UTI prompting this consultation. On today's evaluation that is 01/24/2025,the patient denies any fever or any chills, patient is breathing comfortably on room air, the patient denies chest pain shortness of breath and no significant cough, patient denies abdominal pain, no nausea vomiting or diarrhea. Still complaining of pain to the facial area and dizziness. Patient did have white count of 7.60, urine is growing Klebsiella sensitivities pending Objective - Vital Signs Vital signs: Vital Signs Temp 98.4 F 01/24/25 12:00 Pulse 85 01/24/25 12:00 Resp 16 01/24/25 12:00 BP 153/85 01/24/25 12:00 Pulse Ox 93 L 01/24/25 12:00 FiO2 Intake & Output 01/23/25 01/24/25 01/24/25 18:59 06:59 18:59 Intake Total 20 Output Total 720 850 300 Balance -720 -850 -280 Intake: IV 20 Invasive Line 2 20 Oral 0 Output: Urine 720 850 300 Other: Voiding Method External Catheter External Catheter External Catheter - Exam GENERAL DESCRIPTION: An elderly female lying in bed in no distress RESPIRATORY SYSTEM: Unlabored breathing , clear to auscultation anteriorly HEART: S1 S2 regular rate and rhythm , ABDOMEN: Soft , no tenderness EXTREMITIES: No edema feet - Labs CBC & Chem 7: 01/25/25 02:34 01/25/25 02:34 Labs: Abnormal Lab Results - Last 24 Hours (Table) 01/24/25 01/24/25 01/24/25 Range/Units 06:08 06:08 13:56 RBC 2.41 L 2.57 L (4.10-5.20) 10*6/uL Hgb 8.0 L 8.7 L (12.0-15.0) g/dL Hct 24.3 L 26.1 L (37.2-46.3) % MCV 100.8 H 101.6 H (80.0-97.0) fL MCH 33.2 H 33.9 H (27.0-32.0) pg MPV 9.3 L (9.5-12.2) fL Immature Gran # 0.11 H 0.13 H (0.00-0.04) 10*3/uL Lymphocytes # 0.71 L 0.55 L (0.90-5.00) 10*3/uL Sodium 130 L (137-145) mmol/L BUN 37 H (7-17) mg/dL Creatinine 1.37 H (0.52-1.04) mg/dL Microbiology - Last 24 Hours (Table) 01/21/25 03:55 Urine Culture - Final Urine,Clean Catch Klebsiella pneumoniae Assessment and Plan (1) UTI (urinary tract infection) Current Visit: Yes Status: Acute Code(s): N39.0 - URINARY TRACT INFECTION, SITE NOT SPECIFIED SNOMED Code(s): 38409936 (2) Allergy to multiple antibiotics Current Visit: Yes Status: Acute Code(s): Z88.1 - ALLERGY STATUS TO OTHER ANTIBIOTIC AGENTS SNOMED Code(s): 840991044 Plan: 1patient presenting to the hospital with a syncopal episode and fall and has significant bruising and fracture to the forehead area patient also have abnormal CT abdominal pelvis with significant layering inside the bladder in this patient who did have significantly positive UA mostly with the white cells rather than red cells did have urinary frequency mild elevated white count concerning for symptomatic UTI from a enteric gram-negative pathogen 2-patient with multiple antibiotic ALLERGIES that would limit the number of antibiotic safe to use 3-patient white count has normalized urine cultures currently Klebsiella with ID sensitivity pending 4patient to continue with Rocephin while waiting for the culture to finalize Dictation was produced using [employer] dictation software. please excuse any grammatical, word or spelling errors. Time with Patient: Less than 30
--- NOTE | 2025-01-25 15:07 | P.PN ---
Subjective Progress Note Date: 01/25/25 Principal diagnosis: Reason for follow-up is UTI Patient is 84-year-old female with a past medical history significant for hypertension hyperlipidemia CVA TIA atrial fibrillation was brought into the hospital 2 days ago after apparently the patient did have a fall, did have significant head and neck bruising with laceration to the left forehead did have elevated white count positive UA and urinary symptoms concerning for UTI prompting this consultation. On today's evaluation that is 01/25/2025,the patient remains to be afebrile, patient is on room air not requiring supplemental oxygen and denies any shortness of breath no chest pain or cough.Patient denies having any nausea or vomiting, no abdominal pain and no diarrhea still complaining of feeling weak and dizzy and discomfort to the facial area. Patient white count is 8.23, creatinine is 1.33 urine with Klebsiella sensitive to ceftriaxone Objective - Vital Signs Vital signs: Vital Signs Temp 97.4 F L 01/25/25 12:00 Pulse 96 01/25/25 14:00 Resp 16 01/25/25 12:00 BP 130/76 01/25/25 12:00 Pulse Ox 96 01/25/25 12:00 FiO2 Intake & Output 01/24/25 01/25/25 01/25/25 18:59 06:59 18:59 Intake Total 20 53.415 118 Output Total 500 700 Balance -480 -646.585 118 Weight 72.575 kg Intake: IV 20 Invasive Line 2 20 Intake, IV Titration 53.415 Amount Heparin Sod,Pork in 0.45% 53.415 NaCl 25,000 unit In 0.45 % NaCl 1 250ml.bag @ 12 UNITS/KG/HR 8.709 mls/hr IV .Q24H [facility] Rx#: [id number] Oral 0 118 Output: Urine 500 700 Other: Voiding Method External Catheter External Catheter External Catheter - Exam GENERAL DESCRIPTION: An elderly female lying in bed in no distress RESPIRATORY SYSTEM: Unlabored breathing , clear to auscultation anteriorly HEART: S1 S2 regular rate and rhythm , ABDOMEN: Soft , no tenderness EXTREMITIES: No edema feet - Labs CBC & Chem 7: 01/25/25 02:34 01/25/25 02:34 Labs: Abnormal Lab Results - Last 24 Hours (Table) 01/24/25 01/25/25 01/25/25 Range/Units 19:32 02:34 02:34 RBC (4.10-5.20) 10*6/uL Hgb (12.0-15.0) g/dL Hct (37.2-46.3) % MCV (80.0-97.0) fL MCH (27.0-32.0) pg MPV (9.5-12.2) fL Immature Gran # (0.00-0.04) 10*3/uL APTT 76.0 H 50.9 H (22.0-30.0) sec Sodium 129 L (137-145) mmol/L Chloride 97 L (98-107) mmol/L BUN 30 H (7-17) mg/dL Creatinine 1.33 H (0.52-1.04) mg/dL 01/25/25 Range/Units 02:34 RBC 2.50 L (4.10-5.20) 10*6/uL Hgb 8.5 L (12.0-15.0) g/dL Hct 25.4 L (37.2-46.3) % MCV 101.6 H (80.0-97.0) fL MCH 34.0 H (27.0-32.0) pg MPV 9.4 L (9.5-12.2) fL Immature Gran # 0.12 H (0.00-0.04) 10*3/uL APTT (22.0-30.0) sec Sodium (137-145) mmol/L Chloride (98-107) mmol/L BUN (7-17) mg/dL Creatinine (0.52-1.04) mg/dL Microbiology - Last 24 Hours (Table) 01/21/25 03:55 Urine Culture - Final Urine,Clean Catch Klebsiella pneumoniae Assessment and Plan (1) UTI (urinary tract infection) Current Visit: Yes Status: Acute Code(s): N39.0 - URINARY TRACT INFECTION, SITE NOT SPECIFIED SNOMED Code(s): 90669650 (2) Allergy to multiple antibiotics Current Visit: Yes Status: Acute Code(s): Z88.1 - ALLERGY STATUS TO OTHER A NTIBIOTIC AGENTS SNOMED Code(s): 275439012 Plan: 1patient presenting to the hospital with a syncopal episode and fall and has significant bruising and fracture to the forehead area patient also have abnormal CT abdominal pelvis with significant layering inside the bladder in this patient who did have significantly positive UA mostly with the white cells rather than red cells did have urinary frequency mild elevated white count concerning for symptomatic UTI from a enteric gram-negative pathogen 2-patient with multiple antibiotic ALLERGIES that would limit the number of antibiotic safe to use 3-patient white count has normalized urine cultures currently Klebsiella which is sensitive to ceftriaxone 4patient to continue with Rocephin while inpatient to finish therapy with oral Ceftin Dictation was produced using [employer] dictation software. please excuse any grammatical, word or spelling errors. Time with Patient: Less than 30
--- NOTE | 2025-01-25 15:08 | P.PN ---
Subjective Progress Note Date: 01/25/25 This is an 84-year-old female with past medical history of multiple strokes status post thrombectomy and tPA in 2020 with treatment of AVM, subdural hematoma, chronic atrial fibrillation on Eliquis, hypertension, chronic kidney disease stage III. We have been asked to evaluate the patient for syncope. Vincent singh presented to the emergency center after a fall. She sustained significant injury to the left side of her face and required stitches. Patient states that she sometimes feels lightheaded. She has not had other syncopal episodes. She denies any black or bloody stools. She has minimal lower extremity edema. According to the notes, patient also had seizure activity. Patient presented with systolic blood pressure 80s and 90s, heart rate in the 70s. She is status post 2 L IV fluid. -EKG: Atrial fibrillation, left bundle branch block. -Chest x-ray: Mild to moderate cardiomegaly and interstitial density. Correlate for mild CHF. Some patchy probable atelectasis in the retrocardiac region. -Carotid ultrasound reveals mild atherosclerotic plaque at the bilateral carotid bifurcations. No hemodynamically significant stenosis of the bilateral carotid artery systems. -Echocardiogram performed on this admission reveals EF 65 to 70%, moderately increased left ventricular wall thickness. Mild mitral regurgitation. Mild aortic stenosis. Mild aortic regurgitation. Severe tricuspid regurgitation. RVSP 58. -Laboratory studies: WBC 10.4, hemoglobin 8.1 previously 10.5. Sodium 132, potassium 4.3, BUN 83 creatinine 3.24. Troponin negative x 3. proBNP 7770. TSH 1.29. -Home cardiac medications: Eliquis 5 mg twice daily, atorvastatin 20 mg daily, Jardiance 10 mg daily, Lasix 40 mg daily, Zaroxolyn 2.5 mg on Mondays and , potassium chloride 20 mill equivalents daily, propranolol 80 mg daily, ramipril 10 mg daily. 01/21 Patient seen and examined. Patient denies any chest pain or pressure. Remains in A-fib with controlled ventricular rates. She was transition from Eliquis to heparin secondary to anemia with drop in hemoglobin yesterday however had further hypotension with hemoglobin in the 6 range and therefore received 1 unit of packed red blood cells with improvement in hemoglobin into the 7 range. Blood pressures have also improved. No significant hematochezia or melena. She underwent CT abdomen pelvis to rule out bleed with results still pending. De nies any significant abdominal pain. There has been concern from daughter with patient previously having strokes whenever she has come off of anticoagulation. 01/22 Patient seen and examined. Blood pressure 107/61, heart rate 92, pulse ox 98% on 2 L nasal cannula. Repeat blood work reveals hemoglobin dropped to 6.5. Improvement of renal function with BUN 68 creatinine 2.65. Patient is not on an ticoagulation at this time. Patient complains of her legs hurting. She has not had a bowel movement. 01/23 Patient seen and examined. Patient is complaining of nausea. Blood pressure 123/76, heart rate 95, pulse ox 97% on room air. Patient is followed by neurology for seizure disorder that was witnessed by her daughter in the ER. She is scheduled for MRI of the brain and EEG. She has also been seen by orthopedics regarding a left hip hematoma. Hemoglobin seems to be stable at 7.9. BUN 52 creatinine 1.77, sodium 131 and potassium 3.9. Blood pressure running between 98/64-145/72. Heart rate is in the 80s and 90s, pulse ox 97% on room air. 01/24 Patient seen and examined. Patient states that she has had nausea all day. There was an attempt for EEG which has been postponed until tomorrow according to the patient. She denies chest pain no abdominal pain. Blood pressure 153/85, heart rate 85, pulse ox 93% on room air. Hemoglobin has been stable at 8.7. 01/25 Patient seen and examined. Patient had significant nausea yesterday and states she is feeling a little bit better today. She is on clear liquid diet. She denies chest pain or chest pressure. We did start patient on heparin drip yesterday due to history of CVA when off anticoagulation. MRI of the brain revealed persistent tiny bilateral fluid collections in left frontal fluid collection suspect subacute or chronic in nature. An early subacute component to the left frontal fluid collection may be present. Some local mass effect. CT scan of the brain ordered by neurology for further evaluation blood pressure 130/76, heart rate 93, pulse ox 96% on room air. Repeat blood work reveals stable hemoglobin at 8.5. Sodium 129, potassium 3.9, BUN 30 creatinine 1.33. Physical examination: Gen: This is an 84-year-old female in no acute distress. VS: reviewed HEENT: Head reveals significant left forehead, periorbital, left cheek and left chin/jaw ecchymosis, laceration with repair to the left forehead. Otherwise normocephalic. Pupils equal, round. Sclerae is anicteric. NECK: Supple. No JVD. LUNGS: Clear to auscultation. No wheezes or rhonchi. No intercostal retractions. HEART: Regular rate and rhythm. No murmur. ABDOMEN: Soft No tenderness. EXTREMITIES: No pedal edema. No calf tenderness. NEUROLOGICAL: Patient is awake, alert and oriented x3. Assessment: Syncopal episode Close head injury Laceration requiring sutures Seizure activity in the ER and witnessed by her daughter Hypotensive Anemia, acute blood loss from head injury, hip injury Acute kidney injury Hyponatremia Moderate pulmonary hypertension Severe tricuspid regurgitation Left bundle branch block Chronic atrial fibrillation on Eliquis Chronic left subdural hematoma Multiple ischemic strokes status post TPA and 2 thrombectomies one in 2019 and one History of AVM status post [place] Plan: Hold Lasix, Zaroxolyn, potassium, propranolol and ramipril Patient has had strokes before when she has come off of anticoagulation in the past. Continue heparin drip another 24 hours and may transition to NOAC when cleared b y neurology Continue telemetry monitoring Plan for 30-day event monitor or loop recorder prior to discharge Due to to patient's fall risk and history of CVAs would recommend patient be evaluated for Watchman procedure as an outpatient Further recommendations to follow based upon clinical course Nurse practitioner note has been reviewed, I agree with documented findings and plan of care. Patient was seen and examined. Objective - Vital Signs Vital signs: Vital Signs Temp 97.2 F L 01/25/25 08:00 Pulse 91 01/25/25 08:00 Resp 18 01/25/25 08:00 BP 122/72 01/25/25 08:00 Pulse Ox 95 01/25/25 08:00 FiO2 Intake & Output 01/24/25 01/25/25 01/25/25 18:59 06:59 18:59 Intake Total 20 53.415 118 Output Total 500 700 Balance -480 -646.585 118 Weight 72.575 kg Intake: IV 20 Invasive Line 2 20 Intake, IV Titration 53.415 Amount Heparin Sod,Pork in 0.45% 53.415 NaCl 25,000 unit In 0.45 % NaCl 1 250ml.bag @ 12 UNITS/KG/HR 8.709 mls/hr IV .Q24H [facility] Rx#: [id number] Oral 0 118 Output: Urine 500 700 Other: Voiding Method External Catheter External Catheter External Catheter - Labs CBC & Chem 7: 01/25/25 02:34 01/25/25 02:34 Labs: Abnormal Lab Results - Last 24 Hours (Table) 01/24/25 01/24/25 01/25/25 Range/Units 13:56 19:32 02:34 RBC 2.57 L (4.10-5.20) 10*6/uL Hgb 8.7 L (12.0-15.0) g/dL Hct 26.1 L (37.2-46.3) % MCV 101.6 H (80.0-97.0) fL MCH 33.9 H (27.0-32.0) pg MPV 9.3 L (9.5-12.2) fL Immature Gran # 0.13 H (0.00-0.04) 10*3/uL Lymphocytes # 0.55 L (0.90-5.00) 10*3/uL APTT 76.0 H (22.0-30.0) sec Sodium 129 L (137-145) mmol/L Chloride 97 L (98-107) mmol/L BUN 30 H (7-17) mg/dL Creatinine 1.33 H (0.52-1.04) mg/dL 01/25/25 01/25/25 Range/Units 02:34 02:34 RBC 2.50 L (4.10-5.20) 10*6/uL Hgb 8.5 L (12.0-15.0) g/dL Hct 25.4 L (37.2-46.3) % MCV 101.6 H (80.0-97.0) fL MCH 34.0 H (27.0-32.0) pg MPV 9.4 L (9.5-12.2) fL Immature Gran # 0.12 H (0.00-0.04) 10*3/uL Lymphocytes # (0.90-5.00) 10*3/uL APTT 50.9 H (22.0-30.0) sec Sodium (137-145) mmol/L Chloride (98-107) mmol/L BUN (7-17) mg/dL Creatinine (0.52-1.04) mg/dL Microbiology - Last 24 Hours (Table) 01/21/25 03:55 Urine Culture - Final Urine,Clean Catch Klebsiella pneumoniae
--- NOTE | 2025-01-25 17:00 | CT ---
EXAMINATION TYPE: CT brain wo con DATE OF EXAM: 01/25/2025 4:23 PM COMPARISON: None. CLINICAL INDICATION: Female, 84 years old with history of left subdural rule out any acute, left subd ural rule out any acute TECHNIQUE: CT of the brain is performed utilizing 3 mm thick sections through the posterior fossa and 3 mm thick sections through the remaining calvarium. Study is performed within 24 hours of arrival to the hospital. Contrast used: mL of , (none if empty) CT DLP: 1112.2 mGycm, Automated exposure control for dose reduction was used. FINDINGS: No abnormal hyperdensity is present to suggest an acute intracranial hemorrhage. No mass lesion is evident. No acute infarcts are evident. Ventricles and sulci are prominent for the patient age. There is asymmetric prominence of the extra- axial space and adjacent to the left frontal region. Findings appear to be a chronic subdural hematom a with a depth of 1.0 cm. No effacement of sulci is evident. At the most posterior aspect of this are a and there is some increased density which is hyperdense in the dependent portion. Tiny acute subdur al hematoma appears to be present. Example image 201 image 31. No significant mass effect on the vasquez cent brain is evident. This is new from 01/19/2025. This is better visualized than the MRI same date. There is a retention cyst within the left maxillary sinus. Remaining paranasal sinuses and mastoid air cells are clear. No acute fractures are evident. There is soft tissue swelling over the left frontal orbit. IMPRESSION: 1. There is a new 0.2 x 0.6 cm acute subdural hemorrhage, new from 01/19/2025 CT examination. This fitz ears to be at the dependent portion of the chronic subdural hematoma. 2. Chronic old subdural along the left frontal region. Milder chronic subdural be present on the righ t frontal region. A Red level critical message alert has been initiated for [employer] via the Medication Reviewal Results System on 01/25/2025 4:58 PM. This message alert has been sent to [employer] via the preferences provided by the clinician for the receipt of Radiology Critical Findings. Message ID [id number]. [facility], Workstation: [id number], 01/25/2025 4:58 PM
[2025-01-25 17:54] LABS: Basophils # (A) 0.06 10*3/uL (0.00-0.10); Basophils % (A) 0.7 %; Eosinophils # (A) 0.17 10*3/uL (0.04-0.35); Eosinophils % (A) 1.9 %; HCT 27.7 % (37.2-46.3); HGB 9.2 g/dL (12.0-15.0); Lymphocytes # (A) 0.89 10*3/uL (0.90-5.00); Lymphocytes % (A) 9.7 %; MCH 33.9 pg (27.0-32.0); MCHC 33.2 g/dL (32.0-37.0); MCV 102.2 fL (80.0-97.0); Mean Platelet Volume 8.9 fL (9.5-12.2); Monocytes % (A) 9.8 %; Neutrophils # (A) 6.94 10*3/uL (1.80-7.70); Neutrophils % (A) 75.9 %; Platelet Count 246 10*3/uL (140-440); RBC 2.71 10*6/uL (4.10-5.20); RDW 19.2 % (11.5-14.5); WBC 9.14 10*3/uL (4.50-10.00)
--- NOTE | 2025-01-25 21:41 | EEG ---
ELECTROENCEPHALOGRAM REPORT CLINICAL HISTORY: This is an 84-year-old woman with episode of possible witnessed seizure-like activity, who has been having recurrent falls. The video EEG is obtained to evaluate for seizure epileptiform activity. RELEVANT MEDICATION: Vimpat. EEG TYPE: A routine 21-channel EEG with video using the 10/20 electrode system. DESCRIPTION: Wakefulness and drowsiness are obtained. During awake state, the posterior-dominant rhythm consists of [id number] voltage of 7 hertz activity and at times, the background is intermixed with delta activity. There was no physiological stage 2 sleep architecture. There is no focal slowing. Interictal and ictal is none. ACTIVATION PROCEDURE: It did not evoke a posterior driving response. There is no abnormality during the photic stimulation. Hyperventilation is not performed. CLINICAL INTERPRETATION: This is an abnormal routine EEG during awake and drowsy state. The background slowing is suggestive of mild encephalopathy. There is no focal slowing, epileptiform discharges or seizure on the EEG. Lack of epileptiform discharges does not rule out underlying history of seizures. Clinical correlation is recommended. MMODL / IJN: [id number] /
[2025-01-26 07:25] LABS: Basophils # (A) 0.03 10*3/uL (0.00-0.10); Basophils % (A) 0.3 %; Eosinophils # (A) 0.22 10*3/uL (0.04-0.35); Eosinophils % (A) 2.4 %; HCT 26.4 % (37.2-46.3); HGB 8.7 g/dL (12.0-15.0); Lymphocytes # (A) 0.73 10*3/uL (0.90-5.00); Lymphocytes % (A) 8.1 %; MCH 33.6 pg (27.0-32.0); MCV 101.9 fL (80.0-97.0); Mean Platelet Volume 9.1 fL (9.5-12.2); Monocytes % (A) 12.2 %; Neutrophils # (A) 6.73 10*3/uL (1.80-7.70); Neutrophils % (A) 75.1 %; Platelet Count 250 10*3/uL (140-440); RBC 2.59 10*6/uL (4.10-5.20); RDW 18.7 % (11.5-14.5); WBC 8.98 10*3/uL (4.50-10.00)
[2025-01-26 07:44] LABS: African American GFR (CKD) 42 (>60 ml/min/1.73 sqM); Anion Gap 4 mmol/L; Blood Urea Nitrogen 25 mg/dL (7-17); Calcium 8.7 mg/dL (8.4-10.2); Carbon Dioxide 27 mmol/L (22-30); Chloride 97 mmol/L (98-107); Glucose 101 mg/dL (74-99); Non-African American GFR(CKD) 36 (>60 ml/min/1.73 sqM); Potassium 4.5 mmol/L (3.5-5.1); Sodium 128 mmol/L (137-145)
--- NOTE | 2025-01-26 09:42 | P.PN ---
Subjective Progress Note Date: 01/26/25 This is an 84-year-old female with past medical history of multiple strokes status post thrombectomy and tPA in 2020 with treatment of AVM, subdural hematoma, chronic atrial fibrillation on Eliquis, hypertension, chronic kidney disease stage III. We have been asked to evaluate the patient for syncope. Vincent singh presented to the emergency center after a fall. She sustained significant injury to the left side of her face and required stitches. Patient states that she sometimes feels lightheaded. She has not had other syncopal episodes. She denies any black or bloody stools. She has minimal lower extremity edema. According to the notes, patient also had seizure activity. Patient presented with systolic blood pressure 80s and 90s, heart rate in the 70s. She is status post 2 L IV fluid. -EKG: Atrial fibrillation, left bundle branch block. -Chest x-ray: Mild to moderate cardiomegaly and interstitial density. Correlate for mild CHF. Some patchy probable atelectasis in the retrocardiac region. -Carotid ultrasound reveals mild atherosclerotic plaque at the bilateral carotid bifurcations. No hemodynamically significant stenosis of the bilateral carotid artery systems. -Echocardiogram performed on this admission reveals EF 65 to 70%, moderately increased left ventricular wall thickness. Mild mitral regurgitation. Mild aortic stenosis. Mild aortic regurgitation. Severe tricuspid regurgitation. RVSP 58. -Laboratory studies: WBC 10.4, hemoglobin 8.1 previously 10.5. Sodium 132, potassium 4.3, BUN 83 creatinine 3.24. Troponin negative x 3. proBNP 7770. TSH 1.29. -Home cardiac medications: Eliquis 5 mg twice daily, atorvastatin 20 mg daily, Jardiance 10 mg daily, Lasix 40 mg daily, Zaroxolyn 2.5 mg on Mondays and , potassium chloride 20 mill equivalents daily, propranolol 80 mg daily, ramipril 10 mg daily. 01/21 Patient seen and examined. Patient denies any chest pain or pressure. Remains in A-fib with controlled ventricular rates. She was transition from Eliquis to heparin secondary to anemia with drop in hemoglobin yesterday however had further hypotension with hemoglobin in the 6 range and therefore received 1 unit of packed red blood cells with improvement in hemoglobin into the 7 range. Blood pressures have also improved. No significant hematochezia or melena. She underwent CT abdomen pelvis to rule out bleed with results still pending. De nies any significant abdominal pain. There has been concern from daughter with patient previously having strokes whenever she has come off of anticoagulation. 01/22 Patient seen and examined. Blood pressure 107/61, heart rate 92, pulse ox 98% on 2 L nasal cannula. Repeat blood work reveals hemoglobin dropped to 6.5. Improvement of renal function with BUN 68 creatinine 2.65. Patient is not on an ticoagulation at this time. Patient complains of her legs hurting. She has not had a bowel movement. 01/23 Patient seen and examined. Patient is complaining of nausea. Blood pressure 123/76, heart rate 95, pulse ox 97% on room air. Patient is followed by neurology for seizure disorder that was witnessed by her daughter in the ER. She is scheduled for MRI of the brain and EEG. She has also been seen by orthopedics regarding a left hip hematoma. Hemoglobin seems to be stable at 7.9. BUN 52 creatinine 1.77, sodium 131 and potassium 3.9. Blood pressure running between 98/64-145/72. Heart rate is in the 80s and 90s, pulse ox 97% on room air. 01/24 Patient seen and examined. Patient states that she has had nausea all day. There was an attempt for EEG which has been postponed until tomorrow according to the patient. She denies chest pain no abdominal pain. Blood pressure 153/85, heart rate 85, pulse ox 93% on room air. Hemoglobin has been stable at 8.7. 01/25 Patient seen and examined. Patient had significant nausea yesterday and states she is feeling a little bit better today. She is on clear liquid diet. She denies chest pain or chest pressure. We did start patient on heparin drip yesterday due to history of CVA when off anticoagulation. MRI of the brain revealed persistent tiny bilateral fluid collections in left frontal fluid collection suspect subacute or chronic in nature. An early subacute component to the left frontal fluid collection may be present. Some local mass effect. CT scan of the brain ordered by neurology for further evaluation blood pressure 130/76, heart rate 93, pulse ox 96% on room air. Repeat blood work reveals stable hemoglobin at 8.5. Sodium 129, potassium 3.9, BUN 30 creatinine 1.33. 01/26 Patient seen and examined. Yesterday, patient underwent CT of the brain which confirmed a new subdural hemorrhage. Patient was taken off heparin drip. She is in atrial fibrillation with controlled rate. Blood pressure 120/64, heart rate 70, pulse ox 95% on room air. Hemoglobin is 8.7. Sodium 128, BUN 25 creatinine 1.33. Physical examination: Gen: This is an 84-year-old female in no acute distress. VS: reviewed HEENT: Head reveals significant left forehead, periorbital, left cheek and left chin/jaw ecchymosis, laceration with repair to the left forehead. Otherwise normocephalic. Pupils equal, round. Sclerae is anicteric. NECK: Supple. No JVD. LUNGS: Clear to auscultation. No wheezes or rhonchi. No intercostal retractions . HEART: Regular rate and rhythm. No murmur. ABDOMEN: Soft No tenderness. EXTREMITIES: No pedal edema. No calf tenderness. NEUROLOGICAL: Patient is awake, alert and oriented x3. Assessment: Syncopal episode Close head injury New subdural hemorrhage Laceration requiring sutures Seizure activity in the ER and witnessed by her daughter Hypotensive Anemia, acute blood loss from head injury, hip injury Acute kidney injury Hyponatremia Moderate pulmonary hypertension Severe tricuspid regurgitation Left bundle branch block Chronic atrial fibrillation on Eliquis Chronic left subdural hematoma Multiple ischemic strokes status post TPA and 2 thrombectomies one in 2019 and one History of AVM status post Tim Plan: Hold Lasix, Zaroxolyn, potassium, propranolol and ramipril Patient has had strokes before when she has come off of anticoagulation in the past. Heparin discontinued Consider 30-day event monitor or loop recorder prior to discharge Due to to patient's fall risk and history of CVAs would recommend patient be evaluated for Watchman procedure as an outpatient Further recommendations to follow based upon clinical course Nurse practitioner note has been reviewed, I agree with documented findings and plan of care. Patient was seen and examined. Objective - Vital Signs Vital signs: Vital Signs Temp 98.4 F 01/25/25 19:45 Pulse 70 01/26/25 03:45 Resp 18 01/26/25 03:45 BP 120/64 01/26/25 03:45 Pulse Ox 95 01/26/25 03:45 FiO2 Intake & Output 01/25/25 01/26/25 01/26/25 18:59 06:59 18:59 Intake Total 773.563 120 Output Total 200 400 Balance 573.563 -400 120 Weight 72.575 kg Intake: Intake, IV Titration 655.563 Amount Heparin Sod,Pork in 0.45% 155.563 NaCl 25,000 unit In 0.45 % NaCl 1 250ml.bag @ 12 UNITS/KG/HR 8.709 mls/hr IV .Q24H [facility] Rx#: [id number] Sodium Chloride 0.9% 500 500 ml 500 ml @ 999 mls/hr IV .Q31M [facility] Rx#:[id number] Oral 118 120 Output: Urine 200 400 Other: Voiding Method External Catheter External Catheter - Labs CBC & Chem 7: 01/26/25 06:55 01/26/25 06:55 Labs: Abnormal Lab Results - Last 24 Hours (Table) 01/25/25 01/25/25 01/26/25 Range/Units 14:36 17:42 06:55 RBC 2.71 L 2.59 L (4.10-5.20) 10*6/uL Hgb 9.2 L 8.7 L (12.0-15.0) g/dL Hct 27.7 L 26.4 L (37.2-46.3) % MCV 102.2 H 101.9 H (80.0-97.0) fL MCH 33.9 H 33.6 H (27.0-32.0) pg MPV 8.9 L 9.1 L (9.5-12.2) fL Immature Gran # 0.18 H 0.17 H (0.00-0.04) 10*3/uL Lymphocytes # 0.89 L 0.73 L (0.90-5.00) 10*3/uL Monocytes # 1.10 H (0.20-1.00) 10*3/uL Sodium 130 L (137-145) mmol/L Chloride (98-107) mmol/L BUN (7-17) mg/dL Creatinine (0.52-1.04) mg/dL Glucose (74-99) mg/dL 01/26/25 Range/Units 06:55 RBC (4.10-5.20) 10*6/uL Hgb (12.0-15.0) g/dL Hct (37.2-46.3) % MCV (80.0-97.0) fL MCH (27.0-32.0) pg MPV (9.5-12.2) fL Immature Gran # (0.00-0.04) 10*3/uL Lymphocytes # (0.90-5.00) 10*3/uL Monocytes # (0.20-1.00) 10*3/uL Sodium 128 L (137-145) mmol/L Chloride 97 L (98-107) mmol/L BUN 25 H (7-17) mg/dL Creatinine 1.33 H (0.52-1.04) mg/dL Glucose 101 H (74-99) mg/dL
--- NOTE | 2025-01-26 10:20 | CT ---
EXAMINATION TYPE: CT brain wo con DATE OF EXAM: 01/26/2025 10:08 AM COMPARISON: None. CLINICAL INDICATION: Female, 84 years old with history of subdural hematoma, Follow up for subdural h ematoma. TECHNIQUE: CT of the brain is performed utilizing 3 mm thick sections through the posterior fossa and 3 mm thick sections through the remaining calvarium. Study is performed within 24 hours of arrival to the hospital. Contrast used: mL of , (none if empty) CT DLP: 1084.4 mGycm, Automated exposure control for dose reduction was used. FINDINGS: The tiny amounts of subdural hematoma currently measures 0.8 x 0.3 cm. This may be within measurement error with the plane of section. Some minimal increase is not excluded. The remaining chronic subdur al hematoma appears stable. The subpleural ducts measure on the current exam as 1.1 cm. No mass lesion is evident. No acute infarcts are evident. Ventricles and sulci are appropriate for the patient age. Paranasal sinuses and mastoid air cells within the [id number] are clear. Soft tissue swelling is over the left frontal region. IMPRESSION: 1. Very subtle minimal change in the acute component of the left subdural hematoma may be present. Th is is near measurement error and could be related to artifact from the plane of section. The chronic subdural hematoma visually appears unchanged. [facility], , 01/26/2025 10:17 AM
--- NOTE | 2025-01-26 15:07 | P.PN ---
Subjective Progress Note Date: 01/26/25 I am following up with the patient and we repeat CT head which there was concern for new left frontal subdural bleed small. So heparin drip was discontinued yesterday since the risk felt outweigh benefit. Today patient feels she is doing well and denies any nausea any vomiting any new focal weakness. Her headache is slightly over the left side but not severe. Objective - Vital Signs Vital signs: Vital Signs Temp 98.4 F 01/25/25 19:45 Pulse 95 01/26/25 12:00 Resp 18 01/26/25 12:00 BP 148/69 01/26/25 12:00 Pulse Ox 96 01/26/25 12:00 FiO2 Intake & Output 01/25/25 01/26/25 01/26/25 18:59 06:59 18:59 Intake Total 773.563 360 Output Total 200 400 Balance 573.563 -400 360 Weight 72.575 kg Intake: Intake, IV Titration 655.563 Amount Heparin Sod,Pork in 0.45% 155.563 NaCl 25,000 unit In 0.45 % NaCl 1 250ml.bag @ 12 UNITS/KG/HR 8.709 mls/hr IV .Q24H [facility] Rx#: [id number] Sodium Chloride 0.9% 500 500 ml 500 ml @ 999 mls/hr IV .Q31M [facility] Rx#:[id number] Oral 118 360 Output: Urine 200 400 Other: Voiding Method External Catheter External Catheter External Catheter - Exam GENERAL: The patient is lying in bed and is not in acute distress. HENT: Bruises throughout the face. NEUROLOGICAL: Higher mental function: The patient is awake, alert, oriented to self, place and time. Patient is following commands. No aphasia and no neglect. Cranial nerves: The pupils are round, equal and reactive to light and accommodation. Visual donohue are full to confrontation throughout. Extraocular movement is intact no nystagmus is noted. Facial sensation is normal to touch throughout. The facial strength is normal throughout. Hearing is moderately decreased bilaterally to hand rub. Tongue is midline and moved [id number] without any difficulty. No dysarthria is noted. Shoulder shrug is normal bilaterally. Motor: The strength is 5 over 5 throughout uppers. While the lowers limited because of pain but had antigravity. Normal tone and bulk. Cerebellum: Normal finger to nose bilaterally. Sensation: Sensation is normal to touch throughout. Some of the work-up during this hospital visit consisted of: hemoglobin was as low in the 6-kyree and currently 7.9 Had acute kidney injury that is improving. It was as high as 3.36. Urine culture is positive for gram-negative bacilli. CT brain cervical spine and CT facial bones is reported as no acute intracranial process. 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 Nonspecific white matter changes. Acute depressed communicate left nasal bone fracture with associated soft tissue swelling. Acute left periorbital soft tissue hematoma with acute soft tissue contusion to left chin. Paranasal sinus disease with air-fluid level within the left maxillary sinus which may be related to acute sinusitis. No evidence of cervical spine fracture. Mild multilevel degenerative disc disease. I personally reviewed the CT of the head and there is no acute or subacute ischemic stroke. MRI brain: Is reported as moderate to advanced diffuse cerebral atrophy redemo nstrated. Mild to moderate nonspecific white matter changes and probably the proximal vessel ischemic change redemonstrated. Persistent tiny bilateral extra-axial fluid collection and more focal small to moderate size left frontal extra-axial fluid collection both suspected more subacute to chronic age. An early subacute component on the left frontal fluid collection may be present. There is some local mass effect. Advise repeat CT to further evaluate. EEG is abnormal. The background slowing is suggestive of mild encephalopathy. There is no focal slowing, discharges or seizure. CT of the head on 01/25/2025 is reported as there is a new 0.2 x 0.6 cm acute subdural hemorrhage, new from 01/19/2025 CT examination. This appears to be at dependent portion of the chronic subdural hematoma Repeat CT of the head today reveals very subtle minimal change in the acute, overnight of the left subdural hematoma may be present. This is near a measurement error and could be related to artifact from plain of section. The chronic subdural hematoma usually appears unchanged. - Labs CBC & Chem 7: 01/26/25 06:55 01/26/25 06:55 Labs: Abnormal Lab Results - Last 24 Hours (Table) 01/25/25 01/25/25 01/26/25 Range/Units 14:36 17:42 06:55 RBC 2.71 L 2.59 L (4.10-5.20) 10*6/uL Hgb 9.2 L 8.7 L (12.0-15.0) g/dL Hct 27.7 L 26.4 L (37.2-46.3) % MCV 102.2 H 101.9 H (80.0-97.0) fL MCH 33.9 H 33.6 H (27.0-32.0) pg MPV 8.9 L 9.1 L (9.5-12.2) fL Immature Gran # 0.18 H 0.17 H (0.00-0.04) 10*3/uL Lymphocytes # 0.89 L 0.73 L (0.90-5.00) 10*3/uL Monocytes # 1.10 H (0.20-1.00) 10*3/uL Sodium 130 L (137-145) mmol/L Chloride (98-107) mmol/L BUN (7-17) mg/dL Creatinine (0.52-1.04) mg/dL Glucose (74-99) mg/dL // Range/Units 06:55 RBC (4.10-5.20) 10*6/uL Hgb (12.0-15.0) g/dL Hct (37.2-46.3) % MCV (80.0-97.0) fL MCH (27.0-32.0) pg MPV (9.5-12.2) fL Immature Gran # (0.00-0.04) 10*3/uL Lymphocytes # (0.90-5.00) 10*3/uL Monocytes # (0.20-1.00) 10*3/uL Sodium 128 L (137-145) mmol/L Chloride 97 L (98-107) mmol/L BUN 25 H (7-17) mg/dL Creatinine 1.33 H (0.52-1.04) mg/dL Glucose 101 H (74-99) mg/dL Assessment and Plan Assessment: This is an 84-year-old woman with history of strokes, left subdural, atrial fibrillation was having recurrent falls and presents because of passing out episode and had facial trauma. She was in the hospital she developed seizure for her daughter which was tonic-clonic with eyes rolling back lasted few minutes. She has been having falling episodes for the last 1 to 2 years. New onset seizure activity. Possibly her passing out episode at home was possibly due to seizure-like activity as well as her recurrent falls was possibly due to underlying seizure especially with the underlying history of stroke--No further seizure or syncopal spells History of left subdural with concern of new left subdrual over left frontal that is small in size. Acute urinary tract infection Acute chronic kidney injury--improved With trauma due to the recent fall at home Acute ischemic stroke x 2 History of left subdural Underlying history of atrial fibrillation Plan: I will get a repeat CT of the head tomorrow and if it shows any severe worsening of the subdural then recommend the patient to be transferred to a tertiary center for neurosurgical evaluation Patient heparin drip was discontinued since the risk for outweighed the benefit because of concern for new subdural. Continue Vimpat 50mg bid Seizure Precaution and seizure pads Per the [place] DMV because of the seizure, avoid driving for 6 months until seizure-free, avoid heights, avoid swimming assisted or using heavy machinery Will defer the rest of medical management to primary and other specialist. The plan is discussed with patient and her nurse. Time with Patient: Less than 30
--- NOTE | 2025-01-26 15:17 | P.PN ---
Subjective Patient is seen for follow-up for acute kidney injury and chronic kidney disease. Renal function is improving. Creatinine is down to 1.3. Status post fluid bolus yesterday and serum sodium improved to 130. Labs are pending from today No significant complaints Objective - Vital Signs Vital signs: Vital Signs Temp 98.4 F 01/25/25 19:45 Pulse 95 01/26/25 12:00 Resp 18 01/26/25 12:00 BP 148/69 01/26/25 12:00 Pulse Ox 96 01/26/25 12:00 FiO2 Intake & Output 01/25/25 01/26/25 01/26/25 18:59 06:59 18:59 Intake Total 773.563 360 Output Total 200 400 Balance 573.563 -400 360 Weight 72.575 kg Intake: Intake, IV Titration 655.563 Amount Heparin Sod,Pork in 0.45% 155.563 NaCl 25,000 unit In 0.45 % NaCl 1 250ml.bag @ 12 UNITS/KG/HR 8.709 mls/hr IV .Q24H [facility] Rx#: [id number] Sodium Chloride 0.9% 500 500 ml 500 ml @ 999 mls/hr IV .Q31M [facility] Rx#:[id number] Oral 118 360 Output: Urine 200 400 Other: Voiding Method External Catheter External Catheter External Catheter - Exam Patient is awake, comfortable, no acute distress Bruising noted on the face and laceration on the forehead Examination of the heart S1 and S2 Examination of the lungs bilateral breath sounds are heard Abdomen is soft nontender Examination lower extremity shows no significant edema [employer] exam shows patient is able to move all 4 extremities. - Labs CBC & Chem 7: 01/26/25 06:55 01/26/25 06:55 Labs: Abnormal Lab Results - Last 24 Hours (Table) 01/25/25 01/25/25 01/26/25 Range/Units 14:36 17:42 06:55 RBC 2.71 L 2.59 L (4.10-5.20) 10*6/uL Hgb 9.2 L 8.7 L (12.0-15.0) g/dL Hct 27.7 L 26.4 L (37.2-46.3) % MCV 102.2 H 101.9 H (80.0-97.0) fL MCH 33.9 H 33.6 H (27.0-32.0) pg MPV 8.9 L 9.1 L (9.5-12.2) fL Immature Gran # 0.18 H 0.17 H (0.00-0.04) 10*3/uL Lymphocytes # 0.89 L 0.73 L (0.90-5.00) 10*3/uL Monocytes # 1.10 H (0.20-1.00) 10*3/uL Sodium 130 L (137-145) mmol/L Chloride (98-107) mmol/L BUN (7-17) mg/dL Creatinine (0.52-1.04) mg/dL Glucose (74-99) mg/dL 01/26/25 Range/Units 06:55 RBC (4.10-5.20) 10*6/uL Hgb (12.0-15.0) g/dL Hct (37.2-46.3) % MCV (80.0-97.0) fL MCH (27.0-32.0) pg MPV (9.5-12.2) fL Immature Gran # (0.00-0.04) 10*3/uL Lymphocytes # (0.90-5.00) 10*3/uL Monocytes # (0.20-1.00) 10*3/uL Sodium 128 L (137-145) mmol/L Chloride 97 L (98-107) mmol/L BUN 25 H (7-17) mg/dL Creatinine 1.33 H (0.52-1.04) mg/dL Glucose 101 H (74-99) mg/dL Assessment and Plan Assessment: 1. Acute kidney injury secondary to ATN secondary to hypotension and acute blood loss anemia. Creatinine decreased to 1.3. Ultrasound showed atrophic kidneys. 2. Hypovolemic hyponatremia improved with IV fluids. Status post fluid bolus yesterday with slight improvement in sodium from 129 to 130 3. Status post fall. 4. Chronic kidney disease stage IV baseline creatinine 1.8-2.2. 5. Acute blood loss anemia. Iron replete. 6. Hypertension with chronic kidney disease. Controlled. Plan: Continue to encourage increased oral intake Follow-up on labs from today Avoid nephrotoxic agents
--- NOTE | 2025-01-26 16:14 | P.PN ---
Subjective Progress Note Date: 01/26/25 Principal diagnosis: Reason for follow-up is UTI Patient is 84-year-old female with a past medical history significant for hypertension hyperlipidemia CVA TIA atrial fibrillation was brought into the hospital 2 days ago after apparently the patient did have a fall, did have significant head and neck bruising with laceration to the left forehead did have elevated white count positive UA and urinary symptoms concerning for UTI prompting this consultation. On today's evaluation that is 01/26/2025, the patient continues to be afebrile, the patient is on room air and breathing comfortably, the Pt denies having any chest pain or cough, the patient denies having any abdominal pain no vomiting or any diarrhea. Patient white count is 8.98 creatinine is 1.33 urine with Klebsiella sensitive to ceftriaxone Objective - Vital Signs Vital signs: Vital Signs Temp 98.4 F 01/25/25 19:45 Pulse 94 01/26/25 08:10 Resp 18 01/26/25 08:10 BP 122/72 01/26/25 08:10 Pulse Ox 97 01/26/25 08:10 FiO2 Intake & Output 01/25/25 01/26/25 01/26/25 18:59 06:59 18:59 Intake Total 773.563 120 Output Total 200 400 Balance 573.563 -400 120 Weight 72.575 kg Intake: Intake, IV Titration 655.563 Amount Heparin Sod,Pork in 0.45% 155.563 NaCl 25,000 unit In 0.45 % NaCl 1 250ml.bag @ 12 UNITS/KG/HR 8.709 mls/hr IV .Q24H [facility] Rx#: [id number] Sodium Chloride 0.9% 500 500 ml 500 ml @ 999 mls/hr IV .Q31M [facility] Rx#:[id number] Oral 118 120 Output: Urine 200 400 Other: Voiding Method External Catheter External Catheter External Catheter - Exam GENERAL DESCRIPTION: An elderly female lying in bed in no distress RESPIRATORY SYSTEM: Unlabored breathing , clear to auscultation anteriorly HEART: S1 S2 regular rate and rhythm , ABDOMEN: Soft , no tenderness EXTREMITIES: No edema feet - Labs CBC & Chem 7: 01/26/25 06:55 01/26/25 06:55 Labs: Abnormal Lab Results - Last 24 Hours (Table) 01/25/25 01/25/25 01/26/25 Range/Units 14:36 17:42 06:55 RBC 2.71 L 2.59 L (4.10-5.20) 10*6/uL Hgb 9.2 L 8.7 L (12.0-15.0) g/dL Hct 27.7 L 26.4 L (37.2-46.3) % MCV 102.2 H 101.9 H (80.0-97.0) fL MCH 33.9 H 33.6 H (27.0-32.0) pg MPV 8.9 L 9.1 L (9.5-12.2) fL Immature Gran # 0.18 H 0.17 H (0.00-0.04) 10*3/uL Lymphocytes # 0.89 L 0.73 L (0.90-5.00) 10*3/uL Monocytes # 1.10 H (0.20-1.00) 10*3/uL Sodium 130 L (137-145) mmol/L Chloride (98-107) mmol/L BUN (7-17) mg/dL Creatinine (0.52-1.04) mg/dL Glucose (74-99) mg/dL 01/26/25 Range/Units 06:55 RBC (4.10-5.20) 10*6/uL Hgb (12.0-15.0) g/dL Hct (37.2-46.3) % MCV (80.0-97.0) fL MCH (27.0-32.0) pg MPV (9.5-12.2) fL Immature Gran # (0.00-0.04) 10*3/uL Lymphocytes # (0.90-5.00) 10*3/uL Monocytes # (0.20-1.00) 10*3/uL Sodium 128 L (137-145) mmol/L Chloride 97 L (98-107) mmol/L BUN 25 H (7-17) mg/dL Creatinine 1.33 H (0.52-1.04) mg/dL Glucose 101 H (74-99) mg/dL Assessment and Plan (1) UTI (urinary tract infection) Current Visit: Yes Status: Acute Code(s): N39.0 - URINARY TRACT INFECTION, SITE NOT SPECIFIED SNOMED Code(s): 09485304 (2) Allergy to multiple antibiotics Current Visit: Yes Status: Acute Code(s): Z88.1 - ALLERGY STATUS TO OTHER ANTIBIOTIC AGENTS SNOMED Code(s): 739592096 Plan: 1patient presenting to the hospital with a syncopal episode and fall and has significant bruising and fracture to the forehead area patient also have a bnormal CT abdominal pelvis with significant layering inside the bladder in this patient who did have significantly positive UA mostly with the white cells rather than red cells did have urinary frequency mild elevated white count concerning for symptomatic UTI from a enteric gram-negative pathogen 2-patient with multiple antibiotic ALLERGIES that would limit the number of antibiotic safe to use 3-patient white count has normalized urine cultures currently Klebsiella which is sensitive to ceftriaxone 4patient slowly clinical improvement to continue Rocephin while inpatient Dictation was produced using [employer] dictation software. please excuse any grammatical, word or spelling errors. Time with Patient: Less than 30
--- NOTE | 2025-01-26 23:20 | XR ---
EXAMINATION TYPE: XR chest 1V DATE OF EXAM: 01/26/2025 3:37 PM COMPARISON: 01/19/2025 CLINICAL INDICATION: Female, 84 years old with history of chf, TECHNIQUE: XR chest 1V view(s) obtained. FINDINGS: The heart size is mildly prominent. The pulmonary vasculature is normal. Small left pleural effusion is present. Minimal right pleural effusion is present IMPRESSION: 1. Mild cardiomegaly. 2. Small bilateral pleural effusions [facility], , 01/26/2025 11:18 PM
[2025-01-27 09:08] LABS: Basophils # (A) 0.04 10*3/uL (0.00-0.10); Basophils % (A) 0.5 %; Eosinophils # (A) 0.25 10*3/uL (0.04-0.35); Eosinophils % (A) 3.2 %; HCT 24.9 % (37.2-46.3); HGB 8.6 g/dL (12.0-15.0); Lymphocytes # (A) 0.83 10*3/uL (0.90-5.00); Lymphocytes % (A) 10.5 %; MCHC 34.5 g/dL (32.0-37.0); MCV 101.2 fL (80.0-97.0); Mean Platelet Volume 9.5 fL (9.5-12.2); Monocytes % (A) 11.4 %; Neutrophils # (A) 5.71 10*3/uL (1.80-7.70); Neutrophils % (A) 72.5 %; Platelet Count 253 10*3/uL (140-440); RBC 2.46 10*6/uL (4.10-5.20); RDW 18.2 % (11.5-14.5); WBC 7.88 10*3/uL (4.50-10.00)
[2025-01-27 09:28] LABS: African American GFR (CKD) 45 (>60 ml/min/1.73 sqM); Anion Gap 4 mmol/L; Blood Urea Nitrogen 21 mg/dL (7-17); Calcium 8.5 mg/dL (8.4-10.2); Carbon Dioxide 27 mmol/L (22-30); Chloride 97 mmol/L (98-107); Glucose 103 mg/dL (74-99); Non-African American GFR(CKD) 39 (>60 ml/min/1.73 sqM); Potassium 4.2 mmol/L (3.5-5.1); Sodium 128 mmol/L (137-145)
--- NOTE | 2025-01-27 10:15 | CT ---
EXAMINATION TYPE: CT brain wo con DATE OF EXAM: 01/27/2025 7:19 AM COMPARISON: None. CLINICAL INDICATION: Female, 84 years old with history of Follow up on Subdural hematoma, Follow up o n subdural hematoma TECHNIQUE: CT of the brain is performed utilizing 3 mm thick sections through the posterior fossa and 3 mm thick sections through the remaining calvarium. Study is performed within 24 hours of arrival to the hospital. Contrast used: mL of , (none if empty) CT DLP: 1098.4 mGycm, Automated exposure control for dose reduction was used. FINDINGS: The tiny dependent subpleural hematoma currently measures 1.0 x 0.2 cm. Previous measurement 0.8 x 0. 3 cm. Chronic left subdural appears stable. No new hemorrhages are identified. No mass lesion is evident. No acute infarcts are evident. Chronic changes of the anterior temporal lobe are unchanged from ilda rison Ventricles and sulci are somewhat prominent but stable from comparison. No temporal horn dilatation i s evident. Paranasal sinuses and mastoid air cells within the [id number] are clear. Stable anterior soft tissue soft tissue swelling is present. IMPRESSION: 1. The tiny subdural hematoma remains present currently measuring 1.0 x 0.2 cm. 2. No significant interval changes. [facility], , 01/27/2025 10:12 AM
[2025-01-27] MEDS: FUROSEMIDE 10 MG/ML 4 ML VIAL IV ONE (11:30)
--- NOTE | 2025-01-27 12:20 | P.PN ---
Subjective Patient is seen for follow-up for acute kidney injury and chronic kidney disease. Renal function is improving. Creatinine is down to 1.2 Status post fluid bolus yesterday and serum sodium improved to 130 but dropped again to 128. Chest x-ray showed pleural effusions suggestive of mild volume overload No significant complaints Objective - Vital Signs Vital signs: Vital Signs Temp 97.7 F 01/27/25 09:48 Pulse 79 01/27/25 11:29 Resp 15 01/27/25 11:29 BP 120/75 01/27/25 11:29 Pulse Ox 98 01/27/25 11:29 FiO2 Intake & Output 01/26/25 01/27/25 01/27/25 18:59 06:59 18:59 Intake Total 450 100 Output Total 500 450 Balance -50 -450 100 Weight 72.5 kg Intake: Oral 450 100 Output: Urine 500 450 Other: Voiding Method External Catheter External Catheter External Catheter # Voids 1 - Exam Patient is awake, comfortable, no acute distress Bruising noted on the face and laceration on the forehead Examination of the heart S1 and S2 Examination of the lungs bilateral breath sounds are heard Abdomen is soft nontender Examination lower extremity shows no significant edema TOWER HELPER exam shows patient is able to move all 4 extremities. - Labs CBC & Chem 7: 01/27/25 08:28 01/27/25 08:28 Labs: Abnormal Lab Results - Last 24 Hours (Table) 01/27/25 01/27/25 Range/Units 08:28 08:28 RBC 2.46 L (4.10-5.20) 10*6/uL Hgb 8.6 L (12.0-15.0) g/dL Hct 24.9 L (37.2-46.3) % MCV 101.2 H (80.0-97.0) fL MCH 35.0 H (27.0-32.0) pg Immature Gran # 0.15 H (0.00-0.04) 10*3/uL Lymphocytes # 0.83 L (0.90-5.00) 10*3/uL Sodium 128 L (137-145) mmol/L Chloride 97 L (98-107) mmol/L BUN 21 H (7-17) mg/dL Creatinine 1.24 H (0.52-1.04) mg/dL Glucose 103 H (74-99) mg/dL Assessment and Plan Assessment: 1. Acute kidney injury secondary to ATN secondary to hypotension and acute blood loss anemia. Creatinine decreased to 1.2. Ultrasound showed atrophic kidneys. 2. Hypovolemic hyponatremia improved with IV fluids initially. Patient has poor oral intake which may be contributing to serum sodium not improving further. Chest x-ray suggestive of mild volume overload 3. Status post fall. 4. Chronic kidney disease stage IV baseline creatinine 1.8-2.2. 5. Acute blood loss anemia. Iron replete. 6. Hypertension with chronic kidney disease. Controlled. Plan: IV Lasix x 1 Repeat sodium later this afternoon Continue to encourage increased oral intake Avoid nephrotoxic agents
[2025-01-27] MEDS ORDERED: HEPARIN SODIUM 1,000 UN/ML (10ML VL) IV PRN (14:29)
[2025-01-27] MEDS: HEPARIN SOD,PORK IN 0.45% NACL 25,000 UNIT in 0.45% NACL 1 250ML.BAG IV SCH (14:40)
[2025-01-27] MEDS: HEPARIN SODIUM 1,000 UN/ML (10ML VL) IV ONE (14:41)
[2025-01-27 15:06] LABS: Basophils # (A) 0.04 10*3/uL (0.00-0.10); Basophils % (A) 0.4 %; Eosinophils # (A) 0.23 10*3/uL (0.04-0.35); Eosinophils % (A) 2.5 %; HCT 28.7 % (37.2-46.3); HGB 9.6 g/dL (12.0-15.0); Lymphocytes % (A) 8.8 %; MCH 34.5 pg (27.0-32.0); MCHC 33.4 g/dL (32.0-37.0); MCV 103.2 fL (80.0-97.0); Mean Platelet Volume 9.1 fL (9.5-12.2); Monocytes # (A) 0.82 10*3/uL (0.20-1.00); Monocytes % (A) 9.1 %; Neutrophils # (A) 7.02 10*3/uL (1.80-7.70); Neutrophils % (A) 77.5 %; Platelet Count 283 10*3/uL (140-440); RBC 2.78 10*6/uL (4.10-5.20); RDW 18.6 % (11.5-14.5); WBC 9.06 10*3/uL (4.50-10.00)
[2025-01-27 15:29] LABS: INR 1.2 (<1.2); Prothrombin Time 12.7 sec (10.0-12.5)
[2025-01-27 15:36] LABS: Partial Thromboplastin Time 132.8 sec (22.0-30.0)
--- NOTE | 2025-01-27 15:40 | P.PN ---
Subjective Progress Note Date: 01/27/25 I am following-up with the patient and feels about the same. Denies of any headache today. Denies nausea or vomiting. Her anticoagulation is on hold because of left subdural. Her so-in-law who is at bedside stated she was on eliquis for A-fib. Objective - Vital Signs Vital signs: Vital Signs Temp 100.1 F H 01/27/25 14:11 Pulse 85 01/27/25 15:08 Resp 15 01/27/25 15:08 BP 115/69 01/27/25 15:08 Pulse Ox 95 01/27/25 15:08 FiO2 Intake & Output 01/26/25 01/27/25 01/27/25 18:59 06:59 18:59 Intake Total 450 218 Output Total 500 450 Balance -50 -450 218 Weight 72.5 kg Intake: Oral 450 218 Output: Urine 500 450 Other: Voiding Method External Catheter External Catheter Toilet Bedside Commode # Voids 1 - Exam GENERAL: The patient is lying in bed and is not in acute distress. HENT: Bruises throughout the face. NEUROLOGICAL: Higher mental function: The patient is awake, alert, oriented to self, place and time. Patient is following commands. No aphasia and no neglect. Cranial nerves: The pupils are round, equal and reactive to light and accommodation. Visual donohue are full to confrontation throughout. Extraocular movement is intact no nystagmus is noted. Facial sensation is normal to touch throughout. The facial strength is normal throughout. Hearing is moderately decreased bilaterally to hand rub. Tongue is midline and moved [id number] without any difficulty. No dysarthria is noted. Shoulder shrug is normal bilaterally. Motor: The strength is 5 over 5 throughout uppers. While the lowers limited because of pain but had antigravity. Normal tone and bulk. Cerebellum: Normal finger to nose bilaterally. Sensation: Sensation is normal to touch throughout. Some of the work-up during this hospital visit consisted of: hemoglobin was as low in the 6-kyree and currently 7.9 Had acute kidney injury that is improving. It was as high as 3.36. Urine culture is positive for gram-negative bacilli. CT brain cervical spine and CT facial bones is reported as no acute intracranial process. 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 Nonspecific white matter changes. Acute depressed communicate left nasal bone fracture with associated soft tissue swelling. Acute left periorbital soft tissue hematoma with acute soft tissue contusion to left chin. Paranasal sinus disease with air-fluid level within the left maxillary sinus which may be related to acute sinusitis. No evidence of cervical spine fracture. Mild multilevel degenerative disc disease. I personally reviewed the CT of the head and there is no acute or subacute ischemic stroke. MRI brain: Is reported as moderate to advanced diffuse cerebral atrophy redemonstrated. Mild to moderate nonspecific white matter changes and probably the proximal vessel ischemic change redemonstrated. Persistent tiny bilateral extra-axial fluid collection and more focal small to moderate size left frontal extra-axial fluid collection both suspected more subacute to chronic age. An early subacute component on the left frontal fluid collection may be present. There is some local mass effect. Advise repeat CT to further evaluate. EEG is abnormal. The background slowing is suggestive of mild encephalopathy. There is no focal slowing, discharges or seizure. CT of the head on 01/25/2025 is reported as there is a new 0.2 x 0.6 cm acute subdural hemorrhage, new from 01/19/2025 CT examination. This appears to be at dependent portion of the chronic subdural hematoma Repeat CT of the head reveals very subtle minimal change in the acute, overnight of the left subdural hematoma may be present. This is near a measurement error and could be related to artifact from plain of section. The chronic subdural hematoma usually appears unchanged. Repeat CT head today: The tiny sudural hematoma remains present currently measuring 1.0X0.2cm. No significant interval changes. - Labs CBC & Chem 7: 01/27/25 14:51 01/27/25 08:28 Labs: Abnormal Lab Results - Last 24 Hours (Table) 01/27/25 01/27/25 01/27/25 Range/Units 08:28 08:28 14:51 RBC 2.46 L 2.78 L (4.10-5.20) 10*6/uL Hgb 8.6 L 9.6 L (12.0-15.0) g/dL Hct 24.9 L 28.7 L (37.2-46.3) % MCV 101.2 H 103.2 H (80.0-97.0) fL MCH 35.0 H 34.5 H (27.0-32.0) pg MPV 9.1 L (9.5-12.2) fL Immature Gran # 0.15 H 0.15 H (0.00-0.04) 10*3/uL Lymphocytes # 0.83 L 0.80 L (0.90-5.00) 10*3/uL Sodium 128 L (137-145) mmol/L Chloride 97 L (98-107) mmol/L BUN 21 H (7-17) mg/dL Creatinine 1.24 H (0.52-1.04) mg/dL Glucose 103 H (74-99) mg/dL Assessment and Plan Assessment: This is an 84-year-old woman with history of strokes, left subdural, atrial fibrillation was having recurrent falls and presents because of passing out episode and had facial trauma. She was in the hospital she developed seizure for her daughter which was tonic-clonic with eyes rolling back lasted few minutes. She has been having falling episodes for the last 1 to 2 years. New onset seizure activity. Possibly her passing out episode at home was possibly due to seizure-like activity as well as her recurrent falls was possibly due to underlying seizure especially with the underlying history of stroke--No further seizure or syncopal spells History of left subdural with concern of new left subdrual over left frontal that is small in size--stable Acute urinary tract infection Acute chronic kidney injury--improved With trauma due to the recent fall at home Acute ischemic stroke x 2 History of left subdural Underlying history of atrial fibrillation Plan: Patient and her son-in-law were in agreement to start anticoagulation since CT head is stable. The son-in-law wants to start since she had history of strokes in the past. Therefore, because the benefit outweigh the risk will start heparin drip for today and if stable after 24 hours can resume Eliquis. Continue Vimpat 50mg bid Seizure Precaution and seizure pads Per the [place] [facility] because of the seizure, avoid driving for 6 months until seizure-free, avoid heights, avoid swimming assisted or using heavy machinery Will defer the rest of medical management to primary and other specialist. The plan is discussed with her nurse. Time with Patient: Less than 30
--- NOTE | 2025-01-27 17:19 | CT ---
EXAMINATION TYPE: CT brain wo con CT DLP: 1098.1 mGycm, Automated exposure control for dose reduction was used. DATE OF EXAM: 01/27/2025 4:44 PM COMPARISON: CT head from the same day. CLINICAL INDICATION:Female, 84 years old with history of resumed heparin was then lethargic/hypotensi ve, resumed heparin was then lethargic/hypotensive TECHNIQUE: Brain: Axial CT images of the brain were obtained with coronal and sagittal reformats created and rev iewed. Contrast used: None. Oral contrast used: None. FINDINGS: Brain: Extra-axial spaces: Redemonstrated layering dependent hematoma along the left cerebral convexity sujatha uring up to 4 mm in thickness on this study. Chronic left subdural hematoma does not look significant ly changed. Left-sided middle meningeal artery embolization changes are seen. Ventricular system: Dilatation in proportion to cerebral atrophy. Cerebral parenchyma: No acute intraparenchymal hemorrhage or mass effect. The morocho-white junction is well differentiated. Encephalomalacia of the anterior left temporal lobe is present. Cerebellum: Unremarkable. Mass effect: No evidence of midline shift. Intracranial vasculature: Atherosclerotic calcifications of the intracranial vessels. Soft tissues: There is a similar area of attenuation along the left supraorbital soft tissues. Calvarium/osseous structures: No acute depressed skull fracture. Paranasal sinuses and mastoid air cells: Moderate scattered paranasal sinus disease. Attenuated rashard nts are seen within the left maxillary sinus. Visualized orbits: Orbital contents are intact. IMPRESSION: No significant interval changes from study done the same day. Similar appearance of a tiny subdural hematoma along the left cerebral convexity measuring up to 4 mm in thickness. [facility], , 01/27/2025 5:17 PM
--- NOTE | 2025-01-27 21:47 | P.PN ---
Subjective Progress Note Date: 01/26/25 This is a pleasant 84 years old female who was seen and examined in the emergency room at [address], she was lying in bed with Jean bandage around her head with superficial wound requiring stitches. With some evidence around her left eye hematoma Patient states with information obtained with the help of the daughter at bedside that patient was getting her shopping back to home as she is independent her neighbor noticed her noted next to her car and he found her on the floor and EMS were called. Patient herself remember standing by her car and the next thing she remembers to be in the hospital. While she was in hospital she developed seizure as per daughter at bedside which was tonic-clonic arms were up in the air and her also rolled back lasted for about short time, few minutes. No biting tongue, no urinary or bowel incontinence. Patient denies any weakness or numbness or blurred vision or slurred speech However she complains from some fuzziness around her left eye and there is some hematoma around left eye but there is no impaired vision. Also patient was taking Eliquis at home. Patient hemodynamically stable, she is afebrile . Blood pressure 92/55. Hemoglobin 10.5. WBC 5.8. INR within the reference range. Sodium 129 Creatinine elevated 2.2 Liver enzymes not significantly elevated. Troponin x [address]: No acute intracranial process Chest x-ray: Mild to moderate cardiomegaly and additional density correlate for CHF EKG: Atrial fibrillation with a rate of 68 5/31 Patient blood pressure slightly on the low side 96/48 She is awake alert looks comfortable lying in bed still has a bruise around her left eye, her left eye swollen and she cannot open it, her main complaint is pain in her left her area where there is a significantly swollen with some fluctuation most likely secondary to hematoma. which limits movement because of pain. No chest pain or dyspnea. No abdominal pain. No headache or dizziness. No abnormal movements Hemodynamically other than that stable and afebrile. WBC is 10.4, hemoglobin went down to 10.5 down to 8.1 Sodium improved 129 up to 132, creatinine went up 2.2 up to 3.2 proBNP is elevated more than 7000 Eliquis remains on hold as well as metolazone Lasix and Jardiance Bladder scan nephrology already on the case We will order urine analysis and We will keep holding Eliquis because of the hematoma pain worsening anemia and low blood pressure 01/21 Patient hemoglobin dropped overnight 6.1 surgery specialist 1 unit of blood transfu luke was given, blood pressure also was slightly on the low side 98/51, currently improved 111/64. Heart rate 89. She is afebrile. Sodium also slightly dropped 132-129, creatinine is almost the same 3.2 and 3.3 today However urinalysis was abnormal suspicious for infection Patient currently getting 1 unit of blood transfusion, she is awake alert looks tired she still have swelling around her left eye and a bruise in her chin from the fall. She still has swelling on her left thigh area from hematoma on fall on presentation as well Today was noticed to have more suprapubic pain and tenderness She denies headache dizziness no dyspnea had her usual chest pain last night but currently no chest pain only little phlegm with deep breath. I talked to the daughter she says she is allergic to penicillin and developed fever when she has child, she was taking Keflex and ceftriaxone before with no problem and she agrees to start her ceftriaxone for possible UTI. Discussed with the staff to give it slowly and to check vitals and half an hour for double check although it looks per history she is not allergic to ceftriaxone Follow-up urine culture Check bladder scan Because of the hemoglobin and UTI we will going to order CT of the abdomen pelvis with oral contrast I double checked with the daughter, she states that what she thought seizure on admission ER actually it was an episode for 5 seconds where she had her eyes rolled up and arms were in the air and it was not like convulsing but little mild shakiness and after that she woke up right away during this 5 to 10 seconds her blood pressure dropped. Therefore the suspicion of seizure is very low we will keep monitoring but I do not think needs further workup for now. 01/22/2025 Patient is evaluated today on the medical floor. She is resting in bed; not feeling well today. Getting ready to work with physical therapy however her hemoglobin came back today at 6.5 and patient to receive 1 unit of PRBC. Currently IV heparin discontinued and also eliquis discontinued. Patient received a dose of DDAVP yesterday and also was started on aranesp today. Patient had abdominal pelvis CT showing yesterday afternoon revealing moderate size hematoma along the left later hip subcutaneous fat later. This corresponds to prior radiograph 01/19/2025. Layering hyperdensity within the urinary bladder corresponding to recent ultrasound. No urinary bladder wall thickening or surrounding inflammatory changes identified. Findings suggest possible blood products versus other types of debris. Correlate with urinalysis. Colonic diverticulosis without evidence for acute diverticulitis. Trace bilateral pleural effusions. Additional blood work reveals sodium 131, BUN 68, creatinine 2.65. Magnesium 1.9. 01/23/2025 Patient evaluated in follow-up on the cardiac floor. Patient received 1 unit of packed red blood cells yesterday globin today is up to 7.9. Her sodium level is 131 BUN of 52 creatinine of 1.77. Nursing staff reports that she has been retaining urine currently she has 500 mL in her urinary bladder. Patient would like to try urinating before undergoing a straight catheterization. Family at the bedside updated on all testing and plan of care and family has no further questions at this time. Pending evaluation by neurology and orthopedics. 01/24/2025 Patient is evaluated today in follow-up in the cardiac floor. Patient complains of significant nausea and vomiting states that she has not had a bowel movement since admission although she has not had much oral intake. Hemoglobin remains stable at 8.7. No surgical intervention per orthopedics for the left thigh hematoma. Renal function continues to improve creatinine with a BUN of 37 and creatinine 1.37. Sodium level of 130. Patient continues off IV fluids and off IV Lasix at this time. Family is concerned because of her significant history of stroke requiring tPA and thrombectomy as well as her history of atrial fibrillation that she does not remain off anticoagulation for extended period of time. Patient has stroked while off thinners in the past. Cardiology has started the patient on IV heparin and will monitor hemoglobin closely. Neurology fo llowing with concern for seizure-like activity on admission this was likely brought on by the syncopal episode. And she is currently pending EEG and MRI. Urine culture reveals Klebsiella pneumonia and currently pending micro sensitivities. 01/25/2025 Patient is evaluated in follow-up in the cardiac floor. Patient encouraged to increase her oral intake although she is having difficulty as her jaw is quite swollen from her fall. Patient went for a brain MRI with findings of moderate to advanced diffuse cerebral atrophy redemonstrated. Mild to moderate nonspecific white matter changes and probably the proximal vessel ischemic change redemonstrated. A persistent tiny bilateral extra-axial fluid collections and more focal small to moderate size left frontal axial fluid collection both suspected more subacute to chronic and age. An early subacute component to the left frontal fluid collection may be present. There is some local mass effect. Advise repeat CT to further evaluate. Neurology following and felt this could be more chronic in nature and patient is known to have a chronic left subdural hematoma on discharge. He felt that the benefit outweighed the risk that the patient should continue on IV heparin as started by cardiology. Hemoglobin remained stable currently 8.5 today. Her sodium level is 129 BUN of 30 creatinine of 1.33. 01/26/2025 Patient is lying in the bed. Awake alert and oriented. No complaints of chest pain or shortness. Denied any headache. CT head today showed very subtle minimal change in the acute component of the left subdural hematoma may be present. This is near measurement error and could be related to artifact from the plane of sectioning. Chronic subdural hematoma usually appears unchanged. Eliquis is on hold. Neurology is planning for repeat CT head tomorrow. Otherwise patient wants to be started back on anticoagulation. Laboratory data showed WBC 7.8 hemoglobin 8.6 and platelets 253 MCV 101.2 sodium 128 potassium 4.2 chloride 97 bicarb is 27 BUN 21 creatinine 1.24 and blood sugar 103. Chest x-ray showed mild cardiomegaly and small pleural effusions. Review of Systems Constitutional: Denied any fatigue denied any fever. Cardio vascular: denied any chest pain, palpitations Gastrointestinal: denied any nausea, vomiting, diarrhea Pulmonary: Denied any shortness of breath cough Neurologic denied any new focal deficits All inpatient medications were reviewed and appropriate changes in these medications as dictated in the interval history and assessment and plan. PHYSICAL EXAMINATION: GENERAL: The patient is alert and oriented x3, not in any acute distress. Well developed, well nourished. HEENT: Pupils are round and equally reacting to light. EOMI. No scleral icterus. No conjunctival pallor. Normocephalic, atraumatic. No pharyngeal erythema. No thyromegaly. CARDIOVASCULAR: S1 and S2 present. No murmurs, rubs, or gallops. PULMONARY: Chest is clear to auscultation, no wheezing or crackles. ABDOMEN: Soft, nontender, nondistended, normoactive bowel sounds. No palpable organomegaly. MUSCULOSKELETAL: No joint swelling or deformity. EXTREMITIES: No cyanosis, clubbing, or pedal edema. Hematoma of the left hip down the lateral side NEUROLOGICAL: Gross neurological examination did not reveal any focal deficits. SKIN: No rashes. stitches over the left eye, bruising periorbital and on chin. 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 No intervention recommended by Ortho. Acute urinary tract infection. Urine culture showed Klebsiella pneumonia Hyponatremia, hypovolemic Acute kidney injury from ATN from hypotension and acute blood loss anemia Acute left periorbital hematoma and laceration Atrial fibrillation with rate controlled on Eliquis at home, Eliquis on hold for now Urinary retention and concern for blood in the urinary bladder. History of stroke in the past requiring TPA and thrombectomy Chronic left subdural hematoma History of AVM status post [place] Hx of hypertension Hyperlipidemia DVT prophylaxis started on IV heparin GI prophylaxis DO NOT INTUBATE. Plan Hemoglobin improved to 8.6. Status post 1 unit of PRBC yesterday. Continue to hold eliquis Resume IV heparin following repeat CT head tomorrow. Continue cardiac telemetry Continue ceftriaxone for Klebsiella pneumonia UTI Patient is a started on Vimpat 50 mg twice daily by neurology with concern for seizure-like activity Monitor hematoma and H&H, transfuse blood for hemoglobin less than 7. Consult orthopedic surgery for the left lateral hip hematoma no surgical intervention planned and recommend conservative management with monitoring Will need to straight catheterize patient as she is unable to void independently. Monitor for further episodes of urinary retention. If there is gross hematuria when patient is able to urinate will need to consult urology Patient is being followed by multiple consultations including ID, Cardiology, Nephrology, Neurology PT OT following. Prognosis guarded. Objective - Vital Signs Vital signs: Vital Signs Temp 98.4 F 01/25/25 19:45 Pulse 94 01/26/25 14:00 Resp 18 01/26/25 14:00 BP 148/69 01/26/25 12:00 Pulse Ox 96 01/26/25 12:00 FiO2 Intake & Output 01/25/25 01/26/25 01/26/25 18:59 06:59 18:59 Intake Total 773.563 360 Output Total 200 400 Balance 573.563 -400 360 Weight 72.575 kg Intake: Intake, IV Titration 655.563 Amount Heparin Sod,Pork in 0.45% 155.563 NaCl 25,000 unit In 0.45 % NaCl 1 250ml.bag @ 12 UNITS/KG/HR 8.709 mls/hr IV .Q24H [facility] Rx#: [id number] Sodium Chloride 0.9% 500 500 ml 500 ml @ 999 mls/hr IV .Q31M [facility] Rx#:[id number] Oral 118 360 Output: Urine 200 400 Other: Voiding Method External Catheter External Catheter External Catheter - Labs CBC & Chem 7: 01/27/25 14:51 01/27/25 08:28 Labs: Abnormal Lab Results - Last 24 Hours (Table) 01/25/25 01/25/25 01/26/25 Range/Units 14:36 17:42 06:55 RBC 2.71 L 2.59 L (4.10-5.20) 10*6/uL Hgb 9.2 L 8.7 L (12.0-15.0) g/dL Hct 27.7 L 26.4 L (37.2-46.3) % MCV 102.2 H 101.9 H (80.0-97.0) fL MCH 33.9 H 33.6 H (27.0-32.0) pg MPV 8.9 L 9.1 L (9.5-12.2) fL Immature Gran # 0.18 H 0.17 H (0.00-0.04) 10*3/uL Lymphocytes # 0.89 L 0.73 L (0.90-5.00) 10*3/uL Monocytes # 1.10 H (0.20-1.00) 10*3/uL Sodium 130 L (137-145) mmol/L Chloride (98-107) mmol/L BUN (7-17) mg/dL Creatinine (0.52-1.04) mg/dL Glucose (74-99) mg/dL 01/26/25 Range/Units 06:55 RBC (4.10-5.20) 10*6/uL Hgb (12.0-15.0) g/dL Hct (37.2-46.3) % MCV (80.0-97.0) fL MCH (27.0-32.0) pg MPV (9.5-12.2) fL Immature Gran # (0.00-0.04) 10*3/uL Lymphocytes # (0.90-5.00) 10*3/uL Monocytes # (0.20-1.00) 10*3/uL Sodium 128 L (137-145) mmol/L Chloride 97 L (98-107) mmol/L BUN 25 H (7-17) mg/dL Creatinine 1.33 H (0.52-1.04) mg/dL Glucose 101 H (74-99) mg/dL
[2025-01-28 09:15] LABS: Basophils # (A) 0.03 10*3/uL (0.00-0.10); Basophils % (A) 0.3 %; Eosinophils # (A) 0.29 10*3/uL (0.04-0.35); HCT 25.8 % (37.2-46.3); HGB 8.6 g/dL (12.0-15.0); Lymphocytes # (A) 0.79 10*3/uL (0.90-5.00); Lymphocytes % (A) 8.3 %; MCH 34.3 pg (27.0-32.0); MCHC 33.3 g/dL (32.0-37.0); MCV 102.8 fL (80.0-97.0); Mean Platelet Volume 9.3 fL (9.5-12.2); Monocytes # (A) 0.99 10*3/uL (0.20-1.00); Monocytes % (A) 10.4 %; Neutrophils # (A) 7.27 10*3/uL (1.80-7.70); Neutrophils % (A) 76.5 %; Platelet Count 271 10*3/uL (140-440); RBC 2.51 10*6/uL (4.10-5.20); RDW 18.6 % (11.5-14.5); WBC 9.51 10*3/uL (4.50-10.00)
[2025-01-28 09:29] LABS: African American GFR (CKD) 39 (>60 ml/min/1.73 sqM); Anion Gap 5 mmol/L; Blood Urea Nitrogen 22 mg/dL (7-17); Calcium 8.4 mg/dL (8.4-10.2); Carbon Dioxide 28 mmol/L (22-30); Chloride 94 mmol/L (98-107); Glucose 93 mg/dL (74-99); Non-African American GFR(CKD) 34 (>60 ml/min/1.73 sqM); Potassium 4.2 mmol/L (3.5-5.1); Sodium 127 mmol/L (137-145)
[2025-01-28 09:33] LABS: Partial Thromboplastin Time 75.3 sec (22.0-30.0); Prothrombin Time 11.4 sec (10.0-12.5)
--- NOTE | 2025-01-28 11:26 | P.PN ---
Subjective Progress Note Date: 01/28/25 I am following-up with the patient and no new neurological issues. She was started on heparin drip yesterday in afternoon, initially held since had episode of low blood pressure and CT head was done and was negative for any new change. So heparin drip was resumed. Denies any vomiting, any new focal weakness. She has hematoma of the left lower extremity and limiting left lower extremity strength but has been having since presentation and seems somewhat improving. Objective - Vital Signs Vital signs: Vital Signs Temp 98.3 F 01/28/25 07:46 Pulse 80 01/28/25 07:46 Resp 15 01/28/25 07:46 BP 102/65 01/28/25 07:46 Pulse Ox 96 01/28/25 07:46 FiO2 Intake & Output 01/27/25 01/28/25 01/28/25 18:59 06:59 18:59 Intake Total 223.8 624.71 Output Total 700 1200 Balance -476.2 -1200 624.71 Weight 73 kg Intake: Intake, IV Titration 5.8 144.71 Amount Heparin Sod,Pork in 0.45% 5.8 144.71 NaCl 25,000 unit In 0.45 % NaCl 1 250ml.bag @ 12 UNITS/KG/HR 8.7 mls/hr IV .Q24H [facility] Rx#:[id number] Oral 218 480 Output: Urine 700 1200 Other: Voiding Method Toilet Toilet Toilet Bedside Commode Bedside Commode Bedside Commode # Voids 4 2 - Exam GENERAL: The patient is lying in bed and is not in acute distress. HENT: Bruises throughout the face. NEUROLOGICAL: Higher mental function: The patient is awake, alert, oriented to self, place and time. Patient is following commands. No aphasia and no neglect. Cranial nerves: The pupils are round, equal and reactive to light and ac commodation. Visual donohue are full to confrontation throughout. Extraocular movement is intact no nystagmus is noted. Facial sensation is normal to touch throughout. The facial strength is normal throughout. Hearing is moderately decreased bilaterally to hand rub. Tongue is midline and moved [id number] without any difficulty. No dysarthria is noted. Shoulder shrug is normal bilaterally. Motor: The strength is 5 over 5 throughout uppers. The right lower strength is 5/5 while the left is limited because of pain and has hematoma. Normal tone and bulk. Cerebellum: Normal finger to nose bilaterally. Sensation: Sensation is normal to touch throughout. Some of the work-up during this hospital visit consisted of: hemoglobin was as low in the 6-kyree and currently 7.9 Had acute kidney injury that is improving. It was as high as 3.36. Urine culture is positive Kkebsiella pneumonia CT brain cervical spine and CT facial bones is reported as no acute intracranial process. 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 Nonspecific white matter changes. Acute depressed communicate left nasal bone fracture with associated soft tissue swelling. Acute left periorbital soft tissue hematoma with acute soft tissue contusion to left chin. Paranasal sinus disease with air-fluid level within the left maxillary sinus which may be related to acute sinusitis. No evidence of cervical spine fracture. Mild multilevel degenerative disc disease. I personally reviewed the CT of the head and there is no acute or subacute ischemic stroke. MRI brain: Is reported as moderate to advanced diffuse cerebral atrophy redemonstrated. Mild to moderate nonspecific white matter changes and probably the proximal vessel ischemic change redemonstrated. Persistent tiny bilateral extra-axial fluid collection and more focal small to moderate size left frontal extra-axial fluid collection both suspected more subacute to chronic age. An early subacute component on the left frontal fluid collection may be present. There is some local mass effect. Advise repeat CT to further evaluate. EEG is abnormal. The background slowing is suggestive of mild encephalopathy. There is no focal slowing, discharges or seizure. CT of the head on 01/25/2025 is reported as there is a new 0.2 x 0.6 cm acute subdural hemorrhage, new from 01/19/2025 CT examination. This appears to be at dependent portion of the chronic subdural hematoma Repeat CT of the head reveals very subtle minimal change in the acute, overnight of the left subdural hematoma may be present. This is near a measurement error and could be related to artifact from plain of section. The chronic subdural hematoma usually appears unchanged. Repeat CT head The tiny sudural hematoma remains present currently measuring 1.0X0.2cm. No significant interval changes. Repeat CT head yesterday in afternoon: No significant interval changes from study done the same day. Similar appearnace of a tiny subdural along the left cerebral convexity measuring up to 4mm in thickness. - Labs CBC & Chem 7: 01/28/25 08:25 01/28/25 08:25 Labs: Abnormal Lab Results - Last 24 Hours (Table) 01/27/25 01/27/25 01/27/25 Range/Units 14:51 14:51 16:16 RBC 2.78 L (4.10-5.20) 10*6/uL Hgb 9.6 L (12.0-15.0) g/dL Hct 28.7 L (37.2-46.3) % MCV 103.2 H (80.0-97.0) fL MCH 34.5 H (27.0-32.0) pg MPV 9.1 L (9.5-12.2) fL Immature Gran # 0.15 H (0.00-0.04) 10*3/uL Lymphocytes # 0.80 L (0.90-5.00) 10*3/uL PT 12.7 H (10.0-12.5) sec INR 1.2 H (<1.2) APTT 132.8 H* 58.9 H (22.0-30.0) sec Sodium (137-145) mmol/L Chloride (98-107) mmol/L BUN (7-17) mg/dL Creatinine (0.52-1.04) mg/dL 01/27/25 01/28/25 01/28/25 Range/Units 21:10 08:25 08:25 RBC 2.51 L (4.10-5.20) 10*6/uL Hgb 8.6 L (12.0-15.0) g/dL Hct 25.8 L (37.2-46.3) % MCV 102.8 H (80.0-97.0) fL MCH 34.3 H (27.0-32.0) pg MPV 9.3 L (9.5-12.2) fL Immature Gran # 0.14 H (0.00-0.04) 10*3/uL Lymphocytes # 0.79 L (0.90-5.00) 10*3/uL PT (10.0-12.5) sec INR (<1.2) APTT 47.1 H 75.3 H (22.0-30.0) sec Sodium (137-145) mmol/L Chloride (98-107) mmol/L BUN (7-17) mg/dL Creatinine (0.52-1.04) mg/dL 01/28/25 Range/Units 08:25 RBC (4.10-5.20) 10*6/uL Hgb (12.0-15.0) g/dL Hct (37.2-46.3) % MCV (80.0-97.0) fL MCH (27.0-32.0) pg MPV (9.5-12.2) fL Immature Gran # (0.00-0.04) 10*3/uL Lymphocytes # (0.90-5.00) 10*3/uL PT (10.0-12.5) sec INR (<1.2) APTT (22.0-30.0) sec Sodium 127 L (137-145) mmol/L Chloride 94 L (98-107) mmol/L BUN 22 H (7-17) mg/dL Creatinine 1.40 H (0.52-1.04) mg/dL Assessment and Plan Assessment: This is an 84-year-old woman with history of strokes, left subdural, atrial fibrillation was having recurrent falls and presents because of passing out episode and had facial trauma. She was in the hospital she developed seizure for her daughter which was tonic-clonic with eyes rolling back lasted few minutes. She has been having falling episodes for the last 1 to 2 years. New onset seizure activity. Possibly her passing out episode at home was possibly due to seizure-like activity as well as her recurrent falls was possibly due to underlying seizure especially with the underlying history of stroke--No further seizure or syncopal spells History of left subdural with concern of new left subdrual over left frontal that is small in size--stable Acute urinary tract infection Acute chronic kidney injury--improving Hyponatremia With trauma due to the recent fall at home Acute ischemic stroke x 2 History of left subdural Underlying history of atrial fibrillation Plan: Patient and her son-in-law were in agreement to start anticoagulation since CT head is stable. She was started on heparin drip yesterday afternoon and will make sure she is on it for 24 hours and if stable recommend swithcing to her home Eliquis. The anticoagulation benefit felt outweigh the risk to avoid stroke. Continue Vimpat 50mg bid Seizure Precaution and seizure pads Per the [facility] because of the seizure, avoid driving for 6 months until seizure-free, avoid heights, avoid swimming assisted or using heavy machinery Will defer the rest of medical management to primary and other specialist. The plan is discussed with her nurse. Time with Patient: Less than 30
--- NOTE | 2025-01-28 11:56 | P.PN ---
Subjective Progress Note Date: 01/27/25 This is an 84-year-old female with past medical history of multiple strokes status post thrombectomy and tPA in 2020 with treatment of AVM, subdural hematoma, chronic atrial fibrillation on Eliquis, hypertension, chronic kidney disease stage III. We have been asked to evaluate the patient for syncope. Vincent singh presented to the emergency center after a fall. She sustained significant injury to the left side of her face and required stitches. Patient states that she sometimes feels lightheaded. She has not had other syncopal episodes. She denies any black or bloody stools. She has minimal lower extremity edema. According to the notes, patient also had seizure activity. Patient presented with systolic blood pressure 80s and 90s, heart rate in the 70s. She is status post 2 L IV fluid. -EKG: Atrial fibrillation, left bundle branch block. -Chest x-ray: Mild to moderate cardiomegaly and interstitial density. Correlate for mild CHF. Some patchy probable atelectasis in the retrocardiac region. -Carotid ultrasound reveals mild atherosclerotic plaque at the bilateral carotid bifurcations. No hemodynamically significant stenosis of the bilateral carotid artery systems. -Echocardiogram performed on this admission reveals EF 65 to 70%, moderately increased left ventricular wall thickness. Mild mitral regurgitation. Mild aortic stenosis. Mild aortic regurgitation. Severe tricuspid regurgitation. RVSP 58. -Laboratory studies: WBC 10.4, hemoglobin 8.1 previously 10.5. Sodium 132, potassium 4.3, BUN 83 creatinine 3.24. Troponin negative x 3. proBNP 7770. TSH 1.29. -Home cardiac medications: Eliquis 5 mg twice daily, atorvastatin 20 mg daily, Jardiance 10 mg daily, Lasix 40 mg daily, Zaroxolyn 2.5 mg on Mondays and , potassium chloride 20 mill equivalents daily, propranolol 80 mg daily, ramipril 10 mg daily. 01/21 Patient seen and examined. Patient denies any chest pain or pressure. Remains in A-fib with controlled ventricular rates. She was transition from Eliquis to heparin secondary to anemia with drop in hemoglobin yesterday however had further hypotension with hemoglobin in the 6 range and therefore received 1 unit of packed red blood cells with improvement in hemoglobin into the 7 range. Blood pressures have also improved. No significant hematochezia or melena. She underwent CT abdomen pelvis to rule out bleed with results still pending. De nies any significant abdominal pain. There has been concern from daughter with patient previously having strokes whenever she has come off of anticoagulation. 01/22 Patient seen and examined. Blood pressure 107/61, heart rate 92, pulse ox 98% on 2 L nasal cannula. Repeat blood work reveals hemoglobin dropped to 6.5. Improvement of renal function with BUN 68 creatinine 2.65. Patient is not on an ticoagulation at this time. Patient complains of her legs hurting. She has not had a bowel movement. 01/23 Patient seen and examined. Patient is complaining of nausea. Blood pressure 123/76, heart rate 95, pulse ox 97% on room air. Patient is followed by neurology for seizure disorder that was witnessed by her daughter in the ER. She is scheduled for MRI of the brain and EEG. She has also been seen by orthopedics regarding a left hip hematoma. Hemoglobin seems to be stable at 7.9. BUN 52 creatinine 1.77, sodium 131 and potassium 3.9. Blood pressure running between 98/64-145/72. Heart rate is in the 80s and 90s, pulse ox 97% on room air. 01/24 Patient seen and examined. Patient states that she has had nausea all day. There was an attempt for EEG which has been postponed until tomorrow according to the patient. She denies chest pain no abdominal pain. Blood pressure 153/85, heart rate 85, pulse ox 93% on room air. Hemoglobin has been stable at 8.7. 01/25 Patient seen and examined. Patient had significant nausea yesterday and states she is feeling a little bit better today. She is on clear liquid diet. She denies chest pain or chest pressure. We did start patient on heparin drip yesterday due to history of CVA when off anticoagulation. MRI of the brain revealed persistent tiny bilateral fluid collections in left frontal fluid collection suspect subacute or chronic in nature. An early subacute component to the left frontal fluid collection may be present. Some local mass effect. CT scan of the brain ordered by neurology for further evaluation blood pressure 130/76, heart rate 93, pulse ox 96% on room air. Repeat blood work reveals stable hemoglobin at 8.5. Sodium 129, potassium 3.9, BUN 30 creatinine 1.33. 01/26 Patient seen and examined. Yesterday, patient underwent CT of the brain which confirmed a new subdural hemorrhage. Patient was taken off heparin drip. She is in atrial fibrillation with controlled rate. Blood pressure 120/64, heart rate 70, pulse ox 95% on room air. Hemoglobin is 8.7. Sodium 128, BUN 25 creatinine 1.33. 01/27/[address] scans of the head which showed stable subdural hematoma while being on IV heparin drip. No new cardiovascular complaints Continues to be in atrial fibrillation which is rate controlled Physical examination: Gen: This is an 84-year-old female in no acute distress. VS: reviewed HEENT: Head reveals significant left forehead, periorbital, left cheek and left chin/jaw ecchymosis, laceration with repair to the left forehead. Otherwise normocephalic. Pupils equal, round. Sclerae is anicteric. NECK: Supple. No JVD. LUNGS: Clear to auscultation. No wheezes or rhonchi. No intercostal retractions. HEART: Regular rate and rhythm. No murmur. ABDOMEN: Soft No tenderness. EXTREMITIES: No pedal edema. No calf tenderness. NEUROLOGICAL: Patient is awake, alert and oriented x3. Assessment: Syncopal episode Close head injury New subdural hemorrhage Laceration requiring sutures Seizure activity in the ER and witnessed by her daughter Hypotensive Anemia, acute blood loss from head injury, hip injury Acute kidney injury Hyponatremia Moderate pulmonary hypertension Severe tricuspid regurgitation Left bundle branch block Chronic atrial fibrillation on Eliquis Chronic left subdural hematoma Multiple ischemic strokes status post TPA and 2 thrombectomies one in 2019 and one History of AVM status post Tim Plan: Hold Lasix, Zaroxolyn, potassium, propranolol and ramipril Patient has had strokes before when she has come off of anticoagulation in the past. Continue IV heparin drip as per neurology recommendations. Anticipate transitioning of IV heparin drip to p.o. tomorrow Due to to patient's fall risk and history of CVAs would recommend patient be evaluated for Watchman procedure as an outpatient Further recommendations to follow based upon clinical course Objective - Vital Signs Vital signs: Vital Signs Temp 98.3 F 01/28/25 07:46 Pulse 88 01/28/25 11:29 Resp 18 01/28/25 11:29 BP 108/63 01/28/25 11:29 Pulse Ox 97 01/28/25 11:29 FiO2 Intake & Output 01/27/25 01/28/25 01/28/25 18:59 06:59 18:59 Intake Total 223.8 624.71 Output Total 700 1200 200 Balance -476.2 -1200 424.71 Weight 73 kg Intake: Intake, IV Titration 5.8 144.71 Amount Heparin Sod,Pork in 0.45% 5.8 144.71 NaCl 25,000 unit In 0.45 % NaCl 1 250ml.bag @ 12 UNITS/KG/HR 8.7 mls/hr IV .Q24H [facility] Rx#:[id number] Oral 218 480 Output: Urine 700 1200 200 Other: Voiding Method Toilet Toilet Toilet Bedside Commode Bedside Commode Bedside Commode # Voids 4 2 - Labs CBC & Chem 7: 01/28/25 08:25 01/28/25 08:25 Labs: Abnormal Lab Results - Last 24 Hours (Table) 01/27/25 01/27/25 01/27/25 Range/Units 14:51 14:51 16:16 RBC 2.78 L (4.10-5.20) 10*6/uL Hgb 9.6 L (12.0-15.0) g/dL Hct 28.7 L (37.2-46.3) % MCV 103.2 H (80.0-97.0) fL MCH 34.5 H (27.0-32.0) pg MPV 9.1 L (9.5-12.2) fL Immature Gran # 0.15 H (0.00-0.04) 10*3/uL Lymphocytes # 0.80 L (0.90-5.00) 10*3/uL PT 12.7 H (10.0-12.5) sec INR 1.2 H (<1.2) APTT 132.8 H* 58.9 H (22.0-30.0) sec Sodium (137-145) mmol/L Chloride (98-107) mmol/L BUN (7-17) mg/dL Creatinine (0.52-1.04) mg/dL 01/27/25 01/28/25 01/28/25 Range/Units 21:10 08:25 08:25 RBC 2.51 L (4.10-5.20) 10*6/uL Hgb 8.6 L (12.0-15.0) g/dL Hct 25.8 L (37.2-46.3) % MCV 102.8 H (80.0-97.0) fL MCH 34.3 H (27.0-32.0) pg MPV 9.3 L (9.5-12.2) fL Immature Gran # 0.14 H (0.00-0.04) 10*3/uL Lymphocytes # 0.79 L (0.90-5.00) 10*3/uL PT (10.0-12.5) sec INR (<1.2) APTT 47.1 H 75.3 H (22.0-30.0) sec Sodium (137-145) mmol/L Chloride (98-107) mmol/L BUN (7-17) mg/dL Creatinine (0.52-1.04) mg/dL /04/16 Range/Units 08:25 RBC (4.10-5.20) 10*6/uL Hgb (12.0-15.0) g/dL Hct (37.2-46.3) % MCV (80.0-97.0) fL MCH (27.0-32.0) pg MPV (9.5-12.2) fL Immature Gran # (0.00-0.04) 10*3/uL Lymphocytes # (0.90-5.00) 10*3/uL PT (10.0-12.5) sec INR (<1.2) APTT (22.0-30.0) sec Sodium 127 L (137-145) mmol/L Chloride 94 L (98-107) mmol/L BUN 22 H (7-17) mg/dL Creatinine 1.40 H (0.52-1.04) mg/dL
--- NOTE | 2025-01-28 12:00 | P.PN ---
Subjective Progress Note Date: 01/28/25 This is an 84-year-old female with past medical history of multiple strokes status post thrombectomy and tPA in 2020 with treatment of AVM, subdural hematoma, chronic atrial fibrillation on Eliquis, hypertension, chronic kidney disease stage III. We have been asked to evaluate the patient for syncope. Vincent singh presented to the emergency center after a fall. She sustained significant injury to the left side of her face and required stitches. Patient states that she sometimes feels lightheaded. She has not had other syncopal episodes. She denies any black or bloody stools. She has minimal lower extremity edema. According to the notes, patient also had seizure activity. Patient presented with systolic blood pressure 80s and 90s, heart rate in the 70s. She is status post 2 L IV fluid. -EKG: Atrial fibrillation, left bundle branch block. -Chest x-ray: Mild to moderate cardiomegaly and interstitial density. Correlate for mild CHF. Some patchy probable atelectasis in the retrocardiac region. -Carotid ultrasound reveals mild atherosclerotic plaque at the bilateral carotid bifurcations. No hemodynamically significant stenosis of the bilateral carotid artery systems. -Echocardiogram performed on this admission reveals EF 65 to 70%, moderately increased left ventricular wall thickness. Mild mitral regurgitation. Mild aortic stenosis. Mild aortic regurgitation. Severe tricuspid regurgitation. RVSP 58. -Laboratory studies: WBC 10.4, hemoglobin 8.1 previously 10.5. Sodium 132, potassium 4.3, BUN 83 creatinine 3.24. Troponin negative x 3. proBNP 7770. TSH 1.29. -Home cardiac medications: Eliquis 5 mg twice daily, atorvastatin 20 mg daily, Jardiance 10 mg daily, Lasix 40 mg daily, Zaroxolyn 2.5 mg on Mondays and , potassium chloride 20 mill equivalents daily, propranolol 80 mg daily, ramipril 10 mg daily. 01/21 Patient seen and examined. Patient denies any chest pain or pressure. Remains in A-fib with controlled ventricular rates. She was transition from Eliquis to heparin secondary to anemia with drop in hemoglobin yesterday however had further hypotension with hemoglobin in the 6 range and therefore received 1 unit of packed red blood cells with improvement in hemoglobin into the 7 range. Blood pressures have also improved. No significant hematochezia or melena. She underwent CT abdomen pelvis to rule out bleed with results still pending. De nies any significant abdominal pain. There has been concern from daughter with patient previously having strokes whenever she has come off of anticoagulation. 01/22 Patient seen and examined. Blood pressure 107/61, heart rate 92, pulse ox 98% on 2 L nasal cannula. Repeat blood work reveals hemoglobin dropped to 6.5. Improvement of renal function with BUN 68 creatinine 2.65. Patient is not on an ticoagulation at this time. Patient complains of her legs hurting. She has not had a bowel movement. 01/23 Patient seen and examined. Patient is complaining of nausea. Blood pressure 123/76, heart rate 95, pulse ox 97% on room air. Patient is followed by neurology for seizure disorder that was witnessed by her daughter in the ER. She is scheduled for MRI of the brain and EEG. She has also been seen by orthopedics regarding a left hip hematoma. Hemoglobin seems to be stable at 7.9. BUN 52 creatinine 1.77, sodium 131 and potassium 3.9. Blood pressure running between 98/64-145/72. Heart rate is in the 80s and 90s, pulse ox 97% on room air. 01/24 Patient seen and examined. Patient states that she has had nausea all day. There was an attempt for EEG which has been postponed until tomorrow according to the patient. She denies chest pain no abdominal pain. Blood pressure 153/85, heart rate 85, pulse ox 93% on room air. Hemoglobin has been stable at 8.7. 01/25 Patient seen and examined. Patient had significant nausea yesterday and states she is feeling a little bit better today. She is on clear liquid diet. She denies chest pain or chest pressure. We did start patient on heparin drip yesterday due to history of CVA when off anticoagulation. MRI of the brain revealed persistent tiny bilateral fluid collections in left frontal fluid collection suspect subacute or chronic in nature. An early subacute component to the left frontal fluid collection may be present. Some local mass effect. CT scan of the brain ordered by neurology for further evaluation blood pressure 130/76, heart rate 93, pulse ox 96% on room air. Repeat blood work reveals stable hemoglobin at 8.5. Sodium 129, potassium 3.9, BUN 30 creatinine 1.33. 01/26 Patient seen and examined. Yesterday, patient underwent CT of the brain which confirmed a new subdural hemorrhage. Patient was taken off heparin drip. She is in atrial fibrillation with controlled rate. Blood pressure 120/64, heart rate 70, pulse ox 95% on room air. Hemoglobin is 8.7. Sodium 128, BUN 25 creatinine 1.33. 01/27/[address] scans of the head which showed stable subdural hematoma while being on IV heparin drip. No new cardiovascular complaints Continues to be in atrial fibrillation which is rate controlled 01/28/2025 Telemetry shows rate controlled atrial fibrillation averaging around 70s to 90s bpm. Blood pressure is low normal SBP around 108 No new cardiac complaints. Physical examination: Gen: This is an 84-year-old female in no acute distress. VS: reviewed HEENT: Head reveals significant left forehead, periorbital, left cheek and left chin/jaw ecchymosis, laceration with repair to the left forehead. Otherwise normocephalic. Pupils equal, round. Sclerae is anicteric. NECK: Supple. No JVD. LUNGS: Clear to auscultation. No wheezes or rhonchi. No intercostal retractions. HEART: Regular rate and rhythm. No murmur. ABDOMEN: Soft No tenderness. EXTREMITIES: No pedal edema. No calf tenderness. NEUROLOGICAL: Patient is awake, alert and oriented x3. Assessment: Syncopal episode leading to Close head injury, subdural hemorrhage and Laceration requiring sutures Seizure activity in the ER and witnessed by her daughter Hypotensive Anemia, acute blood loss from head injury, hip injury Acute kidney injury Hyponatremia Moderate pulmonary hypertension Severe tricuspid regurgitation Left bundle branch block Chronic atrial fibrillation on Eliquis Chronic left subdural hematoma Multiple ischemic strokes status post TPA and 2 thrombectomies one in 2019 and one History of AVM status post Tim Plan: Patient is on Lasix 40 mg, metolazone 2.5 mg daily, ramipril 10 mg daily and propranolol 80 mg daily at home because of low blood pressure these has been held. I will resume her Lasix at 40 mg daily. Neurologist planning to discontinue IV heparin drip tonight and start Eliquis No significant bradycardia on telemetry. Will start metoprolol succinate 25 mg daily PT OT evaluation and consider IPR Objective - Vital Signs Vital signs: Vital Signs Temp 98.3 F 01/28/25 07:46 Pulse 88 01/28/25 11:29 Resp 18 01/28/25 11:29 BP 108/63 01/28/25 11:29 Pulse Ox 97 01/28/25 11:29 FiO2 Intake & Output 01/27/25 01/28/25 01/28/25 18:59 06:59 18:59 Intake Total 223.8 624.71 Output Total 700 1200 200 Balance -476.2 -1200 424.71 Weight 73 kg Intake: Intake, IV Titration 5.8 144.71 Amount Heparin Sod,Pork in 0.45% 5.8 144.71 NaCl 25,000 unit In 0.45 % NaCl 1 250ml.bag @ 12 UNITS/KG/HR 8.7 mls/hr IV .Q24H [facility] Rx#:[id number] Oral 218 480 Output: Urine 700 1200 200 Other: Voiding Method Toilet Toilet Toilet Bedside Commode Bedside Commode Bedside Commode # Voids 4 2 - Labs CBC & Chem 7: 01/28/25 08:25 01/28/25 08:25 Labs: Abnormal Lab Results - Last 24 Hours (Table) 01/27/25 01/27/25 01/27/25 Range/Units 14:51 14:51 16:16 RBC 2.78 L (4.10-5.20) 10*6/uL Hgb 9.6 L (12.0-15.0) g/dL Hct 28.7 L (37.2-46.3) % MCV 103.2 H (80.0-97.0) fL MCH 34.5 H (27.0-32.0) pg MPV 9.1 L (9.5-12.2) fL Immature Gran # 0.15 H (0.00-0.04) 10*3/uL Lymphocytes # 0.80 L (0.90-5.00) 10*3/uL PT 12.7 H (10.0-12.5) sec INR 1.2 H (<1.2) APTT 132.8 H* 58.9 H (22.0-30.0) sec Sodium (137-145) mmol/L Chloride (98-107) mmol/L BUN (7-17) mg/dL Creatinine (0.52-1.04) mg/dL 01/27/25 01/28/25 01/28/25 Range/Units 21:10 08:25 08:25 RBC 2.51 L (4.10-5.20) 10*6/uL Hgb 8.6 L (12.0-15.0) g/dL Hct 25.8 L (37.2-46.3) % MCV 102.8 H (80.0-97.0) fL MCH 34.3 H (27.0-32.0) pg MPV 9.3 L (9.5-12.2) fL Immature Gran # 0.14 H (0.00-0.04) 10*3/uL Lymphocytes # 0.79 L (0.90-5.00) 10*3/uL PT (10.0-12.5) sec INR (<1.2) APTT 47.1 H 75.3 H (22.0-30.0) sec Sodium (137-145) mmol/L Chloride (98-107) mmol/L BUN (7-17) mg/dL Creatinine (0.52-1.04) mg/dL 01/28/25 Range/Units 08:25 RBC (4.10-5.20) 10*6/uL Hgb (12.0-15.0) g/dL Hct (37.2-46.3) % MCV (80.0-97.0) fL MCH (27.0-32.0) pg MPV (9.5-12.2) fL Immature Gran # (0.00-0.04) 10*3/uL Lymphocytes # (0.90-5.00) 10*3/uL PT (10.0-12.5) sec INR (<1.2) APTT (22.0-30.0) sec Sodium 127 L (137-145) mmol/L Chloride 94 L (98-107) mmol/L BUN 22 H (7-17) mg/dL Creatinine 1.40 H (0.52-1.04) mg/dL
[2025-01-28] MEDS: FUROSEMIDE 40 MG TAB PO SCH (12:38)
[2025-01-28] MEDS: METOPROLOL SUCCINATE (ER) 25 MG TAB.ER.24H PO SCH (12:38)
--- NOTE | 2025-01-28 12:42 | P.PN ---
Subjective Patient is seen for follow-up for acute kidney injury and chronic kidney disease. Renal function is improving. Creatinine is down to 1.2 increased to 1.4 today. Status post IV Lasix yesterday Chest x-ray showed pleural effusions suggestive of mild volume overload No significant complaints Objective - Vital Signs Vital signs: Vital Signs Temp 98.3 F 01/28/25 07:46 Pulse 88 01/28/25 11:29 Resp 18 01/28/25 11:29 BP 108/63 01/28/25 11:29 Pulse Ox 97 01/28/25 11:29 FiO2 Intake & Output 01/27/25 01/28/25 01/28/25 18:59 06:59 18:59 Intake Total 223.8 624.71 Output Total 700 1200 200 Balance -476.2 -1200 424.71 Weight 73 kg Intake: Intake, IV Titration 5.8 144.71 Amount Heparin Sod,Pork in 0.45% 5.8 144.71 NaCl 25,000 unit In 0.45 % NaCl 1 250ml.bag @ 12 UNITS/KG/HR 8.7 mls/hr IV .Q24H [facility] Rx#:[id number] Oral 218 480 Output: Urine 700 1200 200 Other: Voiding Method Toilet Toilet Toilet Bedside Commode Bedside Commode Bedside Commode # Voids 4 2 - Exam Patient is awake, comfortable, no acute distress Bruising noted on the face and laceration on the forehead Examination lower extremity shows no significant edema [employer] exam shows patient is able to move all 4 extremities. - Labs CBC & Chem 7: 01/28/25 08:25 01/28/25 08:25 Labs: Abnormal Lab Results - Last 24 Hours (Table) 01/27/25 01/27/25 01/27/25 Range/Units 14:51 14:51 16:16 RBC 2.78 L (4.10-5.20) 10*6/uL Hgb 9.6 L (12.0-15.0) g/dL Hct 28.7 L (37.2-46.3) % MCV 103.2 H (80.0-97.0) fL MCH 34.5 H (27.0-32.0) pg MPV 9.1 L (9.5-12.2) fL Immature Gran # 0.15 H (0.00-0.04) 10*3/uL Lymphocytes # 0.80 L (0.90-5.00) 10*3/uL PT 12.7 H (10.0-12.5) sec INR 1.2 H (<1.2) APTT 132.8 H* 58.9 H (22.0-30.0) sec Sodium (137-145) mmol/L Chloride (98-107) mmol/L BUN (7-17) mg/dL Creatinine (0.52-1.04) mg/dL 01/27/25 01/28/25 01/28/25 Range/Units 21:10 08:25 08:25 RBC 2.51 L (4.10-5.20) 10*6/uL Hgb 8.6 L (12.0-15.0) g/dL Hct 25.8 L (37.2-46.3) % MCV 102.8 H (80.0-97.0) fL MCH 34.3 H (27.0-32.0) pg MPV 9.3 L (9.5-12.2) fL Immature Gran # 0.14 H (0.00-0.04) 10*3/uL Lymphocytes # 0.79 L (0.90-5.00) 10*3/uL PT (10.0-12.5) sec INR (<1.2) APTT 47.1 H 75.3 H (22.0-30.0) sec Sodium (137-145) mmol/L Chloride (98-107) mmol/L BUN (7-17) mg/dL Creatinine (0.52-1.04) mg/dL 01/28/25 Range/Units 08:25 RBC (4.10-5.20) 10*6/uL Hgb (12.0-15.0) g/dL Hct (37.2-46.3) % MCV (80.0-97.0) fL MCH (27.0-32.0) pg MPV (9.5-12.2) fL Immature Gran # (0.00-0.04) 10*3/uL Lymphocytes # (0.90-5.00) 10*3/uL PT (10.0-12.5) sec INR (<1.2) APTT (22.0-30.0) sec Sodium 127 L (137-145) mmol/L Chloride 94 L (98-107) mmol/L BUN 22 H (7-17) mg/dL Creatinine 1.40 H (0.52-1.04) mg/dL Assessment and Plan Assessment: 1. Acute kidney injury secondary to ATN secondary to hypotension and acute blood loss anemia. Creatinine decreased to 1.2. Ultrasound showed atrophic kidneys. Serum creatinine increased to 1.4 after IV Lasix 2. Hypovolemic hyponatremia improved with IV fluids initially. Patient has poor oral intake which may be contributing to serum sodium not improving further. Chest x-ray suggestive of mild volume overload 3. Status post fall. 4. Chronic kidney disease stage IV baseline creatinine 1.8-2.2. 5. Acute blood loss anemia. Iron replete. 6. Hypertension with chronic kidney disease. Controlled. Plan: Okay to resume home dose of Lasix Continue to hold off on metolazone and TRE inhibitors Repeat labs in a.m. Continue to encourage increased oral intake Avoid nephrotoxic agents
[2025-01-28] MEDS: APIXABAN 5 MG TAB PO SCH (20:11)
[2025-01-29 07:32] LABS: Basophils # (A) 0.03 10*3/uL (0.00-0.10); Basophils % (A) 0.4 %; Eosinophils # (A) 0.29 10*3/uL (0.04-0.35); Eosinophils % (A) 3.9 %; HCT 25.7 % (37.2-46.3); HGB 8.4 g/dL (12.0-15.0); Lymphocytes # (A) 0.76 10*3/uL (0.90-5.00); Lymphocytes % (A) 10.3 %; MCH 33.3 pg (27.0-32.0); MCHC 32.7 g/dL (32.0-37.0); Mean Platelet Volume 9.4 fL (9.5-12.2); Monocytes # (A) 0.88 10*3/uL (0.20-1.00); Neutrophils # (A) 5.28 10*3/uL (1.80-7.70); Neutrophils % (A) 71.9 %; Platelet Count 299 10*3/uL (140-440); RBC 2.52 10*6/uL (4.10-5.20); RDW 17.9 % (11.5-14.5); WBC 7.35 10*3/uL (4.50-10.00)
[2025-01-29 07:52] LABS: African American GFR (CKD) 33 (>60 ml/min/1.73 sqM); Anion Gap 6 mmol/L; Blood Urea Nitrogen 23 mg/dL (7-17); Calcium 8.7 mg/dL (8.4-10.2); Carbon Dioxide 28 mmol/L (22-30); Chloride 94 mmol/L (98-107); Glucose 89 mg/dL (74-99); Non-African American GFR(CKD) 29 (>60 ml/min/1.73 sqM); Potassium 4.2 mmol/L (3.5-5.1); Sodium 128 mmol/L (137-145)
[2025-01-29 11:14] VITALS: BMI 24.5
--- NOTE | 2025-01-29 13:01 | P.PN ---
Subjective HISTORY OF PRESENT ILLNESS: This is an 84-year-old female with past medical history of multiple strokes status post thrombectomy and tPA in 2020 with treatment of AVM, subdural hematoma, chronic atrial fibrillation on Eliquis, hypertension, chronic kidney disease stage III. We have been asked to evaluate the patient for syncope. Patient presented to the emergency center after a fall. She sustained significant injury to the left side of her face and required stitches. Patient states that she sometimes feels lightheaded. She has not had other syncopal episodes. She denies any black or bloody stools. She has minimal lower extremity edema. According to the notes, patient also had seizure activity. Patient presented with systolic blood pressure 80s and 90s, heart rate in the 70s. She is status post 2 L IV fluid. -EKG: Atrial fibrillation, left bundle branch block. -Chest x-ray: Mild to moderate cardiomegaly and interstitial density. Correlate for mild CHF. Some patchy probable atelectasis in the retrocardiac region. -Carotid ultrasound reveals mild atherosclerotic plaque at the bilateral carotid bifurcations. No hemodynamically significant stenosis of the bilateral carotid artery systems. -Echocardiogram performed on this admission reveals EF 65 to 70%, moderately increased left ventricular wall thickness. Mild mitral regurgitation. Mild aortic stenosis. Mild aortic regurgitation. Severe tricuspid regurgitation. RVSP 58. -Laboratory studies: WBC 10.4, hemoglobin 8.1 previously 10.5. Sodium 132, potassium 4.3, BUN 83 creatinine 3.24. Troponin negative x 3. proBNP 7770. TSH 1.29. -Home cardiac medications: Eliquis 5 mg twice daily, atorvastatin 20 mg daily, Jardiance 10 mg daily, Lasix 40 mg daily, Zaroxolyn 2.5 mg on Mondays and , potassium chloride 20 mill equivalents daily, propranolol 80 mg daily, ramipril 10 mg daily. 01/21 Patient seen and examined. Patient denies any chest pain or pressure. Remains in A-fib with controlled ventricular rates. She was transition from Eliquis to heparin secondary to anemia with drop in hemoglobin yesterday however had further hypotension with hemoglobin in the 6 range and therefore received 1 unit of packed red blood cells with improvement in hemoglobin into the 7 range. Blood pressures have also improved. No significant hematochezia or melena. She underwent CT abdomen pelvis to rule out bleed with results still pending. Denies any significant abdominal pain. There has been concern from daughter with patient previously having strokes whenever she has come off of anticoagulation. 01/22 Patient seen and examined. Blood pressure 107/61, heart rate 92, pulse ox 98% on 2 L nasal cannula. Repeat blood work reveals hemoglobin dropped to 6.5. Improvement of renal function with BUN 68 creatinine 2.65. Patient is not on anticoagulation at this time. Patient complains of her legs hurting. She has not had a bowel movement. 01/23 Patient seen and examined. Patient is complaining of nausea. Blood pressure 123/76, heart rate 95, pulse ox 97% on room air. Patient is followed by neurology for seizure disorder that was witnessed by her daughter in the ER. She is scheduled for MRI of the brain and EEG. She has also been seen by orthopedics regarding a left hip hematoma. Hemoglobin seems to be stable at 7.9. BUN 52 creatinine 1.77, sodium 131 and potassium 3.9. Blood pressure running between 98/64-145/72. Heart rate is in the 80s and 90s, pulse ox 97% on room air. 01/24 Patient seen and examined. Patient states that she has had nausea all day. There was an attempt for EEG which has been postponed until tomorrow according to the patient. She denies chest pain no abdominal pain. Blood pressure 153/85, heart rate 85, pulse ox 93% on room air. Hemoglobin has been stable at 8.7. 01/25 Patient seen and examined. Patient had significant nausea yesterday and states she is feeling a little bit better today. She is on clear liquid diet. She denies chest pain or chest pressure. We did start patient on heparin drip yesterday due to history of CVA when off anticoagulation. MRI of the brain revealed persistent tiny bilateral fluid collections in left frontal fluid collection suspect subacute or chronic in nature. An early subacute component to the left frontal fluid collection may be present. Some local mass effect. CT scan of the brain ordered by neurology for further evaluation blood pressure 130/76, heart rate 93, pulse ox 96% on room air. Repeat blood work reveals stable hemoglobin at 8.5. Sodium 129, potassium 3.9, BUN 30 creatinine 1.33. 01/26 Patient seen and examined. Yesterday, patient underwent CT of the brain which confirmed a new subdural hemorrhage. Patient was taken off heparin drip. She is in atrial fibrillation with controlled rate. Blood pressure 120/64, heart rate 70, pulse ox 95% on room air. Hemoglobin is 8.7. Sodium 128, BUN 25 creatinine 1.33. 01/29/2025 Patient examined this right bedside. Patient denies chest pain or pressure. She denies shortness of breath. Blood pressure is slightly improved. Telemetry reveals atrial fibrillation with controlled ventricular rate. PHYSICAL EXAM: VITAL SIGNS: Reviewed. GENERAL: Well-developed in no acute distress. NECK: Supple. No JVD or thyromegaly LUNGS: Respirations even and unlabored. Lungs essentially clear to auscultation bilaterally. HEART: Irregular rate and rhythm. S1 and S2 heard. EXTREMITIES: Normal range of motion. No clubbing or cyanosis. Peripheral pulses intact. No lower extremity edema ASSESSMENT: Syncopal episode Closed head injury New subdural hemorrhage Laceration requiring sutures Seizure activity in the ER and witnessed by her daughter Hypotensive Anemia, acute blood loss from head injury, hip injury Acute kidney injury Hyponatremia Moderate pulmonary hypertension Severe tricuspid regurgitation Left bundle branch block Chronic atrial fibrillation on Eliquis Chronic left subdural hematoma Multiple ischemic strokes status post TPA and 2 thrombectomies one in 2019 and one History of AVM status post Tim PLAN: Patient is on Lasix 40 mg, metolazone 2.5 mg daily, ramipril 10 mg daily and propranolol 80 mg daily at home because of low blood pressure these has been held. Continue Eliquis 7 day holter monitor to be placed No further inpatient recommendations from a cardiac standpoint We will sign off. Please reconsult if needed. Patient to follow-up postdischarge with Dr. Keenan Nurse practitioner note has been reviewed by physician. Signing provider agrees with the documented findings, assessment, and plan of care documented by MIXING OPERATOR as a scribe. Objective - Vital Signs Vital signs: Vital Signs Temp 100.1 F H 01/29/25 11:34 Pulse 74 01/29/25 11:34 Resp 14 01/29/25 11:34 BP 109/63 01/29/25 11:34 Pulse Ox 95 01/29/25 11:34 FiO2 Intake & Output 01/28/25 01/29/25 01/29/25 18:59 06:59 18:59 Intake Total 981.443 Output Total 200 400 900 Balance 781.443 -400 -900 Weight 73 kg Intake: Intake, IV Titration 181.443 Amount Heparin Sod,Pork in 0.45% 181.443 NaCl 25,000 unit In 0.45 % NaCl 1 250ml.bag @ 12 UNITS/KG/HR 8.7 mls/hr IV .Q24H [facility] Rx#:[id number] Oral 800 Output: Urine 200 400 900 Other: Voiding Method Toilet Toilet Bedside Commode Bedside Commode Bedside Commode - Labs CBC & Chem 7: 01/29/25 06:53 01/29/25 06:53 Labs: Abnormal Lab Results - Last 24 Hours (Table) 01/28/25 01/28/25 01/28/25 Range/Units 11:30 11:30 16:02 RBC (4.10-5.20) 10*6/uL Hgb (12.0-15.0) g/dL Hct (37.2-46.3) % MCV (80.0-97.0) fL MCH (27.0-32.0) pg MPV (9.5-12.2) fL Immature Gran # (0.00-0.04) 10*3/uL Lymphocytes # (0.90-5.00) 10*3/uL APTT 48.7 H (22.0-30.0) sec Sodium (137-145) mmol/L Chloride (98-107) mmol/L BUN (7-17) mg/dL Creatinine (0.52-1.04) mg/dL Urine Osmolality 299 L (400-1100) mOsm/kg Ur Random Sodium 32 L (40-220) mmol/L 01/29/25 01/29/25 Range/Units 06:53 06:53 RBC 2.52 L (4.10-5.20) 10*6/uL Hgb 8.4 L (12.0-15.0) g/dL Hct 25.7 L (37.2-46.3) % MCV 102.0 H (80.0-97.0) fL MCH 33.3 H (27.0-32.0) pg MPV 9.4 L (9.5-12.2) fL Immature Gran # 0.11 H (0.00-0.04) 10*3/uL Lymphocytes # 0.76 L (0.90-5.00) 10*3/uL APTT (22.0-30.0) sec Sodium 128 L (137-145) mmol/L Chloride 94 L (98-107) mmol/L BUN 23 H (7-17) mg/dL Creatinine 1.60 H (0.52-1.04) mg/dL Urine Osmolality (400-1100) mOsm/kg Ur Random Sodium (40-220) mmol/L
--- NOTE | 2025-01-29 13:11 | P.PN ---
Subjective Progress Note Date: 01/27/25 Principal diagnosis: Reason for follow-up is UTI Patient is 84-year-old female with a past medical history significant for hypertension hyperlipidemia CVA TIA atrial fibrillation was brought into the hospital 2 days ago after apparently the patient did have a fall, did have significant head and neck bruising with laceration to the left forehead did have elevated white count positive UA and urinary symptoms concerning for UTI prompting this consultation. On today's evaluation that is 01/28/2024, patient did have a temperature of 98 F this morning and denies having any chills, patient is on room air and breathing comfortably no chest pain or cough, the patient did not have any nausea vomiting abdominal pain or any diarrhea. Patient white count is 9.06 creatinine is 1.24 Objective - Vital Signs Vital signs: Vital Signs Temp 97.7 F 01/27/25 09:48 Pulse 79 01/27/25 11:29 Resp 15 01/27/25 11:29 BP 120/75 01/27/25 11:29 Pulse Ox 98 01/27/25 11:29 FiO2 Intake & Output 01/26/25 01/27/25 01/27/25 18:59 06:59 18:59 Intake Total 450 100 Output Total 500 450 Balance -50 -450 100 Weight 72.5 kg Intake: Oral 450 100 Output: Urine 500 450 Other: Voiding Method External Catheter External Catheter External Catheter # Voids 1 - Exam GENERAL DESCRIPTION: An elderly female lying in bed in no distress RESPIRATORY SYSTEM: Unlabored breathing , clear to auscultation anteriorly HEART: S1 S2 regular rate and rhythm , ABDOMEN: Soft , no tenderness EXTREMITIES: No edema feet - Labs CBC & Chem 7: 01/29/25 06:53 01/29/25 06:53 Labs: Abnormal Lab Results - Last 24 Hours (Table) 01/27/25 01/27/25 Range/Units 08:28 08:28 RBC 2.46 L (4.10-5.20) 10*6/uL Hgb 8.6 L (12.0-15.0) g/dL Hct 24.9 L (37.2-46.3) % MCV 101.2 H (80.0-97.0) fL MCH 35.0 H (27.0-32.0) pg Immature Gran # 0.15 H (0.00-0.04) 10*3/uL Lymphocytes # 0.83 L (0.90-5.00) 10*3/uL Sodium 128 L (137-145) mmol/L Chloride 97 L (98-107) mmol/L BUN 21 H (7-17) mg/dL Creatinine 1.24 H (0.52-1.04) mg/dL Glucose 103 H (74-99) mg/dL Assessment and Plan (1) UTI (urinary tract infection) Current Visit: Yes Status: Acute Code(s): N39.0 - URINARY TRACT INFECTION, SITE NOT SPECIFIED SNOMED Code(s): 92020520 (2) Allergy to multiple antibiotics Current Visit: Yes Status: Acute Code(s): Z88.1 - ALLERGY STATUS TO OTHER ANTIBIOTIC AGENTS SNOMED Code(s): 343549933 Plan: 1patient presenting to the hospital with a syncopal episode and fall and has significant bruising and fracture to the forehead area patient also have abnormal CT abdominal pelvis with significant layering inside the bladder in this patient who did have significantly positive UA mostly with the white cells rather than red cells did have urinary frequency mild elevated white count concerning for symptomatic UTI from a enteric gram-negative pathogen 2-patient with multiple antibiotic ALLERGIES that would limit the number of antibiotic safe to use 3-patient white count has normalized urine cultures currently Klebsiella which is sensitive to ceftriaxone, which will be continued while inpatient Dictation was produced using [employer] dictation software. please excuse any grammatical, word or spelling errors. Time with Patient: Less than 30
--- NOTE | 2025-01-29 13:12 | P.PN ---
Subjective Progress Note Date: 01/28/25 Principal diagnosis: Reason for follow-up is UTI Patient is 84-year-old female with a past medical history significant for hypertension hyperlipidemia CVA TIA atrial fibrillation was brought into the hospital 2 days ago after apparently the patient did have a fall, did have significant head and neck bruising with laceration to the left forehead did have elevated white count positive UA and urinary symptoms concerning for UTI prompting this consultation. On today's evaluation that is 01/28/2025, Patient is afebrile patient is currently on room air and denies having any shortness of breath, the patient denies any chest pain or cough, the patient denies any nausea vomiting did not have any abdominal pain and no diarrhea. Patient white count 7.35 creatinine 1.60 Objective - Vital Signs Vital signs: Vital Signs Temp 98.3 F 01/28/25 07:46 Pulse 86 01/28/25 15:05 Resp 17 01/28/25 15:05 BP 138/73 01/28/25 15:05 Pulse Ox 98 01/28/25 15:05 FiO2 Intake & Output 01/27/25 01/28/25 01/28/25 18:59 06:59 18:59 Intake Total 223.8 981.443 Output Total 700 1200 200 Balance -476.2 -1200 781.443 Weight 73 kg Intake: Intake, IV Titration 5.8 181.443 Amount Heparin Sod,Pork in 0.45% 5.8 181.443 NaCl 25,000 unit In 0.45 % NaCl 1 250ml.bag @ 12 UNITS/KG/HR 8.7 mls/hr IV .Q24H [facility] Rx#:[id number] Oral 218 800 Output: Urine 700 1200 200 Other: Voiding Method Toilet Toilet Toilet Bedside Commode Bedside Commode Bedside Commode # Voids 4 2 - Exam GENERAL DESCRIPTION: An elderly female lying in bed in no distress RESPIRATORY SYSTEM: Unlabored breathing , clear to auscultation anteriorly HEART: S1 S2 regular rate and rhythm , ABDOMEN: Soft , no tenderness EXTREMITIES: No edema feet - Labs CBC & Chem 7: 01/29/25 06:53 01/29/25 06:53 Labs: Abnormal Lab Results - Last 24 Hours (Table) 01/27/25 01/28/25 01/28/25 Range/Units 21:10 08:25 08:25 RBC 2.51 L (4.10-5.20) 10*6/uL Hgb 8.6 L (12.0-15.0) g/dL Hct 25.8 L (37.2-46.3) % MCV 102.8 H (80.0-97.0) fL MCH 34.3 H (27.0-32.0) pg MPV 9.3 L (9.5-12.2) fL Immature Gran # 0.14 H (0.00-0.04) 10*3/uL Lymphocytes # 0.79 L (0.90-5.00) 10*3/uL APTT 47.1 H 75.3 H (22.0-30.0) sec Sodium (137-145) mmol/L Chloride (98-107) mmol/L BUN (7-17) mg/dL Creatinine (0.52-1.04) mg/dL 01/28/25/04/16 Range/Units 08:25 16:02 RBC (4.10-5.20) 10*6/uL Hgb (12.0-15.0) g/dL Hct (37.2-46.3) % MCV (80.0-97.0) fL MCH (27.0-32.0) pg MPV (9.5-12.2) fL Immature Gran # (0.00-0.04) 10*3/uL Lymphocytes # (0.90-5.00) 10*3/uL APTT 48.7 H (22.0-30.0) sec Sodium 127 L (137-145) mmol/L Chloride 94 L (98-107) mmol/L BUN 22 H (7-17) mg/dL Creatinine 1.40 H (0.52-1.04) mg/dL Assessment and Plan (1) UTI (urinary tract infection) Current Visit: Yes Status: Acute Code(s): N39.0 - URINARY TRACT INFECTION, SITE NOT SPECIFIED SNOMED Code(s): 04731584 (2) Allergy to multiple antibiotics Current Visit: Yes Status: Acute Code(s): Z88.1 - ALLERGY STATUS TO OTHER ANTIBIOTIC AGENTS SNOMED Code(s): 328914273 Plan: 1patient presenting to the hospital with a syncopal episode and fall and has significant bruising and fracture to the forehead area patient also have abnor mal CT abdominal pelvis with significant layering inside the bladder in this patient who did have significantly positive UA mostly with the white cells rather than red cells did have urinary frequency mild elevated white count concerning for symptomatic UTI from a enteric gram-negative pathogen 2-patient with multiple antibiotic ALLERGIES that would limit the number of antibiotic safe to use 3-patient white count has normalized urine cultures currently Klebsiella which is sensitive to ceftriaxone, for which the patient has completed course of ceftriaxone as of this morning and patient will monitor closely off antibiotic Dictation was produced using [employer] dictation software. please excuse any grammatical, word or spelling errors. Time with Patient: Less than 30
--- NOTE | 2025-01-29 13:46 | P.PN ---
Subjective Progress Note Date: 01/29/25 I am following-up with the patient and per the patient she is doing better. She states her headache over the left frontal is more tolerable today. Yesterday, she was transition from heparin drip to Eliquis. Objective - Vital Signs Vital signs: Vital Signs Temp 100.1 F H 01/29/25 11:34 Pulse 74 01/29/25 11:34 Resp 14 01/29/25 11:34 BP 109/63 01/29/25 11:34 Pulse Ox 95 01/29/25 11:34 FiO2 Intake & Output 01/28/25 01/29/25 01/29/25 18:59 06:59 18:59 Intake Total 981.443 Output Total 200 400 900 Balance 781.443 -400 -900 Weight 73 kg Intake: Intake, IV Titration 181.443 Amount Heparin Sod,Pork in 0.45% 181.443 NaCl 25,000 unit In 0.45 % NaCl 1 250ml.bag @ 12 UNITS/KG/HR 8.7 mls/hr IV .Q24H [facility] Rx#:[id number] Oral 800 Output: Urine 200 400 900 Other: Voiding Method Toilet Toilet Bedside Commode Bedside Commode Bedside Commode - Exam GENERAL: The patient is lying in bed and is not in acute distress. HENT: Bruises throughout the face. NEUROLOGICAL: Higher mental function: The patient is awake, alert, oriented to self, place and time. Patient is following commands. No aphasia and no neglect. Cranial nerves: The pupils are round, equal and reactive to light and accommodation. Visual donohue are full to confrontation throughout. Extraocular movement is intact no nystagmus is noted. Facial sensation is normal to touch throughout. The facial strength is normal throughout. Hearing is moderately decreased bilaterally to hand rub. Tongue is midline and moved [id number] without any difficulty. No dysarthria is noted. Shoulder shrug is normal bila terally. Motor: The strength is 5 over 5 throughout uppers. The right lower strength is 5/5 while the left is limited because of pain and has hematoma. Normal tone and bulk. Cerebellum: Normal finger to nose bilaterally. Sensation: Sensation is normal to touch throughout. Some of the work-up during this hospital visit consisted of: hemoglobin was as low in the 6-kyere and currently 7.9 Had acute kidney injury that is improving. It was as high as 3.36. Urine culture is positive Kkebsiella pneumonia CT brain cervical spine and CT facial bones is reported as no acute intracranial process. 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 Nonspecific white matter changes. Acute depressed communicate left nasal bone fracture with associated soft tissue swelling. Acute left periorbital soft tissue hematoma with acute soft tissue contusion to left chin. Paranasal sinus disease with air-fluid level within the left maxillary sinus which may be related to acute sinusitis. No evidence of cervical spine fracture. Mild multilevel degenerative disc disease. I personally reviewed the CT of the head and there is no acute or subacute ischemic stroke. MRI brain: Is reported as moderate to advanced diffuse cerebral atrophy redemonstrated. Mild to moderate nonspecific white matter changes and probably the proximal vessel ischemic change redemonstrated. Persistent tiny bilateral extra-axial fluid collection and more focal small to moderate size left frontal extra-axial fluid collection both suspected more subacute to chronic age. An early subacute component on the left frontal fluid collection may be present. There is some local mass effect. Advise repeat CT to further evaluate. EEG is abnormal. The background slowing is suggestive of mild encephalopathy. There is no focal slowing, discharges or seizure. CT of the head on 01/25/2025 is reported as there is a new 0.2 x 0.6 cm acute subdural hemorrhage, new from 01/19/2025 CT examination. This appears to be at dependent portion of the chronic subdural hematoma Repeat CT of the head reveals very subtle minimal change in the acute, overnight of the left subdural hematoma may be present. This is near a measurement error and could be related to artifact from plain of section. The chronic subdural hematoma usually appears unchanged. Repeat CT head The tiny sudural hematoma remains present currently measuring 1.0X0.2cm. No significant interval changes. Repeat CT head yesterday in afternoon: No significant interval changes from study done the same day. Similar appearnace of a tiny subdural along the left cerebral convexity measuring up to 4mm in thickness. - Labs CBC & Chem 7: 01/29/25 06:53 01/29/25 06:53 Labs: Abnormal Lab Results - Last 24 Hours (Table) 01/28/25 01/28/25 01/28/25 Range/Units 11:30 11:30 16:02 RBC (4.10-5.20) 10*6/uL Hgb (12.0-15.0) g/dL Hct (37.2-46.3) % MCV (80.0-97.0) fL MCH (27.0-32.0) pg MPV (9.5-12.2) fL Immature Gran # (0.00-0.04) 10*3/uL Lymphocytes # (0.90-5.00) 10*3/uL APTT 48.7 H (22.0-30.0) sec Sodium (137-145) mmol/L Chloride (98-107) mmol/L BUN (7-17) mg/dL Creatinine (0.52-1.04) mg/dL Urine Osmolality 299 L (400-1100) mOsm/kg Ur Random Sodium 32 L (40-220) mmol/L 01/29/25 01/29/25 Range/Units 06:53 06:53 RBC 2.52 L (4.10-5.20) 10*6/uL Hgb 8.4 L (12.0-15.0) g/dL Hct 25.7 L (37.2-46.3) % MCV 102.0 H (80.0-97.0) fL MCH 33.3 H (27.0-32.0) pg MPV 9.4 L (9.5-12.2) fL Immature Gran # 0.11 H (0.00-0.04) 10*3/uL Lymphocytes # 0.76 L (0.90-5.00) 10*3/uL APTT (22.0-30.0) sec Sodium 128 L (137-145) mmol/L Chloride 94 L (98-107) mmol/L BUN 23 H (7-17) mg/dL Creatinine 1.60 H (0.52-1.04) mg/dL Urine Osmolality (400-1100) mOsm/kg Ur Random Sodium (40-220) mmol/L Assessment and Plan Assessment: This is an 84-year-old woman with history of strokes, left subdural, atrial fibrillation was having recurrent falls and presents because of passing out episode and had facial trauma. She was in the hospital she developed seizure for her daughter which was tonic-clonic with eyes rolling back lasted few minutes. She has been having falling episodes for the last 1 to 2 years. New onset seizure activity. Possibly her passing out episode at home was possibly due to seizure-like activity as well as her recurrent falls was possibly due to underlying seizure especially with the underlying history of stroke--No further seizure or syncopal spells History of left subdural with concern of new left subdrual over left frontal that is small in size--stable on repeat CT. Acute urinary tract infection Acute chronic kidney injury--improving Hyponatremia With trauma due to the recent fall at home Acute ischemic stroke x 2 History of left subdural Underlying history of atrial fibrillation and is on Eliquis Plan: Patient and her son-in-law were in agreement to start anticoagulation since CT head is stable. Yesterday she was transition from heparin drip to her home Eliquis and so far is stable. Cardiology team placed her on ASA as well. There is increase risk of bleed with both anticoagulation and antiplateletes especially with hx of subdural and recurrent falls. I will defer the customer assistance representative use of antiplateletes and anticoagulation to cardiology and primary team. Continue Vimpat 50mg bid Seizure Precaution and seizure pads Per the [place] DMV because of the seizure, avoid driving for 6 months until seizure-free, avoid heights, avoid swimming assisted or using heavy machinery Will defer the rest of medical management to primary and other specialist. Upon discharge, recommend the patient to follow-up with her outpatient neurologist as outpatient within 2-3 weeks. The plan is discussed with her nurse. Dr. Mims will resume neurology service tomorrow A.M. Time with Patient: Less than 30
--- NOTE | 2025-01-29 14:55 | P.PN ---
Subjective Patient is seen for follow-up for acute kidney injury and chronic kidney disease. Renal function has worsened over the last couple of days. Patient received IV Lasix initially and was started on oral Lasix yesterday. No significant complaints Creatinine 1.6 today and sodium is 128. Patient has been voiding. Objective - Vital Signs Vital signs: Vital Signs Temp 100.1 F H 01/29/25 11:34 Pulse 74 01/29/25 11:34 Resp 14 01/29/25 11:34 BP 109/63 01/29/25 11:34 Pulse Ox 95 01/29/25 11:34 FiO2 Intake & Output 01/28/25 01/29/25 01/29/25 18:59 06:59 18:59 Intake Total 981.443 Output Total 533 281 5892 Balance 781.443 -400 -1200 Weight 73 kg Intake: Intake, IV Titration 181.443 Amount Heparin Sod,Pork in 0.45% 181.443 NaCl 25,000 unit In 0.45 % NaCl 1 250ml.bag @ 12 UNITS/KG/HR 8.7 mls/hr IV .Q24H [facility] Rx#:[id number] Oral 800 Output: Urine 325 794 0528 Other: Voiding Method Toilet Toilet Bedside Commode Bedside Commode Bedside Commode - Exam Patient is awake, comfortable, no acute distress Bruising noted on the face and laceration on the forehead Examination of the heart S1 and S2 Examination of the lungs bilateral breath sounds are heard Abdomen is soft nontender Examination lower extremity shows no significant edema [employer]TER exam shows patient is able to move all 4 extremities. - Labs CBC & Chem 7: 01/29/25 06:53 01/29/25 06:53 Labs: Abnormal Lab Results - Last 24 Hours (Table) 01/28/25 01/28/25 01/28/25 Range/Units 11:30 11:30 16:02 RBC (4.10-5.20) 10*6/uL Hgb (12.0-15.0) g/dL Hct (37.2-46.3) % MCV (80.0-97.0) fL MCH (27.0-32.0) pg MPV (9.5-12.2) fL Immature Gran # (0.00-0.04) 10*3/uL Lymphocytes # (0.90-5.00) 10*3/uL APTT 48.7 H (22.0-30.0) sec Sodium (137-145) mmol/L Chloride (98-107) mmol/L BUN (7-17) mg/dL Creatinine (0.52-1.04) mg/dL Urine Osmolality 299 L (400-1100) mOsm/kg Ur Random Sodium 32 L (40-220) mmol/L 01/29/25 01/29/25 Range/Units 06:53 06:53 RBC 2.52 L (4.10-5.20) 10*6/uL Hgb 8.4 L (12.0-15.0) g/dL Hct 25.7 L (37.2-46.3) % MCV 102.0 H (80.0-97.0) fL MCH 33.3 H (27.0-32.0) pg MPV 9.4 L (9.5-12.2) fL Immature Gran # 0.11 H (0.00-0.04) 10*3/uL Lymphocytes # 0.76 L (0.90-5.00) 10*3/uL APTT (22.0-30.0) sec Sodium 128 L (137-145) mmol/L Chloride 94 L (98-107) mmol/L BUN 23 H (7-17) mg/dL Creatinine 1.60 H (0.52-1.04) mg/dL Urine Osmolality (400-1100) mOsm/kg Ur Random Sodium (40-220) mmol/L Assessment and Plan Assessment: 1. Acute kidney injury secondary to ATN secondary to hypotension and acute blood loss anemia. Creatinine decreased to 1.2. Ultrasound showed atrophic kidneys. Serum creatinine increased to 1.6 with diuresis. Rule out urine retention 2. Hypovolemic hyponatremia improved with IV fluids initially. Patient has poor oral intake which may be contributing to serum sodium not improving further. Chest x-ray suggestive of mild volume overload 3. Status post fall. 4. Chronic kidney disease stage IV baseline creatinine 1.8-2.2. 5. Acute blood loss anemia. Iron replete. 6. Hypertension with chronic kidney disease. Controlled. Plan: Hold Lasix Check bladder scan rule out urine retention Continue to hold off on metolazone and TRE inhibitors Repeat labs in a.m. Continue to encourage increased oral intake Avoid nephrotoxic agents
[2025-01-29] MEDS: APIXABAN 2.5 MG TABLET PO SCH (20:26)
--- NOTE | 2025-01-29 22:31 | P.PN ---
Subjective Progress Note Date: 01/27/25 This is a pleasant 84 years old female who was seen and examined in the emergency room at [address], she was lying in bed with Jean bandage around her head with superficial wound requiring stitches. With some evidence around her left eye hematoma Patient states with information obtained with the help of the daughter at bedside that patient was getting her shopping back to home as she is independent her neighbor noticed her noted next to her car and he found her on the floor and EMS were called. Patient herself remember standing by her car and the next thing she remembers to be in the hospital. While she was in hospital she developed seizure as per daughter at bedside which was tonic-clonic arms were up in the air and her also rolled back lasted for about short time, few minutes. No biting tongue, no urinary or bowel incontinence. Patient denies any weakness or numbness or blurred vision or slurred speech However she complains from some fuzziness around her left eye and there is some hematoma around left eye but there is no impaired vision. Also patient was taking Eliquis at home. Patient hemodynamically stable, she is afebrile . Blood pressure 92/55. Hemoglobin 10.5. WBC 5.8. INR within the reference range. Sodium 129 Creatinine elevated 2.2 Liver enzymes not significantly elevated. Troponin x [address]: No acute intracranial process Chest x-ray: Mild to moderate cardiomegaly and additional density correlate for CHF EKG: Atrial fibrillation with a rate of 68 5/31 Patient blood pressure slightly on the low side 96/48 She is awake alert looks comfortable lying in bed still has a bruise around her left eye, her left eye swollen and she cannot open it, her main complaint is pain in her left her area where there is a significantly swollen with some fluctuation most likely secondary to hematoma. which limits movement because of pain. No chest pain or dyspnea. No abdominal pain. No headache or dizziness. No abnormal movements Hemodynamically other than that stable and afebrile. 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 Heart rate 89. She is afebrile. Sodium also slightly dropped 132-129, creatinine is almost the same 3.2 and 3.3 today However urinalysis was abnormal suspicious for infection Patient currently getting 1 unit of blood transfusion, she is awake alert looks tired she still have swelling around her left eye and a bruise in her chin from the fall. She still has swelling on her left thigh area from hematoma on fall on presentation as well Today was noticed to have more suprapubic pain and tenderness She denies headache dizziness no dyspnea had her usual chest pain last night but currently no chest pain only little phlegm with deep breath. I talked to the daughter she says she is allergic to penicillin and developed fever when she has child, she was taking Keflex and ceftriaxone before with no problem and she agrees to start her ceftriaxone for possible UTI. Discussed with the staff to give it slowly and to check vitals and half an hour for double check although it looks per history she is not allergic to ceftriaxone Follow-up urine culture Check bladder scan Because of the hemoglobin and UTI we will going to order CT of the abdomen pelvis with oral contrast I double checked with the daughter, she states that what she thought seizure on admission ER actually it was an episode for 5 seconds where she had her eyes rolled up and arms were in the air and it was not like convulsing but little mild shakiness and after that she woke up right away during this 5 to 10 seconds her blood pressure dropped. Therefore the suspicion of seizure is very low we will keep monitoring but I do not think needs further workup for now. 01/22/2025 Patient is evaluated today on the medical floor. She is resting in bed; not feeling well today. Getting ready to work with physical therapy however her hemoglobin came back today at 6.5 and patient to receive 1 unit of PRBC. Currently IV heparin discontinued and also eliquis discontinued. Patient received a dose of DDAVP yesterday and also was started on aranesp today. Patient had abdominal pelvis CT showing yesterday afternoon revealing moderate size hematoma along the left later hip subcutaneous fat later. This corresponds to prior radiograph 01/19/2025. Layering hyperdensity within the urinary bladder corresponding to recent ultrasound. No urinary bladder wall thickening or surrounding inflammatory changes identified. Findings suggest possible blood products versus other types of debris. Correlate with urinalysis. Colonic diverticulosis without evidence for acute diverticulitis. Trace bilateral pleural effusions. Additional blood work reveals sodium 131, BUN 68, creatinine 2.65. Magnesium 1.9. 01/23/2025 Patient evaluated in follow-up on the cardiac floor. Patient received 1 unit of packed red blood cells yesterday globin today is up to 7.9. Her sodium level is 131 BUN of 52 creatinine of 1.77. Nursing staff reports that she has been retaining urine currently she has 500 mL in her urinary bladder. Patient would like to try urinating before undergoing a straight catheterization. Family at the bedside updated on all testing and plan of care and family has no further questions at this time. Pending evaluation by neurology and orthopedics. 01/24/2025 Patient is evaluated today in follow-up in the cardiac floor. Patient complains of significant nausea and vomiting states that she has not had a bowel movement since admission although she has not had much oral intake. Hemoglobin remains stable at 8.7. No surgical intervention per orthopedics for the left thigh hematoma. Renal function continues to improve creatinine with a BUN of 37 and creatinine 1.37. Sodium level of 130. Patient continues off IV fluids and off IV Lasix at this time. Family is concerned because of her significant history of stroke requiring tPA and thrombectomy as well as her history of atrial fibrillation that she does not remain off anticoagulation for extended period of time. Patient has stroked while off thinners in the past. Cardiology has started the patient on IV heparin and will monitor hemoglobin closely. Neurology fo llowing with concern for seizure-like activity on admission this was likely brought on by the syncopal episode. And she is currently pending EEG and MRI. Urine culture reveals Klebsiella pneumonia and currently pending micro sensitivities. 01/25/2025 Patient is evaluated in follow-up in the cardiac floor. Patient encouraged to increase her oral intake although she is having difficulty as her jaw is quite swollen from her fall. Patient went for a brain MRI with findings of moderate to advanced diffuse cerebral atrophy redemonstrated. Mild to moderate nonspecific white matter changes and probably the proximal vessel ischemic change redemonstrated. A persistent tiny bilateral extra-axial fluid collections and more focal small to moderate size left frontal axial fluid collection both suspected more subacute to chronic and age. An early subacute component to the left frontal fluid collection may be present. There is some local mass effect. Advise repeat CT to further evaluate. Neurology following and felt this could be more chronic in nature and patient is known to have a chronic left subdural hematoma on discharge. He felt that the benefit outweighed the risk that the patient should continue on IV heparin as started by cardiology. Hemoglobin remained stable currently 8.5 today. Her sodium level is 129 BUN of 30 creatinine of 1.33. 01/26/2025 Patient is lying in the bed. Awake alert and oriented. No complaints of chest pain or shortness. Denied any headache. CT head today showed very subtle minimal change in the acute component of the left subdural hematoma may be present. This is near measurement error and could be related to artifact from the plane of sectioning. Chronic subdural hematoma usually appears unchanged. Eliquis is on hold. Neurology is planning for repeat CT head tomorrow. Otherwise patient wants to be started back on anticoagulation. Laboratory data showed WBC 7.8 hemoglobin 8.6 and platelets 253 MCV 101.2 sodium 128 potassium 4.2 chloride 97 bicarb is 27 BUN 21 creatinine 1.24 and blood sugar 103. Chest x-ray showed mild cardiomegaly and small pleural effusions. 01/27/2025 Patient is lying in the bed. Awake alert and oriented. Mentation remains the same. No complaints of nausea or vomiting. Headache improved. Patient was st arted back on anticoagulation with heparin drip since CT head is stable. No fever no chills. Denied any abdominal pain. Laboratory data showed WBC 9.06 hemoglobin 9.6 and platelets 283 INR 1.2 Review of Systems Constitutional: Denied any fatigue denied any fever. Cardio vascular: denied any chest pain, palpitations Gastrointestinal: denied any nausea, vomiting, diarrhea Pulmonary: Denied any shortness of breath cough Neurologic denied any new focal deficits All inpatient medications were reviewed and appropriate changes in these medications as dictated in the interval history and assessment and plan. PHYSICAL EXAMINATION: GENERAL: The patient is alert and oriented x3, not in any acute distress. Well developed, well nourished. HEENT: Pupils are round and equally reacting to light. EOMI. No scleral icterus. No conjunctival pallor. Normocephalic, atraumatic. No pharyngeal erythema. No thyromegaly. CARDIOVASCULAR: S1 and S2 present. No murmurs, rubs, or gallops. PULMONARY: Chest is clear to auscultation, no wheezing or crackles. ABDOMEN: Soft, nontender, nondistended, normoactive bowel sounds. No palpable organomegaly. MUSCULOSKELETAL: No joint swelling or deformity. EXTREMITIES: No cyanosis, clubbing, or pedal edema. Hematoma of the left hip down the lateral side NEUROLOGICAL: Gross neurological examination did not reveal any focal deficits. SKIN: No rashes. stitches over the left eye, bruising periorbital and on chin. 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 No intervention recommended by Ortho. Acute urinary tract infection. Urine culture showed Klebsiella pneumonia Hyponatremia, hypovolemic Acute kidney injury from ATN from hypotension and acute blood loss anemia Acute left periorbital hematoma and laceration Atrial fibrillation with rate controlled on Eliquis at home, Eliquis on hold for now Urinary retention and concern for blood in the urinary bladder. History of stroke in the past requiring TPA and thrombectomy Chronic left subdural hematoma History of AVM status post [place] Hx of hypertension Hyperlipidemia DVT prophylaxis started on IV heparin GI prophylaxis DO NOT INTUBATE. Plan Home Hemoglobin improved to 9.6. Status post 1 unit of PRBC on 01/26/2025. Repeat CT head is stable. Patient was started back on anticoagulation with IV heparin and patient family is agreeable. Continue cardiac telemetry Continue ceftriaxone for Klebsiella pneumonia UTI Patient is a started on Vimpat 50 mg twice daily by neurology with concern for seizure-like activity Monitor hematoma and H&H, transfuse blood for hemoglobin less than 7. Consult orthopedic surgery for the left lateral hip hematoma no surgical intervention planned and recommend conservative management with monitoring Will need to straight catheterize patient as she is unable to void independently. Monitor for further episodes of urinary retention. If there is gross hematuria when patient is able to urinate will need to consult urology Patient is being followed by multiple consultations including ID, Cardiology, Nephrology, Neurology PT OT following. Prognosis guarded. Objective - Vital Signs Vital signs: Vital Signs Temp 97.7 F 01/27/25 09:48 Pulse 80 01/27/25 16:24 Resp 16 01/27/25 16:24 BP 117/68 01/27/25 16:24 Pulse Ox 96 01/27/25 16:24 FiO2 Intake & Output 01/27/25 01/27/25 01/28/25 06:59 18:59 06:59 Intake Total 223.8 Output Total 450 700 Balance -450 -476.2 Weight 72.5 kg Intake: Intake, IV Titration 5.8 Amount Heparin Sod,Pork in 0.45% 5.8 NaCl 25,000 unit In 0.45 % NaCl 1 250ml.bag @ 12 UNITS/KG/HR 8.7 mls/hr IV .Q24H [facility] Rx#:[id number] Oral 218 Output: Urine 450 700 Other: Voiding Method External Catheter Toilet Bedside Commode # Voids 4 - Labs CBC & Chem 7: 01/29/25 06:53 01/29/25 06:53 Labs: Abnormal Lab Results - Last 24 Hours (Table) 01/27/25 01/27/25 01/27/25 Range/Units 08:28 08:28 14:51 RBC 2.46 L 2.78 L (4.10-5.20) 10*6/uL Hgb 8.6 L 9.6 L (12.0-15.0) g/dL Hct 24.9 L 28.7 L (37.2-46.3) % MCV 101.2 H 103.2 H (80.0-97.0) fL MCH 35.0 H 34.5 H (27.0-32.0) pg MPV 9.1 L (9.5-12.2) fL Immature Gran # 0.15 H 0.15 H (0.00-0.04) 10*3/uL Lymphocytes # 0.83 L 0.80 L (0.90-5.00) 10*3/uL PT (10.0-12.5) sec INR (<1.2) APTT (22.0-30.0) sec Sodium 128 L (137-145) mmol/L Chloride 97 L (98-107) mmol/L BUN 21 H (7-17) mg/dL Creatinine 1.24 H (0.52-1.04) mg/dL Glucose 103 H (74-99) mg/dL 01/27/25 01/27/25 Range/Units 14:51 16:16 RBC (4.10-5.20) 10*6/uL Hgb (12.0-15.0) g/dL Hct (37.2-46.3) % MCV (80.0-97.0) fL MCH (27.0-32.0) pg MPV (9.5-12.2) fL Immature Gran # (0.00-0.04) 10*3/uL Lymphocytes # (0.90-5.00) 10*3/uL PT 12.7 H (10.0-12.5) sec INR 1.2 H (<1.2) APTT 132.8 H* 58.9 H (22.0-30.0) sec Sodium (137-145) mmol/L Chloride (98-107) mmol/L BUN (7-17) mg/dL Creatinine (0.52-1.04) mg/dL Glucose (74-99) mg/dL
--- NOTE | 2025-01-29 22:55 | P.PN ---
Subjective Progress Note Date: 01/28/25 This is a pleasant 84 years old female who was seen and examined in the emergency room at [facility], she was lying in bed with Jean bandage around her head with superficial wound requiring stitches. With some evidence around her left eye hematoma Patient states with information obtained with the help of the daughter at bedside that patient was getting her shopping back to home as she is independent her neighbor noticed her noted next to her car and he found her on the floor and EMS were called. Patient herself remember standing by her car and the next thing she remembers to be in the hospital. While she was in hospital she developed seizure as per daughter at bedside which was tonic-clonic arms were up in the air and her also rolled back lasted for about short time, few minutes. No biting tongue, no urinary or bowel incontinence. Patient denies any weakness or numbness or blurred vision or slurred speech However she complains from some fuzziness around her left eye and there is some hematoma around left eye but there is no impaired vision. Also patient was taking Eliquis at home. Patient hemodynamically stable, she is afebrile . Blood pressure 92/55. Hemoglobin 10.5. WBC 5.8. INR within the reference range. Sodium 129 Creatinine elevated 2.2 Liver enzymes not significantly elevated. Troponin x [address]: No acute intracranial process Chest x-ray: Mild to moderate cardiomegaly and additional density correlate for CHF EKG: Atrial fibrillation with a rate of 68 5/31 Patient blood pressure slightly on the low side 96/48 She is awake alert looks comfortable lying in bed still has a bruise around her left eye, her left eye swollen and she cannot open it, her main complaint is pain in her left her area where there is a significantly swollen with some fluctuation most likely secondary to hematoma. which limits movement because of pain. No chest pain or dyspnea. No abdominal pain. No headache or dizziness. No abnormal movements Hemodynamically other than that stable and afebrile. 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 Heart rate 89. She is afebrile. Sodium also slightly dropped 132-129, creatinine is almost the same 3.2 and 3.3 today However urinalysis was abnormal suspicious for infection Patient currently getting 1 unit of blood transfusion, she is awake alert looks tired she still have swelling around her left eye and a bruise in her chin from the fall. She still has swelling on her left thigh area from hematoma on fall on presentation as well Today was noticed to have more suprapubic pain and tenderness She denies headache dizziness no dyspnea had her usual chest pain last night but currently no chest pain only little phlegm with deep breath. I talked to the daughter she says she is allergic to penicillin and developed fever when she has child, she was taking Keflex and ceftriaxone before with no problem and she agrees to start her ceftriaxone for possible UTI. Discussed with the staff to give it slowly and to check vitals and half an hour for double check although it looks per history she is not allergic to ceftriaxone Follow-up urine culture Check bladder scan Because of the hemoglobin and UTI we will going to order CT of the abdomen pelvis with oral contrast I double checked with the daughter, she states that what she thought seizure on admission ER actually it was an episode for 5 seconds where she had her eyes rolled up and arms were in the air and it was not like convulsing but little mild shakiness and after that she woke up right away during this 5 to 10 seconds her blood pressure dropped. Therefore the suspicion of seizure is very low we will keep monitoring but I do not think needs further workup for now. 01/22/2025 Patient is evaluated today on the medical floor. She is resting in bed; not feeling well today. Getting ready to work with physical therapy however her hemoglobin came back today at 6.5 and patient to receive 1 unit of PRBC. Currently IV heparin discontinued and also eliquis discontinued. Patient received a dose of DDAVP yesterday and also was started on aranesp today. Patient had abdominal pelvis CT showing yesterday afternoon revealing moderate size hematoma along the left later hip subcutaneous fat later. This corresponds to prior radiograph 01/19/2025. Layering hyperdensity within the urinary bladder corresponding to recent ultrasound. No urinary bladder wall thickening or surrounding inflammatory changes identified. Findings suggest possible blood products versus other types of debris. Correlate with urinalysis. Colonic diverticulosis without evidence for acute diverticulitis. Trace bilateral pleural effusions. Additional blood work reveals sodium 131, BUN 68, creatinine 2.65. Magnesium 1.9. 01/23/2025 Patient evaluated in follow-up on the cardiac floor. Patient received 1 unit of packed red blood cells yesterday globin today is up to 7.9. Her sodium level is 131 BUN of 52 creatinine of 1.77. Nursing staff reports that she has been retaining urine currently she has 500 mL in her urinary bladder. Patient would like to try urinating before undergoing a straight catheterization. Family at the bedside updated on all testing and plan of care and family has no further questions at this time. Pending evaluation by neurology and orthopedics. 01/24/2025 Patient is evaluated today in follow-up in the cardiac floor. Patient complains of significant nausea and vomiting states that she has not had a bowel movement since admission although she has not had much oral intake. Hemoglobin remains stable at 8.7. No surgical intervention per orthopedics for the left thigh hematoma. Renal function continues to improve creatinine with a BUN of 37 and creatinine 1.37. Sodium level of 130. Patient continues off IV fluids and off IV Lasix at this time. Family is concerned because of her significant history of stroke requiring tPA and thrombectomy as well as her history of atrial fibrillation that she does not remain off anticoagulation for extended period of time. Patient has stroked while off thinners in the past. Cardiology has started the patient on IV heparin and will monitor hemoglobin closely. Neurology fo llowing with concern for seizure-like activity on admission this was likely brought on by the syncopal episode. And she is currently pending EEG and MRI. Urine culture reveals Klebsiella pneumonia and currently pending micro sensitivities. 01/25/2025 Patient is evaluated in follow-up in the cardiac floor. Patient encouraged to increase her oral intake although she is having difficulty as her jaw is quite swollen from her fall. Patient went for a brain MRI with findings of moderate to advanced diffuse cerebral atrophy redemonstrated. Mild to moderate nonspecific white matter changes and probably the proximal vessel ischemic change redemonstrated. A persistent tiny bilateral extra-axial fluid collections and more focal small to moderate size left frontal axial fluid collection both suspected more subacute to chronic and age. An early subacute component to the left frontal fluid collection may be present. There is some local mass effect. Advise repeat CT to further evaluate. Neurology following and felt this could be more chronic in nature and patient is known to have a chronic left subdural hematoma on discharge. He felt that the benefit outweighed the risk that the patient should continue on IV heparin as started by cardiology. Hemoglobin remained stable currently 8.5 today. Her sodium level is 129 BUN of 30 creatinine of 1.33. 01/26/2025 Patient is lying in the bed. Awake alert and oriented. No complaints of chest pain or shortness. Denied any headache. CT head today showed very subtle minimal change in the acute component of the left subdural hematoma may be present. This is near measurement error and could be related to artifact from the plane of sectioning. Chronic subdural hematoma usually appears unchanged. Eliquis is on hold. Neurology is planning for repeat CT head tomorrow. Otherwise patient wants to be started back on anticoagulation. Laboratory data showed WBC 7.8 hemoglobin 8.6 and platelets 253 MCV 101.2 sodium 128 potassium 4.2 chloride 97 bicarb is 27 BUN 21 creatinine 1.24 and blood sugar 103. Chest x-ray showed mild cardiomegaly and small pleural effusions. 01/27/2025 Patient is lying in the bed. Awake alert and oriented. Mentation remains the same. No complaints of nausea or vomiting. Headache improved. Patient was st arted back on anticoagulation with heparin drip since CT head is stable. No fever no chills. Denied any abdominal pain. Laboratory data showed WBC 9.06 hemoglobin 9.6 and platelets 283 INR 1.2 01/28/2025 Patient is resting in the bed. Awake alert and oriented. No complaints of chest pain or shortness of breath. No cough or sputum production. Laboratory data showed WBC 9.4 hemoglobin 8.6 and platelets 271 sodium 127 potassium 4.2 chloride 94 bicarb is 28 BUN 2020 creatinine 1.4. Review of Systems Constitutional: Denied any fatigue denied any fever. Cardio vascular: denied any chest pain, palpitations Gastrointestinal: denied any nausea, vomiting, diarrhea Pulmonary: Denied any shortness of breath cough Neurologic denied any new focal deficits All inpatient medications were reviewed and appropriate changes in these medications as dictated in the interval history and assessment and plan. PHYSICAL EXAMINATION: GENERAL: The patient is alert and oriented x3, not in any acute distress. Well developed, well nourished. HEENT: Pupils are round and equally reacting to light. EOMI. No scleral icterus. No conjunctival pallor. Normocephalic, atraumatic. No pharyngeal erythema. No th yromegaly. CARDIOVASCULAR: S1 and S2 present. No murmurs, rubs, or gallops. PULMONARY: Chest is clear to auscultation, no wheezing or crackles. ABDOMEN: Soft, nontender, nondistended, normoactive bowel sounds. No palpable organomegaly. MUSCULOSKELETAL: No joint swelling or deformity. EXTREMITIES: No cyanosis, clubbing, or pedal edema. Hematoma of the left hip down the lateral side NEUROLOGICAL: Gross neurological examination did not reveal any focal deficits. SKIN: No rashes. stitches over the left eye, bruising periorbital and on chin. 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 No intervention recommended by Ortho. Acute urinary tract infection. Urine culture showed Klebsiella pneumonia Hyponatremia, hypovolemic Acute kidney injury from ATN from hypotension and acute blood loss anemia Acute left periorbital hematoma and laceration Atrial fibrillation with rate controlled on Eliquis at home, Eliquis on hold for now Urinary retention and concern for blood in the urinary bladder. History of stroke in the past requiring TPA and thrombectomy Chronic left subdural hematoma History of AVM status post [place] Hx of hypertension Hyperlipidemia DVT prophylaxis started on IV heparin GI prophylaxis DO NOT INTUBATE. Plan Home Hemoglobin 9.6-8.6.. Status post 1 unit of PRBC on 01/26/2025. Repeat CT head is stable. Patient was started back on anticoagulation with IV heparin. Anticoagulation changed to Eliquis. Continue cardiac telemetry Continue ceftriaxone for Klebsiella pneumonia UTI Patient is a started on Vimpat 50 mg twice daily by neurology with concern for seizure-like activity Monitor hematoma and H&H, transfuse blood for hemoglobin less than 7. Consult orthopedic surgery for the left lateral hip hematoma no surgical intervention planned and recommend conservative management with monitoring Will need to straight catheterize patient as she is unable to void independently. Monitor for further episodes of urinary retention. If there is gross hematuria when patient is able to urinate will need to consult urology Patient is being followed by multiple consultations including ID, Cardiology, Nephrology, Neurology PT OT following. Prognosis guarded. Objective - Vital Signs Vital signs: Vital Signs Temp 98.7 F 01/28/25 20:05 Pulse 71 01/28/25 20:05 Resp 17 01/28/25 20:05 BP 114/72 01/28/25 20:05 Pulse Ox 94 L 01/28/25 20:05 FiO2 Intake & Output 01/28/25 01/28/25 01/29/25 06:59 18:59 06:59 Intake Total 981.443 Output Total 1200 200 Balance -1200 781.443 Weight 73 kg Intake: Intake, IV Titration 181.443 Amount Heparin Sod,Pork in 0.45% 181.443 NaCl 25,000 unit In 0.45 % NaCl 1 250ml.bag @ 12 UNITS/KG/HR 8.7 mls/hr IV .Q24H [facility]GE Rx#:[id number] Oral 800 Output: Urine 1200 200 Other: Voiding Method Toilet Toilet Bedside Commode Bedside Commode # Voids 2 - Labs CBC & Chem 7: 01/29/25 06:53 01/29/25 06:53 Labs: Abnormal Lab Results - Last 24 Hours (Table) 01/27/25 01/28/25 01/28/25 Range/Units 21:10 08:25 08:25 RBC 2.51 L (4.10-5.20) 10*6/uL Hgb 8.6 L (12.0-15.0) g/dL Hct 25.8 L (37.2-46.3) % MCV 102.8 H (80.0-97.0) fL MCH 34.3 H (27.0-32.0) pg MPV 9.3 L (9.5-12.2) fL Immature Gran # 0.14 H (0.00-0.04) 10*3/uL Lymphocytes # 0.79 L (0.90-5.00) 10*3/uL APTT 47.1 H 75.3 H (22.0-30.0) sec Sodium (137-145) mmol/L Chloride (98-107) mmol/L BUN (7-17) mg/dL Creatinine (0.52-1.04) mg/dL 01/28/25 01/28/25 Range/Units 08:25 16:02 RBC (4.10-5.20) 10*6/uL Hgb (12.0-15.0) g/dL Hct (37.2-46.3) % MCV (80.0-97.0) fL MCH (27.0-32.0) pg MPV (9.5-12.2) fL Immature Gran # (0.00-0.04) 10*3/uL Lymphocytes # (0.90-5.00) 10*3/uL APTT 48.7 H (22.0-30.0) sec Sodium 127 L (137-145) mmol/L Chloride 94 L (98-107) mmol/L BUN 22 H (7-17) mg/dL Creatinine 1.40 H (0.52-1.04) mg/dL
--- NOTE | 2025-01-29 22:57 | P.PN ---
Subjective Progress Note Date: 01/29/25 This is a pleasant 84 years old female who was seen and examined in the emergency room at [facility], she was lying in bed with Jean bandage around her head with superficial wound requiring stitches. With some evidence around her left eye hematoma Patient states with information obtained with the help of the daughter at bedside that patient was getting her shopping back to home as she is independent her neighbor noticed her noted next to her car and he found her on the floor and EMS were called. Patient herself remember standing by her car and the next thing she remembers to be in the hospital. While she was in hospital she developed seizure as per daughter at bedside which was tonic-clonic arms were up in the air and her also rolled back lasted for about short time, few minutes. No biting tongue, no urinary or bowel incontinence. Patient denies any weakness or numbness or blurred vision or slurred speech However she complains from some fuzziness around her left eye and there is some hematoma around left eye but there is no impaired vision. Also patient was taking Eliquis at home. Patient hemodynamically stable, she is afebrile . Blood pressure 92/55. Hemoglobin 10.5. WBC 5.8. INR within the reference range. Sodium 129 Creatinine elevated 2.2 Liver enzymes not significantly elevated. Troponin x [address]: No acute intracranial process Chest x-ray: Mild to moderate cardiomegaly and additional density correlate for CHF EKG: Atrial fibrillation with a rate of 68 5/31 Patient blood pressure slightly on the low side 96/48 She is awake alert looks comfortable lying in bed still has a bruise around her left eye, her left eye swollen and she cannot open it, her main complaint is pain in her left her area where there is a significantly swollen with some fluctuation most likely secondary to hematoma. which limits movement because of pain. No chest pain or dyspnea. No abdominal pain. No headache or dizziness. No abnormal movements Hemodynamically other than that stable and afebrile. 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 Heart rate 89. She is afebrile. Sodium also slightly dropped 132-129, creatinine is almost the same 3.2 and 3.3 today However urinalysis was abnormal suspicious for infection Patient currently getting 1 unit of blood transfusion, she is awake alert looks tired she still have swelling around her left eye and a bruise in her chin from the fall. She still has swelling on her left thigh area from hematoma on fall on presentation as well Today was noticed to have more suprapubic pain and tenderness She denies headache dizziness no dyspnea had her usual chest pain last night but currently no chest pain only little phlegm with deep breath. I talked to the daughter she says she is allergic to penicillin and developed fever when she has child, she was taking Keflex and ceftriaxone before with no problem and she agrees to start her ceftriaxone for possible UTI. Discussed with the staff to give it slowly and to check vitals and half an hour for double check although it looks per history she is not allergic to ceftriaxone Follow-up urine culture Check bladder scan Because of the hemoglobin and UTI we will going to order CT of the abdomen pelvis with oral contrast I double checked with the daughter, she states that what she thought seizure on admission ER actually it was an episode for 5 seconds where she had her eyes rolled up and arms were in the air and it was not like convulsing but little mild shakiness and after that she woke up right away during this 5 to 10 seconds her blood pressure dropped. Therefore the suspicion of seizure is very low we will keep monitoring but I do not think needs further workup for now. 01/22/2025 Patient is evaluated today on the medical floor. She is resting in bed; not feeling well today. Getting ready to work with physical therapy however her hemoglobin came back today at 6.5 and patient to receive 1 unit of PRBC. Currently IV heparin discontinued and also eliquis discontinued. Patient received a dose of DDAVP yesterday and also was started on aranesp today. Patient had abdominal pelvis CT showing yesterday afternoon revealing moderate size hematoma along the left later hip subcutaneous fat later. This corresponds to prior radiograph 01/19/2025. Layering hyperdensity within the urinary bladder corresponding to recent ultrasound. No urinary bladder wall thickening or surrounding inflammatory changes identified. Findings suggest possible blood products versus other types of debris. Correlate with urinalysis. Colonic diverticulosis without evidence for acute diverticulitis. Trace bilateral pleural effusions. Additional blood work reveals sodium 131, BUN 68, creatinine 2.65. Magnesium 1.9. 01/23/2025 Patient evaluated in follow-up on the cardiac floor. Patient received 1 unit of packed red blood cells yesterday globin today is up to 7.9. Her sodium level is 131 BUN of 52 creatinine of 1.77. Nursing staff reports that she has been retaining urine currently she has 500 mL in her urinary bladder. Patient would like to try urinating before undergoing a straight catheterization. Family at the bedside updated on all testing and plan of care and family has no further questions at this time. Pending evaluation by neurology and orthopedics. 01/24/2025 Patient is evaluated today in follow-up in the cardiac floor. Patient complains of significant nausea and vomiting states that she has not had a bowel movement since admission although she has not had much oral intake. Hemoglobin remains stable at 8.7. No surgical intervention per orthopedics for the left thigh hematoma. Renal function continues to improve creatinine with a BUN of 37 and creatinine 1.37. Sodium level of 130. Patient continues off IV fluids and off IV Lasix at this time. Family is concerned because of her significant history of stroke requiring tPA and thrombectomy as well as her history of atrial fibrillation that she does not remain off anticoagulation for extended period of time. Patient has stroked while off thinners in the past. Cardiology has started the patient on IV heparin and will monitor hemoglobin closely. Neurology fo llowing with concern for seizure-like activity on admission this was likely brought on by the syncopal episode. And she is currently pending EEG and MRI. Urine culture reveals Klebsiella pneumonia and currently pending micro sensitivities. 01/25/2025 Patient is evaluated in follow-up in the cardiac floor. Patient encouraged to increase her oral intake although she is having difficulty as her jaw is quite swollen from her fall. Patient went for a brain MRI with findings of moderate to advanced diffuse cerebral atrophy redemonstrated. Mild to moderate nonspecific white matter changes and probably the proximal vessel ischemic change redemonstrated. A persistent tiny bilateral extra-axial fluid collections and more focal small to moderate size left frontal axial fluid collection both suspected more subacute to chronic and age. An early subacute component to the left frontal fluid collection may be present. There is some local mass effect. Advise repeat CT to further evaluate. Neurology following and felt this could be more chronic in nature and patient is known to have a chronic left subdural hematoma on discharge. He felt that the benefit outweighed the risk that the patient should continue on IV heparin as started by cardiology. Hemoglobin remained stable currently 8.5 today. Her sodium level is 129 BUN of 30 creatinine of 1.33. 01/26/2025 Patient is lying in the bed. Awake alert and oriented. No complaints of chest pain or shortness. Denied any headache. CT head today showed very subtle minimal change in the acute component of the left subdural hematoma may be present. This is near measurement error and could be related to artifact from the plane of sectioning. Chronic subdural hematoma usually appears unchanged. Eliquis is on hold. Neurology is planning for repeat CT head tomorrow. Otherwise patient wants to be started back on anticoagulation. Laboratory data showed WBC 7.8 hemoglobin 8.6 and platelets 253 MCV 101.2 sodium 128 potassium 4.2 chloride 97 bicarb is 27 BUN 21 creatinine 1.24 and blood sugar 103. Chest x-ray showed mild cardiomegaly and small pleural effusions. 01/27/2025 Patient is lying in the bed. Awake alert and oriented. Mentation remains the same. No complaints of nausea or vomiting. Headache improved. Patient was st arted back on anticoagulation with heparin drip since CT head is stable. No fever no chills. Denied any abdominal pain. Laboratory data showed WBC 9.06 hemoglobin 9.6 and platelets 283 INR 1.2 01/28/2025 Patient is resting in the bed. Awake alert and oriented. No complaints of chest pain or shortness of breath. No cough or sputum production. Laboratory data showed WBC 9.4 hemoglobin 8.6 and platelets 271 sodium 127 potassium 4.2 chloride 94 bicarb is 28 BUN 2020 creatinine 1.4. 01/29/2025 Patient is lying in the bed. Awake alert and oriented x 3. No complaints of headache. Currently on room air. No cough or sputum production. Awake patient was found to have urinary retention requiring straight catheterization. Creatinine increased to 1.6 from 1.4. Other laboratory data showed WBC 7.3 hemoglobin 8.4 and platelets 299 sodium 128 potassium 4.2 chloride 94 bicarb is 28 BUN 23 and creatinine 1.6 and calcium 8.7. Patient is being continued on anticoagulation with Eliquis. Patient remains in atrial fibrillation with rate controlled. Nephrology and cardiology is on board. Review of Systems Constitutional: Denied any fatigue denied any fever. Cardio vascular: denied any chest pain, palpitations Gastrointestinal: denied any nausea, vomiting, diarrhea Pulmonary: Denied any shortness of breath cough Neurologic denied any new focal deficits All inpatient medications were reviewed and appropriate changes in these medications as dictated in the interval history and assessment and plan. PHYSICAL EXAMINATION: GENERAL: The patient is alert and oriented x3, not in any acute distress. Well developed, well nourished. HEENT: Pupils are round and equally reacting to light. EOMI. No scleral icterus. No conjunctival pallor. Normocephalic, atraumatic. No pharyngeal erythema. No thyromegaly. CARDIOVASCULAR: S1 and S2 present. No murmurs, rubs, or gallops. PULMONARY: Chest is clear to auscultation, no wheezing or crackles. ABDOMEN: Soft, nontender, nondistended, normoactive bowel sounds. No palpable organomegaly. MUSCULOSKELETAL: No joint swelling or deformity. EXTREMITIES: No cyanosis, clubbing, or pedal edema. Hematoma of the left hip down the lateral side NEUROLOGICAL: Gross neurological examination did not reveal any focal deficits. SKIN: No rashes. stitches over the left eye, bruising periorbital and on chin. 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 No intervention recommended by Ortho. Acute urinary tract infection. Urine culture showed Klebsiella pneumonia Hyponatremia, hypovolemic Acute kidney injury from ATN from hypotension and acute blood loss anemia Acute urinary retention. Status post heart catheterization on 01/29/2025 Acute left periorbital hematoma and laceration Chronic atrial fibrillation with rate controlled on Eliquis at home, Eliquis has been restarted. Urinary retention and concern for blood in the urinary bladder. History of stroke in the past requiring TPA and thrombectomy Chronic left subdural hematoma History of AVM status post [place] Hx of hypertension Hyperlipidemia DVT prophylaxis started on IV heparin GI prophylaxis DO NOT INTUBATE. Plan Home Hemoglobin 9.6-8.6-8.4.. Status post 1 unit of PRBC on 01/26/2025. Repeat CT head is stable. Patient was started back on anticoagulation with IV heparin. Anticoagulation changed to Eliquis. Continue cardiac telemetry Continue ceftriaxone for Klebsiella pneumonia UTI Patient is a started on Vimpat 50 mg twice daily by neurology with concern for seizure-like activity Monitor hematoma and H&H, transfuse blood for hemoglobin less than 7. Consult orthopedic surgery for the left lateral hip hematoma no surgical intervention planned and recommend conservative management with monitoring Will need to straight catheterize patient as she is unable to void independently. Monitor for further episodes of urinary retention. If there is gross hematuria when patient is able to urinate will need to consult urology Patient is being followed by multiple consultations including ID, Cardiology, Nephrology, Neurology PT OT following. Prognosis guarded. Objective - Vital Signs Vital signs: Vital Signs Temp 98.1 F 01/29/25 19:28 Pulse 62 01/29/25 19:28 Resp 16 01/29/25 19:28 BP 113/70 01/29/25 19:28 Pulse Ox 94 L 01/29/25 19:28 FiO2 Intake & Output 01/29/25 01/29/25 01/30/25 06:59 18:59 06:59 Output Total 400 1850 Balance -400 -1850 Weight 73 kg Output: Urine 400 1850 Other: Voiding Method Toilet Bedside Commode Toilet Bedside Commode Bedside Commode - Labs CBC & Chem 7: 01/29/25 06:53 01/29/25 06:53 Labs: Abnormal Lab Results - Last 24 Hours (Table) 01/28/25 01/28/25 01/29/25 Range/Units 11:30 11:30 06:53 RBC 2.52 L (4.10-5.20) 10*6/uL Hgb 8.4 L (12.0-15.0) g/dL Hct 25.7 L (37.2-46.3) % MCV 102.0 H (80.0-97.0) fL MCH 33.3 H (27.0-32.0) pg MPV 9.4 L (9.5-12.2) fL Immature Gran # 0.11 H (0.00-0.04) 10*3/uL Lymphocytes # 0.76 L (0.90-5.00) 10*3/uL Sodium (137-145) mmol/L Chloride (98-107) mmol/L BUN (7-17) mg/dL Creatinine (0.52-1.04) mg/dL Urine Osmolality 299 L (400-1100) mOsm/kg Ur Random Sodium 32 L (40-220) mmol/L 01/29/25 Range/Units 06:53 RBC (4.10-5.20) 10*6/uL Hgb (12.0-15.0) g/dL Hct (37.2-46.3) % MCV (80.0-97.0) fL MCH (27.0-32.0) pg MPV (9.5-12.2) fL Immature Gran # (0.00-0.04) 10*3/uL Lymphocytes # (0.90-5.00) 10*3/uL Sodium 128 L (137-145) mmol/L Chloride 94 L (98-107) mmol/L BUN 23 H (7-17) mg/dL Creatinine 1.60 H (0.52-1.04) mg/dL Urine Osmolality (400-1100) mOsm/kg Ur Random Sodium (40-220) mmol/L
[2025-01-30 10:55] LABS: African American GFR (CKD) 36 (>60 ml/min/1.73 sqM); Anion Gap 5 mmol/L; Blood Urea Nitrogen 22 mg/dL (7-17); Calcium 8.5 mg/dL (8.4-10.2); Carbon Dioxide 28 mmol/L (22-30); Chloride 94 mmol/L (98-107); Glucose 99 mg/dL (74-99); Non-African American GFR(CKD) 31 (>60 ml/min/1.73 sqM); Potassium 4.1 mmol/L (3.5-5.1); Sodium 127 mmol/L (137-145)
--- NOTE | 2025-01-30 12:34 | P.PN ---
Subjective Patient is seen for follow-up for acute kidney injury and chronic kidney disease. Renal function has worsened over the last couple of days. Patient received Lasix for 2 days, now discontinued No significant complaints Creatinine 1.5 today and sodium is 128. Patient has been voiding. Postvoid residual not elevated. Objective - Vital Signs Vital signs: Vital Signs Temp 98.6 F 01/30/25 08:32 Pulse 70 01/30/25 08:32 Resp 14 01/30/25 08:32 BP 104/60 01/30/25 08:32 Pulse Ox 97 01/30/25 08:32 FiO2 Intake & Output 01/29/25 01/30/25 01/30/25 18:59 06:59 18:59 Intake Total 118 Output Total 1850 Balance -1850 118 Weight 73 kg 72.5 kg Intake: Oral 118 Output: Urine 1850 Other: Voiding Method Bedside Commode Toilet Bedside Commode # Voids 1 - Exam Patient is awake, comfortable, no acute distress Bruising noted on the face and laceration on the forehead Examination of the heart S1 and S2 Examination of the lungs bilateral breath sounds are heard Abdomen is soft nontender Examination lower extremity shows no significant edema [employer] exam shows patient is able to move all 4 extremities. - Labs CBC & Chem 7: 01/29/25 06:53 01/30/25 10:25 Labs: Abnormal Lab Results - Last 24 Hours (Table) 01/30/25 Range/Units 10:25 Sodium 127 L (137-145) mmol/L Chloride 94 L (98-107) mmol/L BUN 22 H (7-17) mg/dL Creatinine 1.51 H (0.52-1.04) mg/dL Assessment and Plan Assessment: 1. Acute kidney injury secondary to ATN secondary to hypotension and acute blood loss anemia. Creatinine decreased to 1.2. Ultrasound showed atrophic kidneys. Serum creatinine increased to 1.6 with diuresis. No urine retention 2. Hypovolemic hyponatremia improved with IV fluids initially. Patient has poor oral intake which may be contributing to serum sodium not improving further. Chest x-ray suggestive of mild volume overload 3. Status post fall. 4. Chronic kidney disease stage IV baseline creatinine 1.8-2.2. 5. Acute blood loss anemia. Iron replete. 6. Hypertension with chronic kidney disease. Controlled. Plan: Continue to hold Lasix Continue to hold off on metolazone and TRE inhibitors Repeat labs in a.m. Continue to encourage increased oral intake Avoid nephrotoxic agents
--- NOTE | 2025-01-30 13:05 | P.PN ---
Subjective Progress Note Date: 01/30/25 Patient was initially seen by Dr. Michael Nagel. Please refer to his notes for details. Patient is a 84-year-old female with new onset seizure, history of CVA and left subdural. Patient was placed on Vimpat and has new onset left small left frontal subdural which is stable. Patient started on Eliquis for her A-fib. Patient states she had history of 2 strokes in the past. The first 1 was in 2019 which affected her right side of the body, but she came out of it very fast. She had a second stroke in 2022 which affected her left side of the body and had residual deficits. Patient admits to having headache 7/10, which comes down to 3-4/10 without pain medication, but it comes back after few hours. Denies any dizziness. Patient is sitting comfortably in the recliner. Patient states the headache is not getting particularly worse. She wants to go home. Patient has been having frequent falls since her first stroke in 2019. Some of the work-up during this hospital visit consisted of: hemoglobin was as low in the 6-kyree and currently 7.9 Had acute kidney injury that is improving. It was as high as 3.36. Urine culture is positive Kkebsiella pneumonia CT brain cervical spine and CT facial bones is reported as no acute intracranial process. 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 Nonspecific white matter changes. Acute depressed communicate left nasal bone fracture with associated soft tissue swelling. Acute left periorbital soft tissue hematoma with acute soft tissue contusion to left chin. Paranasal sinus disease with air-fluid level within the left maxillary sinus which may be related to acute sinusitis. No evidence of cervical spine fracture. Mild multilevel degenerative disc disease. I personally reviewed the CT of the head and there is no acute or subacute ischemic stroke. MRI brain: Is reported as moderate to advanced diffuse cerebral atrophy redemonstrated. Mild to moderate nonspecific white matter changes and probably the proximal vessel ischemic change redemonstrated. Persistent tiny bilateral extra-axial fluid collection and more focal small to moderate size left frontal extra-axial fluid collection both suspected more subacute to chronic age. An early subacute component on the left frontal fluid collection may be present. There is some local mass effect. Advise repeat CT to further evaluate. EEG is abnormal. The background slowing is suggestive of mild encephalopathy. There is no focal slowing, discharges or seizure. CT of the head on 01/25/2025 is reported as there is a new 0.2 x 0.6 cm acute subdural hemorrhage, new from 01/19/2025 CT examination. This appears to be at dependent portion of the chronic subdural hematoma Repeat CT of the head reveals very subtle minimal change in the acute, overnight of the left subdural hematoma may be present. This is near a measurement error and could be related to artifact from plain of section. The chronic subdural hematoma usually appears unchanged. Repeat CT head 01/26/2025 the tiny sudural hematoma remains present currently me asuring 1.0X0.2cm. No significant interval changes. Repeat CT head 01/27/2025 in afternoon: No significant interval changes from study done the same day. Similar appearnace of a tiny subdural along the left cerebral convexity measuring up to 4mm in thickness. I personally reviewed CT head, agree with the findings. Objective - Vital Signs Vital signs: Vital Signs Temp 98.6 F 01/30/25 08:32 Pulse 70 01/30/25 08:32 Resp 14 01/30/25 08:32 BP 104/60 01/30/25 08:32 Pulse Ox 97 01/30/25 08:32 FiO2 Intake & Output 01/29/25 01/30/25 01/30/25 18:59 06:59 18:59 Intake Total 118 Output Total 1850 Balance -1850 118 Weight 73 kg 72.5 kg Intake: Oral 118 Output: Urine 1850 Other: Voiding Method Bedside Commode Toilet Bedside Commode # Voids 1 - Exam Patient is alert and awake. She knows it is January 2025 and that she is in [facility] in [facility]. Speech and language functions are normal. Detailed cognitive function testing deferred. 1. Examination pupils are equal, round and reacting, visual donohue are full, extraocular muscles are intact with no nystagmus. Visual donohue are full with no neglect. Face has very subtle left-sided asymmetry. Tongue protrudes to midline. On muscle strength testing, patient has very mild drift, only 5 degree. The strength is normal in the arms distally and proximally. In the lower limbs (right/left) hip flexion 4/3+4-, ankle dorsiflexion 5/4+. Sensory to touch is equal in the arms, but is decreased in the left leg as compared to the right leg. She is tremulous for [id number] testing bilaterally but no ataxia. Patient has multiple bruises on the chin, particularly the left side, below her eyes, over zygomatic region. She has small laceration over the left eyebrow. Multiple bruises over her arms, and the right leg. She claims she has hematoma over the left hip region. - Labs CBC & Chem 7: 01/29/25 06:53 01/30/25 10:25 Labs: Abnormal Lab Results - Last 24 Hours (Table) 01/30/25 Range/Units 10:25 Sodium 127 L (137-145) mmol/L Chloride 94 L (98-107) mmol/L BUN 22 H (7-17) mg/dL Creatinine 1.51 H (0.52-1.04) mg/dL Assessment and Plan Assessment: This is an 84-year-old woman with history of strokes, left subdural, atrial fibrillation was having recurrent falls and presents because of passing out episode and had facial trauma. She was in the hospital she developed seizure for her daughter which was tonic-clonic with eyes rolling back lasted few minutes. She has been having falling episodes for the last 1 to 2 years. New onset seizure activity. Possibly her passing out episode at home was possibly due to seizure-like activity as well as her recurrent falls was po ssibly due to underlying seizure especially with the underlying history of stroke--No further seizure or syncopal spells History of left subdural with concern of new left subdrual over left frontal th at is small in size--stable on repeat CT. Acute urinary tract infection Acute chronic kidney injury--improving Hyponatremia With trauma due to the recent fall at home Acute ischemic stroke x 2 History of left subdural Underlying history of atrial fibrillation and is on Eliquis Plan: Dr. Nagel has discussed with patient and her son-in-law, and all of them were in agreement to start anticoagulation since CT head is stable. Eliquis 2.5 mg twi ce daily started 01/29/2025 at 9 PM. Cardiology team placed her on ASA as well. There is increase risk of bleed with both anticoagulation and antiplateletes especially with hx of subdural and recurrent falls. We will defer the retirement use of antiplateletes and anticoagulation to cardiology and primary team. Patient currently on Vimpat 50mg IV bid. We will switch to oral form and increase Vimpat to 100 mg twice daily, and maintain on this dose. Seizure Precaution and seizure pads Per the [facility] because of the seizure, avoid driving for 6 months until seizure-free, avoid heights, avoid swimming assisted or using heavy machinery Will defer the rest of medical management to primary and other specialist. Upon discharge, recommend the patient to follow-up with her outpatient neurolog ist as outpatient within 2-3 weeks.
--- NOTE | 2025-01-30 16:35 | P.PN ---
Subjective Progress Note Date: 01/29/25 Principal diagnosis: Reason for follow-up is UTI Patient is 84-year-old female with a past medical history significant for hypertension hyperlipidemia CVA TIA atrial fibrillation was brought into the hospital 2 days ago after apparently the patient did have a fall, did have significant head and neck bruising with laceration to the left forehead did have elevated white count positive UA and urinary symptoms concerning for UTI prompting this consultation. On today's evaluation that is 01/29/2025, patient has been afebrile, patient is breathing comfortably and is currently on room air, patient denies having any chest pain and cough, patient denies nausea vomiting or diarrhea and no abdominal pain. Patient white count 7.35, creatinine 1.60 Objective - Vital Signs Vital signs: Vital Signs Temp 100.1 F H 01/29/25 11:34 Pulse 74 01/29/25 11:34 Resp 14 01/29/25 11:34 BP 109/63 01/29/25 11:34 Pulse Ox 95 01/29/25 11:34 FiO2 Intake & Output 01/28/25 01/29/25 01/29/25 18:59 06:59 18:59 Intake Total 981.443 Output Total 200 400 900 Balance 781.443 -400 -900 Weight 73 kg Intake: Intake, IV Titration 181.443 Amount Heparin Sod,Pork in 0.45% 181.443 NaCl 25,000 unit In 0.45 % NaCl 1 250ml.bag @ 12 UNITS/KG/HR 8.7 mls/hr IV .Q24H [facility] Rx#:[id number] Oral 800 Output: Urine 200 400 900 Other: Voiding Method Toilet Toilet Bedside Commode Bedside Commode Bedside Commode - Exam GENERAL DESCRIPTION: An elderly female lying in bed in no distress RESPIRATORY SYSTEM: Unlabored breathing , clear to auscultation anteriorly HEART: S1 S2 regular rate and rhythm , ABDOMEN: Soft , no tenderness EXTREMITIES: No edema feet - Labs CBC & Chem 7: 01/29/25 06:53 01/30/25 10:25 Labs: Abnormal Lab Results - Last 24 Hours (Table) 01/28/25 01/28/25 01/28/25 Range/Units 11:30 11:30 16:02 RBC (4.10-5.20) 10*6/uL Hgb (12.0-15.0) g/dL Hct (37.2-46.3) % MCV (80.0-97.0) fL MCH (27.0-32.0) pg MPV (9.5-12.2) fL Immature Gran # (0.00-0.04) 10*3/uL Lymphocytes # (0.90-5.00) 10*3/uL APTT 48.7 H (22.0-30.0) sec Sodium (137-145) mmol/L Chloride (98-107) mmol/L BUN (7-17) mg/dL Creatinine (0.52-1.04) mg/dL Urine Osmolality 299 L (400-1100) mOsm/kg Ur Random Sodium 32 L (40-220) mmol/L 01/29/25 01/29/25 Range/Units 06:53 06:53 RBC 2.52 L (4.10-5.20) 10*6/uL Hgb 8.4 L (12.0-15.0) g/dL Hct 25.7 L (37.2-46.3) % MCV 102.0 H (80.0-97.0) fL MCH 33.3 H (27.0-32.0) pg MPV 9.4 L (9.5-12.2) fL Immature Gran # 0.11 H (0.00-0.04) 10*3/uL Lymphocytes # 0.76 L (0.90-5.00) 10*3/uL APTT (22.0-30.0) sec Sodium 128 L (137-145) mmol/L Chloride 94 L (98-107) mmol/L BUN 23 H (7-17) mg/dL Creatinine 1.60 H (0.52-1.04) mg/dL Urine Osmolality (400-1100) mOsm/kg Ur Random Sodium (40-220) mmol/L Assessment and Plan (1) UTI (urinary tract infection) Current Visit: Yes Status: Acute Code(s): N39.0 - URINARY TRACT INFECTION, SITE NOT SPECIFIED SNOMED Code(s): 79559504 (2) Allergy to multiple antibiotics Current Visit: Yes Status: Acute Code(s): Z88.1 - ALLERGY STATUS TO OTHER ANTIBIOTIC AGENTS SNOMED Code(s): 923923573 Plan: 1patient presenting to the hospital with a syncopal episode and fall and has significant bruising and fracture to the forehead area patient also have abn ormal CT abdominal pelvis with significant layering inside the bladder in this patient who did have significantly positive UA mostly with the white cells rather than red cells did have urinary frequency mild elevated white count concerning for symptomatic UTI from a enteric gram-negative pathogen 2-patient with multiple antibiotic ALLERGIES that would limit the number of antibiotic safe to use 3-patient white count has normalized urine cultures grew Klebsiella which is sensitive to ceftriaxone, for which the patient has completed course of ceftriaxone Patient is currently being monitored closely off antibiotic therapy Dictation was produced using [employer] dictation software. please excuse any grammatical, word or spelling errors. Time with Patient: Less than 30
--- NOTE | 2025-01-30 16:36 | P.PN ---
Subjective Progress Note Date: 01/30/25 Principal diagnosis: Reason for follow-up is UTI Patient is 84-year-old female with a past medical history significant for hypertension hyperlipidemia CVA TIA atrial fibrillation was brought into the hospital 2 days ago after apparently the patient did have a fall, did have significant head and neck bruising with laceration to the left forehead did have elevated white count positive UA and urinary symptoms concerning for UTI prompting this consultation. On today's evaluation that is 01/30/2025, Patient is afebrile this morning patient denies having any chest pain shortness of breath or cough, the patient is currently on room air, patient denies any abdominal pain no diarrhea no nausea no vomiting. The patient did have a creatinine 1.51 no CBC was done today Objective - Vital Signs Vital signs: Vital Signs Temp 98.8 F 01/30/25 15:18 Pulse 64 01/30/25 15:18 Resp 14 01/30/25 15:18 BP 121/63 01/30/25 15:18 Pulse Ox 96 01/30/25 15:18 FiO2 Intake & Output 01/29/25 01/30/25 01/30/25 18:59 06:59 18:59 Intake Total 118 Output Total 1850 Balance -1850 118 Weight 73 kg 72.5 kg Intake: Oral 118 Output: Urine 1850 Other: Voiding Method Bedside Commode Toilet Toilet Bedside Commode Bedside Commode # Voids 1 0 - Exam GENERAL DESCRIPTION: An elderly female lying in bed in no distress RESPIRATORY SYSTEM: Unlabored breathing , clear to auscultation anteriorly HEART: S1 S2 regular rate and rhythm , ABDOMEN: Soft , no tenderness EXTREMITIES: No edema feet - Labs CBC & Chem 7: 01/29/25 06:53 01/30/25 10:25 Labs: Abnormal Lab Results - Last 24 Hours (Table) 01/30/25 Range/Units 10:25 Sodium 127 L (137-145) mmol/L Chloride 94 L (98-107) mmol/L BUN 22 H (7-17) mg/dL Creatinine 1.51 H (0.52-1.04) mg/dL Assessment and Plan (1) UTI (urinary tract infection) Current Visit: Yes Status: Acute Code(s): N39.0 - URINARY TRACT INFECTION, SITE NOT SPECIFIED SNOMED Code(s): 27008805 (2) Allergy to multiple antibiotics Current Visit: Yes Status: Acute Code(s): Z88.1 - ALLERGY STATUS TO OTHER ANTIBIOTIC AGENTS SNOMED Code(s): 158935233 Plan: 1patient presenting to the hospital with a syncopal episode and fall and has significant bruising and fracture to the forehead area patient also have abnormal CT abdominal pelvis with significant layering inside the bladder in this patient who did have significantly positive UA mostly with the white cells rather than red cells did have urinary frequency mild elevated white count concerning for symptomatic UTI from a enteric gram-negative pathogen 2-patient with multiple antibiotic ALLERGIES that would limit the number of antibiotic safe to use 3-patient white count has normalized urine cultures grew Klebsiella which is sensitive to ceftriaxone, 4patient has received adequate IV antibiotic for UTI and Patient is currently being monitored closely off antibiotic therapy Dictation was produced using [employer] dictation software. please excuse any grammatical, word or spelling errors. Time with Patient: Less than 30
[2025-01-30] MEDS: LACOSAMIDE 50 MG TABLET PO SCH (20:04)
--- NOTE | 2025-01-30 22:34 | P.PN ---
Subjective Progress Note Date: 01/30/25 This is a pleasant 84 years old female who was seen and examined in the emergency room at [facility], she was lying in bed with Jean bandage around her head with superficial wound requiring stitches. With some evidence around her left eye hematoma Patient states with information obtained with the help of the daughter at bedside that patient was getting her shopping back to home as she is independent her neighbor noticed her noted next to her car and he found her on the floor and EMS were called. Patient herself remember standing by her car and the next thing she remembers to be in the hospital. While she was in hospital she developed seizure as per daughter at bedside which was tonic-clonic arms were up in the air and her also rolled back lasted for about short time, few minutes. No biting tongue, no urinary or bowel incontinence. Patient denies any weakness or numbness or blurred vision or slurred speech However she complains from some fuzziness around her left eye and there is some hematoma around left eye but there is no impaired vision. Also patient was taking Eliquis at home. Patient hemodynamically stable, she is afebrile . Blood pressure 92/55. Hemoglobin 10.5. WBC 5.8. INR within the reference range. Sodium 129 Creatinine elevated 2.2 Liver enzymes not significantly elevated. Troponin x [address]: No acute intracranial process Chest x-ray: Mild to moderate cardiomegaly and additional density correlate for CHF EKG: Atrial fibrillation with a rate of 68 /31 Patient blood pressure slightly on the low side 96/48 She is awake alert looks comfortable lying in bed still has a bruise around her left eye, her left eye swollen and she cannot open it, her main complaint is pain in her left her area where there is a significantly swollen with some fluctuation most likely secondary to hematoma. which limits movement because of pain. No chest pain or dyspnea. No abdominal pain. No headache or dizziness. No abnormal movements Hemodynamically other than that stable and afebrile. 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 Heart rate 89. She is afebrile. Sodium also slightly dropped 132-129, creatinine is almost the same 3.2 and 3.3 today However urinalysis was abnormal suspicious for infection Patient currently getting 1 unit of blood transfusion, she is awake alert looks tired she still have swelling around her left eye and a bruise in her chin from the fall. She still has swelling on her left thigh area from hematoma on fall on presentation as well Today was noticed to have more suprapubic pain and tenderness She denies headache dizziness no dyspnea had her usual chest pain last night but currently no chest pain only little phlegm with deep breath. I talked to the daughter she says she is allergic to penicillin and developed fever when she has child, she was taking Keflex and ceftriaxone before with no problem and she agrees to start her ceftriaxone for possible UTI. Discussed with the staff to give it slowly and to check vitals and half an hour for double check although it looks per history she is not allergic to ceftriaxone Follow-up urine culture Check bladder scan Because of the hemoglobin and UTI we will going to order CT of the abdomen pelvis with oral contrast I double checked with the daughter, she states that what she thought seizure on admission ER actually it was an episode for 5 seconds where she had her eyes rolled up and arms were in the air and it was not like convulsing but little mild shakiness and after that she woke up right away during this 5 to 10 seconds her blood pressure dropped. Therefore the suspicion of seizure is very low we will keep monitoring but I do not think needs further workup for now. 01/22/2025 Patient is evaluated today on the medical floor. She is resting in bed; not feeling well today. Getting ready to work with physical therapy however her hemoglobin came back today at 6.5 and patient to receive 1 unit of PRBC. Currently IV heparin discontinued and also eliquis discontinued. Patient received a dose of DDAVP yesterday and also was started on aranesp today. Patient had abdominal pelvis CT showing yesterday afternoon revealing moderate size hematoma along the left later hip subcutaneous fat later. This corresponds to prior radiograph 01/19/2025. Layering hyperdensity within the urinary bladder corresponding to recent ultrasound. No urinary bladder wall thickening or surrounding inflammatory changes identified. Findings suggest possible blood products versus other types of debris. Correlate with urinalysis. Colonic diverticulosis without evidence for acute diverticulitis. Trace bilateral pleural effusions. Additional blood work reveals sodium 131, BUN 68, creatinine 2.65. Magnesium 1.9. 01/23/2025 Patient evaluated in follow-up on the cardiac floor. Patient received 1 unit of packed red blood cells yesterday globin today is up to 7.9. Her sodium level is 131 BUN of 52 creatinine of 1.77. Nursing staff reports that she has been retaining urine currently she has 500 mL in her urinary bladder. Patient would like to try urinating before undergoing a straight catheterization. Family at the bedside updated on all testing and plan of care and family has no further questions at this time. Pending evaluation by neurology and orthopedics. 01/24/2025 Patient is evaluated today in follow-up in the cardiac floor. Patient complains of significant nausea and vomiting states that she has not had a bowel movement since admission although she has not had much oral intake. Hemoglobin remains stable at 8.7. No surgical intervention per orthopedics for the left thigh hematoma. Renal function continues to improve creatinine with a BUN of 37 and creatinine 1.37. Sodium level of 130. Patient continues off IV fluids and off IV Lasix at this time. Family is concerned because of her significant history of stroke requiring tPA and thrombectomy as well as her history of atrial fibrillation that she does not remain off anticoagulation for extended period of time. Patient has stroked while off thinners in the past. Cardiology has started the patient on IV heparin and will monitor hemoglobin closely. Neurology fo llowing with concern for seizure-like activity on admission this was likely brought on by the syncopal episode. And she is currently pending EEG and MRI. Urine culture reveals Klebsiella pneumonia and currently pending micro sensitivities. 01/25/2025 Patient is evaluated in follow-up in the cardiac floor. Patient encouraged to increase her oral intake although she is having difficulty as her jaw is quite swollen from her fall. Patient went for a brain MRI with findings of moderate to advanced diffuse cerebral atrophy redemonstrated. Mild to moderate nonspecific white matter changes and probably the proximal vessel ischemic change redemonstrated. A persistent tiny bilateral extra-axial fluid collections and more focal small to moderate size left frontal axial fluid collection both suspected more subacute to chronic and age. An early subacute component to the left frontal fluid collection may be present. There is some local mass effect. Advise repeat CT to further evaluate. Neurology following and felt this could be more chronic in nature and patient is known to have a chronic left subdural hematoma on discharge. He felt that the benefit outweighed the risk that the patient should continue on IV heparin as started by cardiology. Hemoglobin remained stable currently 8.5 today. Her sodium level is 129 BUN of 30 creatinine of 1.33. 01/26/2025 Patient is lying in the bed. Awake alert and oriented. No complaints of chest pain or shortness. Denied any headache. CT head today showed very subtle minimal change in the acute component of the left subdural hematoma may be present. This is near measurement error and could be related to artifact from the plane of sectioning. Chronic subdural hematoma usually appears unchanged. Eliquis is on hold. Neurology is planning for repeat CT head tomorrow. Otherwise patient wants to be started back on anticoagulation. Laboratory data showed WBC 7.8 hemoglobin 8.6 and platelets 253 MCV 101.2 sodium 128 potassium 4.2 chloride 97 bicarb is 27 BUN 21 creatinine 1.24 and blood sugar 103. Chest x-ray showed mild cardiomegaly and small pleural effusions. 01/27/2025 Patient is lying in the bed. Awake alert and oriented. Mentation remains the same. No complaints of nausea or vomiting. Headache improved. Patient was st arted back on anticoagulation with heparin drip since CT head is stable. No fever no chills. Denied any abdominal pain. Laboratory data showed WBC 9.06 hemoglobin 9.6 and platelets 283 INR 1.2 01/28/2025 Patient is resting in the bed. Awake alert and oriented. No complaints of chest pain or shortness of breath. No cough or sputum production. Laboratory data showed WBC 9.4 hemoglobin 8.6 and platelets 271 sodium 127 potassium 4.2 chloride 94 bicarb is 28 BUN 2020 creatinine 1.4. 01/29/2025 Patient is lying in the bed. Awake alert and oriented x 3. No complaints of headache. Currently on room air. No cough or sputum production. Awake patient was found to have urinary retention requiring straight catheterization. Creatinine increased to 1.6 from 1.4. Other laboratory data showed WBC 7.3 hemoglobin 8.4 and platelets 299 sodium 128 potassium 4.2 chloride 94 bicarb is 28 BUN 23 and creatinine 1.6 and calcium 8.7. Patient is being continued on anticoagulation with Eliquis. Patient remains in atrial fibrillation with rate controlled. Nephrology and cardiology is on board. 01/30/2025 Patient is sitting in the chair. Awake alert and oriented x 3. No complaints of chest pain or shortness of breath. Patient would like to be discharged home. Otherwise postvoid residual greater than 300 cc. Renal function slightly improved with creatinine 1.5. Other laboratory data showed WBC 7.3 hemoglobin 8.4 and platelets 299 Sodium 127 potassium 4.1 chloride 94 bicarb is 28 BUN 22 and creatinine 0.51 and calcium 8.5. Review of Systems Constitutional: Denied any fatigue denied any fever. Cardio vascular: denied any chest pain, palpitations Gastrointestinal: denied any nausea, vomiting, diarrhea Pulmonary: Denied any shortness of breath cough Neurologic denied any new focal deficits All inpatient medications were reviewed and appropriate changes in these medications as dictated in the interval history and assessment and plan. PHYSICAL EXAMINATION: GENERAL: The patient is alert and oriented x3, not in any acute distress. Well developed, well nourished. HEENT: Pupils are round and equally reacting to light. EOMI. No scleral icterus. No conjunctival pallor. Normocephalic, atraumatic. No pharyngeal erythema. No thyromegaly. CARDIOVASCULAR: S1 and S2 present. No murmurs, rubs, or gallops. PULMONARY: Chest is clear to auscultation, no wheezing or crackles. ABDOMEN: Soft, nontender, nondistended, normoactive bowel sounds. No palpable organomegaly. MUSCULOSKELETAL: No joint swelling or deformity. EXTREMITIES: No cyanosis, clubbing, or pedal edema. Hematoma of the left hip down the lateral side NEUROLOGICAL: Gross neurological examination did not reveal any focal deficits. SKIN: No rashes. stitches over the left eye, bruising periorbital and on chin. 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 No intervention recommended by Ortho. Acute urinary tract infection. Urine culture showed Klebsiella pneumonia Hyponatremia, hypovolemic Acute kidney injury from ATN from hypotension and acute blood loss anemia Acute urinary retention. Status post straight catheterization on 01/29/2025 x 2 Acute left periorbital hematoma and laceration Chronic atrial fibrillation with rate controlled on Eliquis at home, Eliquis has been restarted. Urinary retention and concern for blood in the urinary bladder. 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 Plan Home Hemoglobin 9.6-8.6-8.4.. Status post 1 unit of PRBC on 01/26/2025. Repeat CT head is stable. Patient was started back on anticoagulation with IV heparin. Anticoagulation changed to Eliquis. Continue cardiac telemetry Continue ceftriaxone for Klebsiella pneumonia UTI Patient is a started on Vimpat 500 mg twice daily by neurology with concern for seizure-like activity. Changed to p.o. Monitor hematoma and H&H, transfuse blood for hemoglobin less than 7. Consult orthopedic surgery for the left lateral hip hematoma no surgical intervention planned and recommend conservative management with monitoring Will need to straight catheterize patient as she is unable to void independently. Monitor for further episodes of urinary retention. Urology was consulted for evaluation. Patient is being followed by multiple consultations including ID, Cardiology, Nephrology, Neurology PT OT following. Prognosis guarded. Objective - Vital Signs Vital signs: Vital Signs Temp 98.1 F 01/30/25 20:00 Pulse 70 01/30/25 20:00 Resp 18 01/30/25 20:00 BP 125/70 01/30/25 20:00 Pulse Ox 95 01/30/25 20:00 FiO2 Intake & Output 01/30/25 01/30/25 01/31/25 06:59 18:59 06:59 Intake Total 386 Balance 386 Weight 72.5 kg Intake: Oral 386 Other: Voiding Method Toilet Toilet Toilet Bedside Commode Bedside Commode Bedside Commode # Voids 1 0 - Labs CBC & Chem 7: 01/29/25 06:53 01/30/25 10:25 Labs: Abnormal Lab Results - Last 24 Hours (Table) 01/30/25 Range/Units 10:25 Sodium 127 L (137-145) mmol/L Chloride 94 L (98-107) mmol/L BUN 22 H (7-17) mg/dL Creatinine 1.51 H (0.52-1.04) mg/dL
[2025-01-31 03:52] VITALS: RESP 16
[2025-01-31 07:20] LABS: Basophils # (A) 0.04 10*3/uL (0.00-0.10); Basophils % (A) 0.6 %; Eosinophils # (A) 0.24 10*3/uL (0.04-0.35); Eosinophils % (A) 3.5 %; HCT 24.9 % (37.2-46.3); HGB 8.4 g/dL (12.0-15.0); Lymphocytes # (A) 0.91 10*3/uL (0.90-5.00); Lymphocytes % (A) 13.2 %; MCH 33.7 pg (27.0-32.0); MCHC 33.7 g/dL (32.0-37.0); Mean Platelet Volume 9.3 fL (9.5-12.2); Monocytes # (A) 0.81 10*3/uL (0.20-1.00); Monocytes % (A) 11.7 %; Neutrophils # (A) 4.87 10*3/uL (1.80-7.70); Neutrophils % (A) 70.3 %; Platelet Count 300 10*3/uL (140-440); RBC 2.49 10*6/uL (4.10-5.20); RDW 17.7 % (11.5-14.5); WBC 6.92 10*3/uL (4.50-10.00)
[2025-01-31 07:36] LABS: African American GFR (CKD) 41 (>60 ml/min/1.73 sqM); Anion Gap 3 mmol/L; Blood Urea Nitrogen 22 mg/dL (7-17); Calcium 8.7 mg/dL (8.4-10.2); Carbon Dioxide 30 mmol/L (22-30); Chloride 93 mmol/L (98-107); Glucose 93 mg/dL (74-99); Non-African American GFR(CKD) 35 (>60 ml/min/1.73 sqM); Potassium 4.4 mmol/L (3.5-5.1); Sodium 126 mmol/L (137-145)
[2025-01-31 09:13] VITALS: BP 117/71; PULSE 78; TEMP 98.4
--- NOTE | 2025-01-31 11:12 | P.GSCN ---
History of Present Illness Consult date: 01/31/25 History of present illness: 84 yo female in the hospital with syncope. It appears that she has afib. The patient was also found to have a klebsiella uti. She had a ct scan showing normal upper tracts. There is debris in her bladder c/w a uti. She was found to be in retention and a catheter was placed. The patient is feeling well now. She states that at home she voids 3-4 times per day. She has occasional urgency incontinence. There has not been recurring infections. She has no problems with her bowels. Review of Systems All systems: negative - Constitutional Denies fever, Denies weight loss - EENT Eyes: denies blurred vision Ears, nose, mouth and throat: Denies dysphagia - Cardiovascular Denies chest pain, Denies shortness of breath - Respiratory Denies cough, Denies 7 - Gastrointestinal Reports as per HPI - Genitourinary Genitourinary: Denies dysuria, Denies hematuria - Integumentary Denies rash, Denies unusual bruising - Neurological Denies headaches, Denies syncope - Hematologic/Lymphatic Denies easy bleeding, Denies easy bruising Past Medical History Past Medical History: Atrial Fibrillation, CVA/TIA, Hyperlipidemia, Hypertension Additional Past Medical History / Comment(s): cardiomyopathy History of Any Multi-Drug Resistant Organisms: None Reported Past Surgical History: Cholecystectomy, Heart Catheterization, Hysterectomy, Tonsillectomy Past Anesthesia/Blood Transfusion Reactions: No Reported Reaction Past Psychological History: No Psychological Hx Reported Smoking Status: Former smoker Past Alcohol Use History: Occasional Past Drug Use History: None Reported Medications and Allergies Home Medications Medication Instructions Recorded Confirmed Type Apixaban [Eliquis] 5 mg PO BID 03/23/23 01/19/25 History Atorvastatin [Lipitor] 20 mg PO DAILY 03/23/23 01/19/25 History Fluticasone/Umeclidin/Vilanter 1 puff INHALATION RT-DAILY 03/23/23 01/19/25 History [Trelegy Ellipta 100-62.5-25] Levothyroxine Sodium [Synthroid] 88 mcg PO DAILY 03/23/23 01/19/25 History Magnesium Chloride [Mag64] 64 mg PO DAILY 03/23/23 01/19/25 History Omeprazole [PriLOSEC] 40 mg PO DAILY 03/23/23 01/19/25 History allopurinoL [Zyloprim] 300 mg PO DAILY 03/23/23 01/19/25 History oxyBUTYnin chloride [Ditropan] 5 mg PO DAILY 03/23/23 01/19/25 History Empagliflozin [Jardiance] 10 mg PO DAILY 01/19/25 01/19/25 History Metoprolol Succinate (ER) [Toprol 25 mg PO DAILY #30 tab 01/29/25 Rx XL] Allergies Allergy/AdvReac Type Severity Reaction Status Date / Time iodine Allergy Rash/Hives Verified 01/23/25 21:09 Penicillins Allergy Unknown Verified 01/19/25 18:38 Sulfa (Sulfonamide Allergy Rash/Hives Verified 01/19/25 18:38 Antibiotics) Surgical - Exam Vital Signs Temp Pulse Resp BP Pulse Ox 97.9 F 77 16 126/94 95 01/19/25 13:51 01/19/25 13:51 01/19/25 13:51 01/19/25 13:51 01/19/25 13:51 Results - Labs 01/31/25 06:25 01/31/25 06:25 Abnormal Lab Results - Last 24 Hours (Table) 01/30/25 Range/Units 10:25 Sodium 127 L (137-145) mmol/L Chloride 94 L (98-107) mmol/L BUN 22 H (7-17) mg/dL Creatinine 1.51 H (0.52-1.04) mg/dL Diabetes panel 01/30/25 Range/Units 10:25 Sodium 127 L (137-145) mmol/L Potassium 4.1 (3.5-5.1) mmol/L Chloride 94 L (98-107) mmol/L Carbon Dioxide 28 (22-30) mmol/L BUN 22 H (7-17) mg/dL Creatinine 1.51 H (0.52-1.04) mg/dL Glucose 99 (74-99) mg/dL Calcium 8.5 (8.4-10.2) mg/dL Calcium panel 01/30/25 Range/Units 10:25 Calcium 8.5 (8.4-10.2) mg/dL Pituitary panel 01/30/25 Range/Units 10:25 Sodium 127 L (137-145) mmol/L Potassium 4.1 (3.5-5.1) mmol/L Chloride 94 L (98-107) mmol/L Carbon Dioxide 28 (22-30) mmol/L BUN 22 H (7-17) mg/dL Creatinine 1.51 H (0.52-1.04) mg/dL Glucose 99 (74-99) mg/dL Calcium 8.5 (8.4-10.2) mg/dL Adrenal panel 01/30/25 Range/Units 10:25 Sodium 127 L (137-145) mmol/L Potassium 4.1 (3.5-5.1) mmol/L Chloride 94 L (98-107) mmol/L Carbon Dioxide 28 (22-30) mmol/L BUN 22 H (7-17) mg/dL Creatinine 1.51 H (0.52-1.04) mg/dL Glucose 99 (74-99) mg/dL Calcium 8.5 (8.4-10.2) mg/dL - Imaging CT scan - abdomen: report reviewed, image reviewed CT scan - pelvis: report reviewed, image reviewed Assessment and Plan Assessment: Impression: urine retention. uti. s/p syncope recommendations: commonly post syncope, cva patients will have urine retention. The catheter should remain in place until she is ambulatory then ve removed for a voiding trial How much chronic incomplete voiding she has will have to be deteremined.
--- NOTE | 2025-01-31 11:56 | P.PN ---
Subjective Progress Note Date: 01/31/25 Principal diagnosis: Reason for follow-up is UTI Patient is 84-year-old female with a past medical history significant for hypertension hyperlipidemia CVA TIA atrial fibrillation was brought into the hospital 2 days ago after apparently the patient did have a fall, did have significant head and neck bruising with laceration to the left forehead did have elevated white count positive UA and urinary symptoms concerning for UTI prompting this consultation. On today's evaluation that is 01/31/2025,the patient denies any fever or any chills, patient is breathing comfortably on room air, the patient denies chest pain shortness of breath and no significant cough, patient denies abdominal pain, no nausea vomiting or diarrhea. Patient mention feeling better wants to go home. Patient white count 6.92, creatinine is 1.36 sodium is 126 Objective - Vital Signs Vital signs: Vital Signs Temp 98.4 F 01/31/25 08:00 Pulse 78 01/31/25 08:00 Resp 16 01/31/25 08:00 BP 117/71 01/31/25 08:00 Pulse Ox 96 01/31/25 08:00 FiO2 Intake & Output 01/30/25 01/31/25 01/31/25 18:59 06:59 18:59 Intake Total 386 540 550 Output Total 600 400 Balance 386 -60 150 Intake: IV 10 Invasive Line 4 10 Oral 386 540 540 Output: Urine 600 400 Uretheral (Hendrickson) 500 200 Other: Voiding Method Toilet Indwelling Catheter Indwelling Catheter Bedside Commode # Voids 0 1 - Exam GENERAL DESCRIPTION: An elderly female lying in bed in no distress RESPIRATORY SYSTEM: Unlabored breathing , clear to auscultation anteriorly HEART: S1 S2 regular rate and rhythm , ABDOMEN: Soft , no tenderness EXTREMITIES: No edema feet - Labs CBC & Chem 7: 01/31/25 06:25 01/31/25 06:25 Labs: Abnormal Lab Results - Last 24 Hours (Table) 01/31/25 01/31/25 Range/Units 06: 06:25 RBC 2.49 L (4.10-5.20) 10*6/uL Hgb 8.4 L (12.0-15.0) g/dL Hct 24.9 L (37.2-46.3) % MCV 100.0 H (80.0-97.0) fL MCH 33.7 H (27.0-32.0) pg MPV 9.3 L (9.5-12.2) fL Immature Gran # 0.05 H (0.00-0.04) 10*3/uL Sodium 126 L (137-145) mmol/L Chloride 93 L (98-107) mmol/L BUN 22 H (7-17) mg/dL Creatinine 1.36 H (0.52-1.04) mg/dL Assessment and Plan (1) UTI (urinary tract infection) Current Visit: Yes Status: Acute Code(s): N39.0 - URINARY TRACT INFECTION, SITE NOT SPECIFIED SNOMED Code(s): 35486612 (2) Allergy to multiple antibiotics Current Visit: Yes Status: Acute Code(s): Z88.1 - ALLERGY STATUS TO OTHER ANTIBIOTIC AGENTS SNOMED Code(s): 985216677 Plan: 1patient presenting to the hospital with a syncopal episode and fall and has significant bruising and fracture to the forehead area patient also have abnormal CT abdominal pelvis with significant layering inside the bladder in this patient who did have significantly positive UA mostly with the white cells rather than red cells did have urinary frequency mild elevated white count concerning for symptomatic UTI from a enteric gram-negative pathogen 2-patient with multiple antibiotic ALLERGIES that would limit the number of antibiotic safe to use 3-patient white count has normalized urine cultures grew Klebsiella which is sensitive to ceftriaxone, 4patient has received adequate IV antibiotic for UTI, did develop retention urology saw the patient recommending to continue with the Hendrickson catheter will monitor closely off antibiotic therapy at this point Dictation was produced using [employer] dictation software. please excuse any grammatical, word or spelling errors. Time with Patient: Less than 30
[2025-01-31] MEDS: SODIUM CHLORIDE TAB 1 GM TAB PO STA (12:25)
--- NOTE | 2025-01-31 12:39 | P.PN ---
Subjective Patient is seen for follow-up for acute kidney injury and chronic kidney disease. Renal function has improved, serum creatinine 1.3 today Sodium however dropped to 126 today Complaining of pain in right lower leg. Patient states she fell yesterday in the bathroom Objective - Vital Signs Vital signs: Vital Signs Temp 98.4 F 01/31/25 08:00 Pulse 78 01/31/25 08:00 Resp 16 01/31/25 08:00 BP 117/71 01/31/25 08:00 Pulse Ox 96 01/31/25 08:00 FiO2 Intake & Output 01/30/25 01/31/25 01/31/25 18:59 06:59 18:59 Intake Total 386 540 550 Output Total 600 500 Balance 386 -60 50 Intake: IV 10 Invasive Line 4 10 Oral 386 540 540 Output: Urine 600 500 Uretheral (Hendrickson) 500 300 Other: Voiding Method Toilet Indwelling Catheter Indwelling Catheter Bedside Commode # Voids 0 1 - Exam Patient is awake, comfortable, no acute distress Bruising noted on the face and laceration on the forehead Examination of the heart S1 and S2 Examination of the lungs bilateral breath sounds are heard Abdomen is soft nontender Examination lower extremity shows no significant edema 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 - Labs CBC & Chem 7: 01/31/25 06:25 01/31/25 06:25 Labs: Abnormal Lab Results - Last 24 Hours (Table) 01/31/25 01/31/25 Range/Units 06:25 06:25 RBC 2.49 L (4.10-5.20) 10*6/uL Hgb 8.4 L (12.0-15.0) g/dL Hct 24.9 L (37.2-46.3) % MCV 100.0 H (80.0-97.0) fL MCH 33.7 H (27.0-32.0) pg MPV 9.3 L (9.5-12.2) fL Immature Gran # 0.05 H (0.00-0.04) 10*3/uL Sodium 126 L (137-145) mmol/L Chloride 93 L (98-107) mmol/L BUN 22 H (7-17) mg/dL Creatinine 1.36 H (0.52-1.04) mg/dL Assessment and Plan Assessment: 1. Acute kidney injury secondary to ATN secondary to hypotension and acute blood loss anemia. Creatinine decreased to 1.2. Ultrasound showed atrophic kidneys. Serum creatinine increased to 1.6 with diuresis. Diuretics were held and creatinine has improved to 1.3. Urine retention noted and Hendrickson catheter was placed. 400 mL were noted on bladder scan yesterday. 2. Hypovolemic hyponatremia improved with IV fluids initially. Patient has poor oral intake which may be contributing to serum sodium not improving further. 3. Status post fall. 4. Chronic kidney disease stage IV baseline creatinine 1.8-2.2. 5. Acute blood loss anemia. Iron replete. 6. Hypertension with chronic kidney disease. Controlled. 7. Urine retention status post Hendrickson catheter placement on 01/30/2025. 405 100 mL of urine were noted on bladder scan. Plan: Continue to hold Lasix Sodium chloride tab x 1 Continue to hold off on metolazone and TRE inhibitors Repeat labs in a.m. Continue to encourage increased oral intake Avoid nephrotoxic agents
--- NOTE | 2025-01-31 12:39 | P.DS ---
Providers Date of admission: 01/19/25 17:32 Attending physician: Bong Rosenbaum MD Consults: 01/19/25 17:32 Consult Physician Routine Consulting Provider: Christiane Fernandes Consult Reason/Comments: acute on chronic rf Do you want consulting provider notified?: Yes 01/19/25 19:04 Consult Physician Routine Consulting Provider: Hugo Lockett Consult Reason/Comments: left eye hematoma with fuzziness Do you want consulting provider notified?: Yes 01/21/25 14:20 Consult Physician Urgent Consulting Provider: Odalys Valerio Consult Reason/Comments: uti Do you want consulting provider notified?: Yes 01/22/25 10:30 Consult Physician Routine Consulting Provider: Michael Nagel Consult Reason/Comments: suspected seizure on admission? Do you want consulting provider notified?: Yes 01/22/25 20:10 Consult Physician Routine Consulting Provider: Rafael Paez Consult Reason/Comments: fall with left lateral hip hematoma with acute blood loos anemia Do you want consulting provider notified?: Yes 01/30/25 16:32 Consult Physician Routine Consulting Provider: Jalen Moreno Consult Reason/Comments: Urinary retention Do you want consulting provider notified?: Yes, Notify in am Primary care physician: Hair Olivas Hospital Course: 84-year-old female admitted after a fall believed to be secondary to syncopal episode patient was also evaluated for seizures as well. The patient had a prolonged complicated hospitalization course. Patient was hypotensive secondary to left hip hematoma which was conservatively managed patient is hemodynamically stable at this time patient was treated for urinary tract infection as well. Patient was evaluated with seizures which was felt to be less likely, but neurology is recommending lacosamide. Patient has multiple bruises everywhere patient has a 4 head laceration as well which was sutured. Patient was treated for UTI Klebsiella pneumonia with Rocephin completed antibiotic therapy will not need any more antibiotic therapy upon discharge. REVIEW OF SYSTEMS: All other systems are negative except those mentioned in the HPI PHYSICAL EXAMINATION: GENERAL: The patient is alert and oriented x3, not in any acute distress. Well developed, well nourished. HEENT: Pupils are round and equally reacting to light. EOMI. No scleral icterus. No conjunctival pallor. Normocephalic, atraumatic. No pharyngeal erythema. No thyromegaly. CARDIOVASCULAR: S1 and S2 present. No murmurs, rubs, or gallops. PULMONARY: Chest is clear to auscultation, no wheezing or crackles. ABDOMEN: Soft, nontender, nondistended, normoactive bowel sounds. No palpable organomegaly. MUSCULOSKELETAL: No joint swelling or deformity. EXTREMITIES: No cyanosis, clubbing, or pedal edema. NEUROLOGICAL: Gross neurological examination did not reveal any focal deficits. SKIN: Multiple bruises all over the body Assessment and plan -Syncope: Patient was extensively evaluated secondary to hypovolemia, hypotension. - Left hip hematoma and blood loss anemia secondary to that conservatively managed hemodynamically stable. Hypotension and hypovolemia on admission likely leading to the syncopal episode patient's blood pressure was noted to be 80s systolic on admission Possible seizure like episode on admission neurology has felt she is likely been having seizures since her most recent stroke in 2022 Acute anemia with acute drop of hemoglobin source of bleeding is likely the left lateral hip hematoma. No intervention recommended by Ortho. Acute urinary tract infection. Urine culture showed Klebsiella pneumonia Hyponatremia, hypovolemic Acute kidney injury from ATN from hypotension and acute blood loss anemia Acute urinary retention. Status post straight catheterization on 01/29/2025 x 2 Acute left periorbital hematoma and laceration Chronic atrial fibrillation with rate controlled on Eliquis at home, Eliquis has been restarted. Urinary retention and concern for blood in the urinary bladder. History of stroke in the past requiring TPA and thrombectomy Chronic left subdural hematoma History of AVM status post Tim Hx of hypertension Hyperlipidemia Plan - Discharge Summary Discharge Rx Participant: Yes New Discharge Prescriptions: New Aspirin 81 mg PO DAILY #30 tab Lacosamide [Vimpat] 100 mg PO BID #60 tab Metoprolol Succinate (ER) [Toprol XL] 25 mg PO DAILY #30 tab oxyCODONE-APAP 5-325MG [Percocet 5-325 mg] 1 each PO BID PRN #10 tab PRN Reason: Moderate To Severe Pain (4-10) Continue allopurinoL [Zyloprim] 300 mg PO DAILY Atorvastatin [Lipitor] 20 mg PO DAILY oxyBUTYnin chloride [Ditropan] 5 mg PO DAILY Magnesium Chloride [Mag64] 64 mg PO DAILY Levothyroxine Sodium [Synthroid] 88 mcg PO DAILY Apixaban [Eliquis] 5 mg PO BID Omeprazole [PriLOSEC] 40 mg PO DAILY Fluticasone/Umeclidin/Vilanter [Trelegy Ellipta 100-62.5-25] 1 puff INHALATION RT-DAILY Discontinued Propranolol HCl [Inderal] 80 mg PO DAILY Potassium Chloride ER [K-Dur 20] 20 meq PO DAILY Furosemide [Lasix] 40 mg PO DAILY ramipriL [Altace] 10 mg PO DAILY metOLazone [Zaroxolyn] 2.5 mg PO MOTH No Action Empagliflozin [Jardiance] 10 mg PO DAILY Discharge Medication List Apixaban [Eliquis] 5 mg PO BID 03/23/23 [History] Atorvastatin [Lipitor] 20 mg PO DAILY 03/23/23 [History] Fluticasone/Umeclidin/Vilanter [Trelegy Ellipta 100-62.5-25] 1 puff INHALATION RT-DAILY 03/23/23 [History] Levothyroxine Sodium [Synthroid] 88 mcg PO DAILY 03/23/23 [History] Magnesium Chloride [Mag64] 64 mg PO DAILY 03/23/23 [History] Omeprazole [PriLOSEC] 40 mg PO DAILY 03/23/23 [History] allopurinoL [Zyloprim] 300 mg PO DAILY 03/23/23 [History] oxyBUTYnin chloride [Ditropan] 5 mg PO DAILY 03/23/23 [History] Empagliflozin [Jardiance] 10 mg PO DAILY 01/19/25 [History] Metoprolol Succinate (ER) [Toprol XL] 25 mg PO DAILY #30 tab 01/29/25 [Rx] Aspirin 81 mg PO DAILY #30 tab 01/31/25 [Rx] Lacosamide [Vimpat] 100 mg PO BID #60 tab 01/31/25 [Rx] oxyCODONE-APAP 5-325MG [Percocet 5-325 mg] 1 each PO BID PRN #10 tab 01/31/25 [Rx] Follow up Appointment(s)/Referral(s): Hair Olivas MD [Primary Care Provider] - 1-2 days [facility] Visiting Nurse, [NON-STAFF] - Discharge Disposition: HOME SELF-CARE
--- NOTE | 2025-02-01 12:44 | P.PN ---
Subjective Progress Note Date: 01/31/25 01/31/2025: Patient was seen for a follow-up. Patient denies headache at this time. She states that it comes and goes, but at present there is no headache. Overall she is feeling better. No new concerns. No focal deficits. 01/30/2025: Patient was initially seen by Dr. Michael Nagel. Please refer to his notes for details. Patient is a 84-year-old female with new onset seizure, history of CVA and left subdural. Patient was placed on Vimpat and has new onset left small left fr ontal subdural which is stable. Patient started on Eliquis for her A-fib. Patient states she had history of 2 strokes in the past. The first 1 was in 2019 which affected her right side of the body, but she came out of it very fast. She had a second stroke in 2022 which affected her left side of the body and had residual deficits. Patient admits to having headache 7/10, which comes down to 3-4/10 without pain medication, but it comes back after few hours. Denies any dizziness. Patient is sitting comfortably in the recliner. Patient states the headache is not getting particularly worse. She wants to go home. Patient has been having frequent falls since her first stroke in 2019. Some of the work-up during this hospital visit consisted of: hemoglobin was as low in the 6-kyree and currently 7.9 Had acute kidney injury that is improving. It was as high as 3.36. Urine culture is positive Kkebsiella pneumonia CT brain cervical spine and CT facial bones is reported as no acute intracranial process. 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 Nonspecific white matter changes. Acute depressed communicate left nasal bone fracture with associated soft tissue swelling. Acute left periorbital soft tissue hematoma with acute soft tissue contusion to left chin. Paranasal sinus disease with air-fluid level within the left maxillary sinus which may be related to acute sinusitis. No evidence of cervical spine fracture. Mild multilevel degenerative disc disease. I personally reviewed the CT of the head and there is no acute or subacute ischemic stroke. MRI brain: Is reported as moderate to advanced diffuse cerebral atrophy redemonstrated. Mild to moderate nonspecific white matter changes and probably the proximal vessel ischemic change redemonstrated. Persistent tiny bilateral extra-axial fluid collection and more focal small to moderate size left frontal extra-axial fluid collection both suspected more subacute to chronic age. An early subacute component on the left frontal fluid collection may be present. T here is some local mass effect. Advise repeat CT to further evaluate. EEG is abnormal. The background slowing is suggestive of mild encephalopathy. There is no focal slowing, discharges or seizure. CT of the head on 01/25/2025 is reported as there is a new 0.2 x 0.6 cm acute subdural hemorrhage, new from 01/19/2025 CT examination. This appears to be at dependent portion of the chronic subdural hematoma Repeat CT of the head reveals very subtle minimal change in the acute, overnight of the left subdural hematoma may be present. This is near a measurement error and could be related to artifact from plain of section. The chronic subdural hematoma usually appears unchanged. Repeat CT head 01/26/2025 the tiny sudural hematoma remains present currently measuring 1.0X0.2cm. No significant interval changes. Repeat CT head 01/27/2025 in afternoon: No significant interval changes from study done the same day. Similar appearnace of a tiny subdural along the left cerebral convexity measuring up to 4mm in thickness. I personally reviewed CT head, agree with the findings. Objective - Vital Signs Vital signs: Vital Signs Temp 98.4 F 01/31/25 08:00 Pulse 78 01/31/25 08:00 Resp 16 01/31/25 08:00 BP 117/71 01/31/25 08:00 Pulse Ox 96 01/31/25 08:00 FiO2 Intake & Output 01/30/25 01/31/25 01/31/25 18:59 06:59 18:59 Intake Total 386 540 550 Output Total 600 500 Balance 386 -60 50 Intake: IV 10 Invasive Line 4 10 Oral 386 540 540 Output: Urine 600 500 Uretheral (Hendrickson) 500 300 Other: Voiding Method Toilet Indwelling Catheter Indwelling Catheter Bedside Commode # Voids 0 1 - Exam Patient is alert and awake. She knows it is January 2025 and that she is in [facility] in [facility]. Speech and language functions are normal. Detailed cognitive function testing deferred. Cranial nerve examination revealed pupils are equal, round and reacting, visual donohue are full, extraocular muscles are intact with no nystagmus. Visual donohue are full with no neglect. Face has very subtle left-sided asymmetry. Tongue protrudes to midline. On muscle strength testing, patient has very mild drift, only 5 degree. The strength is normal in the arms distally and proximally. In the lower limbs (right/left) hip flexion 4/3+4-, ankle dorsiflexion 5/4+. Sensory to touch is equal in the arms, but is decreased in the left leg as compared to the right leg. She is tremulous for [id number] testing bilaterally but no ataxia. Patient has multiple bruises on the chin, particularly the left side, below her eyes, over zygomatic region. She has small laceration over the left eyebrow. Multiple bruises over her arms, and the right leg. She claims she has hematoma over the left hip region. - Labs CBC & Chem 7: 01/31/25 06:01/31/25 06:25 Labs: Abnormal Lab Results - Last 24 Hours (Table) 01/31/25 01/31/25 Range/Units 06: 06:25 RBC 2.49 L (4.10-5.20) 10*6/uL Hgb 8.4 L (12.0-15.0) g/dL Hct 24.9 L (37.2-46.3) % MCV 100.0 H (80.0-97.0) fL MCH 33.7 H (27.0-32.0) pg MPV 9.3 L (9.5-12.2) fL Immature Gran # 0.05 H (0.00-0.04) 10*3/uL Sodium 126 L (137-145) mmol/L Chloride 93 L (98-107) mmol/L BUN 22 H (7-17) mg/dL Creatinine 1.36 H (0.52-1.04) mg/dL Assessment and Plan Assessment: This is an 84-year-old woman with history of strokes, left subdural, atrial fibrillation was having recurrent falls and presents because of passing out episode and had facial trauma. She was in the hospital she developed seizure for her daughter which was tonic-clonic with eyes rolling back lasted few minutes. She has been having falling episodes for the last 1 to 2 years. New onset seizure activity. Possibly her passing out episode at home was possibly due to seizure-like activity as well as her recurrent falls was possibly due to underlying seizure especially with the underlying history of stroke--No further seizure or syncopal spells History of left subdural with concern of new left subdrual over left frontal that is small in size--stable on repeat CT. Acute urinary tract infection Acute chronic kidney injury--improving Hyponatremia With trauma due to the recent fall at home Acute ischemic stroke x 2 History of left subdural Underlying history of atrial fibrillation and is on Eliquis Plan: Dr. Nagel has discussed with patient and her son-in-law, and all of them were in agreement to start anticoagulation since CT head is stable. Eliquis 2.5 mg twice daily started 01/29/2025 at 9 PM. Cardiology team placed her on ASA as well. There is increase risk of bleed with both anticoagulation and antiplateletes especially with hx of subdural and recurrent falls. We will defer the termite treater use of antiplateletes and anticoagulation to cardiology and primary team. I discussed with patient about repeating CT head before discharge. Patient states that she already had so many CT scans done, and she declined a repeat CT, as her headache is getting better. Her examination is nonfocal. Patient currently on Vimpat 50mg IV bid. We will switch to oral form and increase Vimpat to 100 mg twice daily, and maintain on this dose. Patient tolerating higher dose of Vimpat well. Seizure Precaution and seizure pads Per the [place] DMV because of the seizure, avoid driving for 6 months until seizure-free, avoid heights, avoid swimming assisted or using heavy machinery Will defer the rest of medical management to primary and other specialist. Upon discharge, recommend the patient to follow-up with her outpatient kei rologist as outpatient within 2-3 weeks. Neurologically clear.
== END 2025-01-31 18:38 | disposition home health service (06) | DRG 682 ==
LOC: EC 13:38 → 6NMEDSUR 17:32 → 3SCARD 01-20 19:33
PROVIDERS: ADMIT Internal Medicine; ATTEND Internal Medicine
PROC: 30233N1 Transfusion of Nonautologous Red Blood Cells into Peripheral Vein, Percutaneous Approach (ICD-10-PCS; principal; 2025-01-21)
PROC: 4A10X4Z Monitoring of Central Nervous Electrical Activity, External Approach (ICD-10-PCS; 2025-01-25)
DX: N17.0 Acute kidney failure with tubular necrosis (principal); S06.5XAA Traumatic subdural hemorrhage with loss of consciousness status unknown, initial encounter; D62 Acute posthemorrhagic anemia; B96.1 Klebsiella pneumoniae [K. pneumoniae] as the cause of diseases classified elsewhere; D63.1 Anemia in chronic kidney disease; I27.20 Pulmonary hypertension, unspecified; I48.20 Chronic atrial fibrillation, unspecified; E86.1 Hypovolemia; S02.2XXA Fracture of nasal bones, initial encounter for closed fracture; I13.0 Hypertensive heart and chronic kidney disease with heart failure and stage 1 through stage 4 chronic kidney disease, or unspecified chronic kidney disease; N18.4 Chronic kidney disease, stage 4 (severe); R56.9 Unspecified convulsions; I65.23 Occlusion and stenosis of bilateral carotid arteries; I42.9 Cardiomyopathy, unspecified; E87.1 Hypo-osmolality and hyponatremia; N39.0 Urinary tract infection, site not specified; I50.9 Heart failure, unspecified; R55 Syncope and collapse; S01.81XA Laceration without foreign body of other part of head, initial encounter; S00.12XA Contusion of left eyelid and periocular area, initial encounter; I44.7 Left bundle-branch block, unspecified; R33.8 Other retention of urine; K57.30 Diverticulosis of large intestine without perforation or abscess without bleeding; S70.02XA Contusion of left hip, initial encounter; S61.411A Laceration without foreign body of right hand, initial encounter; M16.12 Unilateral primary osteoarthritis, left hip; R69 Illness, unspecified; E78.5 Hyperlipidemia, unspecified; S70.00XA Contusion of unspecified hip, initial encounter; W18.30XA Fall on same level, unspecified, initial encounter; R29.6 Repeated falls; Y92.015 Private garage of single-family (private) house as the place of occurrence of the external cause; Z88.0 Allergy status to penicillin; Z88.2 Allergy status to sulfonamides; Z91.041 Radiographic dye allergy status; N39.41 Urge incontinence; Z79.01 Long term (current) use of anticoagulants; Z79.84 Long term (current) use of oral hypoglycemic drugs; Z79.890 Hormone replacement therapy; Z79.899 Other long term (current) drug therapy; Z87.891 Personal history of nicotine dependence; Z88.1 Allergy status to other antibiotic agents; Z90.710 Acquired absence of both cervix and uterus; Z96.1 Presence of intraocular lens; S80.12XA Contusion of left lower leg, initial encounter; S70.12XA Contusion of left thigh, initial encounter
CPT/HCPCS: 36415; 51798; 70450; 70486; 70551; 71045; 72125; 73502; 74018; 74176; 76770; 80048; 80053; 81001; 82533; 82550; 82728; 83540; 83550; 83735; 83880; 83935; 84145; 84295; 84300; 84443; 84484; 85025; 85027; 85610; 85730; 86850; 86900; 86901; 86920; 87077; 87086; 87186; 90715; 93005; 93225; 93306; 93880; 94760; 95816

== ENCOUNTER 2025-03-12 00:49 | Observation (INO) | payer MEDICARE ==
[2025-03-12] MEDS: KETOROLAC 15 MG/ML 1 ML VIAL IVP STA (01:36)
[2025-03-12 02:04] LABS: Basophils # (A) 0.04 10*3/uL (0.00-0.10); Basophils % (A) 0.6 %; Eosinophils # (A) 0.10 10*3/uL (0.04-0.35); Eosinophils % (A) 1.6 %; HCT 28.5 % (37.2-46.3); HGB 9.7 g/dL (12.0-15.0); Lymphocytes # (A) 1.06 10*3/uL (0.90-5.00); Lymphocytes % (A) 16.8 %; MCH 32.7 pg (27.0-32.0); MCHC 34.0 g/dL (32.0-37.0); MCV 96.0 fL (80.0-97.0); Monocytes # (A) 0.83 10*3/uL (0.20-1.00); Monocytes % (A) 13.2 %; Neutrophils # (A) 4.24 10*3/uL (1.80-7.70); Neutrophils % (A) 67.3 %; Platelet Count 283 10*3/uL (140-440); RBC 2.97 10*6/uL (4.10-5.20); RDW 17.9 % (11.5-14.5); WBC 6.30 10*3/uL (4.50-10.00)
[2025-03-12 02:20] LABS: Bacteria,Urine Moderate /hpf; Bilirubin,Urine Negative (Negative); Blood,Urine Small (Negative); Color,Urine Colorless; Glucose,Urine (UA) 1+ (Negative); Ketones,Urine Negative (Negative); Leukocyte Esterase,Urine Large (Negative); Nitrite,Urine Negative (Negative); PH, Urine 6.0 (5.0-8.0); Protein,Urine Trace (Negative); RBC,Urine 11 /hpf (0-5); Specific Gravity,Urine 1.017 (1.001-1.035); Urobilinogen,Urine <2.0 mg/dL (<2.0); WBC,Urine >182 /hpf (0-5)
[2025-03-12] MEDS: HYDROmorphone 0.5 MG/0.5 ML SYRINGE IVP STA (02:53)
[2025-03-12] MEDS: ONDANSETRON 4 MG/2 ML VIAL IVP STA (02:53)
[2025-03-12 03:00] LABS: ALT 10 U/L (4-34); AST 23 U/L (14-36); African American GFR (CKD) 33 (>60 ml/min/1.73 sqM); Albumin 3.4 g/dL (3.5-5.0); Alkaline Phosphatase 122 U/L (38-126); Anion Gap 11 mmol/L; Blood Urea Nitrogen 60 mg/dL (7-17); Calcium 9.6 mg/dL (8.4-10.2); Carbon Dioxide 26 mmol/L (22-30); Chloride 96 mmol/L (98-107); Glucose 106 mg/dL (74-99); Non-African American GFR(CKD) 29 (>60 ml/min/1.73 sqM); Potassium 3.6 mmol/L (3.5-5.1); Sodium 133 mmol/L (137-145); Total Protein 6.2 g/dL (6.3-8.2)
--- NOTE | 2025-03-12 04:16 | CT ---
EXAM: CT Abdomen and Pelvis Without Intravenous Contrast CLINICAL HISTORY: ITS.REASON CT Reason: abd pain, lumbar back pain TECHNIQUE: Axial computed tomography images of the abdomen and pelvis without intravenous contrast. CTDI is 8.7 mGy and DLP is 493.7 mGy-cm. This CT exam was performed using one or more of the following dose reduction techniques: automated exposure control, adjustment of the mA and/or kV according to patient size, and/or use of iterative reconstruction technique. COMPARISON: 01/21/2025 FINDINGS: Lung bases: Atelectasis at the lung bases. ABDOMEN: Liver: Unremarkable. Gallbladder and bile ducts: Cholecystectomy. Pancreas: Unremarkable. Spleen: Unremarkable. Adrenals: Unremarkable. Kidneys and ureters: Unremarkable. No obstructing stones. No hydronephrosis. Stomach and bowel: Colonic diverticulosis without acute diverticulitis. No bowel obstruction. Mobile cecum located within the mid abdomen. Moderate colonic stool burden. PELVIS: Appendix: No findings to suggest acute appendicitis. Bladder: Unremarkable. Reproductive: Unremarkable as visualized. ABDOMEN and PELVIS: Intraperitoneal space: Unremarkable. No free air. No significant fluid collection. Bones/joints: Acute inferior endplate fracture at T12. Minimal height loss. No posterior cortical retropulsion. Right hip arthroplasty. Soft tissues: Unremarkable. Vasculature: Aortobiiliac atherosclerotic calcifications. Lymph nodes: Unremarkable. IMPRESSION: Acute inferior endplate fracture at T12. Minimal height loss. No posterior cortical retropulsion.
[2025-03-12] MEDS: METOCLOPRAMIDE 5 MG/ML 2 ML VIAL IVP STA (05:06)
--- NOTE | 2025-03-12 05:12 | ED ---
Back Pain HPI - General Chief Complaint: Back Pain/Injury Stated Complaint: Back pain Time Seen by Provider: 03/12/25 00:59 Source: patient, EMS Limitations: no limitations - History of Present Illness Initial Comments: This patient is an 84-year-old woman who presents evaluation of approximately 3 days worsening pain. She indicates the upper lumbar portion of the back. She s tates that symptoms also radiate towards the right leg. She did not recall having a recent fall though she had 1 months ago. She has not had change in bladder or bowel function though she is urinating more frequently and states this was similar to previous urinary tract infection. No fever or chills. No weakness or numbness of the legs. She is having difficulty with walking at home due to pain. She does always use a walker at baseline MD Complaint: back pain Onset/Timin -: days(s) Similar Symptoms Previously: Yes Place: home Radiation: none Severity: moderate Quality: sharp, aching Consistency: constant Improves With: immobilization Worsens With: movement Associated Symptoms: difficulty walking - Related Data Home Medications Medication Instructions Recorded Confirmed Atorvastatin [Lipitor] 20 mg PO DAILY 03/23/23 03/12/25 Fluticasone/Umeclidin/Vilanter 1 puff INHALATION RT-DAILY 03/23/23 03/12/25 [Trelegy Ellipta 100-62.5-25] Levothyroxine Sodium [Synthroid] 88 mcg PO DAILY 03/23/23 03/12/25 Magnesium Chloride [Mag64] 64 mg PO DAILY 03/23/23 03/12/25 Omeprazole [PriLOSEC] 40 mg PO DAILY 03/23/23 03/12/25 allopurinoL [Zyloprim] 300 mg PO DAILY 03/23/23 03/12/25 oxyBUTYnin chloride [Ditropan] 5 mg PO DAILY 03/23/23 03/12/25 Empagliflozin [Jardiance] 10 mg PO DAILY 01/19/25 03/12/25 Aspirin EC [Ecotrin Low Dose] 81 mg PO DAILY 03/12/25 03/12/25 Furosemide [Lasix] 20 mg PO DAILY 03/12/25 03/12/25 Lacosamide [Vimpat] 50 mg PO BID 03/12/25 03/12/25 Midodrine HCl 2.5 mg PO TID PRN 03/12/25 03/12/25 Potassium Chloride ER [K-Dur 20] 20 meq PO DAILY 03/12/25 03/12/25 SILVER sulfADIAZINE Cream 1 applic TOPICAL BID 03/12/25 03/12/25 [Silvadene 1% Cream] metOLazone [Zaroxolyn] 2.5 mg PO MOTH 03/12/25 03/12/25 Previous Rx's Medication Instructions Recorded Metoprolol Succinate (ER) [Toprol 25 mg PO DAILY #30 tab 01/29/25 XL] Acetaminophen Tab [Tylenol] 650 mg PO Q6HR PRN tab 03/16/25 Apixaban [Eliquis] 2.5 mg PO BID #0 03/16/25 Ondansetron Odt [Zofran Odt] 4 mg PO Q8HR PRN #20 tab 03/16/25 Sennosides [Senokot] 8.6 mg PO DAILY PRN #60 tab 03/16/25 cefuroxime axetiL [Ceftin] 500 mg PO BID 5 Days #10 tab 03/16/25 oxyCODONE-APAP 5-325MG [Percocet 1 tab PO Q8H PRN 3 Days #12 tab 03/16/25 5-325 mg] oxyCODONE-APAP 5-325MG [Percocet 1 tab PO Q8HR PRN #21 tab 03/16/25 5-325 mg] polyethylene glycoL 3350 [Miralax] 17 gm PO HS #30 packet 03/16/25 Allergies Allergy/AdvReac Type Severity Reaction Status Date / Time iodine Allergy Rash/Hives Verified 02/09/25 10:40 Penicillins Allergy Unknown Verified 02/09/25 10:40 Sulfa (Sulfonamide Allergy Rash/Hives Verified 02/09/25 10:40 Antibiotics) Review of Systems ROS Statement: Those systems with pertinent positive or pertinent negative responses have been documented in the HPI. ROS Other: All systems not noted in ROS Statement are negative. Constitutional: Reports: weakness. Denies: fever, chills Respiratory: Denies: cough, dyspnea Cardiovascular: Denies: chest pain, palpitations, edema Gastrointestinal: Reports: nausea, vomiting. Denies: abdominal pain, diarrhea, constipation Genitourinary: Reports: frequency. Denies: dysuria, hematuria Musculoskeletal: Reports: as per HPI, back pain Skin: Denies: rash Neurological: Reports: paresthesias. Denies: headache, weakness, numbness Past Medical History Past Medical History: Atrial Fibrillation, CVA/TIA, Hyperlipidemia, Hypertension Additional Past Medical History / Comment(s): cardiomyopathy,fall brain bleed History of Any Multi-Drug Resistant Organisms: None Reported Past Surgical History: Cholecystectomy, Heart Catheterization, Hysterectomy, Tonsillectomy Past Anesthesia/Blood Transfusion Reactions: No Reported Reaction Past Psychological History: No Psychological Hx Reported Smoking Status: Former smoker Past Alcohol Use History: Occasional Past Drug Use History: None Reported - Past Family History Father Family Medical History: Coronary Artery Disease (CAD) Mother Family Medical History: Chest Pain / Angina Brother(s) Family Medical History: AFIB General Exam Limitations: no limitations General appearance: alert, in no apparent distress Head exam: Present: atraumatic, normocephalic Eye exam: Present: normal appearance. Absent: scleral icterus, conjunctival injection Neck exam: Present: normal inspection, full ROM. Absent: tenderness Respiratory exam: Present: normal lung sounds bilaterally. Absent: respiratory distress, wheezes, rales, rhonchi, stridor, accessory muscle use Cardiovascular Exam: Present: regular rate, normal rhythm, normal heart sounds. Absent: systolic murmur, diastolic murmur, rubs, gallop GI/Abdominal exam: Present: soft. Absent: distended, tenderness, guarding, rebound, rigid, mass Extremities exam: Present: normal inspection, normal capillary refill. Absent: pedal edema, calf tenderness Back exam: Present: normal inspection. Absent: CVA tenderness (R), CVA tenderness (L), vertebral tenderness Neurological exam: Present: alert. Absent: motor sensory deficit Skin exam: Present: warm, dry, intact, normal color. Absent: rash Course Vital Signs 03/12/25 03/12/25 03/12/25 00:51 04:52 07:00 Temperature 97.7 F 97.5 F L 97.7 F Pulse Rate 72 80 61 Respiratory 18 16 16 Rate Blood Pressure 131/96 161/83 117/60 O2 Sat by Pulse 96 95 96 Oximetry 03/12/25 03/12/25 08:31 09:50 Temperature 97.7 F 97.7 F Pulse Rate 61 61 Respiratory 16 16 Rate Blood Pressure 131/71 118/64 O2 Sat by Pulse 98 96 Oximetry Medical Decision Making - Medical Decision Making The patient had CT scan of the abdomen and pelvis that I interpreted as showing fracture of the inferior endplate of T12. Was pt. sent in by a medical professional or institution ([facility], [employer]ING [employer] TENDER, urgent care, hospital, or residential...) When possible be specific @ -[No] Did you speak to anyone other than the patient for history (EMS, parent, family, police, friend...)? What history was obtained from this source @ -[No] Did you review nursing and triage notes (agree or disagree)? Why? @ -[I reviewed and agree with nursing and triage notes] Were old charts reviewed (outside hosp., previous admission, EMS record, old EKG, old radiological studies, urgent care reports/EKG's, residential records)? Report findings @ -[No old charts were reviewed] Differential Diagnosis (chest pain, altered mental status, abdominal pain women, abdominal pain men, vaginal bleeding, weakness, fever, dyspnea, syncope, headache, dizziness, GI bleed, back pain, seizure, CVA, palpatations, mental health, musculoskeletal)? @ -[Differential Back Pain: Strain, zoster, cauda equina syndrome, epidural abscess, vertebral osteomyelitis, discitis, fracture, subluxation, disc herniation, DJD, spinal stenosis, dissection, AAA, pancreatitis, peptic ulcer disease, pyelonephritis, kidney stone, this is not meant to be an all-inclusive list. I interpreted as above EKG interpreted by me (3pts min.). @ -[As above] X-rays interpreted by me (1pt min.). @ -[None done] CT interpreted by me (1pt min.). @ -[I interpreted as above U/S interpreted by me (1pt. min.). @ -[None done] What testing was considered but not performed or refused? (CT, X-rays, U/S, labs)? Why? @ -[None] What meds were considered but not given or refused? Why? @ -[None] Did you discuss the management of the patient with other professionals (professionals i.e. [facility] Owen, [employer] TENDER, lab, RT, psych nurse, licensed social worker, sustainability communicator, teacher, hazard mitigation officer, case technician)? Give summary @ -[Case discussed with admitting physician and treatment recommendations Incorporated Was smoking cessation discussed for >3mins.? @ -[No] Was critical care preformed (if so, how long)? @ -[No] Were there social determinants of health that impacted care today? How? (Homelessness, low income, unemployed, alcoholism, drug addiction, transp ortation, low edu. Level, literacy, decrease access to med. care, snf, rehab)? @ -[No] Was there de-escalation of care discussed even if they declined (Discuss DNR or withdrawal of care, Hospice)? DNR status @ -[No] What co-morbidities impacted this encounter? (DM, HTN, Smoking, COPD, CAD, Cancer, CVA, ARF, Chemo, Hep., AIDS, mental health diagnosis, sleep apnea, morbid obesity)? @ -[None] Was patient admitted / discharged? Hospital course, mention meds given and route, prescriptions, significant lab abnormalities, going to OR and other pertinent info. @ -[Patient is 84-year-old woman here with vertebral compression fracture. She was not able to ambulate well due to pain. The patient also found to have urinary tract infection. The patient will be admitted for further therapy and possible rehab placement. Undiagnosed new problem with uncertain prognosis? @ -[No] Drug Therapy requiring intensive monitoring for toxicity (Heparin, Nitro, Insulin, Cardizem)? @ -[No] Were any procedures done? @ -[No] Diagnosis/symptom? @ -[Acute vertebral compression fractures of T12 Acute urinary tract infection Acute, or Chronic, or Acute on Chronic? @ -[Acute Uncomplicated (without systemic symptoms) or Complicated (systemic symptoms)? @ -[Uncomplicated Side effects of treatment? @ -[No] Exacerbation, Progression, or Severe Exacerbation? @ -[No] Poses a threat to life or bodily function? How? (Chest pain, [place], [place], pneumonia, PE, COPD, DKA, ARF, appy, cholecystitis, CVA, Diverticulitis, Homicidal, Suicidal, threat to staff... and all critical care pts) @ -[No] All treatments are based on ideal body weight as in ED triage - Lab Data Result diagrams: 03/16/25 05:29 03/16/25 05:29 Lab Results 07/21/25 07/21/25 07/21/25 Range/Units 01:40 01:54 02:35 WBC 6.30 (4.50-10.00) 10*3/uL RBC 2.97 L (4.10-5.20) 10*6/uL Hgb 9.7 L (12.0-15.0) g/dL Hct 28.5 L (37.2-46.3) % MCV 96.0 (80.0-97.0) fL MCH 32.7 H (27.0-32.0) pg MCHC 34.0 (32.0-37.0) g/dL Plt Count 283 (140-440) 10*3/uL MPV 10.4 (9.5-12.2) fL Immature Gran % (Auto) 0.5 % Neutrophils % 67.3 % Lymphocytes % 16.8 % Monocytes % 13.2 % Eosinophils % 1.6 % Basophils % 0.6 % Immature Gran # 0.03 (0.00-0.04) 10*3/uL Neutrophils # 4.24 (1.80-7.70) 10*3/uL Lymphocytes # 1.06 (0.90-5.00) 10*3/uL Monocytes # 0.83 (0.20-1.00) 10*3/uL Eosinophils # 0.10 (0.04-0.35) 10*3/uL Basophils # 0.04 (0.00-0.10) 10*3/uL Sodium 133 L (137-145) mmol/L Potassium 3.6 (3.5-5.1) mmol/L Chloride 96 L (98-107) mmol/L Carbon Dioxide 26 (22-30) mmol/L Anion Gap 11 mmol/L BUN 60 H (7-17) mg/dL Creatinine 1.60 H (0.52-1.04) mg/dL Est GFR (CKD-EPI)AfAm 33 (>60 ml/min/1.73 sqM) Est GFR (CKD-EPI)NonAf 29 (>60 ml/min/1.73 sqM) Glucose 106 H (74-99) mg/dL Calcium 9.6 (8.4-10.2) mg/dL Total Bilirubin 0.8 (0.2-1.3) mg/dL AST 23 (14-36) U/L ALT 10 (4-34) U/L Alkaline Phosphatase 122 (38-126) U/L Total Protein 6.2 L (6.3-8.2) g/dL Albumin 3.4 L (3.5-5.0) g/dL Urine Color Colorless Urine Appearance Turbid H (Clear) Urine pH 6.0 (5.0-8.0) Ur Specific [place] 1.017 (1.001-1.035) Urine Protein Trace H (Negative) Urine Glucose (UA) 1+ H (Negative) Urine Ketones Negative (Negative) Urine Blood Small H (Negative) Urine Nitrite Negative (Negative) Urine Bilirubin Negative (Negative) Urine Urobilinogen <2.0 (<2.0) mg/dL Ur Leukocyte Esterase Large H (Negative) Urine RBC 11 H (0-5) /hpf Urine WBC >182 H (0-5) /hpf Urine WBC Clumps Many H (None) /hpf Urine Bacteria Moderate H (None) /hpf Disposition Clinical Impression: UTI (urinary tract infection), T12 compression fracture Disposition: ADMITTED IP TO THIS [facility] Condition: Fair Is patient prescribed a controlled substance at d/c from ED?: No
[2025-03-12] MEDS ORDERED: HYDROmorphone 0.5 MG/0.5 ML SYRINGE IVP PRN (05:16)
[2025-03-12] MEDS ORDERED: NALOXONE 0.4 MG/ML 1 ML VIAL IV PRN (05:16)
[2025-03-12] MEDS ORDERED: ACETAMINOPHEN TAB 325 MG TAB PO PRN (05:16)
[2025-03-12] MEDS ORDERED: ONDANSETRON 4 MG/2 ML VIAL IVP PRN (05:16)
[2025-03-12] MEDS: SODIUM CHLORIDE 0.9% 1,000 ML IV SCH (05:29)
[2025-03-12] MEDS: LEVOTHYROXINE 88 MCG TAB PO SCH (06:05)
[2025-03-12] MEDS ORDERED: [UNRECOGNIZED DRUG - OTHER] INHALATION SCH ×2 (08:00→12:00)
[2025-03-12] MEDS: APIXABAN 5 MG TAB PO SCH (08:26)
[2025-03-12] MEDS: METOPROLOL SUCCINATE (ER) 25 MG TAB.ER.24H PO SCH (08:26)
[2025-03-12] MEDS: ASPIRIN 81 MG PO SCH (08:26)
[2025-03-12] MEDS: PANTOPRAZOLE 40 MG TABLET PO SCH (08:26)
[2025-03-12] MEDS: LACOSAMIDE 50 MG TABLET PO SCH ×2 (08:26→21:57)
[2025-03-12] MEDS: DAPAGLIFLOZIN PROPANEDIOL 5 MG TABLET PO SCH (08:26)
[2025-03-12] MEDS: ATORVASTATIN 20 MG TAB PO SCH (08:26)
[2025-03-12] MEDS: MAGNESIUM CHLORIDE 64 MG PO SCH (08:35)
[2025-03-12] MEDS: TIOTROPIUM 2.5 MCG INHALER INHALATION SCH (11:50)
[2025-03-12] MEDS: SYMBICORT 160-4.5 MCG INHALER INHALATION SCH (11:50)
[2025-03-12] MEDS: oxyCODONE-APAP 5-325MG 1 EACH TAB PO PRN (17:28)
--- NOTE | 2025-03-12 20:20 | P.HPIM ---
History of Present Illness H&P Date: 03/12/25 Chief Complaint: Lower back pain Patient is a 84-year-old female with known history of chronic atrial fibrillation on anticoagulation, cardiomyopathy, history of syncope, hype rtension, history of CVA in 2019 and 2022/subdural hematoma in 2022, multiple ischemic strokes status post tPA and 2 thrombectomies in 2019 and 1 in December 2022, history of AVM and prior history of smoking. Patient presents to ER with complaints of worsening back pain. Patient states that she also has pain radiating towards right leg. Did have a fall about a month ago. Denied any recent fall. She is also complaining of lower abdominal discomfort, increased frequency of urination and bladder dysfunction unable to urinate completely. Denies any fever or chills. Denies any weakness in the lower extremities. No numbness or tingling sensation. Patient is having difficulty walking due to olesya n. She does use walker at baseline. CT of the abdomen pelvis in the ER showed acute endplate fracture at T12. Minimal height loss. No posterior cortical retropulsion. Laboratory show WBC 6.3 hemoglobin 9.7, platelets 283, sodium 133, potassium 3.6, chloride 96 BUN 16 and creatinine 1.6 and blood sugar 106 albumin 3.4 Urinalysis showed turbid with trace protein 1+ glucose ketones negative nitrite negative large leukocyte esterase elevated WBCs greater than 182 and RBCs 11. Most recent echocardiogram showed ejection fraction 65 to 70%, severe TR and pulmonary hypertension with RVSP 58 Review of Systems Constitutional: Patient denies any fever or chills . No generalized weakness or weight loss. Abdomen: Patient denied nausea vomiting and diarrhea and abdominal pain. Cardiovascular: Patient denies any chest pain or short of breath no palpitations. Respiratory: patient denied any cough or sputum production. No shortness of breath Neurologic: Patient denied any numbness or tingling. no headache. Musculoskeletal: Patient denies any complaints of joint swelling or deformity. Lower back pain. Skin: Negative Psychiatric: Negative Endocrine: No heat or cold intolerance. No recent weight gain. Genitourinary: No dysuria or hematuria. Increased frequency of urination and trouble urinating. All other 14 point ROS negative except the above Past Medical History Past Medical History: Atrial Fibrillation, CVA/TIA, Hyperlipidemia, Hypertension Additional Past Medical History / Comment(s): cardiomyopathy, fall- brain bleed in 2022, CVA x 2 - 2019 & 2022 History of Any Multi-Drug Resistant Organisms: None Reported Past Surgical History: Appendectomy, Cholecystectomy, Heart Catheterization, Hysterectomy, Tonsillectomy Past Anesthesia/Blood Transfusion Reactions: No Reported Reaction Smoking Status: Former smoker - Past Family History Father Family Medical History: Coronary Artery Disease (CAD) Mother Family Medical History: Chest Pain / Angina Brother(s) Family Medical History: AFIB Medications and Allergies Home Medications Medication Instructions Recorded Confirmed Type Apixaban [Eliquis] 5 mg PO BID 03/23/23 03/12/25 History Atorvastatin [Lipitor] 20 mg PO DAILY 03/23/23 03/12/25 History Fluticasone/Umeclidin/Vilanter 1 puff INHALATION RT-DAILY 03/23/23 03/12/25 History [Trelecelso Ellipta 100-62.5-25] Levothyroxine Sodium [Synthroid] 88 mcg PO DAILY 03/23/23 03/12/25 History Magnesium Chloride [Mag64] 64 mg PO DAILY 03/23/23 03/12/25 History Omeprazole [PriLOSEC] 40 mg PO DAILY 03/23/23 03/12/25 History allopurinoL [Zyloprim] 300 mg PO DAILY 03/23/23 03/12/25 History oxyBUTYnin chloride [Ditropan] 5 mg PO DAILY 03/23/23 03/12/25 History Empagliflozin [Jardiance] 10 mg PO DAILY 01/19/25 03/12/25 History Metoprolol Succinate (ER) [Toprol 25 mg PO DAILY #30 tab 01/29/25 03/12/25 Rx XL] Aspirin EC [Ecotrin Low Dose] 81 mg PO DAILY 03/12/25 03/12/25 History Furosemide [Lasix] 20 mg PO DAILY 03/12/25 03/12/25 History Lacosamide [Vimpat] 50 mg PO BID 03/12/25 03/12/25 History Midodrine HCl 2.5 mg PO TID PRN 03/12/25 03/12/25 History Potassium Chloride ER [K-Dur 20] 20 meq PO DAILY 03/12/25 03/12/25 History Propranolol HCl 80 mg PO DAILY 03/12/25 03/12/25 History SILVER sulfADIAZINE Cream 1 applic TOPICAL BID 03/12/25 03/12/25 History [Silvadene 1% Cream] metOLazone [Zaroxolyn] 2.5 mg PO MOTH 03/12/25 03/12/25 History Allergies Allergy/AdvReac Type Severity Reaction Status Date / Time iodine Allergy Rash/Hives Verified 02/09/25 10:40 Penicillins Allergy Unknown Verified 02/09/25 10:40 Sulfa (Sulfonamide Allergy Rash/Hives Verified 02/09/25 10:40 Antibiotics) Physical Exam Vitals: Vital Signs Temp Pulse Pulse Resp BP BP Pulse Ox 03/12/25 12:35 97.4 F L 69 17 146/66 97 03/12/25 10:44 97.4 F L 75 18 144/70 97 03/12/25 09:50 97.7 F 61 16 118/64 96 03/12/25 08:31 97.7 F 61 16 131/71 98 03/12/25 07:00 97.7 F 61 16 117/60 96 03/12/25 04:52 97.5 F L 80 16 161/83 95 03/12/25 00:51 97.7 F 72 18 131/96 96 Intake and Output 03/12/25 03/12/25 03/12/25 06:59 14:59 22:59 Intake Total 540 Output Total 901 Balance -361 Intake: Oral 540 Output: Post Void Residual 901 Other: Weight 72.575 kg 72.575 kg PHYSICAL EXAMINATION: Patient is lying in the bed,, no acute distress, awake alert and oriented.. HEENT: Normocephalic. Neck is supple. Pupils reactive. Nostrils clear. Oral cavity is moist. Neck reveals no JVD, carotid bruits, or thyromegaly. CHEST EXAMINATION: Trachea is central. Symmetrical expansion. Lung donohue clear to auscultation and percussion. CARDIAC: Normal S1, S2 with no gallops. No murmurs ABDOMEN: Soft. Bowel sounds normal. No organomegaly. No abdominal bruits. Extremities: Bilateral lower extremity trace edema. No clubbing or cyanosis Neurologically awake, alert, oriented x 2-3. Able to move all extremities while in bed. Skin: No rash or skin lesions. Psychiatric: Coperative. Nonsuicidal Musculoskeletal: No joint swelling or deformity. Results CBC & Chem 7: 03/12/25 01:40 03/12/25 02:35 Labs: Abnormal Lab Results - Last 24 Hours (Table) 03/12/25 03/12/25 03/12/25 Range/Units 01:40 01:54 02:35 RBC 2.97 L (4.10-5.20) 10*6/uL Hgb 9.7 L (12.0-15.0) g/dL Hct 28.5 L (37.2-46.3) % MCH 32.7 H (27.0-32.0) pg Sodium 133 L (137-145) mmol/L Chloride 96 L (98-107) mmol/L BUN 60 H (7-17) mg/dL Creatinine 1.60 H (0.52-1.04) mg/dL Glucose 106 H (74-99) mg/dL Total Protein 6.2 L (6.3-8.2) g/dL Albumin 3.4 L (3.5-5.0) g/dL Urine Appearance Turbid H (Clear) Urine Protein Trace H (Negative) Urine Glucose (UA) 1+ H (Negative) Urine Blood Small H (Negative) Ur Leukocyte Esterase Large H (Negative) Urine RBC 11 H (0-5) /hpf Urine WBC >182 H (0-5) /hpf Urine WBC Clumps Many H (None) /hpf Urine Bacteria Moderate H (None) /hpf Thrombosis Risk Factor Assmnt - DVT/VTE Prophylaxis DVT/VTE Prophylaxis: Pharmacologic Prophylaxis ordered - Choose All That Apply Any of the Below Risk Factors Present?: Yes Each Factor Represents 1 point: Swollen legs (current) Other Risk Factors: Yes Each Risk Factor Represents 3 Points: Age 75 years or older Other congenital or acquired thrombophilia - If yes, enter type in comment: No Thrombosis Risk Factor Assessment Total Risk Factor Score: 4 Thrombosis Risk Factor Assessment Level: Moderate Risk Assessment and Plan Assessment: Acute urinary retention Acute urinary tract infection. Patient does have increased frequency of urination Acute endplate fracture at T12 with minimal height loss. Patient denies any fall. Chronic atrial fibrillation on anticoagulation with Eliquis Cardiomyopathy nonischemic. But most recent 2D echo showed ejection fraction 65 to 70% Moderate pulmonary hypertension Severe TR History of CVA/ischemic chest post tPA in 2 thrombectomies in 2019 and also in 2022 with subdural hematoma. Hypothyroidism History of overactive bladder Prior history of smoking GI prophylaxis PPI Plan: Patient was given IV fluid bolus in the ER. Encourage oral intake. She was placed on Hendrickson catheter due to urinary retention with bladder scan showing greater than 500 cc. Continue with ceftriaxone and follow-up urine culture report. Continue with aspirin, statin and Eliquis as per home regimen. Patient is also on Vimpat at home. Will continue with DuoNebs, Symbicort and Arava.. PT OT to be consulted. Continue with pain management and follow-up closely. Prognosis guarded. Time with Patient: Greater than 30
[2025-03-13 05:55] LABS: African American GFR (CKD) 32 (>60 ml/min/1.73 sqM); Anion Gap 9 mmol/L; Blood Urea Nitrogen 59 mg/dL (7-17); Calcium 9.0 mg/dL (8.4-10.2); Carbon Dioxide 26 mmol/L (22-30); Chloride 97 mmol/L (98-107); Glucose 89 mg/dL (74-99); Non-African American GFR(CKD) 28 (>60 ml/min/1.73 sqM); Potassium 3.8 mmol/L (3.5-5.1); Sodium 132 mmol/L (137-145)
[2025-03-13 07:58] LABS: HCT 26.8 % (37.2-46.3); HGB 8.7 g/dL (12.0-15.0); MCH 31.6 pg (27.0-32.0); MCHC 32.5 g/dL (32.0-37.0); MCV 97.5 FL (80.0-97.0); RBC 2.75 X 10*6/uL (4.10-5.20); RDW 17.2 % (11.5-14.5); WBC 6.26 X 10*3/uL (4.50-10.00)
[2025-03-13 07:59] LABS: Basophils # (A) 0.03 X 10*3/uL (0.00-0.10); Basophils % (A) 0.5 %; Eosinophils # (A) 0.32 X 10*3/uL (0.04-0.35); Eosinophils % (A) 5.1 %; Immature Grans, Automated 0.30 %; Lymphocytes # (A) 0.72 X 10*3/uL (0.90-5.00); Lymphocytes % (A) 11.5 %; Monocytes # (A) 0.70 X 10*3/uL (0.20-1.00); Monocytes % (A) 11.2 %; NRBC Per 100 WBC 0 X 10*3/uL (0.00-0.01); Neutrophils # (A) 4.47 X 10*3/uL (1.80-7.70); Neutrophils % (A) 71.4 %; Platelet Count 256 X 10*3/uL (140-440)
[2025-03-13] MEDS: KETOROLAC 15 MG/ML 1 ML VIAL IVP PRN (08:46)
[2025-03-13 20:19] LABS: Glucose,Whole Blood 135 mg/dL (70-110)
[2025-03-13] MEDS: APIXABAN 2.5 MG TABLET PO SCH (21:49)
[2025-03-14 08:03] LABS: Basophils # (A) 0.03 X 10*3/uL (0.00-0.10); Basophils % (A) 0.5 %; Eosinophils # (A) 0.44 X 10*3/uL (0.04-0.35); Eosinophils % (A) 7.5 %; HCT 26.8 % (37.2-46.3); HGB 8.7 g/dL (12.0-15.0); Immature Grans, Automated 0.30 %; Lymphocytes # (A) 0.79 X 10*3/uL (0.90-5.00); Lymphocytes % (A) 13.4 %; MCH 31.6 pg (27.0-32.0); MCHC 32.5 g/dL (32.0-37.0); MCV 97.5 FL (80.0-97.0); Monocytes # (A) 0.65 X 10*3/uL (0.20-1.00); Monocytes % (A) 11.0 %; NRBC Per 100 WBC 0 X 10*3/uL (0.00-0.01); Neutrophils # (A) 3.97 X 10*3/uL (1.80-7.70); Neutrophils % (A) 67.3 %; Platelet Count 240 X 10*3/uL (140-440); RBC 2.75 X 10*6/uL (4.10-5.20); RDW 17.1 % (11.5-14.5); WBC 5.90 X 10*3/uL (4.50-10.00)
[2025-03-14 08:16] LABS: ALT 8 U/L (8-44); AST 19 U/L (13-35); Albumin 3.1 g/dL (3.8-4.9); Albumin/Globulin Ratio 1.48 Ratio (1.60-3.17); Alkaline Phosphatase 115 U/L (41-126); Anion Gap 12.90 mmol/L (4.00-12.00); BUN/Creat Ratio 30.56 Ratio (12.00-20.00); Blood Urea Nitrogen 48.9 mg/dL (9.0-27.0); Calcium 8.8 mg/dL (8.7-10.3); Carbon Dioxide 24.1 mmol/L (21.6-31.8); Chloride 99 mmol/L (96-109); Globulin 2.1 g/dL (1.6-3.3); Glucose 97 mg/dL (70-110); Magnesium 2.0 mg/dL (1.5-2.4); Potassium 3.9 mmol/L (3.5-5.5); Sodium 136 mmol/L (135-145); Total Protein 5.2 g/dL (6.2-8.2)
--- NOTE | 2025-03-14 09:59 | P.PN ---
Subjective Progress Note Date: 03/13/25 Patient is a 84-year-old female with known history of chronic atrial fibrillation on anticoagulation, cardiomyopathy, history of syncope, hypertension, history of CVA in 2019 and 2022/subdural hematoma in 2022, multiple ischemic strokes status post tPA and 2 thrombectomies in 2019 and 1 in December 2022, history of AVM and prior history of smoking. Patient presents to ER with complaints of worsening back pain. Patient states that she also has pain radiating towards right leg. Did have a fall about a month ago. Denied any recent fall. She is also complaining of lower abdominal discomfort, increased frequency of urination and bladder dysfunction unable to urinate completely. Denies any fever or chills. Denies any weakness in the lower extremities. No numbness or tingling sensation. Patient is having difficulty walking due to pain. She does use walker at baseline. CT of the abdomen pelvis in the ER showed acute endplate fracture at T12. Minimal height loss. No posterior cortical retropulsion. Laboratory show WBC 6.3 hemoglobin 9.7, platelets 283, sodium 133, potassium 3.6, chloride 96 BUN 16 and creatinine 1.6 and blood sugar 106 albumin 3.4 Urinalysis showed turbid with trace protein 1+ glucose ketones negative nitrite negative large leukocyte esterase elevated WBCs greater than 182 and RBCs 11. Most recent echocardiogram showed ejection fraction 65 to 70%, severe TR and pulmonary hypertension with RVSP 58 03/13/2025 Patient is seen in follow-up today currently reporting immense back pain in her upper back area and reporting she is unable to walk. Patient is also maintained on IV antibiotics with urine culture preliminary showing gram-negative bacilli and awaiting cultures to determine appropriate antibiotics. Patient did require indwelling Hendrickson catheter for retention and will continue for now. Will consult orthopedics also and appreciate input and recommendations as patient reports she would like to return home with her daughter who is a nurse and has been rec eiving home care and rehab in her home. Patient does not want to go to a rehab facility. Review of systems: Constitutional: No reports of fatigue, fever, or chills Cardiovascular: No reports of chest pain or palpitations Respiratory: No reports of shortness of breath or cough GI: No reports of nausea, vomiting, or diarrhea : No further reports of dysuria, patient was having retention requiring indwelling Hendrickson catheter Neurovascular: reports of generalized weakness and inability to ambulate, patient reporting severe back pain PHYSICAL EXAMINATION: Patient is lying in the bed,, in acute distress reporting severe back pain, awake alert and oriented.. Elderly appearing, well-developed HEENT: Normocephalic. Neck is supple. Pupils reactive. Nostrils clear. Oral cavity is moist. Neck reveals no JVD, carotid bruits, or thyromegaly. CHEST EXAMINATION: Trachea is central. Symmetrical expansion. Lung donohue clear to auscultation and percussion. CARDIAC: Normal S1, S2 with no gallops. No murmurs ABDOMEN: Soft. Bowel sounds normal. No organomegaly. No abdominal bruits. Extremities: Bilateral lower extremity trace edema. No clubbing or cyanosis Neurologically awake, alert, oriented x 2-3. Able to move all extremities while in bed. Skin: No rash or skin lesions. Psychiatric: Cooperative. Non-suicidal Musculoskeletal: No joint swelling or deformity. Assessment: Acute urinary retention, present on admission, requiring indwelling Hendrickson catheter Acute urinary tract infection. Present on admission, patient does have increased frequency of urination Acute endplate fracture at T12 with minimal height loss. Patient denies any fall. Chronic atrial fibrillation on anticoagulation with Eliquis Cardiomyopathy nonischemic. But most recent 2D echo showed ejection fraction 65 to 70% Moderate pulmonary hypertension Severe TR History of CVA/ischemic chest post tPA in 2 thrombectomies in 2019 and also in 2022 with subdural hematoma. Hypothyroidism History of overactive bladder Prior history of smoking GI prophylaxis PPI Plan: Patient was given IV fluid bolus in the ER. Encourage oral intake. She was placed on Hendrickson catheter due to urinary retention with bladder scan showing greater than 500 cc. Continue with ceftriaxone and follow-up urine culture report. Preliminary culture showing gram-negative bacilli Continue with aspirin, statin and Eliquis as per home regimen. Patient is also on Vimpat at home. Patient reports she takes 50 mg twice daily that was rec ently changed. will continue with DuoNebs, Symbicort and Arava.. PT OT to be consulted. Will consult orthopedics for evaluation as patient is reporting 10/10 pain and inability to ambulate. Continue with pain management Due to multiple complex medical issues, overall prognosis is guarded The impression and plan of care has been dictated by Viky Forde, nurse practitioner as directed. Dr. Yossi MD I have performed a history and examination and MDM of this patient, discussed the same with the dictator, and agree with the dictator's assessment and plan as written ,documented as a scribe. Based on total visit time, I have performed more than 50% of the visit. Any additional findings or plans will be noted. Objective - Vital Signs Vital signs: Vital Signs Temp 97.8 F 03/13/25 07:49 Pulse 78 03/13/25 07:49 Resp 18 03/13/25 10:33 BP 149/73 03/13/25 07:49 Pulse Ox 95 03/13/25 07:49 FiO2 Intake & Output 03/12/25 03/13/25 03/13/25 18:59 06:59 18:59 Intake Total 540 118 Output Total 1251 400 Balance -711 -400 118 Weight 72.575 kg Intake: Oral 540 118 Output: Urine 350 400 Post Void Residual 901 Other: Voiding Method Indwelling Catheter Indwelling Catheter Indwelling Catheter # Voids 1 - Labs CBC & Chem 7: 03/14/25 05:29 03/14/25 05:29 Labs: Abnormal Lab Results - Last 24 Hours (Table) 03/13/25 03/13/25 Range/Units 04:38 04:38 RBC 2.75 L (4.10-5.20) X 10*6/uL Hgb 8.7 L (12.0-15.0) g/dL Hct 26.8 L (37.2-46.3) % MCV 97.5 H (80.0-97.0) FL RDW 17.2 H (11.5-14.5) % Lymphocytes # 0.72 L (0.90-5.00) X 10*3/uL Sodium 132 L (137-145) mmol/L Chloride 97 L (98-107) mmol/L BUN 59 H (7-17) mg/dL Creatinine 1.67 H (0.52-1.04) mg/dL Microbiology - Last 24 Hours (Table) 03/12/25 01:54 Urine Culture - Preliminary Urine,Voided Gram Neg Bacilli
--- NOTE | 2025-03-14 13:32 | P.CNOR ---
History of Present Illness - [facility] Consult date: 03/14/25 Requesting physician: Viky Forde Consult reason: fracture (T12 copression Fx) History of present illness: Patient is a very pleasant 84-year-old female who is seen examined at bedside for further evaluation of her thoracolumbar spine. Patient states she began to experience back pain when she woke up on 03/08/2025 without injury. Her symptoms have been progressively worsening since that time. She has pain at her thoracolumbar junction worse with activities. She presented to the emergency department for further evaluation. CT imaging of the abdomen pelvis was performed which showed evidence of T12 fracture. Patient has a history of right hip fracture with intramedullary nail fixation. She states she had injured her left hip recently and presented to urgent care for further evaluation. She did not have a fracture at her left hip. She does have a healing hematoma. She has no other complaints in regards to her lower extremities. She denies specific lower extremity weakness or radiculopathy. The pain stays at her thoracolumbar junction. She has had difficulty with mobilization due to her pain. She is admitted to medicine. She is currently being treated for urinary tract infection and acute urinary retention. She has a Hendrickson catheter intact. Adrianna osorio has multiple other medical diagnoses being managed by medicine. Past Medical History Past Medical History: Atrial Fibrillation, CVA/TIA, Hyperlipidemia, Hypertension Additional Past Medical History / Comment(s): cardiomyopathy, fall- brain bleed in 2022, CVA x 2 - 2019 & 2022 History of Any Multi-Drug Resistant Organisms: None Reported Past Surgical History: Appendectomy, Cholecystectomy, Heart Catheterization, Hysterectomy, Tonsillectomy Past Anesthesia/Blood Transfusion Reactions: No Reported Reaction Smoking Status: Former smoker - Past Family History Father Family Medical History: Coronary Artery Disease (CAD) Mother Family Medical History: Chest Pain / Angina Brother(s) Family Medical History: AFIB Medications and Allergies Home Medications Medication Instructions Recorded Confirmed Type Apixaban [Eliquis] 5 mg PO BID 03/23/23 03/12/25 History Atorvastatin [Lipitor] 20 mg PO DAILY 03/23/23 03/12/25 History Fluticasone/Umeclidin/Vilanter 1 puff INHALATION RT-DAILY 03/23/23 03/12/25 History [Trelegy Ellipta 100-62.5-25] Levothyroxine Sodium [Synthroid] 88 mcg PO DAILY 03/23/23 03/12/25 History Magnesium Chloride [Mag64] 64 mg PO DAILY 03/23/23 03/12/25 History Omeprazole [PriLOSEC] 40 mg PO DAILY 03/23/23 03/12/25 History allopurinoL [Zyloprim] 300 mg PO DAILY 03/23/23 03/12/25 History oxyBUTYnin chloride [Ditropan] 5 mg PO DAILY 03/23/23 03/12/25 History Empagliflozin [Jardiance] 10 mg PO DAILY 01/19/25 03/12/25 History Metoprolol Succinate (ER) [Toprol 25 mg PO DAILY #30 tab 01/29/25 03/12/25 Rx XL] Aspirin EC [Ecotrin Low Dose] 81 mg PO DAILY 03/12/25 03/12/25 History Furosemide [Lasix] 20 mg PO DAILY 03/12/25 03/12/25 History Lacosamide [Vimpat] 50 mg PO BID 03/12/25 03/12/25 History Midodrine HCl 2.5 mg PO TID PRN 03/12/25 03/12/25 History Potassium Chloride ER [K-Dur 20] 20 meq PO DAILY 03/12/25 03/12/25 History Propranolol HCl 80 mg PO DAILY 03/12/25 03/12/25 History SILVER sulfADIAZINE Cream 1 applic TOPICAL BID 03/12/25 03/12/25 History [Silvadene 1% Cream] metOLazone [Zaroxolyn] 2.5 mg PO MOTH 03/12/25 03/12/25 History Allergies Allergy/AdvReac Type Severity Reaction Status Date / Time iodine Allergy Rash/Hives Verified 02/09/25 10:40 Penicillins Allergy Unknown Verified 02/09/25 10:40 Sulfa (Sulfonamide Allergy Rash/Hives Verified 02/09/25 10:40 Antibiotics) Physical Examination Physical exam: Patient is awake, alert, and oriented 3 Vital signs stable Good chest excursion with deep inspiration and expiration Abdomen soft nontender Examination of thoracic and lumbar spine reveals skin is intact with no abrasions, lacerations, or bruises; no erythema, purulence or signs of infection Pain with palpation at the thoracolumbar junction Dorsiflexion, plantarflexion, and extensor hallucis longus positive sustained bilaterally Lower extremity strength 5/5 bilaterally Straight leg test negative bilateral lower extremities No signs or symptoms of DVT; no calf pain No pain with internal and external rotation of the hips bilaterally Results Pertinent studies: CT of the abdomen pelvis taken on 03/12/2025: T12 inferior endplate compression fracture; L2-3 significant degenerative disc disease with anterior osteophytic spurring; L4-5 end-stage degenerative disc disease with anterior osteophytic spurring; L5-S1 degenerative disc disease; L2-3 lateral listhesis - Labs Labs: Abnormal Lab Results - Last 24 Hours (Table) 03/13/25 03/14/25 03/14/25 Range/Units 20:10 05:29 05:29 RBC 2.75 L (4.10-5.20) X 10*6/uL Hgb 8.7 L (12.0-15.0) g/dL Hct 26.8 L (37.2-46.3) % MCV 97.5 H (80.0-97.0) FL RDW 17.1 H (11.5-14.5) % Lymphocytes # 0.79 L (0.90-5.00) X 10*3/uL Eosinophils # 0.44 H (0.04-0.35) X 10*3/uL Anion Gap 12.90 H (4.00-12.00) mmol/L BUN 48.9 H (9.0-27.0) mg/dL Creatinine 1.6 H (0.6-1.5) mg/dL Est GFR (CKD-EPI) 31 L (>=60) BUN/Creatinine Ratio 30.56 H (12.00-20.00) Ratio POC Glucose (mg/dL) 135 H (70-110) mg/dL Total Protein 5.2 L (6.2-8.2) g/dL Albumin 3.1 L (3.8-4.9) g/dL Albumin/Globulin Ratio 1.48 L (1.60-3.17) Ratio Microbiology - Last 24 Hours (Table) 03/12/25 04:55 Blood Culture - Preliminary Blood 03/12/25 01:54 Urine Culture - Preliminary Urine,Voided Gram Neg Bacilli H & H 03/12/25 03/13/25 03/14/25 Range/Units 01:40 04:38 05:29 Hgb 9.7 L 8.7 L 8.7 L (12.0-15.0) g/dL Hct 28.5 L 26.8 L 26.8 L (37.2-46.3) % Result Diagrams: 03/14/25 05:29 03/14/25 05:29 Assessment and Plan Assessment: Assessment: Acute T12 compression fracture deformity Thoracolumbar pain L2-3 lateral listhesis Lumbar degenerative disc disease Lumbar osteophytic spurring Urinary tract infection Urinary retention Chronic atrial fibrillation on anticoagulation with Eliquis Cardiomyopathy History of CVA Hypothyroidism History of overactive bladder moderate pulmonary hypertension (1) T12 compression fracture Current Visit: Yes Status: Acute Code(s): S22.080A - WEDGE COMPRESSION FRACTURE OF T11-T12 VERTEBRA, INIT SNOMED Code(s): 486427338 (2) Thoracolumbar back pain Current Visit: Yes Status: Acute Code(s): M54.50 - LOW BACK PAIN, UNSPECIFIED; M54.6 - PAIN IN THORACIC SPINE SNOMED Code(s): 034630181 (3) Urinary retention Current Visit: Yes Status: Acute Code(s): R33.9 - RETENTION OF URINE, UNSPECIFIED SNOMED Code(s): 300286266 (4) Overactive bladder Current Visit: Yes Status: Acute Code(s): N32.81 - OVERACTIVE BLADDER SNOMED Code(s): 214395936 (5) History of CVA (cerebrovascular accident) Current Visit: Yes Status: Acute Code(s): Z86.73 - PRSNL HX OF TIA (TIA), AND CEREB INFRC W/O RESID DEFICITS SNOMED Code(s): 036365683 (6) Spondylolisthesis, lumbar region Current Visit: Yes Status: Acute Code(s): M43.16 - SPONDYLOLISTHESIS, LUMBAR REGION SNOMED Code(s): 105998443488638 (7) Lumbar degenerative disc disease Current Visit: Yes Status: Acute Code(s): M51.369 - OTH INTVRT DISC DEGEN, LUM RGN W/O LUM BCK OR LW EXTRM PAIN SNOMED Code(s): 17394635 (8) Atrial fibrillation Current Visit: Yes Status: Acute Code(s): I48.91 - UNSPECIFIED ATRIAL FIBRILLATION SNOMED Code(s): 74370226 (9) Cardiomyopathy Current Visit: Yes Status: Acute Code(s): I42.9 - CARDIOMYOPATHY, UNSPECIFIED SNOMED Code(s): 17134274 (10) Hypothyroidism Current Visit: Yes Status: Acute Code(s): E03.9 - HYPOTHYROIDISM, UNSPECIFIED SNOMED Code(s): 27958478 (11) UTI (urinary tract infection) Current Visit: No Status: Acute Code(s): N39.0 - URINARY TRACT INFECTION, SITE NOT SPECIFIED SNOMED Code(s): 66094287 Plan: Plan: 1. Patient has been having significant pain since 03/08/2025. Imaging shows evidence of T12 compression fracture and inferior endplate. She does have thoracolumbar back pain. After reviewing of imaging, physical examination the patient, and further discussion with the patient, will currently planned to continue with conservative treatment at this time. At this time we'll plan for bracing. A prescription has been written and provided to case management for a [place]/[employer] or equivalent TLSO brace. Once this brace is delivered and fitted appropriately, patient should wear this brace while sitting upright at greater than 45, during increase activities, during ambulation. Brace does not have to or while lying in bed or while bathing. Following fitting of this brace, patient is clear for discharge from an orthopedic spine standpoint. Following discharge, patient may follow-up with Jeremi Urrutia PA-C or Dr. Dirk Arreola at [facility]. 2. Patient will continue be seen in exam by medicine for her other medical diagnoses. They may be planning for discharge today. Time with Patient: Greater than 30 (Including obtaining history, physical examination, reviewing of imaging, and dictation.)
--- NOTE | 2025-03-15 06:01 | P.PN ---
Subjective Progress Note Date: 03/14/25 Patient is a 84-year-old female with known history of chronic atrial fibrillation on anticoagulation, cardiomyopathy, history of syncope, hypertension, history of CVA in 2019 and 2022/subdural hematoma in 2022, multiple ischemic strokes status post tPA and 2 thrombectomies in 2019 and 1 in December 2022, history of AVM and prior history of smoking. Patient presents to ER with complaints of worsening back pain. Patient states that she also has pain radiating towards right leg. Did have a fall about a month ago. Denied any recent fall. She is also complaining of lower abdominal discomfort, increased frequency of urination and bladder dysfunction unable to urinate completely. Denies any fever or chills. Denies any weakness in the lower extremities. No numbness or tingling sensation. Patient is having difficulty walking due to pain. She does use walker at baseline. CT of the abdomen pelvis in the ER showed acute endplate fracture at T12. Minimal height loss. No posterior cortical retropulsion. Laboratory show WBC 6.3 hemoglobin 9.7, platelets 283, sodium 133, potassium 3.6, chloride 96 BUN 16 and creatinine 1.6 and blood sugar 106 albumin 3.4 Urinalysis showed turbid with trace protein 1+ glucose ketones negative nitrite negative large leukocyte esterase elevated WBCs greater than 182 and RBCs 11. Most recent echocardiogram showed ejection fraction 65 to 70%, severe TR and pulmonary hypertension with RVSP 58 03/13/2025 Patient is seen in follow-up today currently reporting immense back pain in her upper back area and reporting she is unable to walk. Patient is also maintained on IV antibiotics with urine culture preliminary showing gram-negative bacilli and awaiting cultures to determine appropriate antibiotics. Patient did require indwelling Hendrickson catheter for retention and will continue for now. Will consult orthopedics also and appreciate input and recommendations as patient reports she would like to return home with her daughter who is a nurse and has been rec eiving home care and rehab in her home. Patient does not want to go to a rehab facility. 03/14/2025 Patient is seen in follow-up today currently resting although easily arousable. Patient continues to report back pain but is manageable on medication. Orthopedics consulted recommending LSO brace and no surgical intervention planned at this time. Will await PT/OT therapy evaluation although patient is adamant she is returning home on discharge. Patient continues on ceftriaxone with urine cultures preliminary showing gram-negative bacilli. Continue indwelling Hendrickson catheter for now as patient did have significant retention. Recommend bowel regimen and will monitor closely. Patient is afebrile with no reports of chest pain or shortness of breath at this time. Patient is tolerating diet and encouraged small frequent meals. Review of systems: Constitutional: No reports of fatigue, fever, or chills Cardiovascular: No reports of chest pain or palpitations Respiratory: No reports of shortness of breath or cough GI: No reports of nausea, vomiting, or diarrhea : No further reports of dysuria, patient was having retention requiring indwelling Hendrickson catheter Neurovascular: reports of generalized weakness and inability to ambulate, patient reporting severe back pain that is improved on current pain regimen PHYSICAL EXAMINATION: Patient is lying in the bed,, in no acute distress asleep although easily arousable, alert and oriented.. Elderly appearing, well-developed HEENT: Normocephalic. Neck is supple. Pupils reactive. Nostrils clear. Oral cavity is moist. Neck reveals no JVD, carotid bruits, or thyromegaly. CHEST EXAMINATION: Trachea is central. Symmetrical expansion. Lung donohue clear to auscultation and percussion. CARDIAC: Normal S1, S2 with no gallops. No murmurs ABDOMEN: Soft. Bowel sounds normal. No organomegaly. No abdominal bruits. Extremities: Bilateral lower extremity trace edema. No clubbing or cyanosis Neurologically awake, alert, oriented x 2-3. Able to move all extremities while in bed. Skin: No rash or skin lesions. Psychiatric: Cooperative. Non-suicidal Musculoskeletal: No joint swelling or deformity. Assessment: Acute urinary retention, present on admission, requiring indwelling Hendrickson catheter Acute urinary tract infection. Present on admission, patient does have increased frequency of urination, preliminary urine culture showing gram- negative bacilli Acute endplate fracture at T12 with minimal height loss. Patient denies any fall. Chronic atrial fibrillation on anticoagulation with Eliquis Cardiomyopathy nonischemic. But most recent 2D echo showed ejection fraction 65 to 70% Moderate pulmonary hypertension Severe TR History of CVA/ischemic chest post tPA in 2 thrombectomies in 2019 and also in 2022 with subdural hematoma. Hypothyroidism History of overactive bladder Prior history of smoking GI prophylaxis PPI DVT prophylaxis, on Eliquis Full code Plan: Patient was given IV fluid bolus in the ER. Encourage oral intake. She was placed on Hendrickson catheter due to urinary retention with bladder scan showing gre ater than 500 cc. Continue indwelling Hendrickson catheter for now Continue with ceftriaxone and follow-up urine culture report. Preliminary culture showing gram-negative bacilli and should be resulted later today Continue with aspirin, statin and Eliquis as per home regimen. Patient is also on Vimpat at home. Patient reports she takes 50 mg twice daily that was recently changed. will continue with DuoNebs, Symbicort and Arava.. PT OT to be consulted. Patient evaluated by orthopedics recommending LSO brace which has been ordered and pending at this time. No plans of surgical interventions at this time Continue with pain management and recommend limiting IV narcotic use Plan will be for patient to return home on discharge with daughter who is a nurse. Patient does have home care previously with rehab Due to multiple complex medical issues, overall prognosis is guarded Discharge planning in the next 24 to 48 hours The impression and plan of care has been dictated by Viky Forde, nurse practitioner as directed. Dr. Yossi MD I have performed a history and examination and MDM of this patient, discussed the same with the dictator, and agree with the dictator's assessment and plan as written ,documented as a scribe. Based on total visit time, I have performed more than 50% of the visit. Any additional findings or plans will be noted. Objective - Vital Signs Vital signs: Vital Signs Temp 97.9 F 03/14/25 07:43 Pulse 64 03/14/25 07:43 Resp 16 03/14/25 07:43 BP 148/78 03/14/25 07:43 Pulse Ox 95 03/14/25 07:43 FiO2 Intake & Output 03/13/25 03/14/25 03/14/25 18:59 06:59 18:59 Intake Total 746 600 Output Total 400 200 Balance 346 400 Intake: Intake, IV Titration 240 Amount Sodium Chloride 0.9% 1, 240 000 ml @ 20 mls/hr IV . Q24H [facility] Rx#:[id number] Oral 506 Other 600 Output: Urine 400 200 Other: Voiding Method Indwelling Catheter Indwelling Catheter Indwelling Catheter - Labs CBC & Chem 7: 03/14/25 05:29 03/14/25 05:29 Labs: Abnormal Lab Results - Last 24 Hours (Table) 07/22/25 07/23/25 07/23/25 Range/Units 20:10 05:29 05:29 RBC 2.75 L (4.10-5.20) X 10*6/uL Hgb 8.7 L (12.0-15.0) g/dL Hct 26.8 L (37.2-46.3) % MCV 97.5 H (80.0-97.0) FL RDW 17.1 H (11.5-14.5) % Lymphocytes # 0.79 L (0.90-5.00) X 10*3/uL Eosinophils # 0.44 H (0.04-0.35) X 10*3/uL Anion Gap 12.90 H (4.00-12.00) mmol/L BUN 48.9 H (9.0-27.0) mg/dL Creatinine 1.6 H (0.6-1.5) mg/dL Est GFR (CKD-EPI) 31 L (>=60) BUN/Creatinine Ratio 30.56 H (12.00-20.00) Ratio POC Glucose (mg/dL) 135 H (70-110) mg/dL Total Protein 5.2 L (6.2-8.2) g/dL Albumin 3.1 L (3.8-4.9) g/dL Albumin/Globulin Ratio 1.48 L (1.60-3.17) Ratio Microbiology - Last 24 Hours (Table) 03/12/25 04:55 Blood Culture - Preliminary Blood 03/12/25 01:54 Urine Culture - Preliminary Urine,Voided Gram Neg Bacilli
[2025-03-15 10:29] LABS: Anion Gap 10.40 mmol/L (4.00-12.00); BUN/Creat Ratio 28.80 Ratio (12.00-20.00); Blood Urea Nitrogen 43.2 mg/dL (9.0-27.0); Calcium 8.9 mg/dL (8.7-10.3); Carbon Dioxide 24.6 mmol/L (21.6-31.8); Chloride 99 mmol/L (96-109); Glucose 100 mg/dL (70-110); Potassium 3.7 mmol/L (3.5-5.5); Sodium 134 mmol/L (135-145)
[2025-03-15] MEDS: ONDANSETRON 4 MG/2 ML VIAL IVP PRN (10:45)
--- NOTE | 2025-03-15 10:56 | P.PN ---
Progress Note - Text Progress Note Date: 03/15/25 Orthopedic spine: History of present illness: Patient is a very pleasant 84-year-old female who is seen examined at bedside for follow-up evaluation of her thoracolumbar spine. Patient states she began to experience back pain when she woke up on 03/08/2025 without injury. Her symptoms have been progressively worsening since that time. She has pain at her thoracolumbar junction worse with activities. She presented to the emergency department for further evaluation. CT imaging of the abdomen pelvis was performed which showed evidence of T12 fracture. Yesterday she was prescribed and fitted with a TLSO brace. She currently has this brace intact at the bedside. She states the brace is comfortable and feels it will be beneficial. Patient has a history of right hip fracture with intramedullary nail fixation. She states she had injured her left hip recently and presented to urgent care for further evaluation. She did not have a fracture at her left hip. She does have a healing hematoma. She has no other complaints in regards to her lower extremities. She denies specific lower extremity weakness or radiculopathy. The pain stays at her thoracolumbar junction. She has had difficulty with mobilization due to her pain. She is admitted to medicine. She is currently being treated for urinary tract infection and acute urinary retention. Patient has multiple other medical diagnoses being managed by medicine. She is currently planning for discharge to a rehabilitation facility tomorrow, 03/16/2025. Physical exam: Patient is awake, alert, and oriented 3 Vital signs stable Good chest excursion with deep inspiration and expiration Abdomen soft nontender Examination of thoracic and lumbar spine reveals skin is intact with no abrasions, lacerations, or bruises; no erythema, purulence or signs of infection Pain with palpation at the thoracolumbar junction Dorsiflexion, plantarflexion, and extensor hallucis longus positive sustained bilaterally Lower extremity strength 5/5 bilaterally Straight leg test negative bilateral lower extremities No signs or symptoms of DVT; no calf pain No pain with internal and external rotation of the hips bilaterally Pertinent studies: CT of the abdomen pelvis taken on 03/12/2025: T12 inferior endplate compression fracture; L2-3 significant degenerative disc disease with anterior osteophytic spurring; L4-5 end-stage degenerative disc disease with anterior osteophytic spurring; L5-S1 degenerative disc disease; L2-3 lateral listhesis Assessment: Acute T12 compression fracture deformity Thoracolumbar pain L2-3 lateral listhesis Lumbar degenerative disc disease Lumbar osteophytic spurring Urinary tract infection Urinary retention Chronic atrial fibrillation on anticoagulation with Eliquis Cardiomyopathy History of CVA Hypothyroidism History of overactive bladder moderate pulmonary hypertension Plan: 1. Patient has been having significant pain since 03/08/2025. Imaging shows evidence of T12 compression fracture and inferior endplate. She does have thoracolumbar back pain. After reviewing of imaging, physical examination the patient, and further discussion with the patient, will currently planned to continue with conservative treatment at this time. At this time we'll plan for bracing. A prescription has been written and provided to case management for a [place]/Spinomed or equivalent TLSO brace. A Spinomed TLSO brace was delivered and fitted appropriately yesterday. Patient should wear this brace while sitting upright at greater than 45, during increase activities, during ambulation. Brace does not have to or while lying in bed or while bathing. Patient is clear for discharge from an orthopedic spine standpoint. Following discharge, patient may follow-up with Jeremi Urrutia PA-C or Dr. Dirk Arreola at [facility] in 2 to 3 weeks for further evaluation. 2. Patient will continue be seen in exam by medicine for her other medical diagnoses. Patient currently planning for discharge to rehabilitation facility tomorrow.
[2025-03-15] MEDS: SENNOSIDES 8.6 MG TAB PO PRN (18:18)
--- NOTE | 2025-03-15 22:57 | P.PN ---
Subjective Progress Note Date: 03/15/25 Patient is a 84-year-old female with known history of chronic atrial fibrillation on anticoagulation, cardiomyopathy, history of syncope, hypertension, history of CVA in 2019 and 2022/subdural hematoma in 2022, multiple ischemic strokes status post tPA and 2 thrombectomies in 2019 and 1 in December 2022, history of AVM and prior history of smoking. Patient presents to ER with complaints of worsening back pain. Patient states that she also has pain radiating towards right leg. Did have a fall about a month ago. Denied any recent fall. She is also complaining of lower abdominal discomfort, increased frequency of urination and bladder dysfunction unable to urinate completely. Denies any fever or chills. Denies any weakness in the lower extremities. No numbness or tingling sensation. Patient is having difficulty walking due to pain. She does use walker at baseline. CT of the abdomen pelvis in the ER showed acute endplate fracture at T12. Minimal height loss. No posterior cortical retropulsion. Laboratory show WBC 6.3 hemoglobin 9.7, platelets 283, sodium 133, potassium 3.6, chloride 96 BUN 16 and creatinine 1.6 and blood sugar 106 albumin 3.4 Urinalysis showed turbid with trace protein 1+ glucose ketones negative nitrite negative large leukocyte esterase elevated WBCs greater than 182 and RBCs 11. Most recent echocardiogram showed ejection fraction 65 to 70%, severe TR and pulmonary hypertension with RVSP 58 03/13/2025 Patient is seen in follow-up today currently reporting immense back pain in her upper back area and reporting she is unable to walk. Patient is also maintained on IV antibiotics with urine culture preliminary showing gram-negative bacilli and awaiting cultures to determine appropriate antibiotics. Patient did require indwelling Hendrickson catheter for retention and will continue for now. Will consult orthopedics also and appreciate input and recommendations as patient reports she would like to return home with her daughter who is a nurse and has been rec eiving home care and rehab in her home. Patient does not want to go to a rehab facility. 03/14/2025 Patient is seen in follow-up today currently resting although easily arousable. Patient continues to report back pain but is manageable on medication. Orthopedics consulted recommending LSO brace and no surgical intervention planned at this time. Will await PT/OT therapy evaluation although patient is adamant she is returning home on discharge. Patient continues on ceftriaxone with urine cultures preliminary showing gram-negative bacilli. Continue indwelling Hendrickson catheter for now as patient did have significant retention. Recommend bowel regimen and will monitor closely. Patient is afebrile with no reports of chest pain or shortness of breath at this time. Patient is tolerating diet and encouraged small frequent meals. 03/15/2025 Patient is seen in follow-up today currently sitting up in the chair with LSO brace and was able to work with physical therapy is weak with continued pain although patient reports some improvement. Orthopedics following with no plans of surgical intervention at this time recommend to continue with an LSO brace while out of bed. Patient would like to go home on discharge although son-in-law is concerned of her safety and she has high risk for falls. Social work following and will discuss further ECF versus home with home care. Patient will continue on IV ceftriaxone with cultures finalized and showing Klebsiella with sensitivities and will transition to oral Ceftin on discharge. Encourage increase activity as tolerated and sitting up in the chair more frequently and will discuss possible discharge planning in the next 24 hours. Recommend to avoid IV narcotics and continue with oral management. Review of systems: Constitutional: No reports of fatigue, fever, or chills Cardiovascular: No reports of chest pain or palpitations Respiratory: No reports of shortness of breath or cough GI: No reports of nausea, vomiting, or diarrhea : No further reports of dysuria, patient was having retention requiring indwelling Hendrickson catheter Neurovascular: reports of generalized weakness, patient reporting severe back pain that is improved on current pain regimen along with LSO brace PHYSICAL EXAMINATION: Patient is sitting up in the chair, in no acute distress awake, alert and oriented.. Elderly appearing, well-developed HEENT: Normocephalic. Neck is supple. Pupils reactive. Nostrils clear. Oral cavity is moist. Neck reveals no JVD, carotid bruits, or thyromegaly. CHEST EXAMINATION: Trachea is central. Symmetrical expansion. Lung donohue clear to auscultation and percussion. CARDIAC: Normal S1, S2 with no gallops. No murmurs ABDOMEN: Soft. Thin. Bowel sounds normal. No organomegaly. No abdominal bruits. Extremities: Bilateral lower extremity trace edema. No clubbing or cyanosis Neurologically awake, alert, oriented x 2-3. Able to move all extremities while in bed. Skin: No rash or skin lesions. Psychiatric: Cooperative. Non-suicidal Musculoskeletal: No joint swelling or deformity. Assessment: Acute urinary retention, present on admission, requiring indwelling Hendrickson catheter Acute urinary tract infection. Present on admission, patient does have increased frequency of urination, urine cultures finalized as Klebsiella with sensitivities Acute endplate fracture at T12 with minimal height loss. Patient denies any fall. Chronic atrial fibrillation on anticoagulation with Eliquis Cardiomyopathy nonischemic. But most recent 2D echo showed ejection fraction 65 to 70% Moderate pulmonary hypertension Severe TR History of CVA/ischemic chest post tPA in 2 thrombectomies in 2019 and also in 2022 with subdural hematoma. Hypothyroidism History of overactive bladder Prior history of smoking GI prophylaxis PPI DVT prophylaxis, on Eliquis Full code Plan: Patient continue on IV ceftriaxone for another 24 hours as urine culture showed Klebsiella with sensitivities.. Encourage oral intake. She had placed on Hendrickson catheter due to urinary retention with bladder scan showing greater than 500 cc. Continue indwelling Hendrickson catheter for now and may trial void in the outpatient setting and follow-up with urology Continue with ceftriaxone and follow-up urine culture report. Urine culture showing Klebsiella and will transition to oral Ceftin on discharge Continue with aspirin, statin and Eliquis as per home regimen. Patient is also on Vimpat at home. Patient reports she takes 50 mg twice daily that was recently changed. will continue with DuoNebs, Symbicort and Arava.. PT OT evaluated the patient for significant weakness and patient may need ECF as family is also concerned of her risk for falls and someone in the home is not there 15/03 to take care of her. Will discuss with social work and family regarding possible discharge planning in the next 24 hours Patient evaluated by orthopedics recommending LSO brace which has been ordered and pending at this time. No plans of surgical interventions at this time Continue with pain management and recommend limiting IV narcotic use Plan will be for patient to return home on discharge with daughter who is a nurse. Patient does have home care previously with rehab Due to multiple complex medical issues, overall prognosis is guarded Discharge planning in the next 24 hours The impression and plan of care has been dictated by Viky Forde, nurse practitioner as directed. MD Beatris I have performed a history and examination and MDM of this patient, discussed the same with the dictator, and agree with the dictator's assessment and plan as written ,documented as a scribe. Based on total visit time, I have performed more than 50% of the visit. Any additional findings or plans will be noted. Objective - Vital Signs Vital signs: Vital Signs Temp 97.3 F L 03/15/25 13:10 Pulse 73 03/15/25 13:10 Resp 20 03/15/25 13:10 BP 158/64 03/15/25 13:10 Pulse Ox 96 03/15/25 13:10 FiO2 Intake & Output 03/14/25 03/15/25 03/15/25 18:59 06:59 18:59 Output Total 400 700 200 Balance -400 -700 -200 Output: Urine 400 700 Emesis 200 Other: Voiding Method Indwelling Catheter Indwelling Catheter Indwelling Catheter # Voids 1 - Labs CBC & Chem 7: 03/16/25 05:29 03/16/25 05:29 Labs: Abnormal Lab Results - Last 24 Hours (Table) 03/15/25 Range/Units 06:28 Sodium 134 L (135-145) mmol/L BUN 43.2 H (9.0-27.0) mg/dL Est GFR (CKD-EPI) 34 L (>=60) BUN/Creatinine Ratio 28.80 H (12.00-20.00) Ratio Microbiology - Last 24 Hours (Table) 03/12/25 04:55 Blood Culture - Preliminary Blood 03/12/25 01:54 Urine Culture - Final Urine,Voided Klebsiella oxytoca
[2025-03-16] MEDS: oxyCODONE-APAP 5-325MG 1 EACH TAB PO PRN (06:32)
[2025-03-16 07:51] LABS: Basophils # (A) 0.04 X 10*3/uL (0.00-0.10); Basophils % (A) 0.6 %; Eosinophils # (A) 0.25 X 10*3/uL (0.04-0.35); Eosinophils % (A) 3.8 %; HCT 26.8 % (37.2-46.3); HGB 8.5 g/dL (12.0-15.0); Immature Grans, Automated 0.30 %; Lymphocytes # (A) 0.73 X 10*3/uL (0.90-5.00); Lymphocytes % (A) 11.1 %; MCH 31.0 pg (27.0-32.0); MCHC 31.7 g/dL (32.0-37.0); MCV 97.8 FL (80.0-97.0); Monocytes # (A) 0.65 X 10*3/uL (0.20-1.00); Monocytes % (A) 9.9 %; NRBC Per 100 WBC 0 X 10*3/uL (0.00-0.01); Neutrophils # (A) 4.90 X 10*3/uL (1.80-7.70); Neutrophils % (A) 74.3 %; Platelet Count 243 X 10*3/uL (140-440); RBC 2.74 X 10*6/uL (4.10-5.20); RDW 17.7 % (11.5-14.5); WBC 6.59 X 10*3/uL (4.50-10.00)
[2025-03-16 08:25] LABS: Anion Gap 10.60 mmol/L (4.00-12.00); BUN/Creat Ratio 29.75 Ratio (12.00-20.00); Blood Urea Nitrogen 35.7 mg/dL (9.0-27.0); Calcium 9.0 mg/dL (8.7-10.3); Carbon Dioxide 25.4 mmol/L (21.6-31.8); Chloride 100 mmol/L (96-109); Glucose 94 mg/dL (70-110); Magnesium 2.0 mg/dL (1.5-2.4); Potassium 4.0 mmol/L (3.5-5.5); Sodium 136 mmol/L (135-145)
[2025-03-16 13:25] VITALS: BP 159/64; PULSE 67; RESP 20; TEMP 97.7
--- NOTE | 2025-03-19 05:27 | P.DS ---
Providers Date of admission: 03/12/25 05:18 Expected date of discharge: 03/16/25 Attending physician: Roxie Brown Consults: 03/13/25 14:04 Consult Physician Urgent Consulting Provider: Jose Antonio Arreola Consult Reason/Comments: t12 fx, back pain, inability to walk Do you want consulting provider notified?: Yes Primary care physician: Hair Olivas Hospital Course: Final diagnosis Acute urinary retention, present on admission, requiring indwelling Hendrickson catheter Acute urinary tract infection. Present on admission, patient does have increased frequency of urination, urine cultures finalized as Klebsiella with sensitivities Acute endplate fracture at T12 with minimal height loss. Patient denies any fall. Chronic atrial fibrillation on anticoagulation with Eliquis Cardiomyopathy nonischemic. But most recent 2D echo showed ejection fraction 65 to 70% Moderate pulmonary hypertension Severe TR History of CVA/ischemic chest post tPA in 2 thrombectomies in 2019 and also in 2022 with subdural hematoma. Hypothyroidism History of overactive bladder Prior history of smoking GI prophylaxis PPI DVT prophylaxis, on Eliquis Full code Discharge disposition Patient is being discharged in a stable condition with guarded prognosis to home with home care. Patient will follow-up with Dr. Olivas in the outpatient setting upon discharge. Patient is to continue with oral Ceftin on discharge and outpatient follow-up with orthopedics as scheduled. Total time taken is greater than 35 minutes. Hospital course This is a 84-year-old female who was recently admitted with urinary tract infection and also back pain noted to have a T12 fracture being closely monitored. Patient maintained on antibiotics and urine cultures finalized with Klebsiella maintained on ceftriaxone showing clinical improvement and will continue oral Ceftin. Patient was also having some urinary retention requiring indwelling Hendrickson catheter will continue on discharge recommending outpatient follow-up with urology and trial of voiding. Patient with significant back pain noted to have a T12 fracture as evaluated by orthopedics with no plans of surgical intervention at this time recommending LSO brace and conservative management. Patient was able to work with physical therapy this week is extremely anxious and adamant about going home reports her daughter is a nurse and can help take care of her. Patient has home care and physical therapy arranged as well. Patient will be discharged in guarded prognosis with high risk for readmissions given significant comorbidities. PT/OT therapy had evaluated the patient recommending home with home care versus possible ECF. Again patient does not want rehab and family would like to take the patient home. Please refer to other consultation notes for further HPI. Currently no reports of chest pain, shortness of breath, or palpitations. Patient is afebrile. No reports of nausea or vomiting and patient is tolerating diet. Patient will be discharged home today. Physical exam: Gen: This is a 84-year-old female who is awake, alert and oriented x 2-3, well- developed, elderly appearing HEENT: Head is atraumatic, normocephalic. Pupils equal, round. Sclerae is anicteric. NECK: Supple. No JVD. No lymphadenopathy. No thyromegaly. LUNGS: Diminished breath sounds bilaterally otherwise clear to auscultation. No wheezes or rhonchi. No intercostal retractions. HEART: S1, S2 are muffled ABDOMEN: Soft. Bowel sounds are present. No masses. No tenderness. EXTREMITIES: No pedal edema. No calf tenderness. NEUROLOGICAL: Patient is awake, alert and oriented x2-3. Cranial nerves 2 through 12 are grossly intact. Diffusely weak Please refer to medication reconciliation sheet for a list of medications. The impression and plan of care has been dictated by Viky Forde, Nurse Practitioner as directed. Dr. Kevin MD I have performed a history and examination and MDM of this patient, discussed the same with the dictator, and agree with the dictator's assessment and plan as written ,documented as a scribe. Based on total visit time, I have performed more than 50% of the visit. Patient Condition at Discharge: Fair Plan - Discharge Summary Discharge Rx Participant: Yes New Discharge Prescriptions: New polyethylene glycoL 3350 [Miralax] 17 gm PO HS #30 packet Sennosides [Senokot] 8.6 mg PO DAILY PRN #60 tab PRN Reason: Constipation oxyCODONE-APAP 5-325MG [Percocet 5-325 mg] 1 tab PO Q8HR PRN #21 tab PRN Reason: Pain cefuroxime axetiL [Ceftin] 500 mg PO BID 5 Days #10 tab oxyCODONE-APAP 5-325MG [Percocet 5-325 mg] 1 tab PO Q8H PRN 3 Days #12 tab PRN Reason: Pain Acetaminophen Tab [Tylenol] 650 mg PO Q6HR PRN tab PRN Reason: Mild Pain Or Fever > 100.5 Ondansetron Odt [Zofran Odt] 4 mg PO Q8HR PRN #20 tab PRN Reason: Nausea Continue allopurinoL [Zyloprim] 300 mg PO DAILY Atorvastatin [Lipitor] 20 mg PO DAILY oxyBUTYnin chloride [Ditropan] 5 mg PO DAILY Magnesium Chloride [Mag64] 64 mg PO DAILY Levothyroxine Sodium [Synthroid] 88 mcg PO DAILY metOLazone [Zaroxolyn] 2.5 mg PO MOTH SILVER sulfADIAZINE Cream [Silvadene 1% Cream] 1 applic TOPICAL BID Midodrine HCl 2.5 mg PO TID PRN PRN Reason: Blood Pressure - Low Aspirin EC [Ecotrin Low Dose] 81 mg PO DAILY Omeprazole [PriLOSEC] 40 mg PO DAILY Fluticasone/Umeclidin/Vilanter [Trelegy Ellipta 100-62.5-25] 1 puff INHALATION RT-DAILY Empagliflozin [Jardiance] 10 mg PO DAILY Metoprolol Succinate (ER) [Toprol XL] 25 mg PO DAILY #30 tab Potassium Chloride ER [K-Dur 20] 20 meq PO DAILY Furosemide [Lasix] 20 mg PO DAILY Lacosamide [Vimpat] 50 mg PO BID Changed Apixaban [Eliquis] 2.5 mg PO BID #0 Discontinued Propranolol HCl 80 mg PO DAILY Discharge Medication List Atorvastatin [Lipitor] 20 mg PO DAILY 03/23/23 [History] Fluticasone/Umeclidin/Vilanter [Trelegy Ellipta 100-62.5-25] 1 puff INHALATION RT-DAILY 03/23/23 [History] Levothyroxine Sodium [Synthroid] 88 mcg PO DAILY 03/23/23 [History] Magnesium Chloride [Mag64] 64 mg PO DAILY 03/23/23 [History] Omeprazole [PriLOSEC] 40 mg PO DAILY 03/23/23 [History] allopurinoL [Zyloprim] 300 mg PO DAILY 03/23/23 [History] oxyBUTYnin chloride [Ditropan] 5 mg PO DAILY 03/23/23 [History] Empagliflozin [Jardiance] 10 mg PO DAILY 01/19/25 [History] Metoprolol Succinate (ER) [Toprol XL] 25 mg PO DAILY #30 tab 01/29/25 [Rx] Aspirin EC [Ecotrin Low Dose] 81 mg PO DAILY 03/12/25 [History] Furosemide [Lasix] 20 mg PO DAILY 03/12/25 [History] Lacosamide [Vimpat] 50 mg PO BID 03/12/25 [History] Midodrine HCl 2.5 mg PO TID PRN 03/12/25 [History] Potassium Chloride ER [K-Dur 20] 20 meq PO DAILY 03/12/25 [History] SILVER sulfADIAZINE Cream [Silvadene 1% Cream] 1 applic TOPICAL BID 03/12/25 [History] metOLazone [Zaroxolyn] 2.5 mg PO MOTH 03/12/25 [History] Acetaminophen Tab [Tylenol] 650 mg PO Q6HR PRN tab 03/16/25 [Rx] Apixaban [Eliquis] 2.5 mg PO BID #0 03/16/25 [Rx] Ondansetron Odt [Zofran Odt] 4 mg PO Q8HR PRN #20 tab 03/16/25 [Rx] Sennosides [Senokot] 8.6 mg PO DAILY PRN #60 tab 03/16/25 [Rx] cefuroxime axetiL [Ceftin] 500 mg PO BID 5 Days #10 tab 03/16/25 [Rx] oxyCODONE-APAP 5-325MG [Percocet 5-325 mg] 1 tab PO Q8H PRN 3 Days #12 tab 03/16/25 [Rx] oxyCODONE-APAP 5-325MG [Percocet 5-325 mg] 1 tab PO Q8HR PRN #21 tab 03/16/25 [Rx] polyethylene glycoL 3350 [Miralax] 17 gm PO HS #30 packet 03/16/25 [Rx] Follow up Appointment(s)/Referral(s): Hair Olivas MD [Primary Care Provider] - 03/21/25 10:45 am (appt with [facility]. Please bring all discharge paperwork and medication list to the appointment.) Jeremi Urrutia PAC [PHYSICIAN ACTIVITY AID] - 03/26/25 2:15 pm (Patient may follow-up with Jeremi Urrutia PA-C or Dr. Dirk Arreola at [facility] in 2-3 weeks following discharge. ) [facility] Visiting Nurse, [NON-STAFF] - 1 Week Activity/Diet/Wound Care/Special Instructions: 1. Patient may wear TLSO brace for comfort and support while sitting upright at greater than 45, while working with therapy, and while ambulating; patient does not have to wear the brace while lying in bed or bathing 2. Patient should avoid excessive bending, twisting, and lifting; no lifting greater than 10 pounds Discharge Disposition: HOME WITH HOME HEALTH SERVICES
== END 2025-03-16 16:14 | disposition home health service (06) ==
LOC: EC 00:49 → 5NMEDONC 05:17 → INTOOBSV 05:18 → OBSVTOIN 05:18 → 5NMEDONC 06:08
PROVIDERS: ADMIT Hospitalist; ATTEND Hospitalist
DX: N39.0 Urinary tract infection, site not specified (principal); M48.54XA Collapsed vertebra, not elsewhere classified, thoracic region, initial encounter for fracture; B96.1 Klebsiella pneumoniae [K. pneumoniae] as the cause of diseases classified elsewhere; I27.20 Pulmonary hypertension, unspecified; E03.9 Hypothyroidism, unspecified; I10 Essential (primary) hypertension; M25.78 Osteophyte, vertebrae; M51.379 Other intervertebral disc degeneration, lumbosacral region without mention of lumbar back pain or lower extremity pain; E78.5 Hyperlipidemia, unspecified; M43.16 Spondylolisthesis, lumbar region; I07.1 Rheumatic tricuspid insufficiency; I42.8 Other cardiomyopathies; I48.20 Chronic atrial fibrillation, unspecified; N32.81 Overactive bladder; R33.9 Retention of urine, unspecified; R26.2 Difficulty in walking, not elsewhere classified; Z79.01 Long term (current) use of anticoagulants; Z79.82 Long term (current) use of aspirin; Z79.84 Long term (current) use of oral hypoglycemic drugs; Z79.51 Long term (current) use of inhaled steroids; Z79.890 Hormone replacement therapy; Z79.899 Other long term (current) drug therapy; Z88.0 Allergy status to penicillin; Z88.2 Allergy status to sulfonamides; Z91.048 Other nonmedicinal substance allergy status; Z86.73 Personal history of transient ischemic attack (TIA), and cerebral infarction without residual deficits; Z87.440 Personal history of urinary (tract) infections; Z87.891 Personal history of nicotine dependence; Z91.81 History of falling; Z87.81 Personal history of (healed) traumatic fracture
CPT/HCPCS: 36415; 74176; 80048; 80053; 81001; 83735; 85025; 87040; 87077; 87086; 87186; 94640; 96365; 96366; 96375; 96376; 99285